=== PATIENT | male | born 1940 | race Caucasian/White ===

== ENCOUNTER 2017-07-07 14:23 | Inpatient (IN) | payer MEDICARE, OTHER, SELFPAY ==
[2017-07-07 14:37] VITALS: BP 108/63; PULSE 97; RESP 18; TEMP 36.4; O2SAT 96; BMI 36.3; BMI 36.4
--- NOTE | 2017-07-07 14:53 | HP.PCM.COS_ITS ---
Addendum entered and electronically signed by Demario Pretty MD 16:59: Code Visit I have personally examined the patient at bedside. Please see WELL LOGGING MUD ANALYSIS CAPTAIN Evelyn Cuenca's note as below for further complete details. I have discussed the management plan for the patient in detail with WELL LOGGING MUD ANALYSIS CAPTAIN Evelyn Cuenca and please see the plan as noted below, 77 CM with PMH HTN, HLD, DM, CAD admitted to [facility] with debility post laminectomy for > 3 hrs therapy daily with a goal of returning back to her home at or near his prior level of functional independence, surgery done on 07/05/[address] Liao at [facility], PT/OT, GI/DVT prophylaxis, fall precautions. Further medical management per hospitalist recommendations. Inpatient E&M: 26092 Init Hosp L3 Original Note: History of Present Illness Date of Admission: 07/07/17 Chief Complaint: Laminectomy The patient is a 77 year old right handed Male, who was admitted to the rehab unit for rehabilitation after undergoing a Laminectomy and revision of L3 -L4, microdiscectomy, and fusion on 07/05/17 at [facility] with Dr. Greg liao, with no complications during or following surgery. Currently he is WBAT with Walker, his incision site has 18 dillan is well approximated, with no drainage is noted, and minimal swelling to the area. He has a past medical history of Diabetes Type II, he is on an oral agents, HPL, HTN, CAD, GERD, Sleep Apnea, not on CPAP (patient refused), DVTs on anticoag therapy which was held prior to the surgery and may be restarted 5 days post surgery which will be on July 11. He lives with his in a one story home with one step to get into the house, and one step to go from the living room to the kitchen. 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 He was using a cane days before the surgery due to increase in pain and discomfort of standing and walking short distances. He is admitted to the rehab unit in order to restore her previous level of functional independence. Past Medical History Allergies No Known Allergies Allergy (Verified 07/29/15 13:42) Home Medications: Ambulatory Orders Medication Instructions Recorded Atorvastatin Calcium [Lipitor] 20 mg PO DAILY 07/29/15 Hydrochlorothiazide [Hctz] 12.5 mg PO DAILY 07/29/15 Lisinopril [Zestril] 20 mg PO DAILY 07/29/15 Acetaminophen [Tylenol Extra 500 mg PO Q4H PRN PRN 07/07/17 Strength] Metformin(XR) [Glucophage Xr] 500 mg PO DAILY 07/07/17 Oxycodone [Oxyir] 5 mg PO Q6H PRN PRN 07/07/17 Rivaroxaban [Xarelto] 20 mg PO DAILY 07/07/17 Surgical History: total hip arthroplasty - Left in 1994, Right x 2 in 1990, & 2000, - - Lumbar spine x 2 in 2005, & 2008 Psychiatric History: No pertinent psych hx Lives: Spouse/ Significant Other Smoking Status: Former smoker Tobacco Use: Pipe - for 20 years, quit 6 years ago Alcohol: None Drugs: None - *Family History Maternal History Items: Heart Disease - age 73 Sibling History Items: Heart Disease - age 53 Review of Systems Constitutional: Denies: Chills, Fever, Weight Change HEENT: Denies: Head Aches, Sinus Congestion, Sinus Drainage Cardiovascular: Denies: Chest Pain, Palpitations Respiratory: Denies: Cough, Shortness of breath at rest, Sputum production Gastrointestinal: Denies: Abdominal Pain, Nausea, Vomiting Genitourinary: Denies: Dysuria Musculoskeletal: Denies: Joint Pain, Joint Tenderness Skin: Denies: Rash, Wounds Neurological: Denies: Numbness, Tingling, Focal weakness Psychiatric: Denies: Anxiety, Depression, Homicidal Ideations, Suicidal Ideations Hematologic/ Lymphatic: Denies: Easy Bruising, Easy Bleeding VTE Information - Inpt Only VTE Present on Admission: No VTE Mechan Device Prophylaxis: SCD's, Knee High JED Hose VTE Pharm Prophylaxis ordered?: Yes - Physical Exam General: Alert, Oriented x3, Cooperative HEENT: Atraumatic, PERRLA, EOMI, Normocephalic Neck: Supple, No JVD, Negative Carotid Bruits Lungs: Clear to auscultation, Normal air movement Cardiovascular: Regular rate, No murmurs Abdomen: Bowel Sounds Present, Soft, Non Tender Extremities: No edema, Capillary Refill Less than 3 Seconds Skin: No rashes, No breakdown Musculoskeletal: No Tenderness to Palpation of Joints or Extremities Neurological: Cranial nerves II-XII grossly intact Psych/Mental Status: Normal Affect, Appropriate, Alert and oriented to time, place, person, mood and affect Vital Signs Temp Pulse Resp BP Pulse Ox 97.6 F L 97 18 108/63 96 07/07/17 14:37 07/07/17 14:37 07/07/17 14:37 07/07/17 14:37 07/07/17 14:37 Oxygen Delivery Method Room Air Weight: 111.8 kg Body Mass Index (BMI) 36.3 Active Medications Acetaminophen (Tylenol) 500 mg PO Q4H PRN PRN PRN Reason: PAIN Atorvastatin Calcium (Lipitor) 20 mg PO DAILY [facility] Bisacodyl (Dulcolax) 10 mg RECTAL .PRN X 1 PRN PRN Reason: Constipation Fentanyl (Duragesic Patch) 25 mcg TRANSDERM. Q3D [facility] Hydrochlorothiazide (Hydrochlorothiazide) 12.5 mg PO DAILY [facility] Insulin Aspart (Novolog Flexpen (Bkc)) 0 units SC ACHS [facility] PRN Reason: Protocol Lisinopril (Zestril) 20 mg PO DAILY [facility] Lorazepam (Ativan) 0.5 mg PO QHS PRN PRN PRN Reason: Insomnia Magnesium Hydroxide (Milk Of Magnesia) 30 ml PO .PRN X 1 PRN PRN Reason: Constipation Metformin HCl (Glucophage Xr) 500 mg PO DAILYCM [facility] Oxycodone HCl (Oxyir) 5 mg PO Q6H PRN PRN PRN Reason: PAIN Polyethylene Glycol (Miralax) 17 gm PO DAILY PRN PRN PRN Reason: Constipation Rivaroxaban (Xarelto) 20 mg PO DAILY [facility] Senna/Docusate Sodium (Senokot-S, Kavitha-Colace) 2 tablet PO BID [facility] Assessment/Plan Debility status post Laminectomy with revision of L 3- L4, Microdiscectomy, and fusion. Goal of rehab is mormon of prior level of functional independence. Plan: - Physical therapy for gait and balance - Occupational Therapy for ADLs - DVT prophylaxis -> SCDs, Jed sam, will restart his home dose of Eliquis on July 11, per surgeon's request. - Bowel protocol - As needed analgesics - Lumbar incision -> C/D/I with 18 dillan, no drainage noted, has ABD pad to site - Hx of DM II -> check A1c, check BS ACHS, continue home dose of Metformin, and start mild S/S scale - Hx of HTN => continue home medication - Hx HPL => continue home dose of Statin - Hx of Thrombo-embolism of lower extremity -> on Eliquis prior to surgery on hold now will restart on July 11 - Obesity -> BMI 36.3, recommend weight loss
--- NOTE | 2017-07-07 15:38 | REHABEVAL_ITS ---
Admission Information Status Changes from Prescreening?: No changes Identified Actual Problem List:: DVT, Mobility Impaired, Self Care Deficit, Diabetes, Hyperglycemia, BP, Hypertension Potential Problem List:: DVT, Bleeding, Infection, UTI, Aspiration, Falls, Skin Integrity, Depression Risk of Complications DVT: LMWH, JED Hose, Sequential Compression Device Bleeding: Monitor Lab Values, Nursing to Teach Precautions for anti-coagulation therapy., Wound, if applicable, to be assessed every shift., Stroke patients assessed for lethargy or change in status. Infection: Clinical Staff to Monitor for S/S of infection:, S/S of infection include fever, redness, warmth, etc. Urinary Tract Infection: Monitor for frequency, burning, discomfort, or incontinence., Nursing will obtain urine sample for urinalysis and C&S when ordered. Aspiration: Clinical staff will monitor for coughing, drooling, congestion., Speech will evaluate swallowing and dsyphasia., Nursing will monitor patient swallowing during meals. Falls: Patient will be evaluated for Fall Precautions, Patient will be placed on Fall Precautions as indicated per protocol. Skin Breakdown: Nursing will assess skin daily using assessment tool., Nursing will place on Skin Breakdown Precautions as indicated. Pain: Clinical staff will assess patient's pain level per protocol., Medications will be given, if needed, and the pain level reassessed., Other methods: Massage, distraction, decrease stimulus, etc. used PRN. Plan of Care Patient requires physician specializing in physical medicine and rehab oversight to provide close medical supervision of rehab issues including: Pain Management, Sleep Problems, Bowel and Bladder, Medical and co-morbidity Management, DVT prophylaxis, Rehabilitation Leadership, Coordination of treatment team Patient needs Physical Therapy: For a minimum of 1 hour, At least 5 out of 7 days Patient needs Physical Therapy to improve:: Mobility, Mobility, Mobility, Strengthening, Transfers, Stretching, ROM, Endurance, Stairs, Gait, Balance Patient needs Occupational Therapy: For a minimum of 1 hour, At least 5 out of 7 days Patient needs Occupational Therapy to improve ADL's incl.: Eating, Grooming, Bathing, Dressing, Toileting, Toilet transfers, Community Reintegration, Higher functioning activities, Household tasks, Adaptive Equipment, Splinting, Other activities as determined Patient requires 24/7 Rehabilitation Nursing for: Pain Issues, Identifying and preventing risk factors, Monitoring and reporting current medical conditions, Assisting with ambulation, transfer, and all ADL's, Teaching patients about disease process and medications, Family teaching, Providing safe environment, Bowel and Bladder Issues, Skin integrity, Medication Management Patient needs Children'S Choir Director/ Case Management for: Discharge Planning, Arranging Home Equipment or Services, Family Interventions Patient needs Dietary and Nutrition Services for: Adequate Nutrition, Nutritional Supplements, Nutritional Education Goals Patient will remain: free from falls, or injury at time of discharge. Patient will perform bed mobility at: MOD I level of assist. Patient will complete transfers from bed to chair at: MOD I level of assist. Patient will ambulate: 100 feet, with MOD I assist, with LRD Patient will complete upper body dressing at: MOD I level of assist. Patient will complete lower body dressing at: MOD I level of assist. Patient will complete toileting at: MOD I level of assist. Patient will perform bathing at: MOD I level of assist. Patient will complete grooming at: MOD I level of assist. Patient will complete home management skills at: MOD I level of assist. Patient will achieve: 12 stairs, at MOD I assist Patient will have pain level of: of 3 or less Patient's skin will: remain intact, free from infection. Patient will receive: adequate nutrition. Discharge Planning Pt Prognosis for Sig. Practical Improv. w/in Reasonable Time: Good Estimated Length of stay (days): 14 Anticipated D/C Destination: Home Was Preadmission Assessment Accurate?: Yes
--- NOTE | 2017-07-07 17:06 | PCM.PROGNOTE ---
Subjective: Patient seen and examined. Recently ambulated in hallway without difficulty. States pain is fairly controlled at this time. Denies GI/ complaints. Denies other current complaints. - Physical Exam General: Alert, Oriented x3, Cooperative HEENT: Atraumatic, PERRLA, EOMI, Normocephalic Neck: Supple, No JVD, Negative Carotid Bruits Lungs: Clear to auscultation, Normal air movement Cardiovascular: Regular rate, Regular Rhythm, Normal S1, Normal S2, No murmurs Abdomen: Bowel Sounds Present, Soft, Non Tender, Non-Distended, Obese Extremities: No clubbing, No cyanosis, No edema, Capillary Refill Less than 3 Seconds Skin: No rashes, No breakdown, - - Postop dressing dry and intact. Musculoskeletal: No Tenderness to Palpation of Joints or Extremities Neurological: Cranial nerves II-XII grossly intact, Neuro grossly intact Psych/Mental Status: Normal Affect, Appropriate Vital Signs Temp Pulse Resp BP Pulse Ox 97.6 F L 97 18 108/63 96 07/07/17 14:37 07/07/17 14:37 07/07/17 14:37 07/07/17 14:37 07/07/17 14:37 Oxygen Delivery Method Room Air Weight: 111.8 kg Body Mass Index (BMI) 36.3 Medical Necessity - Tobacco Use Smoking Status: Former smoker Tobacco Use: Pipe - for 20 years, quit 6 years ago Assessment/Plan Patient is a 77-year-old male admitted to rehab unit 07/07/2017 following recent laminectomy with revision of L3 through L4, microdiscectomy, and fusion on 07/05/2017 at [facility] with Dr. Wolfgang Liao. Patient has a past medical history of type 2 diabetes mellitus, CAD, GERD, history of DVT, obstructive sleep apnea with noncompliance with CPAP, hyperlipidemia, hypertension. 1. Physical debility status post recent laminectomy as noted above-PT/OT. Lumbar incision clean dry and intact. Continue as needed pain regimen and bowel protocol. 2. Type 2 diabetes mellitus-hemoglobin A1c pending. Continue home metformin regimen. Accu-Cheks before meals at bedtime with sliding scale insulin. If patient's hemoglobin A1c shows good control, may discontinue Accu-Cheks and sliding scale insulin. 3. CAD-continue statin. Resume Xarelto 07/11/17. 4. History of DVT-on chronic anticoagulation with Xarelto which will resume on July 11. 5. Obstructive sleep apnea-noncompliant with CPAP. 6. Hypertension-stable, continue home HCTZ, lisinopril. 7. Hyperlipidemia-continue statin. 8. GERD-not on home regimen. 9. Obesity-encouraged diet and lifestyle modifications. DVT prophylaxis-SCDs, resume Xarelto July 11. This patient was seen by SYLVIA Villanueva under the supervision of Dr. Lott.
[2017-07-07 18:20] LABS: Bedside Glucose 181 mg/dL (70-110)
[2017-07-07] MEDS: fentaNYL 25 MCG Patch TRANSDERM. (18:22)
[2017-07-07 19:30] VITALS: BP 113/59; PULSE 95; RESP 18; TEMP 36.8; O2SAT 95
[2017-07-07] MEDS: Senna/Docusate Sodium 1 Tablet 2 TABLET PO (20:00)
[2017-07-07] MEDS: oxyCODONE 5 MG Tablet PO (20:00)
[2017-07-07] MEDS: LORazepam 0.5 MG Tablet PO (22:29)
[2017-07-07 22:31] LABS: Bedside Glucose 151 mg/dL (70-110)
[2017-07-07] MEDS: Acetaminophen 500 MG Tablet PO (22:35)
[2017-07-08 05:39] LABS: Hematocrit 30.7 % (40-54); Hemoglobin 10.3 g/dl (13.0-16.5); Mean Corp Hgb Conc 33.6 g/gl (32-36); Mean Corpuscular Hgb 32.9 pg (27.0-32.0); Mean Corpuscular Volume 98.1 fL (80-94); Mean Platelet Vol. 9.2 fl (6.2-12.0); Platelet Count 148 K/mm3 (150-450); RBC Distribution Width CV 13.3 % (11.6-14.6); RBC Distribution Width SD 47.2 fl (35.1-43.9); Red Blood Count 3.13 M/mm3 (4.6-6.2); White Blood Count 6.2 K/mm3 (4.4-11.0)
[2017-07-08 05:46] LABS: Scan Indicated on CBC? Y/N NO
[2017-07-08 06:01] LABS: ALB/GLOB Ratio 0.8 RATIO (0.9-2.4); AST(SGOT) 30 U/L (15-37); Alanine Aminotransfer ALT/SGPT 25 U/L (16-61); Albumin, Serum 2.6 g/dL (3.2-5.0); Alkaline Phosphatase 64 U/L (45-117); Anion Gap 8 (5-15); BUN 21 mg/dL (7-18); BUN/Creat Ratio 17.6 RATIO (10-20); Calcium,Total 8.5 mg/dL (8.5-10.1); Chloride 103 mmol/L (98-107); Creatinine, Serum 1.19 mg/dL (0.70-1.30); EST Glomerular Filtration Rate 63 mL/min (>60); Est Glom Filt Rate - Afr Amer 77 mL/min (>60); Estimated Creatinine Clearance 53.64 ml/min; Globulin 3.2 g/dL (2.2-4.2); Glucose 138 mg/dL (74-106); Magnesium 1.7 mg/dL (1.6-2.6); Phosphorus 3.1 mg/dL (2.5-4.9); Protein, Total 5.8 g/dL (6.4-8.2); Sodium Level 138 mmol/L (136-145)
[2017-07-08 06:32] VITALS: O2SAT 96
[2017-07-08 07:06] LABS: Bedside Glucose 144 mg/dL (70-110)
[2017-07-08 07:19] LABS: Hemoglobin A1c 7.4 % (4.2-6.3)
[2017-07-08 09:02] VITALS: BP 103/62; PULSE 92; RESP 18; TEMP 36.6; O2SAT 92
[2017-07-08] MEDS: oxyCODONE 5 MG Tablet PO ×3 (09:08→23:57)
[2017-07-08] MEDS: Atorvastatin Calcium 20 MG Tablet PO (09:09)
[2017-07-08] MEDS: Senna/Docusate Sodium 1 Tablet 2 TABLET PO ×2 (09:09→22:00)
[2017-07-08] MEDS: Polyethylene Glycol 3350 17 GM PACKET PO (09:09)
[2017-07-08 10:39] VITALS: BP 123/64
[2017-07-08] MEDS: HYDROCHLOROTHIAZIDE 12.5 MG CAPSULE PO (11:27)
[2017-07-08] MEDS: Lisinopril 20 MG Tablet PO (11:27)
[2017-07-08 11:36] LABS: Bedside Glucose 194 mg/dL (70-110)
--- NOTE | 2017-07-08 17:13 | PCM.PROGNOTE ---
Subjective: Patient was seen and examined today in the rehab unit, he has some complaints of back pain but otherwise he states he is doing well. Patient's blood sugars have been under 200. - Physical Exam General: Alert, Oriented x3, Cooperative, No apparent distress HEENT: Atraumatic, PERRLA, EOMI, Normocephalic Oral: Moist Mucosa Neck: Supple, No JVD, No Nuchal Rigidity, Trachea Midline, Thyroid Normal Size and Texture Lungs: Clear to auscultation, Normal air movement, No rhonchi, No wheeze, No rales Cardiovascular: Regular rate, Regular Rhythm, Normal S1, Normal S2, No murmurs, No Ectopic Activity Abdomen: Bowel Sounds Present, Soft, Non Tender, Non-Distended, No hernias noted Extremities: No clubbing, No cyanosis, Capillary Refill Less than 3 Seconds Skin: No rashes, No breakdown Musculoskeletal: No Tenderness to Palpation of Joints or Extremities Neurological: Cranial nerves II-XII grossly intact, Neuro grossly intact, Sensory exam intact to light touch and pain, Coordination normal Psych/Mental Status: Normal Affect, Appropriate, Alert and oriented to time, place, person, mood and affect Vital Signs Temp Pulse Resp BP Pulse Ox 97.8 F 92 18 123/64 H 92 07/08/17 09:02 07/08/17 09:02 07/08/17 09:02 07/08/17 10:39 07/08/17 09:02 Oxygen Delivery Method Room Air Weight: 111.8 kg Body Mass Index (BMI) 36.3 Intake and Output for Last 24 Hours 07/06/17 07/07/17 07/08/17 23:59 23:59 23:59 Intake Total 240 / 240 480 / 480 Balance 240 / 240 480 / 480 Laboratory Tests Past 24 Hrs 07/08/17 07/08/17 07/08/17 05:18 05:18 05:18 WBC 6.2 RBC 3.13 L Hgb 10.3 L Hct 30.7 L MCV 98.1 H MCH 32.9 H MCHC 33.6 RDW 13.3 RDW Differential 47.2 H Plt Count 148 L MPV 9.2 Sodium 138 Potassium 4.0 Chloride 103 Carbon Dioxide 27.0 Anion Gap 8 BUN 21 H Creatinine 1.19 Estim Creat Clear Calc 53.64 Est GFR (MDRD) Af Amer 77 Est GFR (MDRD) Non-Af 63 BUN/Creatinine Ratio 17.6 Glucose 138 H Hemoglobin A1c 7.4 H Calcium 8.5 Phosphorus 3.1 Magnesium 1.7 Total Bilirubin 0.80 AST 30 ALT 25 Alkaline Phosphatase 64 Total Protein 5.8 L Albumin 2.6 L Globulin 3.2 Albumin/Globulin Ratio 0.8 L POC Glucose 07/08/17 07/08/17 07/07/17 11:28 07:01 22:25 POC Glucose 194 H 144 H 151 H 07/07/17 18:14 POC Glucose 181 H Medical Necessity - Tobacco Use Smoking Status: Former smoker Tobacco Use: Pipe Assessment/Plan #1 type 2 diabetes-patient will continue on his present medication #2 coronary artery disease-stable #3 history of DVT-patient is due to resume his Xarelto in a few days #4 hypertension #5 GERD #6 obstructive sleep apnea #7 status post laminectomy L3-L4 with fusion -continue PT OT Code Visit Inpatient E&M: 87007 Subs Hosp L2
[2017-07-08 17:15] LABS: Bedside Glucose 162 mg/dL (70-110)
[2017-07-08 19:14] VITALS: BP 98/57; PULSE 97; RESP 20; TEMP 36.8; O2SAT 97
[2017-07-08 21:46] LABS: Bedside Glucose 172 mg/dL (70-110)
[2017-07-08] MEDS: LORazepam 0.5 MG Tablet PO (23:17)
[2017-07-09 06:35] LABS: Bedside Glucose 131 mg/dL (70-110)
[2017-07-09] MEDS: Acetaminophen 500 MG Tablet PO (06:37)
[2017-07-09 07:38] VITALS: BP 129/70; PULSE 64; RESP 18; TEMP 36.3; O2SAT 96
[2017-07-09] MEDS: HYDROCHLOROTHIAZIDE 12.5 MG CAPSULE PO (08:55)
[2017-07-09] MEDS: Magnesium Hydroxide 30 ML UDC PO (08:55)
[2017-07-09] MEDS: Senna/Docusate Sodium 1 Tablet 2 TABLET PO ×2 (08:55→22:12)
[2017-07-09] MEDS: Lisinopril 20 MG Tablet PO (08:55)
[2017-07-09] MEDS: Atorvastatin Calcium 20 MG Tablet PO (08:57)
[2017-07-09 11:21] LABS: Bedside Glucose 182 mg/dL (70-110)
[2017-07-09 16:32] VITALS: O2SAT 95
[2017-07-09 17:41] LABS: Bedside Glucose 189 mg/dL (70-110)
[2017-07-09] MEDS: oxyCODONE 5 MG Tablet PO (21:02)
[2017-07-09 21:05] VITALS: BP 126/66; PULSE 84; RESP 18; TEMP 36.8; O2SAT 99
[2017-07-09 21:21] LABS: Bedside Glucose 221 mg/dL (70-110)
[2017-07-09] MEDS: LORazepam 0.5 MG Tablet PO (22:13)
[2017-07-09 22:26] LABS: Bedside Glucose 211 mg/dL (70-110)
[2017-07-10] MEDS: oxyCODONE 5 MG Tablet PO (06:29)
[2017-07-10 06:35] LABS: Bedside Glucose 144 mg/dL (70-110)
[2017-07-10 08:13] VITALS: BP 95/64; PULSE 88; RESP 18; TEMP 36.6; O2SAT 98
[2017-07-10] MEDS: Senna/Docusate Sodium 1 Tablet 2 TABLET PO ×2 (08:15→21:06)
[2017-07-10] MEDS: Atorvastatin Calcium 20 MG Tablet PO (08:15)
[2017-07-10] MEDS: Acetaminophen 500 MG Tablet PO (08:54)
[2017-07-10 10:03] VITALS: BP 113/78; PULSE 98
--- NOTE | 2017-07-10 10:08 | VDLE_ITS ---
Reason For Study: LEG PAIN RIGHT LEFT GSV is normal. GSV is normal. CFV is compressible, spontaneous, phasic, CFV is compressible, spontaneous, phasic, competent and demonstrates normal competent, and demonstrates normal augmentation. augmentation. FV, POP V, and T/P trunk are partially FV is compressible, spontaneous, phasic, compressible with bright intraluminal echoes competent and demonstrates normal consistant with chronic clot. augmentation. PTV is compressible. POP V and T/P trunk are dilated and non- RT PerV is compressible. compressible with mixed intraluminal echoes. Procedure Possible acute on chronic clot. Exam performed portable in patient room. PTV is compressible A preliminary report was called and/or faxed PER V is compressible to RU nurse. GSV is compressible in thigh GSV is dilated and non-compressible in calf. Interpretation Summary Deep venous thrombosis right femoral, popliteal, and tibioperoneal trunk with findings consistent with chronic thrombus. Dilated left popliteal and tibioperoneal trunk consistent with acute deep venous thrombosis, however, echoes are present suggesting a chronic component as well. Patent and compressible right great saphenous vein Superficial thrombophlebitis left calf great saphenous vein. Ordering Physician: Carl Celaya Referring Physician: Michelle Pretty Performed By: Margi Velasco RVT
[2017-07-10] MEDS: HYDROCHLOROTHIAZIDE 12.5 MG CAPSULE PO (10:20)
[2017-07-10] MEDS: Lisinopril 20 MG Tablet PO (10:20)
[2017-07-10 11:45] LABS: Bedside Glucose 158 mg/dL (70-110)
[2017-07-10] MEDS: Acetaminophen 500 MG Tablet 1000 MG PO ×2 (14:00→21:06)
--- NOTE | 2017-07-10 15:44 | CHAPLAIN ---
Type of Pastoral Visit _x__ Initial Visit ___ Follow-up Visit ___ On-call Visit ___ General Patient Visit ___ Spiritual Assessment ___ Family Conference ___ Bereavement ___ Rapid Response ___ Code Blue ___ Other (describe below) Pastoral Care Referral From _x__ Patient ___ Family ___ Nurse ___ Physician ___ [place] Floor ___ Mixer And Blender ___ Other (describe below) Sacrament/Intervention _x__ Active listening ___ Anointing ___ Yarsani ___ Bereavement ___ Communion ___ Judi exploration ___ ___ Life review _x__ Prayer ___ Reconciliation ___ Sacrament of Sick _x__ Supportive presence ___ Wedding ___ Other (describe below) Pastoral Comments
[2017-07-10 16:05] LABS: Bedside Glucose 145 mg/dL (70-110)
[2017-07-10] MEDS: fentaNYL 25 MCG Patch TRANSDERM. (16:27)
--- NOTE | 2017-07-10 16:33 | NURSING ---
when removing duragesic patch and replacing with new one per order, pt states he threw it in the trash and did not realize he needed to keep it on, verified with Tiera Fermin RN and pt. Education provided with pt that patch is only to be removed by nurse when it has to be replaced, voiced understanding.
--- NOTE | 2017-07-10 16:45 | NURSING ---
deep PIPE THREADING MACHINE OPERATOR aware of duplex results, new order to start his previous dose of xeralto 20 mg at hs ok per surgeon to start 5 days post op.
--- NOTE | 2017-07-10 17:06 | PN.NEURO_ITS ---
Subjective: Patient seen and examined. No new complaints.Tolerating therapy. Will re- start his Xarelto, this evening, was held x 5 days post laminectomy per the Neurosurgeon. Has a history of Left DVT. Denies any shortness of breath or chest pain. No issues with GI/. - Physical Exam General: Alert, Oriented x3, Cooperative HEENT: Atraumatic, PERRLA, EOMI, Normocephalic Neck: Supple, No JVD, Negative Carotid Bruits Lungs: Clear to auscultation, Normal air movement Cardiovascular: Regular rate, No murmurs Abdomen: Bowel Sounds Present, Soft, Non Tender Extremities: No edema, Capillary Refill Less than 3 Seconds Skin: No rashes, No breakdown Musculoskeletal: No Tenderness to Palpation of Joints or Extremities Neurological: Cranial nerves II-XII grossly intact Psych/Mental Status: Normal Affect, Appropriate, Alert and oriented to time, place, person, mood and affect Vital Signs Temp Pulse Resp BP Pulse Ox 97.8 F 98 18 113/78 98 07/10/17 08:13 07/10/17 10:03 07/10/17 08:13 07/10/17 10:03 07/10/17 08:13 Oxygen Delivery Method Room Air Weight: 111.8 kg Body Mass Index (BMI) 36.3 Intake and Output for Last 24 Hours 07/08/17 07/09/17 07/10/17 23:59 23:59 23:59 Intake Total 480 / 480 640 / 640 240 / 240 Output Total 525 / 525 300 / 300 Balance 480 / 480 115 / 115 -60 / -60 POC Glucose 07/10/17 07/10/17 07/10/17 16:02 11:40 06:32 POC Glucose 145 H 158 H 144 H 07/09/17 07/09/17 07/09/17 22:11 21:17 16:28 POC Glucose 211 H 221 H 189 H Active Medications Acetaminophen (Tylenol) 1,000 mg PO TID [facility] Last Admin: 07/10/17 14:00 Dose: 1,000 mg Atorvastatin Calcium (Lipitor) 20 mg PO DAILY [facility] Last Admin: 07/10/17 08:15 Dose: 20 mg Bisacodyl (Dulcolax) 10 mg RECTAL .PRN X 1 PRN PRN Reason: Constipation Fentanyl (Duragesic Patch) 25 mcg TRANSDERM. Q3D [facility] Last Admin: 07/10/17 16:27 Dose: 25 mcg Hydrochlorothiazide (Hydrochlorothiazide) 12.5 mg PO DAILY [facility] Last Admin: 07/10/17 10:20 Dose: 12.5 mg Insulin Aspart (Novolog Flexpen (Bkc)) 0 units SC ACHS [facility] PRN Reason: Protocol Last Admin: 07/10/17 16:05 Dose: Not Given Lisinopril (Zestril) 20 mg PO DAILY [facility] Last Admin: 07/10/17 10:20 Dose: 20 mg Lorazepam (Ativan) 0.5 mg PO QHS PRN PRN PRN Reason: Insomnia Last Admin: 07/09/17 22:13 Dose: 0.5 mg Magnesium Hydroxide (Milk Of Magnesia) 30 ml PO .PRN X 1 PRN PRN Reason: Constipation Last Admin: 07/09/17 08:55 Dose: 30 ml [facility] ([facility]) [facility] Last Admin: 07/10/17 08:15 Dose: 500 mg Oxycodone HCl (Oxyir) 5 mg PO Q6H PRN PRN PRN Reason: PAIN Last Admin: 07/10/17 06:29 Dose: 5 mg Polyethylene Glycol (Miralax) 17 gm PO DAILY PRN PRN PRN Reason: Constipation Last Admin: 07/08/17 09:09 Dose: 17 gm Rivaroxaban (Xarelto) 20 mg PO DAILY@2200 [facility] Senna/Docusate Sodium (Senokot-S, Kavitha-Colace) 2 tablet PO BID [facility] Last Admin: 07/10/17 08:15 Dose: 2 tablet Medical Necessity - Tobacco Use Smoking Status: Former smoker Tobacco Use: Pipe Assessment/Plan Debility status post Laminectomy with revision of L 3- L4, Microdiscectomy, and fusion. Goal of rehab is hoahaoism of prior level of functional independence. Plan: - Physical therapy for gait and balance - Occupational Therapy for ADLs - DVT prophylaxis -> SCDs, Miguel Ángel sam, will restart his home dose of Eliquis on July 11, per surgeon's request. - Bowel protocol - As needed analgesics - Lumbar incision -> C/D/I with 18 dillan, no drainage noted, has ABD pad to site - Hx of DM II -> check A1c, check BS ACHS, continue home dose of Metformin, and start mild S/S scale - Hx of HTN => continue home medication - Hx HPL => continue home dose of Statin - Hx of Thrombo-embolism of lower extremity -> on Xarelto prior to surgery on hold now will restart on 07/10 at [facility] - Obesity -> BMI 36.3, recommend weight loss - B/L lower extremity Doppler, shows chronic left DVT, was on Xarelto prior to Laminectomy will restart tonight 07/10.
--- NOTE | 2017-07-10 17:12 | PN_ITS ---
Subjective: some back pain, but tolerable. some itching at the surgical site. Vitals/I&O's: Vital Signs Temp Pulse Resp BP Pulse Ox 36.6 C 98 18 113/78 98 07/10/17 08:13 07/10/17 10:03 07/10/17 08:13 07/10/17 10:03 07/10/17 08:13 Oxygen Delivery Method Room Air Weight: 111.8 kg Body Mass Index (BMI) 36.3 Intake and Output for Last 24 Hours 07/08/17 07/09/17 07/10/17 23:59 23:59 23:59 Intake Total 480 / 480 640 / 640 240 / 240 Output Total 525 / 525 300 / 300 Balance 480 / 480 115 / 115 -60 / -60 General: Alert, No apparent distress HEENT: Atraumatic, Normocephalic Laboratory Results 07/09/17 16:28: POC Glucose 189 H 07/09/17 21:17: POC Glucose 221 H 07/09/17 22:11: POC Glucose 211 H 07/10/17 06:32: POC Glucose 144 H 07/10/17 11:40: POC Glucose 158 H 07/10/17 16:02: POC Glucose 145 H Current Medications Acetaminophen (Tylenol) 1,000 mg PO TID [facility] Last Admin: 07/10/17 14:00 Dose: 1,000 mg Atorvastatin Calcium (Lipitor) 20 mg PO DAILY [facility] Last Admin: 07/10/17 08:15 Dose: 20 mg Bisacodyl (Dulcolax) 10 mg RECTAL .PRN X 1 PRN PRN Reason: Constipation Fentanyl (Duragesic Patch) 25 mcg TRANSDERM. Q3D [facility] Last Admin: 07/10/17 16:27 Dose: 25 mcg Hydrochlorothiazide (Hydrochlorothiazide) 12.5 mg PO DAILY [facility] Last Admin: 07/10/17 10:20 Dose: 12.5 mg Insulin Aspart (Novolog Flexpen (Bkc)) 0 units SC ACHS [facility] PRN Reason: Protocol Last Admin: 07/10/17 16:05 Dose: Not Given Lisinopril (Zestril) 20 mg PO DAILY [facility] Last Admin: 07/10/17 10:20 Dose: 20 mg Lorazepam (Ativan) 0.5 mg PO QHS PRN PRN PRN Reason: Insomnia Last Admin: 07/09/17 22:13 Dose: 0.5 mg Magnesium Hydroxide (Milk Of Magnesia) 30 ml PO .PRN X 1 PRN PRN Reason: Constipation Last Admin: 07/09/17 08:55 Dose: 30 ml Metformin HCl (Glucophage Xr) 500 mg PO DAILYCM [facility] Last Admin: 07/10/17 08:15 Dose: 500 mg Oxycodone HCl (Oxyir) 5 mg PO Q6H PRN PRN PRN Reason: PAIN Last Admin: 07/10/17 06:29 Dose: 5 mg Polyethylene Glycol (Miralax) 17 gm PO DAILY PRN PRN PRN Reason: Constipation Last Admin: 07/08/17 09:09 Dose: 17 gm Rivaroxaban (Xarelto) 20 mg PO DAILY@2200 [facility] Senna/Docusate Sodium (Senokot-S, Kavitha-Colace) 2 tablet PO BID [facility] Last Admin: 07/10/17 08:15 Dose: 2 tablet Medical Necessity - Tobacco Use Smoking Status: Former smoker Tobacco Use: Pipe Assessment/Plan 1. Post-op laminectomy * rehab * f/u with Dr. Liao as outpt 2. VTE: * resume OAC on 07/11 Code Visit Inpatient E&M: 20253 Subs Hosp L1
[2017-07-10 19:54] VITALS: BP 110/66; PULSE 83; RESP 17; TEMP 36.3; O2SAT 95
[2017-07-10] MEDS: Rivaroxaban 20 MG Tablet PO (21:07)
[2017-07-10] MEDS: LORazepam 0.5 MG Tablet PO (21:12)
[2017-07-10 21:15] LABS: Bedside Glucose 145 mg/dL (70-110)
[2017-07-11] MEDS: Acetaminophen 500 MG Tablet 1000 MG PO ×3 (06:03→21:22)
[2017-07-11 07:32] VITALS: O2SAT 93
[2017-07-11 07:41] LABS: Bedside Glucose 163 mg/dL (70-110)
[2017-07-11 07:54] VITALS: BP 114/85; PULSE 100; RESP 16; TEMP 36.6; O2SAT 96
--- NOTE | 2017-07-11 08:15 | NURSING ---
duragesic patch intact to left arm.
[2017-07-11] MEDS: HYDROCHLOROTHIAZIDE 12.5 MG CAPSULE PO (08:16)
[2017-07-11] MEDS: Lisinopril 20 MG Tablet PO (08:16)
[2017-07-11] MEDS: Atorvastatin Calcium 20 MG Tablet PO (08:17)
[2017-07-11 11:25] LABS: Bedside Glucose 151 mg/dL (70-110)
[2017-07-11] MEDS: oxyCODONE 5 MG Tablet PO ×2 (15:12→21:32)
[2017-07-11 16:45] LABS: Bedside Glucose 138 mg/dL (70-110)
[2017-07-11 19:25] VITALS: BP 106/65; PULSE 84; RESP 16; TEMP 36.6; O2SAT 100
[2017-07-11] MEDS: Rivaroxaban 20 MG Tablet PO (21:22)
[2017-07-11] MEDS: Senna/Docusate Sodium 1 Tablet 2 TABLET PO (21:23)
[2017-07-11 21:30] LABS: Bedside Glucose 229 mg/dL (70-110)
[2017-07-12] MEDS: Acetaminophen 500 MG Tablet 1000 MG PO ×3 (05:36→21:12)
[2017-07-12 06:35] LABS: Bedside Glucose 138 mg/dL (70-110)
[2017-07-12] MEDS: oxyCODONE 5 MG Tablet PO (06:36)
[2017-07-12 07:41] VITALS: BP 111/67; PULSE 76; RESP 17; TEMP 36.4; O2SAT 96
[2017-07-12] MEDS: Senna/Docusate Sodium 1 Tablet 2 TABLET PO (07:56)
[2017-07-12] MEDS: HYDROCHLOROTHIAZIDE 12.5 MG CAPSULE PO (07:56)
[2017-07-12] MEDS: Lisinopril 20 MG Tablet PO (07:56)
[2017-07-12] MEDS: Atorvastatin Calcium 20 MG Tablet PO (07:56)
--- NOTE | 2017-07-12 10:40 | PCM.PN.NEU ---
Subjective: Patient seen and examined. No new complaints. Tolerating therapy. Denies any shortness of breath, or chest pains. Incision site is C/D/I, no swelling or redness noted along incision line, incision is well approximated. He still has some itching around the area, site is healing nicely. - Physical Exam General: Alert, Oriented x3, Cooperative HEENT: Atraumatic, PERRLA, EOMI, Normocephalic Neck: Supple, No JVD, Negative Carotid Bruits Lungs: Clear to auscultation, Normal air movement Cardiovascular: Regular rate, No murmurs Abdomen: Bowel Sounds Present, Soft, Non Tender Extremities: No edema, Capillary Refill Less than 3 Seconds Skin: No rashes, No breakdown Musculoskeletal: No Tenderness to Palpation of Joints or Extremities Neurological: Cranial nerves II-XII grossly intact Psych/Mental Status: Normal Affect, Appropriate, Alert and oriented to time, place, person, mood and affect Vital Signs Temp Pulse Resp BP Pulse Ox 97.5 F L 76 17 111/67 96 07/12/17 07:41 07/12/17 07:41 07/12/17 07:41 07/12/17 07:41 07/12/17 07:41 Oxygen Delivery Method Room Air Weight: 111.4 kg Body Mass Index (BMI) 36.3 Intake and Output for Last 24 Hours 07/10/17 07/11/17 07/12/17 23:59 23:59 23:59 Intake Total 240 / 240 460 / 460 320 / 320 Output Total 300 / 300 Balance -60 / -60 460 / 460 320 / 320 POC Glucose 07/12/17 07/11/17 07/11/17 06:31 21:20 16:38 POC Glucose 138 H 229 H 138 H 07/11/17 11:20 POC Glucose 151 H Active Medications Acetaminophen (Tylenol) 1,000 mg PO TID [facility] Last Admin: 07/12/17 05:36 Dose: 1,000 mg Atorvastatin Calcium (Lipitor) 20 mg PO DAILY [facility] Last Admin: 07/12/17 07:56 Dose: 20 mg Bisacodyl (Dulcolax) 10 mg RECTAL .PRN X 1 PRN PRN Reason: Constipation Fentanyl (Duragesic Patch) 25 mcg TRANSDERM. Q3D [facility] Last Admin: 07/10/17 16:27 Dose: 25 mcg Hydrochlorothiazide (Hydrochlorothiazide) 12.5 mg PO DAILY [facility] Last Admin: 07/12/17 07:56 Dose: 12.5 mg Insulin Aspart (Novolog Flexpen (Bkc)) 0 units SC ACHS [facility] PRN Reason: Protocol Last Admin: 07/12/17 07:31 Dose: Not Given Lisinopril (Zestril) 20 mg PO DAILY [facility] Last Admin: 07/12/17 07:56 Dose: 20 mg Lorazepam (Ativan) 0.5 mg PO QHS PRN PRN PRN Reason: Insomnia Last Admin: 07/10/17 21:12 Dose: 0.5 mg Magnesium Hydroxide (Milk Of Magnesia) 30 ml PO .PRN X 1 PRN PRN Reason: Constipation Last Admin: 07/09/17 08:55 Dose: 30 ml [facility]) [facility] Last Admin: 07/12/17 07:56 Dose: 500 mg Oxycodone HCl (Oxyir) 5 mg PO Q6H PRN PRN PRN Reason: PAIN Last Admin: 07/12/17 06:36 Dose: 5 mg Polyethylene Glycol (Miralax) 17 gm PO DAILY PRN PRN PRN Reason: Constipation Last Admin: 07/08/17 09:09 Dose: 17 gm Rivaroxaban (Xarelto) 20 mg PO DAILY@2200 [facility] Last Admin: 07/11/17 21:22 Dose: 20 mg Senna/Docusate Sodium (Senokot-S, Kavitha-Colace) 2 tablet PO BID [facility] Last Admin: 07/12/17 07:56 Dose: 1 tablet Medical Necessity - Tobacco Use Smoking Status: Former smoker Tobacco Use: Pipe Assessment/Plan Debility status post Laminectomy with revision of L 3- L4, Microdiscectomy, and fusion. Goal of rehab is nondenominational of prior level of functional independence. Plan: - Physical therapy for gait and balance - Occupational Therapy for ADLs - DVT prophylaxis -> SCDs, Miguel Ángel sam, will restart his home dose of Eliquis on July 11, per surgeon's request. - Bowel protocol - As needed analgesics - Lumbar incision -> C/D/I with 18 dillan, no drainage noted, has ABD pad to site - Hx of DM II -> check A1c, check BS ACHS, continue home dose of Metformin, and start mild S/S scale - Hx of HTN => continue home medication - Hx HPL => continue home dose of Statin - Hx of Thrombo-embolism of lower extremity -> on Xarelto prior to surgery on hold now will restart on 07/10 at HS - Obesity -> BMI 36.3, recommend weight loss - B/L lower extremity Doppler, shows chronic left DVT, was on Xarelto prior to Laminectomy will restart tonight 07/10.
--- NOTE | 2017-07-12 10:46 | PN.NEURO_ITS ---
Subjective: Patient seen and examined. No new complaints. Tolerating therapy. Denies any shortness of breath, or chest pains. Incision site is C/D/I, no swelling or redness noted along incision line, incision is well approximated. He still has some itching around the area, site is healing nicely. - Physical Exam General: Alert, Oriented x3, Cooperative HEENT: Atraumatic, PERRLA, EOMI, Normocephalic Neck: Supple, No JVD, Negative Carotid Bruits Lungs: Clear to auscultation, Normal air movement Cardiovascular: Regular rate, No murmurs Abdomen: Bowel Sounds Present, Soft, Non Tender Extremities: No edema, Capillary Refill Less than 3 Seconds Skin: No rashes, No breakdown Musculoskeletal: No Tenderness to Palpation of Joints or Extremities Neurological: Cranial nerves II-XII grossly intact Psych/Mental Status: Normal Affect, Appropriate, Alert and oriented to time, place, person, mood and affect Vital Signs Temp Pulse Resp BP Pulse Ox 97.5 F L 76 17 111/67 96 07/12/17 07:41 07/12/17 07:41 07/12/17 07:41 07/12/17 07:41 07/12/17 07:41 Oxygen Delivery Method Room Air Weight: 111.4 kg Body Mass Index (BMI) 36.3 Intake and Output for Last 24 Hours 07/10/17 07/11/17 07/12/17 23:59 23:59 23:59 Intake Total 240 / 240 460 / 460 320 / 320 Output Total 300 / 300 Balance -60 / -60 460 / 460 320 / 320 POC Glucose 07/12/17 07/11/17 07/11/17 06:31 21:20 16:38 POC Glucose 138 H 229 H 138 H 07/11/17 11:20 POC Glucose 151 H Active Medications Acetaminophen (Tylenol) 1,000 mg PO TID [facility] Last Admin: 07/12/17 05:36 Dose: 1,000 mg Atorvastatin Calcium (Lipitor) 20 mg PO DAILY [facility] Last Admin: 07/12/17 07:56 Dose: 20 mg Bisacodyl (Dulcolax) 10 mg RECTAL .PRN X 1 PRN PRN Reason: Constipation Fentanyl (Duragesic Patch) 25 mcg TRANSDERM. Q3D [facility] Last Admin: 07/10/17 16:27 Dose: 25 mcg Hydrochlorothiazide (Hydrochlorothiazide) 12.5 mg PO DAILY [facility] Last Admin: 07/12/17 07:56 Dose: 12.5 mg Insulin Aspart (Novolog Flexpen (Bkc)) 0 units SC ACHS [facility] PRN Reason: Protocol Last Admin: 07/12/17 07:31 Dose: Not Given Lisinopril (Zestril) 20 mg PO DAILY [facility] Last Admin: 07/12/17 07:56 Dose: 20 mg Lorazepam (Ativan) 0.5 mg PO QHS PRN PRN PRN Reason: Insomnia Last Admin: 07/10/17 21:12 Dose: 0.5 mg Magnesium Hydroxide (Milk Of Magnesia) 30 ml PO .PRN X 1 PRN PRN Reason: Constipation Last Admin: 07/09/17 08:55 Dose: 30 ml Metformin [facility] ([facility]) [facility] Last Admin: 07/12/17 07:56 Dose: 500 mg Oxycodone HCl (Oxyir) 5 mg PO Q6H PRN PRN PRN Reason: PAIN Last Admin: 07/12/17 06:36 Dose: 5 mg Polyethylene Glycol (Miralax) 17 gm PO DAILY PRN PRN PRN Reason: Constipation Last Admin: 07/08/17 09:09 Dose: 17 gm Rivaroxaban (Xarelto) 20 mg PO DAILY@2200 [facility] Last Admin: 07/11/17 21:22 Dose: 20 mg Senna/Docusate Sodium (Senokot-S, Kavitha-Colace) 2 tablet PO BID [facility] Last Admin: 07/12/17 07:56 Dose: 1 tablet Medical Necessity - Tobacco Use Smoking Status: Former smoker Tobacco Use: Pipe Assessment/Plan Debility status post Laminectomy with revision of L 3- L4, Microdiscectomy, and fusion. Goal of rehab is christian of prior level of functional independence. Plan: - Physical therapy for gait and balance - Occupational Therapy for ADLs - DVT prophylaxis -> SCDs, Miguel Ángel sam, will restart his home dose of Eliquis on July 11, per surgeon's request. - Bowel protocol - As needed analgesics - Lumbar incision -> C/D/I with 18 dillan, no drainage noted, has ABD pad to site - Hx of DM II -> check A1c, check BS ACHS, continue home dose of Metformin, and start mild S/S scale - Hx of HTN => continue home medication - Hx HPL => continue home dose of Statin - Hx of Thrombo-embolism of lower extremity -> on Xarelto prior to surgery on hold now will restart on 07/10 at HS - Obesity -> BMI 36.3, recommend weight loss - B/L lower extremity Doppler, shows chronic left DVT, was on Xarelto prior to Laminectomy will restart tonight 07/10.
[2017-07-12 11:51] LABS: Bedside Glucose 146 mg/dL (70-110)
[2017-07-12 16:55] LABS: Bedside Glucose 184 mg/dL (70-110)
[2017-07-12 19:09] VITALS: BP 101/70; PULSE 90; RESP 16; TEMP 36.6; O2SAT 97
[2017-07-12] MEDS: Rivaroxaban 20 MG Tablet PO (21:12)
[2017-07-12 21:20] LABS: Bedside Glucose 141 mg/dL (70-110)
[2017-07-13] MEDS: Acetaminophen 500 MG Tablet 1000 MG PO ×3 (06:11→21:49)
[2017-07-13 06:25] LABS: Bedside Glucose 134 mg/dL (70-110)
[2017-07-13 07:59] VITALS: BP 109/64; PULSE 93; RESP 16; TEMP 36.7; O2SAT 96
[2017-07-13] MEDS: Lisinopril 20 MG Tablet PO (08:01)
[2017-07-13] MEDS: HYDROCHLOROTHIAZIDE 12.5 MG CAPSULE PO (08:01)
[2017-07-13] MEDS: Atorvastatin Calcium 20 MG Tablet PO (08:01)
[2017-07-13] MEDS: Senna/Docusate Sodium 1 Tablet 2 TABLET PO (08:02)
--- NOTE | 2017-07-13 10:13 | PCM.PN.NEU ---
Subjective: Staffed in team meeting. Family was not at bedside. Questions answered. With Physical therapy, he is able to get out of bed on his own, but requires minimal assist to get his legs into the bed. He is able to walk community distances of greater than 350 feet, with a walker at stand by assist. He is able to go up a flight of stairs using both hand rails, at stand by assist. With Occupational therapy, he is stand by assist for bathing and getting dressed. He requires minimal assist to wash his feet and put on his socks and shoes. They will re-enforce use of the inspector packer and sock aide. With toileting he requires stand by to moderate assist at times with getting off the toilet, he is able to do his own toileting hygiene. With Nursing, his dillan are still in place he has a follow up appointment with his surgeon Dr. Liao on July 20 at which time they will most likely remove his dillan. His incision is well approximated, C/D/I. His pain is well controlled on his current medications. The plan is for discharge on Sunday 07/16 to home with his surgeon dictating when he may start outpatient physical therapy. - Physical Exam General: Alert, Oriented x3, Cooperative HEENT: Atraumatic, PERRLA, EOMI, Normocephalic Neck: Supple, No JVD, Negative Carotid Bruits Lungs: Clear to auscultation, Normal air movement Cardiovascular: Regular rate, No murmurs Abdomen: Bowel Sounds Present, Soft, Non Tender Extremities: No edema, Capillary Refill Less than 3 Seconds Skin: No rashes, No breakdown Musculoskeletal: No Tenderness to Palpation of Joints or Extremities Neurological: Cranial nerves II-XII grossly intact Psych/Mental Status: Normal Affect, Appropriate, Alert and oriented to time, place, person, mood and affect Vital Signs Temp Pulse Resp BP Pulse Ox 98.0 F 93 16 109/64 96 07/13/17 07:59 07/13/17 07:59 07/13/17 07:59 07/13/17 07:59 07/13/17 07:59 Oxygen Delivery Method Room Air Weight: 111.4 kg Body Mass Index (BMI) 36.3 Intake and Output for Last 24 Hours 07/11/17 07/12/17 07/13/17 23:59 23:59 23:59 Intake Total 460 / 460 1060 / 1060 Balance 460 / 460 1060 / 1060 POC Glucose 07/13/17 07/12/17 07/12/17 06:20 21:10 16:53 POC Glucose 134 H 141 H 184 H 07/12/17 11:48 POC Glucose 146 H Active Medications Acetaminophen (Tylenol) 1,000 mg PO TID [facility] Last Admin: 07/13/17 06:11 Dose: 1,000 mg Atorvastatin Calcium (Lipitor) 20 mg PO DAILY [facility] Last Admin: 07/13/17 08:01 Dose: 20 mg Bisacodyl (Dulcolax) 10 mg RECTAL .PRN X 1 PRN PRN Reason: Constipation Fentanyl (Duragesic Patch) 25 mcg TRANSDERM. Q3D [facility] Last Admin: 07/10/17 16:27 Dose: 25 mcg Hydrochlorothiazide (Hydrochlorothiazide) 12.5 mg PO DAILY [facility] Last Admin: 07/13/17 08:01 Dose: 12.5 mg Insulin Aspart (Novolog Flexpen (Bkc)) 0 units SC ACHS [facility] PRN Reason: Protocol Last Admin: 07/13/17 06:21 Dose: Not Given Lisinopril (Zestril) 20 mg PO DAILY [facility] Last Admin: 07/13/17 08:01 Dose: 20 mg Lorazepam (Ativan) 0.5 mg PO QHS PRN PRN PRN Reason: Insomnia Last Admin: 07/10/17 21:12 Dose: 0.5 mg Magnesium Hydroxide (Milk Of Magnesia) 30 ml PO .PRN X 1 PRN PRN Reason: Constipation Last Admin: 07/09/17 08:55 Dose: 30 ml Metformin [facility] ([facility]) [facility] Last Admin: 07/13/17 08:01 Dose: 500 mg Oxycodone HCl (Oxyir) 5 mg PO Q6H PRN PRN PRN Reason: PAIN Last Admin: 07/12/17 06:36 Dose: 5 mg Polyethylene Glycol (Miralax) 17 gm PO DAILY PRN PRN PRN Reason: Constipation Last Admin: 07/08/17 09:09 Dose: 17 gm Rivaroxaban (Xarelto) 20 mg PO DAILY@2200 [facility] Last Admin: 07/12/17 21:12 Dose: 20 mg Senna/Docusate Sodium (Senokot-S, Kavitha-Colace) 2 tablet PO BID [facility] Last Admin: 07/13/17 08:02 Dose: 1 tablet Medical Necessity - Tobacco Use Smoking Status: Former smoker Tobacco Use: Pipe Assessment/Plan Debility status post Laminectomy with revision of L 3- L4, Microdiscectomy, and fusion. Goal of rehab is lutheran of prior level of functional independence. Plan: - Physical therapy for gait and balance - Occupational Therapy for ADLs - DVT prophylaxis -> SCDs, Miguel Ángel sam, will restart his home dose of Eliquis on July 11, per surgeon's request. - Bowel protocol - As needed analgesics - Lumbar incision -> C/D/I with 18 dillan, no drainage noted, has ABD pad to site - Hx of DM II -> check A1c, check BS ACHS, continue home dose of Metformin, and start mild S/S scale - Hx of HTN => continue home medication - Hx HPL => continue home dose of Statin - Hx of Thrombo-embolism of lower extremity -> on Xarelto prior to surgery on hold now will restart on 07/10 at - Obesity -> BMI 36.3, recommend weight loss - B/L lower extremity Doppler, shows chronic left DVT, was on Xarelto prior to Laminectomy will restart tonight 07/10. - Plan is discharge home on Sunday 07/16, with follow up with surgeon on 07/20
--- NOTE | 2017-07-13 11:07 | CASEMGMT ---
Team meeting held. Patient present, no support person present. Patient declining for this director social welfare to contact patient support person about team meeting. Patient plans to discharge home with spouse at time of discharge. Patient requesting for discharge date to be set for 07/16/17. Team is agreeable to discharge date. Physical therapy recommending for patient to have outpatient physical therapy at time of discharge. Patient is agreeable to physical therapy recommendation and requesting for outpatient physical therapy to be set up through [facility]. Patient aware that order will be faxed to [facility] and then [facility] will contact patient to set up appointment. Patient family to provide transportation home for patient. Patient reporting to need a front wheeled walker as well. Patient does not have a preference of [employer] equipment [employer], [employer] to be utilized. Support given. Order for outpatient physical therapy faxed to [facility]. Order for walker to be faxed to [employer] when obtained. Proposed discharge date: 07/16/17 PLAN: Discharge home with spouse and outpatient physical therapy. Mary TAYLOR, BOARDING HOUSE COOK
[2017-07-13 11:55] LABS: Bedside Glucose 163 mg/dL (70-110)
--- NOTE | 2017-07-13 14:27 | CASEMGMT ---
Social Work Order for front wheeled walker faxed to [facility] to deliver walker to patient room prior to discharge. Proposed discharge date: 07/16/17 PLAN: Discharge home with spouse and outpatient physical therapy. Mary TAYLOR, ENTERTAINMENT CENTRE MANAGER
[2017-07-13] MEDS: fentaNYL 25 MCG Patch TRANSDERM. (16:18)
[2017-07-13 16:26] LABS: Bedside Glucose 150 mg/dL (70-110)
[2017-07-13 20:18] VITALS: BP 102/71; PULSE 86; RESP 18; TEMP 36.6
[2017-07-13] MEDS: Rivaroxaban 20 MG Tablet PO (21:51)
[2017-07-13] MEDS: LORazepam 0.5 MG Tablet PO (21:58)
[2017-07-13 22:10] LABS: Bedside Glucose 173 mg/dL (70-110)
[2017-07-14 06:36] LABS: Bedside Glucose 138 mg/dL (70-110)
[2017-07-14] MEDS: Acetaminophen 500 MG Tablet 1000 MG PO ×3 (06:38→21:45)
[2017-07-14] MEDS: HYDROCHLOROTHIAZIDE 12.5 MG CAPSULE PO (07:49)
[2017-07-14] MEDS: Lisinopril 20 MG Tablet PO (07:49)
[2017-07-14] MEDS: Atorvastatin Calcium 20 MG Tablet PO (07:49)
[2017-07-14 08:30] VITALS: BP 111/61; PULSE 80; RESP 16; TEMP 36.9; O2SAT 97
[2017-07-14 11:50] LABS: Bedside Glucose 142 mg/dL (70-110)
--- NOTE | 2017-07-14 13:25 | DCINST_ITS ---
- Discharge Diagnoses Reason(s) for Visit for Discharge Instructions: Laminectomy You will use the following diet at home:: Calorie/Carbohydrate Controlled ( specify 1200, 1400, etc) Your food should be the consistency of: Regular Your liquids should be the consistency of: Regular/Thin Discharge Activity: May Not Drive - until cleared by Back surgeon, May not drive while taking narcotic pain medications., May Shower, Use Walker, - - Do not soak in a tub bath untill clear by surgeon Weight Bearing Status: Weight bearing as tolerated Call your doctor if your incision/area has: Increased Pain/ Swelling, Increased Redness, Foul Smelling Discharge, Swelling at the incision site Call your doctor if you observe: Fever of 101 or Higher, Coldness, Increased Pain, Numbness or Tingling, Change in Color, Inability to urinate, Inability to have a bowel movement, Using more than one pad per hour, Shortness of breath, Dizziness, Fainting spells, Swelling in the ankles, Chest pain, Prolonged hiccoughing, Increased palpitations (irregular heartbeat), Calf discomfort, Uncontrolled pain Allergies/Adverse Reactions: Allergies No Known Allergies Allergy (Verified 07/29/15 13:42) Medications to take at Discharge Atorvastatin Calcium [Lipitor] 20 mg PO DAILY 07/29/15 Hydrochlorothiazide [Hctz] 12.5 mg PO DAILY 07/29/15 Lisinopril [Zestril] 20 mg PO DAILY 07/29/15 Acetaminophen [Tylenol Extra Strength] 500 mg PO Q4H PRN PRN 07/07/17 Metformin(XR) [Glucophage Xr] 500 mg PO DAILY 07/07/17 Rivaroxaban [Xarelto] 20 mg PO DAILY 07/07/17 Acetaminophen [Tylenol] 1,000 mg PO TID tablet 07/14/17 Oxycodone [Oxyir] 5 mg PO Q6H PRN PRN #42 tab 07/14/17 The following prescriptions were given: Oxycodone [Oxyir] 5 mg PO Q6H PRN PRN #42 tab PRN Reason: Pain Please Follow Up With: Jose Miguel Rojas (PCP) Please Follow Up With: Elza Nair for Greg Liao Proposed Discharge Date: 07/16/17
--- NOTE | 2017-07-14 13:25 | PCM.RU.DC ---
Rehab Discharge Summary DATE OF ADMISSION: 07/07/17 DATE OF DISCHARGE: 07/16/17 - Rehab Diagnosis Laminectomy Discharge Diet: 2200 Calorie Control Diet Discharge Activity: May Not Drive, May not drive while taking narcotic pain medications., May Shower, Use Walker, - - not soak in tub bath until cleared by surgeon Weight Bearing Status: Weight bearing as tolerated Call your doctor if your incision/area has: Increased Pain/ Swelling, Increased Redness, Foul Smelling Discharge, Swelling at the incision site Call your doctor if you observe: Fever of 101 or Higher, Coldness, Increased Pain, Numbness or Tingling, Change in Color, Inability to urinate, Inability to have a bowel movement, Using more than one pad per hour, Shortness of breath, Dizziness, Fainting spells, Swelling in the ankles, Chest pain, Prolonged hiccoughing, Increased palpitations (irregular heartbeat), Calf discomfort, Uncontrolled pain Home Medications: Medications to take at Discharge Atorvastatin Calcium [Lipitor] 20 mg PO DAILY 07/29/15 Hydrochlorothiazide [Hctz] 12.5 mg PO DAILY 07/29/15 Lisinopril [Zestril] 20 mg PO DAILY 07/29/15 Acetaminophen [Tylenol Extra Strength] 500 mg PO Q4H PRN PRN 07/07/17 Metformin(XR) [Glucophage Xr] 500 mg PO DAILY 07/07/17 Rivaroxaban [Xarelto] 20 mg PO DAILY 07/07/17 Acetaminophen [Tylenol] 1,000 mg PO TID tablet 07/14/17 Oxycodone [Oxyir] 5 mg PO Q6H PRN PRN #42 tab 07/14/17 Following Prescrptions Were Given to Patient: Oxycodone [Oxyir] 5 mg PO Q6H PRN PRN #42 tab PRN Reason: Pain Please Follow Up With: Jose Miguel Rojas (PCP) Please Follow Up With: Elza Nair for Greg Liao Disposition: Home Minutes spent on discharge:: 40 Patient Condition:: Good Rehab Course The patient is a 77 year old right handed Male, who was admitted to the rehab unit for rehabilitation after undergoing a Laminectomy and revision of L3 -L4, microdiscectomy, and fusion on 07/05/[address] [facility] with Dr. Greg liao, with no complications during or following surgery. Currently he is WBAT with Walker, his incision site has 18 dillan is well approximated, with no drainage is noted, and minimal swelling to the area. He has a past medical history of Diabetes Type II, he is on an oral agents, HPL, HTN, CAD, GERD, Sleep Apnea, not on CPAP (patient refused), DVTs on anticoagulation therapy which was held prior to the surgery and may be restarted 5 days post surgery which will be on July 11. He lives with his in a one story home with one step to get into the house, and one step to go from the living room to the kitchen. 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 He was using a cane days before the surgery due to increase in pain and discomfort of standing and walking short distances. He is admitted to the rehab unit in order to restore her previous level of functional independence. With Physical therapy, he is able to get out of bed on his own, but requires minimal assist to get his legs into the bed. He is able to walk community distances of greater than 350 feet, with a walker at stand by assist. He is able to go up a flight of stairs using both hand rails, at stand by assist. With Occupational therapy, he is stand by assist for bathing and getting dressed. He requires minimal assist to wash his feet and put on his socks and shoes. They will re-enforce use of the gravity flow irrigator and sock aide. With toileting he requires stand by to moderate assist at times with getting off the toilet, he is able to do his own toileting hygiene. With Nursing, his dillan are still in place he has a follow up appointment with his surgeon Dr. Liao on July 20 at which time they will most likely remove his dillan. His incision is well approximated, C/D/I. His pain is well controlled on his current medications. The plan is for discharge on Sunday 07/16 to home with his surgeon dictating when he may start outpatient physical therapy. Meaningful Use Info Meaningful Use Diagnoses (Choose all that apply): None applicable
[2017-07-14 16:10] LABS: Bedside Glucose 177 mg/dL (70-110)
[2017-07-14 20:36] VITALS: BP 97/68; PULSE 82; RESP 18; TEMP 37
[2017-07-14] MEDS: Senna/Docusate Sodium 1 Tablet 2 TABLET PO (21:45)
[2017-07-14] MEDS: Rivaroxaban 20 MG Tablet PO (21:45)
[2017-07-14] MEDS: LORazepam 0.5 MG Tablet PO (21:46)
[2017-07-14 21:56] LABS: Bedside Glucose 156 mg/dL (70-110)
--- NOTE | 2017-07-15 06:14 | NURSING ---
Reviewed and agree with LPNs fims and handoff
[2017-07-15] MEDS: Acetaminophen 500 MG Tablet 1000 MG PO ×3 (06:24→20:02)
[2017-07-15 06:46] LABS: Bedside Glucose 125 mg/dL (70-110)
[2017-07-15 10:00] VITALS: BP 135/91; PULSE 84; RESP 18; TEMP 36.4; O2SAT 97
[2017-07-15] MEDS: HYDROCHLOROTHIAZIDE 12.5 MG CAPSULE PO (10:24)
[2017-07-15] MEDS: Atorvastatin Calcium 20 MG Tablet PO (10:24)
[2017-07-15] MEDS: Lisinopril 20 MG Tablet PO (11:10)
[2017-07-15 12:06] LABS: Bedside Glucose 134 mg/dL (70-110)
[2017-07-15 16:21] LABS: Bedside Glucose 159 mg/dL (70-110)
[2017-07-15 18:00] VITALS: BP 107/58; PULSE 78; RESP 18; TEMP 36.9; O2SAT 96
[2017-07-15] MEDS: Rivaroxaban 20 MG Tablet PO (20:02)
[2017-07-15 20:25] LABS: Bedside Glucose 233 mg/dL (70-110)
[2017-07-16] MEDS: LORazepam 0.5 MG Tablet PO (00:07)
[2017-07-16] MEDS: Acetaminophen 500 MG Tablet 1000 MG PO (06:57)
[2017-07-16 07:15] LABS: Bedside Glucose 122 mg/dL (70-110)
[2017-07-16] MEDS: HYDROCHLOROTHIAZIDE 12.5 MG CAPSULE PO (08:41)
[2017-07-16] MEDS: Atorvastatin Calcium 20 MG Tablet PO (08:41)
[2017-07-16] MEDS: Lisinopril 20 MG Tablet PO (08:41)
[2017-07-16 08:48] VITALS: BP 107/64; PULSE 77; RESP 17; TEMP 36.6; O2SAT 97
--- NOTE | 2017-07-16 10:41 | NURSING ---
Daughter and patient aware of discharge instructions and verbalized understanding.
== END 2017-07-16 10:45 | disposition home or self-care (01) | DRG 561 ==
PROVIDERS: Nurse Practitioner Acute Care; Admitting Provider Psychiatry & Neurology Neurology
DX: Z47.89 Encounter for other orthopedic aftercare (principal); Z98.1 Arthrodesis status; K21.9 Gastro-esophageal reflux disease without esophagitis; I25.10 Atherosclerotic heart disease of native coronary artery without angina pectoris; I10 Essential (primary) hypertension; G47.33 Obstructive sleep apnea (adult) (pediatric); E78.5 Hyperlipidemia, unspecified; E11.9 Type 2 diabetes mellitus without complications; E66.9 Obesity, unspecified; Z68.36 Body mass index [BMI] 36.0-36.9, adult; Z71.3 Dietary counseling and surveillance; Z91.19 Patient's noncompliance with other medical treatment and regimen; Z86.718 Personal history of other venous thrombosis and embolism; Z87.891 Personal history of nicotine dependence; Z79.01 Long term (current) use of anticoagulants; Z79.84 Long term (current) use of oral hypoglycemic drugs; Z79.899 Other long term (current) drug therapy
CPT/HCPCS: 36415; 80053; 82962; 83036; 83735; 84100; 85027; 93970; 97110; 97116; 97162; 97166; 97530; 97535; 97802; 99406

== ENCOUNTER 2017-08-07 18:11 | Emergency (ER) | payer MEDICARE, OTHER, SELFPAY ==
[2017-08-07 18:12] VITALS: BP 155/103; PULSE 89; RESP 15; TEMP 37.1; O2SAT 98; BMI 34.7
[2017-08-07 18:26] LABS: Bedside Glucose 227 mg/dL (70-110)
[2017-08-07 18:30] VITALS: BP 148/91; BP 151/86; BP 154/79; PULSE 91; PULSE 96; PULSE 99
--- NOTE | 2017-08-07 18:37 | ED.VISSUMM ---
- ER Visit Summary Date of Service: 08/07/17 Chief Complaint: Vertigo History of Present Illness: The patient is a 77 M who states he was sitting his chair when he turned his head and leaning forward and experienced dizziness. Patient definition of dizziness as a spinning sensation. This was associated with nausea and no other symptoms. He denied double vision blurred vision loss of vision. No trouble with speech or swallowing. He denied paresthesia, anesthesia motor is upper lower extremity. He denied difficulty with his balance. He denied chest pain, shortness of breath, dyspnea on exertion, orthopnea or PND. He does have chronic swelling of his lower extremities. Stated symptoms improved with closing of his eyes. Physical Examination: Orthostatic vital signs negative. Blood pressure is elevated 154/79. Head is atraumatic normocephalic. Pupils are equal round reactive. Extraocular muscles are intact. TMs are pearly white with landmarks noted. Nares patent with no drainage. Posterior pharynx without erythema or exudate. Uvula is midline. There is no dysphonia or dysphasia. Trachea is midline. There is no stridor with auscultation of the neck. Heart is regular without murmur, gallop or rub. S1 and S2 are normal. Lungs are clear to auscultation with good movement of air bilaterally. Abdomen soft nontender. Lower extremities remarkable for edema with varicosities. Patient is alert and oriented ?3. Motor is 5 over 5. Sensory is intact. DTRs are symmetric with no clonus or Babinski sign. Cranial 2 through 12 are intact. Cerebellar testing is normal. Ashleigh-Hallpike maneuver was positive with nystagmus left greater than right. Eye askew test was negative. Hint test was negative. Test Results: Her physical exam no imaging or laboratory work is indicated Emergency Department Course and Treatment: The patient had a positive [place]-Hallpike maneuver. Clay maneuver was performed. Patient's symptoms resolved. Treatment Plan: Appropriate home-going instructions Disposition: Discharge to home Impression: Paroxysmal benign positional vertigo This note was generated with [employer] dictation software. It may contain incorrect words, spelling, and punctuation that were not noted in review of the chart prior to signing ED Disposition - Plan for ED Patient: Disposition: Home or Assisted Living Chief Complaint: Dizziness Instructions: ED BPV Vertigo Referrals: Claudette eMraz MD [Primary Care Provider] - As Needed
--- NOTE | 2017-08-07 18:41 | ED.DCSUM_ITS ---
- ER Visit Summary Date of Service: 08/07/17 Chief Complaint: Vertigo History of Present Illness: The patient is a 77 M who states he was sitting his chair when he turned his head and leaning forward and experienced dizziness. Patient definition of dizziness as a spinning sensation. This was associated with nausea and no other symptoms. He denied double vision blurred vision loss of vision. No trouble with speech or swallowing. He denied paresthesia, anesthesia motor is upper lower extremity. He denied difficulty with his balance. He denied chest pain, shortness of breath, dyspnea on exertion, orthopnea or PND. He does have chronic swelling of his lower extremities. Stated symptoms improved with closing of his eyes. Physical Examination: Orthostatic vital signs negative. Blood pressure is elevated 154/79. Head is atraumatic normocephalic. Pupils are equal round reactive. Extraocular muscles are intact. TMs are pearly white with landmarks noted. Nares patent with no drainage. Posterior pharynx without erythema or exudate. Uvula is midline. There is no dysphonia or dysphasia. Trachea is midline. There is no stridor with auscultation of the neck. Heart is regular without murmur, gallop or rub. S1 and S2 are normal. Lungs are clear to auscultation with good movement of air bilaterally. Abdomen soft nontender. Lower extremities remarkable for edema with varicosities. Patient is alert and oriented ?3. Motor is 5 over 5. Sensory is intact. DTRs are symmetric with no clonus or Babinski sign. Cranial 2 through 12 are intact. Cerebellar testing is normal. Ashleigh-Hallpike maneuver was positive with nystagmus left greater than right. Eye askew test was negative. Hint test was negative. Test Results: Her physical exam no imaging or laboratory work is indicated Emergency Department Course and Treatment: The patient had a positive [place]- Hallpike maneuver. Clay maneuver was performed. Patient's symptoms resolved. Treatment Plan: Appropriate home-going instructions Disposition: Discharge to home Impression: Paroxysmal benign positional vertigo This note was generated with Linio dictation software. It may contain incorrect words, spelling, and punctuation that were not noted in review of the chart prior to signing ED Disposition - Plan for ED Patient: Disposition: Home or Assisted Living Chief Complaint: Dizziness Instructions: ED BPV Vertigo Referrals: Claudette Meraz MD [Primary Care Provider] - As Needed
[2017-08-07 18:53] VITALS: PULSE 97; RESP 14; O2SAT 97
== END 2017-08-07 18:54 | disposition home or self-care (01) ==
LOC: ED 18:46
PROVIDERS: Emergency Provider Emergency Medicine; Family Provider Internal Medicine; PCP Internal Medicine
DX: H81.10 Benign paroxysmal vertigo, unspecified ear (principal); R60.0 Localized edema; R11.0 Nausea; E11.9 Type 2 diabetes mellitus without complications; I10 Essential (primary) hypertension
CPT/HCPCS: 82962; 99283

== ENCOUNTER 2017-09-18 11:00 | Outpatient (RCR) | payer MEDICARE, OTHER, SELFPAY ==
--- NOTE | 2017-07-26 12:23 | HP.PTEVAL_ITS ---
Patient's Visit Information CHRISTIAN MATA is a 77 year old M referred to Physical Therapy by SYLVIA Weiner with a diagnosis of S/P LAMINECTOMY. Date of Evaluation: 07/21/17 Physical Therapist: Deya Pablo Visit Plan Frequency: 2-3x /Week Duration: 4-6 Weeks Plan: DLS IN NUETRAL SPINE, POSTURAL AWARENESS AND STRENGTH, LE STRENGTH, GAIT ENDURANCE. - Subjective Subjective: Diagnosis: LAMINECTOMY 07/05/17. STILL HAS STABLES IN. FOLLOW UP APPOINTMENT CHANGED FROM 07/20/17 TO 07/25/17. Work/Leisure: RETIRED. Disability: NO. Present symptoms: LOW BACK PAIN AND LEGS FEEL HEAVY AND GIVE WAY SOMETIMES (R). Present since: CHRONIC. Pain Scale: WORSE 3/10, LEAST 1/ 10. Currently: 04/22. Commenced as a result of: ARTHRITIS. Symptoms at onset : BACK. Worse: STANDING, PROLONGED WALKING. Better: SITTING. Disturbed sleep: NO. Previous history/Previous treatment: PT, MEDICINES, INJECTIONS. 2 PRIOR MINOR BACK SURGERIES. Coughing/sneezing/straining: NEGATIVE. Gait: CANE OR WALKER NEEDED. Difficulty initiating urinatin: NO. Accidents: NO. Unexplained weight loss: YES BUT EATING BETTER AGAIN NOW. DR'S ARE AWARE. Imaging: NONE SINCE SURGERY. PMH: HTN, NIDDM. NO CANCER. NO STROKE. SO HIP REPLACEMENTS WITH REVISION OF RIGHT. - Objective Sitting/Standing Posture: POOR. Lordosis: REDUCED. Lateral shift: NO. Relevant shift: N/A. Active Correction of posture: WORSE. Other Observations: INDEP GAIT AND TRANSFERS. NO AD. NO UE ASSIST SIT TO STAND BUT DIFFICULT. Motor deficit: SO LE'S GROSSLY 5/5 WITH MMT'ING EXCEPT HIPS 4-/5 AND RIGHT QUAD/HS'S 4/5. Sensory deficit: SO LE LIGHT TOUCH SENSATION INTACT AND SYMMETRICAL. ROM deficit: TIGHT SO HIP FLEXORS, HS'S AND GASTROC-SOLEUS COMPLEX'S. Dural Signs: POSITIVE SO LE'S DURAL SIGNS RIGHT > LEFT. Lumbar mvmt loss: flex - MOD. ext - KEL. R SG - KEL. L SG - KEL. Core strength: POOR. Palpation: INCISION LOOKS GOOD WITHOUT ANY SIGNS OF INFECTIONS. LISSETTE STILL IN. OTHER: THIS PT PHONED SURGEONS OFFICE JUST TO LET THEM KNOW LISSETTE ARE STILL IN. THEY WILL CALL HIM IF CURRENT APPOINTMENT NEEDS TO BE CHANGED. - Goals Goal 1:: DECREASE C/O BACK AND LE SX'S Goal Time Frame: 4-6 Weeks Goal 2:: IMPROVE LIFTING, WALKING, STANDING, SOCIAL LIFE, TRAVEL AND HOMEMAKING/ WORK FUNCTION. Goal Time Frame: 4-6 Weeks Goal 3:: INSTRUCT IN PROPHYLAXIS Goal Time Frame: 4-6 Weeks - Rehabilitation Potential Rehabilitation Potential: Fair - Anticipated Interventions Patient/Client Instruction: Educate patient on: Condition, Plan of Care, Risk Factors, Benefits of Fitness Program For the Purpose of:: To improve self management Therapeutic Exercise to Include: Strength training, Balance training, Body mechanics, Postural training, Flexibilty training, Active ROM, Dynamic Lumbar Stabilization For the Purpose of:: To improve ability of physical actions for home/community/ work/leisure Cryotherapy (ice pack, ice massage): Yes For the Purpose of:: To decrease pain, To decrease swelling/inflammation Thank you for the opportunity to evaluate your patient. For Medicare and Medicare HMO plans, please review the plan of care and approve it. It will need to be FAXED BACK to us at [phone] for Medicare purposes. Please let me know if there are questions or concerns regarding this plan of care. Physician Signature: Date:
--- NOTE | 2017-08-16 08:30 | DT_ITS ---
This patient was seen during an EMR downtime August 14, 2017 - August 21, 2017. This patient may have a combination of paper and electronic documentation or all paper documentation. All documentation is viewable within the e-chart portion of [facility] for each patient visit.
--- NOTE | 2017-08-30 13:58 | HP.PTREVAL ---
Evelyn Cuenca, [employer], It has been my pleasure to treat CHRISTIAN MATA over the last 10 visits for S/P LAMINECTOMY. Please see the progress note below for an update on the physical therapy plan of care! Subjective: PATIENT REPORTS HE IS A LOT BETTER - I DON'T HAVE NO PAIN AND I HAD THAT SUCKER FOR YEARS. A LITTLE STIFF IN THE MORNING - SHOWER AND GETTING MOVING LIMBERS HIM UP. PATIENT DENIES HAVING PAIN FOR A WHILE NOW. OCT 16 2017 FOLLOW UP PENDING WITH DR. FINCH. PATIENTS BIGGEST CONCERN AT THIS POINT IS FALLING. STATES THE NURSE TOLD HIM TO KEEP WEARING HIS BRACE AVOID HEAVY LIFTING, NO BENDING AND THAT HE CAN MOW AT THE END OF AUGUST. Objective/Function: GOOD PROGRESS TOWARD ALL PT GOALS WITH POTENTIAL FOR FURTHER IMPROVEMENT. UPON EXAM, PATIENT IS UNABLE TO TRANSFER FROM SIT TO STAND WITHOUT UE ASSIST. LUMBAR MVMT LOSS: FLEX - MOD, EXT - KEL, SO SG - KEL. PATIENT DENIES PAIN WITH LUMBAR ROM TESTING. OBSERVATION: PATIENT STANDS IWTH SO KNEE FLEX AND INCREASED WEIGHT BEARING ON THE FRON OF HIS FEET. HIS INCISION LOOKS WELL HEALED. SO LE STRENGTH IS 5/5 WITH MMT EXEPT HIPS GRADED 4/5 AND RIGHT ANKLE DORSIFLEX 3+/5. INDEP TRANSFERS SIT TO SUPINE AND REVERSE. KNEE ROM IN SUPINE WITH A HEEL SLIDE: RIGHT -20 DEG EXT TO 110 DEG FLEX, LEFT -20 DEG TO 110 DEG FLEX. INDEP GAIT INTO PT WITHOUT AD WITH INCREASED TRUNK AND KNEE FLEX. UNABEL TO SLS EITHER LEG WITHOUT UE ASSIST.SHORT SO STRIDE LENGTH WITH GAIT. PATIENT IS A FALL RISK AND THIS PT RECOMMENDED CANE FOR SAFETY. BACK OSWESTRY HAS IMPROVED FROM 19 TO 6. Due to electronic downtime procedure, the information from August 14 2017 through August 20 2017 was electronically scanned into the medical record Plan Plan: CONT PT 1X/WEEK X 4 WEEKS FOR CORE STABILITY AND LE STRETCHING AND STRENGTHEING PROGRESSION TOLERATED. SEE EXERCISE LOG IN PAPER CHART FILED. PROGRESS LUMBAR ROM SLOWLY TOLERATED. INCROPORATE BALANCE ACTIVITIES. Goals Goal 1:: DECREASE C/O BACK AND LE SX'S Goal Time Frame: 4-6 Weeks Goal Progress: Progressing Goal 2:: IMPROVE LIFTING, WALKING, STANDING, SOCIAL LIFE, TRAVEL AND HOMEMAKING/WORK FUNCTION. Goal Time Frame: 4-6 Weeks Goal Progress: Progressing Goal 3:: INSTRUCT IN PROPHYLAXIS Goal Time Frame: 4-6 Weeks Goal Progress: Progressing Anticipated Interventions Patient/Client Instruction: Educate patient on: Condition, Plan of Care, Risk Factors, Benefits of Fitness Program For the Purpose of:: To improve self management Therapeutic Exercise to Include: Strength training, Balance training, Body mechanics, Postural training, Flexibilty training, Active ROM, Dynamic Lumbar Stabilization For the Purpose of:: To improve ability of physical actions for home/community/work/leisure Cryotherapy (ice pack, ice massage): Yes For the Purpose of:: To decrease pain, To decrease swelling/inflammation Please do not hesitate to contact me at [phone] by phone or if you have questions or concerns regarding this new plan of care! Sincerely, Deya Tejeda
--- NOTE | 2017-12-28 12:54 | HP.PT.NRP ---
HP - Discharge Summary (1) - Patient Information CHRISTIAN MATA was seen in my office for initial evaluation on 07/21/17. The following Plan of Care was established for this patient: Initial Frequency: 2-3x /Week Initial Duration: 4-6 Weeks - Anticipated Interventions Patient/Client Instruction: Educate patient on: Condition, Plan of Care, Risk Factors, Benefits of Fitness Program For the Purpose of:: To improve self management Therapeutic Exercise to Include: Strength training, Balance training, Body mechanics, Postural training, Flexibilty training, Active ROM, Dynamic Lumbar Stabilization For the Purpose of:: To improve ability of physical actions for home/community/work/leisure Cryotherapy (ice pack, ice massage): Yes For the Purpose of:: To decrease pain, To decrease swelling/inflammation This patient was last seen in our office . Pertinent comments regarding their Physical therapy will appear below: This patient has not returned to Physical Therapy and is appropriate to return to MD for further follow-up as needed. At this point I will be discontinuing this patient from physical therapy. I would be happy to see this patient again in the future if found appropriate by the physician. Thank you! Deya Tejeda
== END 2017-09-18 19:00 | disposition home or self-care (01) ==
LOC: PT 11:00
PROVIDERS: Family Provider Internal Medicine; PCP Internal Medicine; Visit Provider Nurse Practitioner Acute Care
DX: Z98.890 Other specified postprocedural states (principal); Z98.1 Arthrodesis status
CPT/HCPCS: 97110; 97162; 97164; 97530; G8978; G8979

== ENCOUNTER → 2017-10-18 19:59 | Outpatient (CLI) | payer MEDICARE, OTHER, SELFPAY | PROVIDERS: Family Provider Internal Medicine; PCP Internal Medicine; Visit Provider Internal Medicine | DX: G47.33 Obstructive sleep apnea (adult) (pediatric) (principal) | CPT/HCPCS: 95810 ==

== ENCOUNTER 2018-07-16 17:29 | Emergency (ER) | payer MEDICARE, OTHER, SELFPAY ==
[2018-07-16 17:31] VITALS: BP 135/83; PULSE 94; RESP 16; TEMP 37; O2SAT 98; BMI 34.7
--- NOTE | 2018-07-16 18:55 | CT_ITS ---
STUDY: CT BRAIN WITHOUT CONTRAST REASON FOR EXAM: Male, 78 years old. Dizziness RADIATION DOSAGE (If Supplied By Facility): DLP = ( 796.11 ) mGycm TECHNIQUE: Transaxial CT imaging of the brain was performed without administration of intravenous contrast material. Individualized dose optimization techniques were used for this CT. COMPARISON: None. FINDINGS: There is no acute bleed or infarct. There are normal white matter tracts. The ventricles are normal in configuration. There is no hydrocephalus. Left ethmoid and maxillary sinus disease is present.. The mastoid air cells are well aerated. There is no skull fracture. CT/Brain/Head without Contrast IMPRESSION: No acute intracranial abnormality. Left ethmoid and maxillary sinus disease. Electronically Signed: Florentino Carlos, at 19:53 EDT Tel , Service support ,
[2018-07-16] MEDS: Meclizine HCl 25 MG Tablet PO (18:59)
--- NOTE | 2018-07-16 18:59 | ED.DCSUM_ITS ---
History of Present Illness Chief Complaint: Dizziness Informant: Patient, Family Onset: Days - 4-5 Context: Gradual Onset Timing: Intermittent Quality: spinning Location: head Current Severity: Mild Maximum Severity: Moderate Worsened by: walking Relieved by: remaining still / rest Associated Symptoms: ears popping, worse on right. congestion & postnasal drip sx. Narrative: Patient states he has been having congestion and postnasal drip for several months and his doctor is treating him with a steroid nasal spray. His ears been popping lately, and with that his vertigo improves transiently. He has not fallen but does use a cane to keep himself from doing that, he feels like yesterday and today the vertigo was worse and he feels like he might fall. Prior similar symptoms: Yes - vertigo Recent Illness/Hospitalization: No - Past Medical History (1) Type 2 diabetes mellitus Status: Chronic (2) PVD (peripheral vascular disease) Status: Chronic Past Medical History - Allergies and Home Meds Allergies/Adverse Reactions: Allergies No Known Allergies Allergy (Verified 07/16/18 17:32) Primary Care Physician: Claudette Meraz MD [Primary Care Provider] - 3-5 Days if not improving Surgical History: total hip arthroplasty - Left in 1994, Right x 2 in 1990, & 2000, - - Lumbar spine x 2 in 2005, & 2008 Smoking Status: Former smoker Alcohol: None - Family History Maternal Family History: Reports: Heart Disease - age 73 Sibling Family History: Reports: Heart Disease - age 53 Review of Systems General: Denies: Chills, Fever, Sweats Eyes: Denies: Visual changes - bilaterally, Diplopia ENT: Reports: - - bilat ear popping. Denies: Bilateral ear pain, Rhinorrhea, Sore throat Cardiovascular: Denies: Chest pain, Palpitations Respiratory: Denies: Dyspnea, Cough, Dyspnea on exertion Gastrointestinal: Denies: Abdominal pain, Nausea, Vomiting, Diarrhea, Melena, Hematochezia Genitourinary: Denies: Dysuria, Hematuria, Frequency Musculoskeletal: Reports: Back pain - chronic, unchanged, Swelling - BLE ch ronic, unchanged. Denies: Extremity Pain Skin: Denies: Rash, Wounds Neurological: Reports: - - vertigo. Denies: Headache, Weakness, Numbness Physical Exam Vital Signs/Narrative: Vital Signs Temp Pulse Resp BP Pulse Ox 07/16/18 17:31 98.6 F 94 16 135/83 H 98 Inital Vital Signs reviewed: Yes General: Well nourished, Well developed, No Acute Distress Head: Normocephalic, Atraumatic Eyes: Perrl, EOMI - Horizontal nystagmus bilaterally. No rotatory or vertical nystagmus. ENT: Moist mucous membranes, No rhinorrhea, TM's clear. Negative for: Sinus tenderness Neck: Supple, Nontender, No lymphadenopathy, - - no carotid bruits Cardiovascular: Regular rate, Regular rhythm, No murmurs, Normal S1, Normal S2. Negative for: Tachycardia Respiratory: No distress, CTA bilaterally, Chest nontender Abdomen: Soft, Nontender, Nondistended, Normal bowel sounds Back: Nontender, Normal Inspection Extremities: Nontender, Edema - 1+ BLE w/ chronic stasis changes. Negative for: Calf Tenderness Skin: Normal color, No rash, No Trauma Neurological: Alert, Oriented x3, Cranial nerves II-XII grossly intact, Normal Strength, Normal Sensation, - - Normal [id number] bilaterally. Heel to shins difficult for patient to perform due to chronic issues in his hips. Psychological: Normal affect, Normal Mood Diagnostic/Tx/Re-eval Impressions Brain CT 07/16/18 18:55 IMPRESSION: No acute intracranial abnormality. Left ethmoid and maxillary sinus disease. Electronically Signed: Florentino Carlos, at 19:53 EDT Tel , Service support , 07/16/18 18:55 Brain/Head without Contrast [CT] Stat Laboratory Results 07/16/18 07/16/18 19:03 19:03 WBC 7.4 RBC 3.97 L Hgb 12.8 L Hct 38.1 L MCV 96.0 H MCH 32.2 H MCHC 33.6 RDW 13.5 RDW Differential 47.0 H Plt Count 226 MPV 9.1 Immature Gran % (Auto) 0.100 Neut % (Auto) 56.0 Lymph % (Auto) 28.7 [place] % (Auto) 9.0 Eos % (Auto) 5.5 H Baso % (Auto) 0.7 Absolute Neuts (auto) 4.2 Absolute Lymphs (auto) 2.13 Total Counted Not Reportable Sodium 139 Potassium 4.5 Chloride 108 H Carbon Dioxide 26.0 Anion Gap 5 BUN 32 H Creatinine 1.33 H Estim Creat Clear Calc 48.79 Est GFR (MDRD) Af Amer 67 Est GFR (MDRD) Non-Af 56 L BUN/Creatinine Ratio 24.1 H Glucose 94 Calcium 8.8 - Medical Decision Making CT head shows no signs of stroke or other acute abnormality. Blood work is unremarkable. He does have renal insufficiency that is chronic. After an oral meclizine he is feeling better. Given his symptoms not getting worse with head movements, and his age, I thought it was prudent to obtain a CT. However, with it being negative after 5 days of symptoms and the fact that his ears are popping and that improves the symptoms, this is more likely to be peripheral. We will give him a prescription for meclizine, he states he has an appointment with ENT in 3 weeks or so, he has a cane to help prevent falls and he was encouraged to continue using it, and to return to ER for worsening or new symptoms. They are comfortable w/ this plan. ED Disposition - Plan for ED Patient: Disposition: Home or Assisted Living Diagnosis: Peripheral vertigo, unspecified Instructions: ED Vertigo Unspecified Prescriptions: Meclizine HCl 25 mg PO Q8H PRN #16 tab PRN Reason: Vertigo Referrals: Claudette Meraz MD [Primary Care Provider] - 3-5 Days if not improving
[2018-07-16 19:23] LABS: Anion Gap 5 (5-15); BUN 32 mg/dL (7-18); BUN/Creat Ratio 24.1 RATIO (10-20); Calcium,Total 8.8 mg/dL (8.5-10.1); Chloride 108 mmol/L (98-107); Creatinine, Serum 1.33 mg/dL (0.70-1.30); EST Glomerular Filtration Rate 56 mL/min (>60); Est Glom Filt Rate - Afr Amer 67 mL/min (>60); Estimated Creatinine Clearance 48.79 ml/min; Glucose 94 mg/dL (74-106); Potassium 4.5 mmol/L (3.5-5.1); Sodium Level 139 mmol/L (136-145)
[2018-07-16 19:35] VITALS: BP 129/77; PULSE 79; RESP 19; O2SAT 98
[2018-07-16 19:36] LABS: Absolute Lymphocyte Count 2.13 X10^3/ul (0.83-4.51); Absolute Neutrophil Count 4.2 X10^3/uL (2.0-7.7); Basophil# 0.05 X10^3/uL; Basophil% 0.7 % (0-1); Eosinophil# 0.41 X10^3/uL; Eosinophils% 5.5 % (0-5); Hematocrit 38.1 % (40-54); Hemoglobin 12.8 g/dl (13.0-16.5); Lymphocyte # 2.13 X10^3/ul (4.0); Lymphocyte % 28.7 % (19-41); Mean Corp Hgb Conc 33.6 g/gl (32-36); Mean Corpuscular Hgb 32.2 pg (27.0-32.0); Mean Platelet Vol. 9.1 fl (6.2-12.0); Monocyte# 0.67 X10^3/uL; Neutrophil # 4.16 X10^3/uL (2.7-7.7); Platelet Count 226 K/mm3 (150-450); RBC Distribution Width CV 13.5 % (11.6-14.6); Red Blood Count 3.97 M/mm3 (4.6-6.2); White Blood Count 7.4 K/mm3 (4.4-11.0)
[2018-07-16 19:38] LABS: POSITIVE COUNT NO; POSITIVE DIFFERENTIAL NO; POSITIVE MORPHOLOGY NO
[2018-07-16 20:48] VITALS: BP 137/74; PULSE 78; RESP 18; O2SAT 97
== END 2018-07-16 20:49 | disposition home or self-care (01) ==
PROVIDERS: Emergency Provider Emergency Medicine; Family Provider Internal Medicine; PCP Internal Medicine
DX: H81.399 Other peripheral vertigo, unspecified ear (principal); J32.2 Chronic ethmoidal sinusitis; J32.0 Chronic maxillary sinusitis; E11.22 Type 2 diabetes mellitus with diabetic chronic kidney disease; N18.9 Chronic kidney disease, unspecified; I73.9 Peripheral vascular disease, unspecified; M54.9 Dorsalgia, unspecified; G89.29 Other chronic pain; R60.0 Localized edema; Z96.643 Presence of artificial hip joint, bilateral; Z79.01 Long term (current) use of anticoagulants; Z79.84 Long term (current) use of oral hypoglycemic drugs; Z79.899 Other long term (current) drug therapy; Z87.891 Personal history of nicotine dependence
CPT/HCPCS: 70450; 80048; 85025; 99283; A4216

== ENCOUNTER → 2019-05-16 | Outpatient (CLI) | payer MEDICARE, OTHER, SELFPAY | END | disposition home or self-care (01) | LOC: LABSPEC 15:46 | PROVIDERS: PCP Internal Medicine; Referring Provider Otolaryngology; Visit Provider Otolaryngology | DX: J32.9 Chronic sinusitis, unspecified (principal) | CPT/HCPCS: 87070; 87077; 87186; 87205 ==

== ENCOUNTER 2019-06-27 11:00 | Outpatient (RCR) | payer MEDICARE, OTHER, SELFPAY ==
--- NOTE | 2019-04-18 10:42 | HP.PTEVAL ---
Patient's Visit Information CHRISTIAN MATA is a 78 year old M referred to Physical Therapy by Lorelei Fallon with a diagnosis of Unstable gait. Date of Evaluation: 04/18/19 Physical Therapist: Rubio Sanches, DPT, OCS, CSCS - Visit Plan Frequency: 2x /Week Duration: 4-6 Weeks Plan: 2x/week x 4-6 for : 1. Balance with weight shifts FW and vest challenges, VOR. 2. please teach gym LE strength to progress to his silver sneakers routine. 3. LB AROM on table and progress to HEP. Pt is to use cane at all times outside of therapy and contact family doctor about his SOB with exertion - Subjective Findings: Balance is poor. Veers and stumbles at times. Not sure why. Walking sucks. No falls. Has cane but does not use. Feels dizzy described as unsteadyness, not spinning unless blow nose real hard. No obvious neuroapthy but feet swell and had blood clots years ago, is on warfarin. Feet feel stiff. Has DM and Dr. Fallon cuts nails. Sleeping is not great. Not sure why. Has CPAP. Not employed. Spends day mowing yard and gneerally around house .. Can only be active short times and then needs rest as back hurts. Had back surgery last June has rods placed and it helped. Tarun hurts wehn on feet alot,winded and slight pain with 200 foot walk to [facility] room and surgeon told him he would have that. Steps to basement and needs rail. Basics at home are getting done but needs to rest. Can dress adn bathe and use bathroom on own. IS silver sneakers member and does nustep 20 minutes and does pull down and kristen and abs. Feels looser after. No ex at home except has chair cycle - Pain lBP Pain Intensity (Out of 10): 0 Pain Intensity Range: 0, 9 Comment: with walking. - Objective SOB walking 200 feet back to therapy. I gait but avoids push off and poor weight shift. Trasnfers are I with UE. Steps reciprocal with one rail but very tired adn SOB and needs to rest after. Recommended he contact his doctor about his SOB whcih is unknown to doctor but swelling in legs is common for him. They are mildly swollena nd edematous today. LB AROM max limitations all directions and hesitant to move, not painful except centrally with 200+ feet walking today. UE AROM WFL. LE AROM limited to 0 DF with tight gastroc and soleus. HS tight at -40 90/90 test. - slump and SLR. R DF weak at 3 vs 4- on L. other ankle motions 3+ B. Unable to heel raise even with support B. Knee strength is 4-/5 but cramps in B quads quickly. Hip strength 4- B. Sensation LE is diminished in feet B but R>L up to myles. reflexes 1/3 B patella and achilles. Coordination to reciprocal toe tap and heel tap is poor. Heel to myles limited B. VOR walking is slow but able I. - Balance Scores Functional Gait Assessment Score: 17 % Disability: 43.3400 CATSIB Score (Max score 120 seconds): 97 - Goals Goal 1:: Pt I in appropriate LE strength, LB ROM and balance ex to minimize future problems, he is willign to do this in gym as he is [employer] member. Goal Time Frame: 4-6 Weeks Goal 2:: FGA to diminish fall risk Goal Time Frame: 4-6 Weeks Goal 3:: Walks 300 feet adn climb steps without SOB or back pain. Goal Time Frame: 4-6 Weeks Goal 4:: Pt feel 75% improvement in overall condition, pain, balance, mobility. Goal Time Frame: 4-6 Weeks - Rehabilitation Potential Physical Therapy Diagnosis: Unstable gait. Rehabilitation Potential: Fair - Anticipated Interventions Patient/Client Instruction: Educate patient on: Condition, Plan of Care For the Purpose of:: To improve muscle performance and motor function, To improve ability of physical actions for home/community/work/leisure, To improve balance, To improve safety with gait Therapeutic Exercise to Include: Strength training, Balance training, Coordination, Flexibilty training, Gait and locomotor training, Neuromotor development, Passive ROM, Active ROM, Dynamic Lumbar Stabilization For the Purpose of:: To decrease pain, To increase ROM, To improve muscle performance and motor function, To improve ability to perform ADL's, To improve ability of physical actions for home/community/work/leisure, To improve gait and locomotor functions, To improve balance, To improve safety with gait Thank you for the opportunity to evaluate your patient. For Medicare and Medicare HMO plans, please review the plan of care and approve it. It will need to be FAXED BACK to us at [phone] for Medicare purposes. For Medicare only, by signing this I certify the plan of care. Please let me know if there are questions or concerns regarding this plan of care. Physician Signature: Date:
--- NOTE | 2019-05-16 10:24 | HP.PTREVAL_ITS ---
Lorelei Fallon, It has been my pleasure to treat CHRISTIAN MATA over the last 8 visits for Unstable gait. Please see the progress note below for an update on the physical therapy plan of care! Subjective: Feeling better, stronger. No LOB or falls. Uses cane out and about for longer distances. Doing exercises at home for LE strength squats and val dges and heel raises. Pain in knee adn back are gone after ex today. Has exercises in the gym himself but not sure what he is doing. Pt feels he still needs therapy for machines Objective/Function: FGA is +[address]. Pt still mild SOB after steps but walker 300 feet without any issues. Improving subjectively and objectively. Not yet i iwth gym machines and wishes to be, appropriate to continue to work toward I with gym ex and then to continue on his own. Plan Plan: 2x/week for 3 weeks...Please do gym machines and teach for I, also steps each visit and walking challenges. Goals appropriate for new POC timeframe with fair prognosis Goals Goal 1:: Pt I in appropriate LE strength, LB ROM and balance ex to minimize future problems, he is willign to do this in gym as he is silver [email or web address] member. Goal Time Frame: 4-6 Weeks Goal Progress: home, not gym yet. Goal 2:: FGA to diminish fall risk Goal Time Frame: 3 more weeks Goal Progress: Progressing Goal 3:: Walks 300 feet adn climb steps without SOB or back pain. Goal Time Frame: 4-6 Weeks Goal Progress: sill SOB after steps Goal 4:: Pt feel 75% improvement in overall condition, pain, balance, mobility. Goal Time Frame: 4-6 Weeks Goal Progress: Goal Met Anticipated Interventions Patient/Client Instruction: Educate patient on: Condition, Plan of Care For the Purpose of:: To improve muscle performance and motor function, To improve ability of physical actions for home/community/work/leisure, To improve balance, To improve safety with gait Therapeutic Exercise to Include: Strength training, Balance training, Coordination, Flexibilty training, Gait and locomotor training, Neuromotor development, Passive ROM, Active ROM, Dynamic Lumbar Stabilization For the Purpose of:: To decrease pain, To increase ROM, To improve muscle performance and motor function, To improve ability to perform ADL's, To improve ability of physical actions for home/community/work/leisure, To improve gait and locomotor functions, To improve balance, To improve safety with gait Please do not hesitate to contact me at [phone] by phone or if you have questions or concerns regarding this new plan of care! Sincerely, Rubio Sanches, DPT, OCS, CSCS
--- NOTE | 2019-06-06 12:16 | HP.PTREVAL ---
Lorelei Fallon, It has been my pleasure to treat CHRISTIAN MATA over the last 14 visits for Unstable gait. Please see the progress note below for an update on the physical therapy plan of care! Subjective: Doing better on steps adn on machines. Going the right way. Activities at home are going the right way. was outside yesterday a little bit adn ran vaccuum a little bit , still limited but improving. steps improving but still very tired. Does not feel like he could continue in gym himself quite yet. Needs 3 more weeks and all gyms closed due to virus. Doing HEP of pedalling at home. Also doing bridges. Not doing squats or heel raises Objective/Function: FGA is staying the same, emphasized need to use cane as he fell one time 2 weeks ago and still scores below saftey level on FGA. Strength adn function are improving. He is noncompliant with HEP and dows not yet feel he could be I in the gym(nevermind the gyms being closed tdue to brady19). Plan Plan: 2x/week for 3 weeks to please emphasize confidence with I with gym ex, HEP (squats, heel raises, hip abd, bridging, band pulls, ) as back up plan and spend more time on balance ex for narrow NILAM and turning, bending challenges. COntinue toward unmet goals and new goal with fair prognosis Goals Goal 1:: Pt I in appropriate LE strength, LB ROM and balance ex to minimize future problems, he is willign to do this in gym as he is silver [employer] member. Goal Time Frame: 4-6 Weeks Goal Progress: Progressing, approp Goal 2:: FGA to diminish fall risk Goal Time Frame: 3 more weeks Goal Progress: Not Progressing, approp. Goal 3:: Walks 300 feet adn climb steps without SOB or back pain. Goal Time Frame: 4-6 Weeks Goal Progress: sill SOB after steps Goal 4:: Pt feel 75% improvement in overall condition, pain, balance, mobility. Goal Time Frame: 4-6 Weeks Goal Progress: Goal Met Goal 5:: Pt have compliance with HEP and feel ready with gym ex to be on his own. Goal Time Frame: 2-4 Weeks Goal Progress: NEW GOAL Goal 6:: 50+ score on LEFS Goal Time Frame: 2-4 Weeks Goal Progress: NEW GOAL Anticipated Interventions Patient/Client Instruction: Educate patient on: Condition, Plan of Care For the Purpose of:: To improve muscle performance and motor function, To improve ability of physical actions for home/community/work/leisure, To improve balance, To improve safety with gait Therapeutic Exercise to Include: Strength training, Balance training, Coordination, Flexibilty training, Gait and locomotor training, Neuromotor development, Passive ROM, Active ROM, Dynamic Lumbar Stabilization For the Purpose of:: To decrease pain, To increase ROM, To improve muscle performance and motor function, To improve ability to perform ADL's, To improve ability of physical actions for home/community/work/leisure, To improve gait and locomotor functions, To improve balance, To improve safety with gait Please do not hesitate to contact me at [phone] by phone or if you have questions or concerns regarding this new plan of care! Sincerely, Rubio Sanches, DPT, OCS, CSCS
--- NOTE | 2019-06-27 11:45 | HP.PTDCSUM ---
It has been my pleasure to treat CHRISTIAN MATA referred by Lorelei Fallon, with the diagnosis of Unstable gait for a total of 20 visit(s). Discharge Date: 06/27/19 Please see the following information for a summary of their discharge status. Subjective: A little improvement. My balance still sucks. I am about where i am gonna be. Ready to be done with PT. Will see doctor for regular f/u as needed. lBP Pain Intensity (Out of 10): 0 R hip Pain Intensity (Out of 10): 0 % Improvement: 75 Objective/Function: FGA is +2 and improved. Out of chair easily. steps without SOB today with railing. Slowly improving and ready to be on his own. Goal 1:: Pt I in appropriate LE strength, LB ROM and balance ex to minimize future problems, he is willign to do this in gym as he is silver [email or web address] member. Goal Progress: Goal Met Goal 2:: FGA to diminish fall risk Goal Progress: Goal Met Goal 3:: Walks 300 feet adn climb steps without SOB or back pain. Goal Progress: sill SOB after steps Goal 4:: Pt feel 75% improvement in overall condition, pain, balance, mobility. Goal Progress: Goal Met Goal 5:: Pt have compliance with HEP and feel ready with gym ex to be on his own. Goal Progress: Goal Met Goal 6:: 50+ score on LEFS Goal Progress: Progressing Plan: d/c Discharge Comments: Will do HEP until gym opens up then back to gym ex. If there are questions or concerns regarding this patient's physical therapy, please feel free to call me at [phone]. Thank you for the referral of this patient. Sincerely, Rubio Sanches, DPT, OCS, CSCS
== END 2019-06-27 19:00 | disposition home or self-care (01) ==
LOC: PT 11:00
PROVIDERS: PCP Internal Medicine; Referring Provider Podiatrist; Visit Provider Podiatrist
DX: R26.81 Unsteadiness on feet (principal)
CPT/HCPCS: 97110; 97162; 97164; 97530

== ENCOUNTER 2019-12-25 12:08 | Emergency (ER) | payer MEDICARE, OTHER, SELFPAY ==
[2019-12-25 12:08] VITALS: BP 176/104; PULSE 98; RESP 18; TEMP 36.8; O2SAT 99; BMI 35.2
[2019-12-25 12:11] VITALS: BP 176/104; PULSE 98; RESP 18; TEMP 36.8; O2SAT 99
--- NOTE | 2019-12-25 12:20 | EKG12_ITS ---
Test Reason : CP Blood Pressure : / mmHG Vent. Rate : 093 BPM Atrial Rate : 093 BPM P-R Int : 166 ms QRS Dur : 086 ms QT Int : 358 ms P-R-T Axes : 013 003 026 degrees QTc Int : 445 ms Sinus rhythm with occasional Premature ventricular complexes Otherwise normal ECG Confirmed by HALLE TRIMBLE, LISA ([id number]), editorial clerk ROMINA CONTEH ([id number]) on 12/30/2019 8:23:40 A M Referred By: STEPHANIE Confirmed By:ENEDELIA NERI MD
--- NOTE | 2019-12-25 12:22 | ED.DCSUM_ITS ---
History of Present Illness Chief Complaint: Chest Pain Informant: Patient Onset: Yesterday Current Severity: Moderate Maximum Severity: Moderate Narrative: Patient presents with chest tightness along with cough and shortness of breath. Symptoms started last evening. He states he had some shaking chills last night and came in due to concern for coronavirus. He denies known history of cardiac disease but states it has been several years since he had a stress test. He does have multiple risk factors including diabetes, hypertension, and high cholesterol. - Past Medical History (1) Hypertension Status: Chronic (2) High cholesterol Status: Chronic (3) DVT (deep venous thrombosis) Status: Chronic (4) PVD (peripheral vascular disease) Status: Chronic (5) Type 2 diabetes mellitus Status: Chronic Past Medical History - Allergies and Home Meds Allergies/Adverse Reactions: Allergies No Known Allergies Allergy (Verified 12/25/19 12:12) Primary Care Physician: Claudette Meraz MD [Primary Care Provider] - Prior records reviewed: Yes Surgical History: total hip arthroplasty - Left in 1994, Right x 2 in 1990, & 2000, - - Lumbar spine x 2 in 2005, & 2008 Smoking Status: Former smoker - Family History Maternal Family History: Reports: Heart Disease - age 73 Sibling Family History: Reports: Heart Disease - age 53 Review of Systems General: Reports: Chills Eyes: Denies: Visual changes - bilaterally ENT: Denies: Bilateral ear pain Cardiovascular: Reports: Chest pain Respiratory: Reports: Dyspnea, Cough, Sputum - White to yellow-colored sputum Gastrointestinal: Denies: Abdominal pain, Nausea, Vomiting, Diarrhea Genitourinary: Denies: Dysuria Musculoskeletal: Reports: Swelling - Chronic bilateral lower extremity edema at baseline per patient. Denies: Extremity Pain Neurological: Denies: Headache Hematologic: Denies: Easy bruising, Easy bleeding Allergy: Denies: Uticaria Physical Exam Vital Signs/Narrative: Vital Signs Temp Pulse Resp BP Pulse Ox 12/25/19 12:11 98.2 F 98 18 176/104 H 99 12/25/19 12:08 98.2 F 98 18 176/104 H 99 Inital Vital Signs reviewed: Yes General: Well nourished, Well developed Head: Normocephalic ENT: Moist mucous membranes Neck: Supple Cardiovascular: Regular rate, Regular rhythm Respiratory: No distress, CTA bilaterally Abdomen: Soft, Nontender, Normal bowel sounds Extremities: Nontender, Edema - 1+ bilateral lower extremity edema. Skin: Normal color, No rash Neurological: Alert, Oriented x3, Normal Strength, Normal Sensation Psychological: Normal affect Diagnostic/Tx/Re-eval Impressions Chest X-Ray 12/25/19 12:36 IMPRESSION: Limited inspiratory effort. Impaired aeration at the lung bases. Electronically Signed: Vinicio Dawson, at 13:07 EDT , Service support , 12/25/19 12:36 Chest 1 View (Portable) [RAD] Stat Laboratory Results 12/25/19 12/25/19 12/25/19 12:15 12:15 12:15 WBC 6.4 RBC 4.48 L Hgb 14.2 Hct 44.2 MCV 98.7 H MCH 31.7 MCHC 32.1 RDW Std Deviation 47.8 H RDW Coeff of Cortney 13.2 Plt Count 190 MPV 9.4 Immature Gran % (Auto) 0.300 Neut % (Auto) 67.0 Lymph % (Auto) 19.2 [place] % (Auto) 11.5 H Eos % (Auto) 1.4 Baso % (Auto) 0.6 Absolute Neuts (auto) 4.3 Absolute Lymphs (auto) 1.23 Nucleated RBC % 0 PT 22.7 H INR 2.1 Sodium 138 Potassium 4.2 Chloride 104 Carbon Dioxide 26.0 Anion Gap 8 BUN 27 H Creatinine 1.54 H Estim Creat Clear Calc 41.48 Est GFR (MDRD) Af Amer 57 L Est GFR (MDRD) Non-Af 47 L BUN/Creatinine Ratio 17.5 Glucose 168 H Calcium 9.3 Troponin I < 0.015 COVID-19 (MARIO) 12/25/19 12:30 WBC RBC Hgb Hct MCV MCH MCHC RDW Std Deviation RDW Coeff of Cortney Plt Count MPV Immature Gran % (Auto) Neut % (Auto) Lymph % (Auto) [place] % (Auto) Eos % (Auto) Baso % (Auto) Absolute Neuts (auto) Absolute Lymphs (auto) Nucleated RBC % PT INR Sodium Potassium Chloride Carbon Dioxide Anion Gap BUN Creatinine Estim Creat Clear Calc Est GFR (MDRD) Af Amer Est GFR (MDRD) Non-Af BUN/Creatinine Ratio Glucose Calcium Troponin I COVID-19 (MARIO) Detected - EKG Initial EKG Interpretation: Sinus Rhythm - Sinus at 93 with single PVC. No acute ischemia. - Medical Decision Making Patient was observed on monitor worker throughout his ED stay. No arrhythmias noted. Vital signs have been stable and his O2 sat is currently 97% on room air. Patient's coronavirus test did return positive. Had this been negative my plan was to admit him for cardiac rule out, however I do believe this explains the patient's present symptoms. He is stable to monitor his symptoms at home at this time. I did discuss with patient and son at bedside obtaining a pulse ox meter if able to monitor his oxygen levels at home. Instructions for quarantine and monitoring are given to the patient. ED Disposition - Plan for ED Patient: Disposition: Home or Assisted Living Diagnosis: Coronavirus infection Instructions: ED Viral Syndrome Referrals: Claudette Meraz MD [Primary Care Provider] - As Needed
[2019-12-25 12:27] LABS: Absolute Lymphocyte Count 1.23 X10^3/uL (0.83-4.51); Absolute Neutrophil Count 4.3 X10^3/uL (2.0-7.7); Basophil# 0.04 X10^3/uL; Basophil% 0.6 % (0-1); Eosinophil# 0.09 X10^3/uL; Eosinophils% 1.4 % (0-5); Hematocrit 44.2 % (40-54); Hemoglobin 14.2 g/dL (13.0-16.5); Lymphocyte # 1.23 X10^3/ul (4.0); Lymphocyte % 19.2 % (19-41); Mean Corp Hgb Conc 32.1 g/dL (32-36); Mean Corpuscular Hgb 31.7 pg (27.0-32.0); Mean Corpuscular Volume 98.7 fL (80-94); Mean Platelet Vol. 9.4 fl (6.2-12.0); Monocyte# 0.74 X10^3/uL; Monocyte% 11.5 % (0-10); NRBC Flagged by Analyzer 0 % (0-5); Platelet Count 190 K/mm3 (150-450); RBC Distribution Width CV 13.2 % (11.6-14.6); RBC Distribution Width SD 47.8 fl (35.1-43.9); Red Blood Count 4.48 M/mm3 (4.6-6.2); White Blood Count 6.4 K/mm3 (4.4-11.0)
[2019-12-25] MEDS: Aspirin 81 MG TAB.CHEW 324 MG PO (12:29)
[2019-12-25 12:36] LABS: International Normalized Ratio 2.1; Prothrombin Time (Protime)PT. 22.7 SECONDS (11.7-14.9)
--- NOTE | 2019-12-25 12:36 | RAD_ITS ---
STUDY: X-RAY CHEST REASON FOR EXAM: Male, 79 years old. CHEST PAINS TECHNIQUE: Single AP portable view of the chest. COMPARISON: None. FINDINGS: EKG electrodes are seen. Limited inspiratory effort. Mild increased markings at the lung bases suggestive of either linear scarring and/or atelectasis. There is no demonstrated pleural abnormality. There is borderline cardiomegaly. Normal mediastinum and mikala. Normal visualized pulmonary arteries. There is atherosclerotic calcification of the aortic arch with tortuosity. There are diffuse degenerative changes of the visualized thoracic spine. Normal visualized ribs, clavicles, and shoulders. There is no demonstrated abnormality of the visualized soft tissue structures of the upper abdomen. RAD/Chest 1 View (Portable) IMPRESSION: Limited inspiratory effort. Impaired aeration at the lung bases. Electronically Signed: Vinicio Dawson, at 13:07 EDT , Service support ,
[2019-12-25 12:43] LABS: Anion Gap 8 (5-15); BUN 27 mg/dL (7-18); BUN/Creat Ratio 17.5 RATIO (10-20); Calcium,Total 9.3 mg/dL (8.5-10.1); Chloride 104 mmol/L (98-107); Creatinine, Serum 1.54 mg/dL (0.70-1.30); EST Glomerular Filtration Rate 47 mL/min (>60); Est Glom Filt Rate - Afr Amer 57 mL/min (>60); Estimated Creatinine Clearance 41.48 ml/min; Glucose 168 mg/dL (74-106); Potassium 4.2 mmol/L (3.5-5.1); Sodium Level 138 mmol/L (136-145)
[2019-12-25 13:11] VITALS: BP 124/73; PULSE 81; RESP 20; TEMP 36.8; O2SAT 96
[2019-12-25 14:01] VITALS: BP 123/73; PULSE 84; RESP 23; O2SAT 98
[2019-12-25 15:21] VITALS: BP 144/74; PULSE 82; RESP 24; O2SAT 97
[2019-12-25 15:29] VITALS: BP 144/74; PULSE 82; RESP 24; O2SAT 97
== END 2019-12-25 15:30 | disposition home or self-care (01) ==
LOC: ED 13:11
PROVIDERS: Emergency Provider Emergency Medicine; PCP Internal Medicine
DX: B34.2 Coronavirus infection, unspecified (principal); I49.3 Ventricular premature depolarization; I10 Essential (primary) hypertension; E78.00 Pure hypercholesterolemia, unspecified; E11.51 Type 2 diabetes mellitus with diabetic peripheral angiopathy without gangrene; Z86.718 Personal history of other venous thrombosis and embolism; Z79.01 Long term (current) use of anticoagulants; Z79.84 Long term (current) use of oral hypoglycemic drugs; Z79.899 Other long term (current) drug therapy; Z87.891 Personal history of nicotine dependence
CPT/HCPCS: 71045; 80048; 84484; 85025; 85610; 87635; 93005; 94760; 99281; 99285; A4216; U0003

== ENCOUNTER 2019-12-30 10:14 | Inpatient (IN) | payer MEDICARE, OTHER, SELFPAY ==
[2019-12-30] VITALS (8 sets, daily range): BP systolic 124–133; BP diastolic 64–87; PULSE 79–104; RESP 18–40; TEMP 36.3–37; O2SAT 88–98; BMI 34.4; BMI 34.3
--- NOTE | 2019-12-30 10:55 | RAD_ITS ---
STUDY: X-RAY CHEST REASON FOR EXAM: Male, 79 years old. COUGH, SOB X 1 MONTH, POSITIVE COVID TECHNIQUE: Single AP portable view of the chest. COMPARISON: Comparison is made with prior study dated 12/25/2019. FINDINGS: EKG electrodes are seen. There now is evidence of patchy bilateral infiltrates worse at the lung bases. There is no demonstrated pleural abnormality. Normal size heart. Normal mediastinum and mikala. Normal visualized pulmonary arteries. There is atherosclerotic calcification of the aortic arch with tortuosity. There are diffuse degenerative changes of the visualized thoracic spine. Normal visualized ribs, clavicles, and shoulders. There is no demonstrated abnormality of the visualized soft tissue structures of the upper abdomen. RAD/Chest 1 View (Portable) IMPRESSION: Patchy bibasilar infiltrates worse at the lung bases. Electronically Signed: Vinicio Dawson, at 11:19 EDT , Service support ,
[2019-12-30 11:11] LABS: Absolute Lymphocyte Count 1.63 X10^3/uL (0.83-4.51); Absolute Neutrophil Count 3.1 X10^3/uL (2.0-7.7); Basophil# 0.02 X10^3/uL; Basophil% 0.4 % (0-1); Eosinophil# 0.03 X10^3/uL; Eosinophils% 0.5 % (0-5); Hematocrit 45.6 % (40-54); Hemoglobin 14.8 g/dL (13.0-16.5); Lymphocyte # 1.63 X10^3/ul (4.0); Lymphocyte % 29.7 % (19-41); Mean Corp Hgb Conc 32.5 g/dL (32-36); Mean Corpuscular Hgb 31.5 pg (27.0-32.0); Mean Platelet Vol. 10.1 fl (6.2-12.0); Monocyte# 0.65 X10^3/uL; Monocyte% 11.8 % (0-10); NRBC Flagged by Analyzer 0 % (0-5); Neutrophil # 3.14 X10^3/uL (2.7-7.7); Neutrophil % 57.2 % (47-70); Platelet Count 184 K/mm3 (150-450); RBC Distribution Width CV 13.1 % (11.6-14.6); RBC Distribution Width SD 47.7 fl (35.1-43.9); White Blood Count 5.5 K/mm3 (4.4-11.0)
[2019-12-30] MEDS: dexAMETHasone 10 MG/ML Vial IV (11:19)
[2019-12-30 11:22] LABS: Fibrinogen 760 mg/dl (203-444)
[2019-12-30 11:27] LABS: ALB/GLOB Ratio 0.6 RATIO (0.9-2.4); AST(SGOT) 83 U/L (15-37); Alanine Aminotransfer ALT/SGPT 52 U/L (16-61); Albumin, Serum 3.2 g/dL (3.2-5.0); Alkaline Phosphatase 87 U/L (45-117); Anion Gap 12 (5-15); BUN 31 mg/dL (7-18); CPK Total, Creatine Kinase 356 U/L (39-308); Calcium,Total 8.6 mg/dL (8.5-10.1); Chloride 103 mmol/L (98-107); Creatinine, Serum 2.06 mg/dL (0.70-1.30); EST Glomerular Filtration Rate 33 mL/min (>60); Est Glom Filt Rate - Afr Amer 40 mL/min (>60); Estimated Creatinine Clearance 31.01 ml/min; Globulin 5.1 g/dL (2.2-4.2); Glucose 216 mg/dL (74-106); LDH 415 U/L (87-241); Potassium 4.3 mmol/L (3.5-5.1); Protein, Total 8.3 g/dL (6.4-8.2); Sodium Level 137 mmol/L (136-145)
[2019-12-30 11:30] LABS: D-Dimer Quantitative (DVT/PE) 0.96 FEU/ug/m (0.27-0.49)
[2019-12-30 11:34] LABS: Procalcitonin 0.23 ng/mL (0.00-0.09)
[2019-12-30 11:47] LABS: Lactic Acid 4.5 mmol/L (0.4-1.9)
--- NOTE | 2019-12-30 11:48 | ED.DCSUM_ITS ---
History of Present Illness Chief Complaint: Shortness of Breath Informant: Patient, EMS Narrative: Patient presenting for evaluation due to complications from coronavirus. Patient states that he has been ill for around 7 days or so with generalized infectious symptoms. He endorses that he has a cough. Patient has had increasing shortness of breath recently. He initially started with diarrhea, that has since resolved. He denies any chest pain. He does have body aches and generalized fatigue. Patient does not have an underlying history of lung disease or an oxygen requirement but was noted to be hypoxic on room air requiring supplemental oxygen. He was brought to the emergency department for further evaluation. Past Medical History - Allergies and Home Meds Allergies/Adverse Reactions: Allergies No Known Allergies Allergy (Verified 12/30/19 10:32) Prior records reviewed: Yes Past Medical History: - - Hypertension, hyperlipidemia, peripheral vascular disease, diabetes Surgical History: total hip arthroplasty - Left in 1994, Right x 2 in 1990, & 2000, - - Lumbar spine x 2 in 2005, & 2008 Smoking Status: Former smoker Alcohol: None Drugs: None - Family History Maternal Family History: Reports: Heart Disease - age 73 Sibling Family History: Reports: Heart Disease - age 53 Review of Systems All systems negative except as indicated General: Reports: Fever, Malaise Eyes: Denies: Visual changes - bilaterally, Diplopia ENT: Denies: Rhinorrhea, Sore throat Cardiovascular: Denies: Chest pain, Palpitations Respiratory: Reports: Dyspnea, Cough Gastrointestinal: Reports: Diarrhea Genitourinary: Denies: Dysuria, Hematuria, Frequency Musculoskeletal: Denies: Back pain, Extremity Pain Skin: Denies: Rash, Wounds Neurological: Denies: Headache, Weakness, Numbness Physical Exam Vital Signs/Narrative: Vital Signs Temp Pulse Resp BP Pulse Ox 12/30/19 11:44 98.1 F 97 40 H 133/75 H 97 12/30/19 11:19 98.1 F 97 40 H 133/75 H 97 12/30/19 10:42 96 12/30/19 10:32 97 12/30/19 10:15 98.4 F 104 H 31 H 130/87 H 88 Inital Vital Signs reviewed: Yes General: Well nourished, Well developed, Obese, No Acute Distress Head: Normocephalic, Atraumatic Eyes: Perrl, EOMI ENT: Moist mucous membranes, No rhinorrhea Neck: Supple Cardiovascular: Regular rhythm, Tachycardia Respiratory: - - Patient is tachypneic but not in respiratory distress Abdomen: Soft, Nontender, Nondistended, Normal bowel sounds Back: Nontender, Normal Inspection Extremities: Nontender Skin: Normal color, No rash Neurological: Alert, Oriented x3, Cranial nerves II-XII grossly intact, Normal Strength, Normal Sensation Psychological: Normal affect, Normal Mood Diagnostic/Tx/Re-eval Clinical Impression(s) from Imaging Studies Chest X-Ray 12/30/19 10:55 IMPRESSION: Patchy bibasilar infiltrates worse at the lung bases. Electronically Signed: Vinicio Dawson, at 11:19 EDT , Service support , Laboratory Data 12/30/19 12/30/19 12/30/19 10:05 10:05 10:05 WBC 5.5 RBC 4.70 Hgb 14.8 Hct 45.6 MCV 97.0 H MCH 31.5 MCHC 32.5 RDW Std Deviation 47.7 H RDW Coeff of Cortney 13.1 Plt Count 184 MPV 10.1 Immature Gran % (Auto) 0.400 Neut % (Auto) 57.2 Lymph % (Auto) 29.7 [place] % (Auto) 11.8 H Eos % (Auto) 0.5 Baso % (Auto) 0.4 Absolute Neuts (auto) 3.1 Absolute Lymphs (auto) 1.63 Nucleated RBC % 0 Fibrinogen 760 H D-Dimer Quant (PE/DVT) 0.96 H* Sodium 137 Potassium 4.3 Chloride 103 Carbon Dioxide 22.0 Anion Gap 12 BUN 31 H Creatinine 2.06 H Estim Creat Clear Calc 31.01 Est GFR (MDRD) Af Amer 40 L Est GFR (MDRD) Non-Af 33 L BUN/Creatinine Ratio 15.0 Glucose 216 H Lactic Acid Calcium 8.6 Total Bilirubin 0.70 AST 83 H ALT 52 Alkaline Phosphatase 87 Lactate Dehydrogenase 415 H Total Creatine Kinase 356 H Total Protein 8.3 H Albumin 3.2 Globulin 5.1 H Albumin/Globulin Ratio 0.6 L Procalcitonin 12/30/19 12/30/19 10:05 10:05 WBC RBC Hgb Hct MCV MCH MCHC RDW Std Deviation RDW Coeff of [place]ney Plt Count MPV Immature Gran % (Auto) Neut % (Auto) Lymph % (Auto) [place] % (Auto) Eos % (Auto) Baso % (Auto) Absolute Neuts (auto) Absolute Lymphs (auto) Nucleated RBC % Fibrinogen D-Dimer Quant (PE/DVT) Sodium Potassium Chloride Carbon Dioxide Anion Gap BUN Creatinine Estim Creat Clear Calc Est GFR (MDRD) Af Amer Est GFR (MDRD) Non-Af BUN/Creatinine Ratio Glucose Lactic Acid 4.5 H* Calcium Total Bilirubin AST ALT Alkaline Phosphatase Lactate Dehydrogenase Total Creatine Kinase Total Protein Albumin Globulin Albumin/Globulin Ratio Procalcitonin 0.23 H - Medical Decision Making Patient presented with complications of coronavirus. Chest x-ray was obtained and shows bilateral infiltrates consistent with the patient's diagnosis. CBC unremarkable, chemistry does demonstrate some SANDRA. There is elevation of the patient's D-dimer likely due to his infection. He also has elevation of his CK, LDH, lactic acid. Patient was given a dose of Decadron in the emergency depart ment. He was stable on supplemental oxygen at this time, I do not feel he requires an ablation and does not seem to require critical care management at this time. Patient will be admitted under the hospitalist. ED Disposition - Plan for ED Patient: Disposition: Acute Care Hospital [facility] Diagnosis: COVID-19 virus infection, Acute kidney injury
--- NOTE | 2019-12-30 12:17 | HP.PCM_ITS ---
Problem List (1) Acute kidney injury Status: Acute (2) COVID-19 virus infection Status: Acute (3) DVT (deep venous thrombosis) Status: Chronic (4) High cholesterol Status: Chronic (5) Hypertension Status: Chronic (6) PVD (peripheral vascular disease) Status: Chronic (7) Type 2 diabetes mellitus Status: Chronic History of Present Illness Date of Admission: 12/30/19 Chief Complaint: Shortness of breath The patient is a 79 year old M with past medical history single for diabetes mellitus type 2, hypertension previous history of DVT who presented with increasing shortness of breath. Patient had apparently been diagnosed with Covid on 12/25/2019. He was self isolating at home however his symptoms got progressively worse. He did complain of subjective fever and chills as well as sore throat. Presented to the emergency department as a result imaging studies obtained in the ED demonstrated Patchy bibasilar infiltrates worse at the lung bases. An assessment of acute COVID-19 pneumonia with severe sepsis was made admitted for subsequent inpatient management. Past Medical History Past Medical History (Chronic Problems): Chronic Problems Type 2 diabetes mellitus (Chronic) PVD (peripheral vascular disease) (Chronic) Hypertension (Chronic) High cholesterol (Chronic) DVT (deep venous thrombosis) (Chronic) Allergies No Known Allergies Allergy (Verified 12/30/19 10:32) Home Medications: Ambulatory Orders Medication Instructions Recorded Atorvastatin Calcium [Lipitor] 20 mg PO DAILY 07/29/15 Hydrochlorothiazide [Hctz] 12.5 mg PO DAILY 07/29/15 Lisinopril [Zestril] 10 mg PO BID 07/29/15 metFORMIN (XR) [Glucophage Xr] 1,000 mg PO DAILY 07/07/17 Glipizide [Glipizide ER] 5 mg PO DAILY 12/25/19 Ibuprofen [Advil] 200 mg PO BID 12/25/19 Pantoprazole Sodium [Protonix] 20 mg PO DAILY 12/25/19 Warfarin Sodium 4 mg PO DAILY 12/25/19 Surgical History: total hip arthroplasty - Left in 1994, Right x 2 in 1990, & 2000, - - Lumbar spine x 2 in 2005, & 2008 Psychiatric History: No pertinent psych hx Smoking Status: Former smoker - *Family History Maternal History Items: Heart Disease - age 73 Sibling History Items: Heart Disease - age 53 Review of Systems Constitutional: Reports: Chills, Fever, Weakness HEENT: Reports: Sore Throat Cardiovascular: Denies: Chest Pain, Orthopnea, Palpitations, Paroxysmal Noc. Dyspnea Respiratory: Reports: Shortness of Breath Gastrointestinal: Denies: Abdominal Pain, Hematemesis, Hematochezia, Nausea, Melena, Vomiting Genitourinary: Denies: Dysuria, Frequency, Hematuria, Urgency Musculoskeletal: Denies: Joint Pain, Joint Tenderness Skin: Denies: Rash Neurological: Denies: Focal weakness, Numbness, Tingling Psychiatric: Denies: Homicidal Ideations, Suicidal Ideations Hematologic/ Lymphatic: Denies: Easy Bruising, Easy Bleeding VTE Information - Inpt Only VTE Present on Admission: No VTE Pharm Prophylaxis ordered?: No Patient Problems: Active and Suspected Problems COVID-19 virus infection (Acute) Acute kidney injury (Acute) Objective: GENERAL: cooperative HEENT: Atraumatic; EYES; Anicteric, Normal Conjunctiva NECK; supple, normal thyroid, RESPIRATORY: Diminished to auscultation CARDIOVASCULAR: Regular S1 S2, GI: soft, normoactive bowel sounds, : No Renal angle tenderness; EXTREMITIES: No edema, no clubbing, MUSCULOSKELETAL: no muscle waisting NEURO: Awake; no lateralizing signs. SKIN: No Rash PSYCH; Flat affect - Physical Exam Vitals/I&O's: Vital Signs Temp Pulse Resp BP Pulse Ox 98.1 F 91 28 H 125/64 H 98 12/30/19 11:56 12/30/19 11:56 12/30/19 11:56 12/30/19 11:56 12/30/19 11:56 Oxygen Flow Rate (L/min) 4 Oxygen Delivery Method Nasal Cannula Weight: 108.8 kg Body Mass Index (BMI) 34.4 Finger Stick Blood Glucose 227 Laboratory Results 12/30/19 10:05: WBC 5.5, RBC 4.70, Hgb 14.8, Hct 45.6, MCV 97.0 H, MCH 31.5, MCHC 32.5, RDW Std Deviation 47.7 H, RDW Coeff of Cortney 13.1, Plt Count 184, MPV 10.1, Immature Gran % (Auto) 0.400, Neut % (Auto) 57.2, Lymph % (Auto) 29.7, [place] % (Auto) 11.8 H, Eos % (Auto) 0.5, Baso % (Auto) 0.4, Absolute Neuts (auto) 3.1, Absolute Lymphs (auto) 1.63, Nucleated RBC % 0 12/30/19 10:05: Fibrinogen 760 H, D-Dimer Quant (PE/DVT) 0.96 H* 12/30/19 10:05: Sodium 137, Potassium 4.3, Chloride 103, Carbon Dioxide 22.0, Anion Gap 12, BUN 31 H, Creatinine 2.06 H, Estim Creat Clear Calc 31.01, Est GFR (MDRD) Af Amer 40 L, Est GFR (MDRD) Non-Af 33 L, BUN/Creatinine Ratio 15.0, Glucose 216 H, Calcium 8.6, Total Bilirubin 0.70, AST 83 H, ALT 52, Alkaline Phosphatase 87, Lactate Dehydrogenase 415 H, Total Creatine Kinase 356 H, Total Protein 8.3 H, Albumin 3.2, Globulin 5.1 H, Albumin/Globulin Ratio 0.6 L 12/30/19 10:05: Lactic Acid 4.5 H* 12/30/19 10:05: Procalcitonin 0.23 H Assessment/Plan All Active Problems COVID-19 virus infection (Acute) Acute kidney injury (Acute) Patient is a 79-year-old gentleman with multiple comorbidities with recent diagnosis of COVID-19 infection presenting with worsening symptoms 1. Acute respiratory insufficiency secondary to acute COVID-19 pneumonia ?Admitted to the COVID-19 cohort unit. Please on supplemental oxygen, Decadron, antibiotics with Rocephin and Zithromax with consultation placed to pulmonary and infectious disease 2. Septic shock (by definition with lactic acid being greater than 4) ?Patient however remains hemodynamically stable. Patient was resuscitated with IV fluid cautiously. Did not follow the 30 mL/kg recommendations since patient who received excessive IV fluid with COVID-19 infection have worse outcomes. Patient was however managed with antibiotics per protocol after cultures have been obtained 3. Acute kidney injury ?Due to combination of patient underlying infection as well as patient being on potential nephrotoxic medications. Patient is on HCTZ, EVERETT inhibitors, as well as nonsteroidal anti-inflammatory medications. Suspected offending medications held resuscitated with IV fluid with subsequent monitoring of electrolytes. Ordered kidney ultrasound to rule out obstructive uropathy 4. Hypertension ?Patient is on HCTZ and lisinopril held in view of worsening kidney function. Please on hydralazine as needed 5. Dyslipidemia -Patient is on statin therapy, continued at home dose 6. GERD ?Patient on PPI 7. Previous history of lower extremity DVT ?Patient is on systemic anticoagulation with warfarin ordered INR for subsequent dose adjustment if needed 8. Diabetes mellitus type II -With complications including diabetic nephropathy. Patient's oral hypoglycemics held. Placed on long acting insulin, Accu-Cheks a.c. and at bedtime and covered with sliding scale insulin 9. DVT prophylaxis ?Patient on warfarin Advance planning; did discuss with the patient regarding advanced directives as well as CODE STATUS. Did explain the various scenarios involved ( FULL CODE, DNR CCA, DNR CCA with no intubation, and DNR CC and what each meant) patient elected to remain full code with CPR and intubation if needed. Order was placed. Time spent on discussion 18 minutes. Inpatient E&M: 02978 Init Hosp L3 Procedures: 34056 Advncd Care Plan 30 Min
[2019-12-30 13:39] LABS: International Normalized Ratio 1.9
[2019-12-30] MEDS: 0.9% Normal Saline 1,000 ML 150 ML IV ×2 (14:40→22:39)
[2019-12-30 15:03] LABS: Reflex Lactate? Y
--- NOTE | 2019-12-30 15:46 | CON.PCM_ITS ---
Problem List (1) COVID-19 virus infection Status: Acute Reason for Consult: covid Consulted by: Dr. Sandoval History of Present Illness: The patient is a 79 year old M presented with progressive cough, dyspnea, sore throat, headache, fever, diarrhea, aches. has been feeling fine at home. Dx with covid. Admitted on 4L O2 and dex. Feeling ok today. Full ROS performed and neg except as noted above. - Medical History Past Medical History (Chronic Problems): Chronic Problems Type 2 diabetes mellitus (Chronic) PVD (peripheral vascular disease) (Chronic) Hypertension (Chronic) High cholesterol (Chronic) DVT (deep venous thrombosis) (Chronic) Allergies/Adverse Reactions: Allergies No Known Allergies Allergy (Verified 12/30/19 10:32) Home Medications: Ambulatory Orders Medication Instructions Recorded Atorvastatin Calcium [Lipitor] 20 mg PO DAILY 07/29/15 Hydrochlorothiazide [Hctz] 12.5 mg PO DAILY 07/29/15 Lisinopril [Zestril] 10 mg PO BID 07/29/15 metFORMIN (XR) [Glucophage Xr] 1,000 mg PO DAILY 07/07/17 Glipizide [Glipizide ER] 5 mg PO DAILY 12/25/19 Ibuprofen [Advil] 200 mg PO BID 12/25/19 Pantoprazole Sodium [Protonix] 20 mg PO DAILY 12/25/19 Warfarin Sodium 4 mg PO DAILY 12/25/19 - Social History SMOKING STATUS:: Former smoker Vital Signs Temp Pulse Resp BP Pulse Ox 98.6 F 88 22 H 124/71 H 94 12/30/19 13:24 12/30/19 13:24 12/30/19 13:24 12/30/19 13:24 12/30/19 13:24 Oxygen Flow Rate (L/min) 4 Oxygen Delivery Method Nasal Cannula Weight: 108.6 kg Body Mass Index (BMI) 34.3 Finger Stick Blood Glucose 227 Laboratory Tests Past 24 Hrs 12/30/19 12/30/19 12/30/19 10:05 10:05 10:05 WBC 5.5 RBC 4.70 Hgb 14.8 Hct 45.6 MCV 97.0 H MCH 31.5 MCHC 32.5 RDW Std Deviation 47.7 H RDW Coeff of Cortney 13.1 Plt Count 184 MPV 10.1 Immature Gran % (Auto) 0.400 Neut % (Auto) 57.2 Lymph % (Auto) 29.7 [place] % (Auto) 11.8 H Eos % (Auto) 0.5 Baso % (Auto) 0.4 Absolute Neuts (auto) 3.1 Absolute Lymphs (auto) 1.63 Nucleated RBC % 0 PT INR Fibrinogen 760 H D-Dimer Quant (PE/DVT) 0.96 H* Sodium 137 Potassium 4.3 Chloride 103 Carbon Dioxide 22.0 Anion Gap 12 BUN 31 H Creatinine 2.06 H Estim Creat Clear Calc 31.01 Est GFR (MDRD) Af Amer 40 L Est GFR (MDRD) Non-Af 33 L BUN/Creatinine Ratio 15.0 Glucose 216 H Lactic Acid Calcium 8.6 Total Bilirubin 0.70 AST 83 H ALT 52 Alkaline Phosphatase 87 Lactate Dehydrogenase 415 H Total Creatine Kinase 356 H Total Protein 8.3 H Albumin 3.2 Globulin 5.1 H Albumin/Globulin Ratio 0.6 L Procalcitonin 12/30/19 12/30/19 12/30/19 10:05 10:05 10:05 WBC RBC Hgb Hct MCV MCH MCHC RDW Std Deviation RDW Coeff of Cortney Plt Count MPV Immature Gran % (Auto) Neut % (Auto) Lymph % (Auto) [place] % (Auto) Eos % (Auto) Baso % (Auto) Absolute Neuts (auto) Absolute Lymphs (auto) Nucleated RBC % PT 21.0 H INR 1.9 Fibrinogen D-Dimer Quant (PE/DVT) Sodium Potassium Chloride Carbon Dioxide Anion Gap BUN Creatinine Estim Creat Clear Calc Est GFR (MDRD) Af Amer Est GFR (MDRD) Non-Af BUN/Creatinine Ratio Glucose Lactic Acid 4.5 H* Calcium Total Bilirubin AST ALT Alkaline Phosphatase Lactate Dehydrogenase Total Creatine Kinase Total Protein Albumin Globulin Albumin/Globulin Ratio Procalcitonin 0.23 H - Other Studies Radiology: [] reviewed Other Studies: [] Route of nutrition/ use of supplements: [] Nutritional Intake: [] IV Site: [] Blair Catheter: [] - Physical Exam General: Alert, Oriented x3, Cooperative, No apparent distress HEENT: Atraumatic, PERRLA, EOMI Neck: Supple, No Nodes Lungs: Diminished Cardiovascular: Regular rate, Regular Rhythm Abdomen: Soft, Non Tender, Non-Distended Extremities: No edema Skin: No rashes IV Site: Peripheral, without redness Musculoskeletal: No Tenderness to Palpation of Joints or Extremities Neurological: Cranial nerves II-XII grossly intact - Assessment/Plan Antibiotics: [] Assessment/Plan: [] Active and Suspected Problems COVID-19 virus infection (Acute) Acute kidney injury (Acute) covid with acute hypoxic resp failure and SANDRA - on dex, feeling ok. Recommend get tested and quarantine for 14 days. Will stop azithro/ceftriaxone. Elevated lactate. Low suspicion for bacterial infection. Sx started evening 12/23. Will follow, thank you
[2019-12-30] MEDS: Insulin Lispro 100 UNIT/ML INSULN.PEN SC ×2 (16:51→22:41)
[2019-12-30 16:56] LABS: Bedside Glucose 400 mg/dL (70-110)
[2019-12-30 17:22] LABS: Lactic Acid 3.1 mmol/L (0.4-1.9)
[2019-12-30] MEDS: Atorvastatin Calcium 20 MG Tablet PO (22:41)
[2019-12-30] MEDS: guaiFENesin 10 ML UDC (200MG/10ML) 20 ML PO (22:49)
[2019-12-30 23:21] LABS: Bedside Glucose 343 mg/dL (70-110)
[2019-12-31] VITALS (12 sets, daily range): BP systolic 133–185; BP diastolic 76–103; PULSE 71–92; RESP 18–24; TEMP 36–36.8; O2SAT 86–94
[2019-12-31] MEDS: 0.9% Normal Saline 1,000 ML 150 ML IV ×2 (05:32→15:34)
--- NOTE | 2019-12-31 06:21 | CON.PCM_ITS ---
Reason for Consult Date of Consultation: 12/31/19 Reason for Consultation: Acute hypoxemic respiratory insufficiency History of Present Illness: The patient is a 79-year-old male, with a history as outlined below, who presented to the emergency department on December 29 with complaints of shortness of breath, cough and hypoxemia. The patient has apparently been symptomatic now for approximately 1 week. He denies any recent known Covid exposures. The patient does have a known history of severe obstructive sleep apnea as well, based upon polysomnogram from 2018. Coronavirus PCR was noted to be positive on December 24. On presentation to the emergency department, the patient was noted to be afebrile and hemodynamically stable. He was, nevertheless tachypneic and tachycardic. Laboratory evaluation revealed a normal white blood cell count. Coagulation profile revealed a D-dimer level of 0.96. Chemistry profile was notable for a creatinine of 2.06 and elevated lactate of 4.5. AST was increased to 83 with an elevated LDH of 415. Procalcitonin was noted to be 0.23. Chest x-ray revealed patchy lower lobe predominant airspace disease. The patient was initially placed on antimicrobials and Decadron. He was subsequently admitted to the Covid cohort unit for further management. Past Medical History Past Medical History (Chronic Problems): Chronic Problems Type 2 diabetes mellitus (Chronic) PVD (peripheral vascular disease) (Chronic) Hypertension (Chronic) High cholesterol (Chronic) DVT (deep venous thrombosis) (Chronic) Allergies No Known Allergies Allergy (Verified 12/30/19 10:32) Home Medications: Ambulatory Orders Medication Instructions Recorded Atorvastatin Calcium [Lipitor] 20 mg PO DAILY 07/29/15 Hydrochlorothiazide [Hctz] 12.5 mg PO DAILY 07/29/15 Lisinopril [Zestril] 10 mg PO BID 07/29/15 metFORMIN (XR) [Glucophage Xr] 1,000 mg PO DAILY 07/07/17 Glipizide [Glipizide ER] 5 mg PO DAILY 12/25/19 Ibuprofen [Advil] 200 mg PO BID 12/25/19 Pantoprazole Sodium [Protonix] 20 mg PO DAILY 12/25/19 Warfarin Sodium 4 mg PO DAILY 12/25/19 Surgical History: total hip arthroplasty - Left in 1994, Right x 2 in 1990, & 2000, - - Lumbar spine x 2 in 2005, & 2008 Psychiatric History: No pertinent psych hx Smoking Status: Former smoker Tobacco Use: Pipe Alcohol: None Drugs: None - *Family History Maternal History Items: Heart Disease - age 73 Sibling History Items: Heart Disease - age 53 Review of Systems Constitutional: Reports: Malaise, Fatigue Eyes: Denies: Blurred vision, Double vision HEENT: Reports: Head Aches, Sore Throat Cardiovascular: Denies: Chest Pain Respiratory: Reports: Cough, Shortness of Breath Gastrointestinal: Denies: Abdominal Pain, Nausea, Vomiting Genitourinary: Denies: Dysuria Musculoskeletal: Reports: Muscle pain Skin: Denies: Rash, Wounds Neurological: Denies: Numbness, Tingling, Focal weakness Psychiatric: Denies: Anxiety, Depression, Homicidal Ideations, Suicidal Ideations Hematologic/ Lymphatic: Denies: Easy Bruising, Easy Bleeding Patient Problems: Active and Suspected Problems COVID-19 virus infection (Acute) Acute kidney injury (Acute) Objective: The patient's most recent lab work, culture data and imaging studies have all been personally reviewed. Coronavirus PCR was positive on December 24. Strep and urine Legionella antigens were negative. Blood and urine cultures are pending. - Physical Exam Vitals/I&O's: Vital Signs Temp Pulse Resp BP Pulse Ox 97.4 F L 71 18 133/79 H 93 12/31/19 02:32 12/31/19 02:32 12/31/19 02:32 12/31/19 02:32 12/31/19 02:32 Oxygen Flow Rate (L/min) 4 Oxygen Delivery Method Nasal Cannula Weight: 239 lb 6.752 oz Body Mass Index (BMI) 34.3 Finger Stick Blood Glucose 227 Intake and Output for Last 24 Hours 12/29/19 12/30/19 12/31/19 23:59 23:59 23:59 Intake Total 1522.5 / 1522.5 1092.5 / 1092.5 Output Total 120 / 120 250 / 250 Balance 1402.5 / 1402.5 842.5 / 842.5 General: Alert, Cooperative, - - Sitting in bedside recliner. HEENT: Atraumatic, Normocephalic Oral: No Gingival or Mucosal Lesions/ Ulcerations Neck: Supple, No Nodes, Trachea Midline Lungs: Diminished, - - Vocal hoarseness and frequent coughing noted. Cardiovascular: Regular rate, Regular Rhythm Abdomen: Bowel Sounds Present, Soft, Non Tender Extremities: No clubbing, No cyanosis, No edema Skin: No breakdown Musculoskeletal: No Muscle Wasting Neurological: Cranial nerves II-XII grossly intact, Neuro grossly intact Psych/Mental Status: Normal Affect, Appropriate Labs (Last 48 Hours) 12/30/19 12/30/19 12/30/19 10:05 10:05 10:05 WBC 5.5 RBC 4.70 Hgb 14.8 Hct 45.6 MCV 97.0 H MCH 31.5 MCHC 32.5 RDW Std Deviation 47.7 H RDW Coeff of Cortney 13.1 Plt Count 184 MPV 10.1 Immature Gran % (Auto) 0.400 Neut % (Auto) 57.2 Lymph % (Auto) 29.7 [place]abella % (Auto) 11.8 H Eos % (Auto) 0.5 Baso % (Auto) 0.4 Absolute Neuts (auto) 3.1 Absolute Lymphs (auto) 1.63 Nucleated RBC % 0 PT INR Fibrinogen 760 H D-Dimer Quant (PE/DVT) 0.96 H* Sodium 137 Potassium 4.3 Chloride 103 Carbon Dioxide 22.0 Anion Gap 12 BUN 31 H Creatinine 2.06 H Estim Creat Clear Calc 31.01 Est GFR (MDRD) Af Amer 40 L Est GFR (MDRD) Non-Af 33 L BUN/Creatinine Ratio 15.0 Glucose 216 H Lactic Acid Calcium 8.6 Total Bilirubin 0.70 AST 83 H ALT 52 Alkaline Phosphatase 87 Lactate Dehydrogenase 415 H Total Creatine Kinase 356 H Total Protein 8.3 H Albumin 3.2 Globulin 5.1 H Albumin/Globulin Ratio 0.6 L Procalcitonin POC Glucose 12/30/19 12/30/19 12/30/19 10:05 10:05 10:05 WBC RBC Hgb Hct MCV MCH MCHC RDW Std Deviation RDW Coeff of Cortney Plt Count MPV Immature Gran % (Auto) Neut % (Auto) Lymph % (Auto) [place]abella % (Auto) Eos % (Auto) Baso % (Auto) Absolute Neuts (auto) Absolute Lymphs (auto) Nucleated RBC % PT 21.0 H INR 1.9 Fibrinogen D-Dimer Quant (PE/DVT) Sodium Potassium Chloride Carbon Dioxide Anion Gap BUN Creatinine Estim Creat Clear Calc Est GFR (MDRD) Af Amer Est GFR (MDRD) Non-Af BUN/Creatinine Ratio Glucose Lactic Acid 4.5 H* Calcium Total Bilirubin AST ALT Alkaline Phosphatase Lactate Dehydrogenase Total Creatine Kinase Total Protein Albumin Globulin Albumin/Globulin Ratio Procalcitonin 0.23 H POC Glucose 12/30/19 12/30/19 12/30/19 15:37 16:36 22:38 WBC RBC Hgb Hct MCV MCH MCHC RDW Std Deviation RDW Coeff of Cortney Plt Count MPV Immature Gran % (Auto) Neut % (Auto) Lymph % (Auto) [place] % (Auto) Eos % (Auto) Baso % (Auto) Absolute Neuts (auto) Absolute Lymphs (auto) Nucleated RBC % PT INR Fibrinogen D-Dimer Quant (PE/DVT) Sodium Potassium Chloride Carbon Dioxide Anion Gap BUN Creatinine Estim Creat Clear Calc Est GFR (MDRD) Af Amer Est GFR (MDRD) Non-Af BUN/Creatinine Ratio Glucose Lactic Acid 3.1 H* Calcium Total Bilirubin AST ALT Alkaline Phosphatase Lactate Dehydrogenase Total Creatine Kinase Total Protein Albumin Globulin Albumin/Globulin Ratio Procalcitonin POC Glucose 400 H 343 H Microbiology 12/30/19 22:55 Urine, Clean Catch Legionella Antigen - Final 12/30/19 22:55 Urine, Clean Catch Streptococcus pneumoniae Antigen (M - Final Clinical Impression(s) from Imaging Studies Chest X-Ray 12/30/19 10:55 IMPRESSION: Patchy bibasilar infiltrates worse at the lung bases. Electronically Signed: Vinicio Dawson, at 11:19 EDT , Service support , Current Medications Acetaminophen (Acetaminophen 325 Mg Tablet) 650 mg PO Q6H PRN PRN PRN Reason: Pain Score 1-10/Temp > 100.7 F Albuterol Sulfate (Albuterol 2.5 Mg/3 Ml Vial.Neb.) 2.5 mg INHALATION Q2H PRN PRN PRN Reason: Shortness of Breath/Wheezing Atorvastatin Calcium (Atorvastatin Calcium 20 Mg Tablet) 20 mg PO QHS HUSSAIN Last Admin: 12/30/19 22:41 Dose: 20 mg Documented by: Dexamethasone Sodium Phosphate (Dexamethasone 10 Mg/Ml Vial) 6 mg IV DAILY HUSSAIN Dextrose (Dextrose 50%-Water 25 Gm/50 Ml Disp.Syrin) 0 gm IV X1 PRN; Protocol PRN Reason: Hypoglycemia Glucagon (Glucagon 1 Mg/Ml Syringe) 1 mg IM .X1 PRN PRN Reason: Hypoglycemia Guaifenesin (Guaifenesin 10 Ml Udc (200mg/10ml)) 20 ml PO Q4H PRN PRN PRN Reason: COUGH Last Admin: 12/30/19 22:49 Dose: 20 ml Documented by: Sodium Chloride () 1,000 mls @ 150 mls/hr IV .Q6H40M [facility] Stop: 12/31/19 15:59 Last Admin: 12/31/19 05:32 Dose: 150 mls/hr Documented by: Influenza Virus Vaccine Quadrival (Influenza Vaccine (6mos+)/Pf 0.5 Ml Syringe) 0.5 ml IM .ONCE ONE Stop: 12/31/19 10:01 Insulin Glargine (Insulin Glargine 100 Units/Ml Pen) 10 units SC QHS [facility] Last Admin: 12/30/19 22:41 Dose: 10 units Documented by: Insulin Human Lispro (Insulin Lispro 100 Unit/Ml Insuln.Pen) 0 unit SC [facility]; Protocol Last Admin: 12/30/19 22:41 Dose: 8 u Documented by: Melatonin (Melatonin 3 Mg Tablet) 3 mg PO QHS PRN PRN PRN Reason: INSOMNIA Nutritional Formula (Lactose Free) (Glucerna Shake 120 Ml Liquid) 120 ml PO TIDCM [facility] Ondansetron HCl (Ondansetron 4 Mg/2 Ml Vial) 4 mg IV Q8H PRN PRN PRN Reason: NAUSEA/VOMITING Oxycodone HCl (Oxycodone 5 Mg Tablet) 5 mg PO Q4H PRN PRN PRN Reason: Pain Score 4-5 Oxycodone HCl (Oxycodone 5 Mg Tablet) 10 mg PO Q4H PRN PRN PRN Reason: Pain Score 6-10 Pantoprazole Sodium (Pantoprazole Sodium 20 Mg Tablet) 20 mg PO DAILY [facility] Senna/Docusate Sodium (Senna/Docusate Sodium 1 Tablet) 2 tablet PO BID PRN PRN PRN Reason: Constipation Sodium Chloride (0.9% Saline Lock 10 Ml Syringe) 10 - 40 ml IV UD PRN PRN Reason: SALINE FLUSH Warfarin Sodium (Warfarin 4 Mg Tablet) 4 mg PO DAILY@1700 [facility] Last Admin: 12/30/19 16:51 Dose: 4 mg Documented by: Assessment/Plan All Active Problems COVID-19 virus infection (Acute) Acute kidney injury (Acute) RECOMMENDATIONS: 1. Wean supplemental oxygen to maintain saturations at or above 90%. 2. Continue Decadron 6 mg daily x10 days. 3. Continue systemic anticoagulation with Coumadin. 4. Encourage incentive spirometer use and mobilize patient as tolerated. 5. Continue gentle IV fluid hydration. 6. Antimicrobials per ID recommendations. IMPRESSIONS: 1. Acute hypoxemic respiratory insufficiency secondary to Covid pneumonia Plan to continue current supportive measures including supplemental oxygen to maintain saturations at or above 90%. The patient is already systemically anticoagulated due to a history of lower extremity venous thrombosis. Plan to continue Coumadin and maintain INR in therapeutic range. The patient will be continued on Decadron 6 mg daily. Given that his symptoms initially began approximately 1 week ago, there are no current plans to start the patient on convalescent plasma or remdesivir. 2. Acute kidney injury Likely prerenal in etiology and related to a component of hypoxemia as well. Plan to continue current supportive measures. The patient did receive supplemental IV fluid hydration. Creatinine is improving with time. Continue to monitor urine output. No indication for renal replacement therapy. 3. Hypertension/hyperlipidemia/GERD/history of DVT/diabetes mellitus Complicates care, management, recovery and prognosis. Continue systemic anticoagulation with Coumadin per outpatient regimen. This note was generated with [employer] dictation software. It may contain incorrect words, spelling, and punctuation that were not noted in checking the note before signing. Inpatient E&M: 74072 Init Hosp L3
[2019-12-31] MEDS: Insulin Lispro 100 UNIT/ML INSULN.PEN SC ×4 (06:35→22:25)
[2019-12-31 07:16] LABS: Bedside Glucose 253 mg/dL (70-110)
[2019-12-31 07:26] LABS: Absolute Lymphocyte Count 0.63 X10^3/uL (0.83-4.51); Absolute Neutrophil Count 3.4 X10^3/uL (2.0-7.7); Hematocrit 38.4 % (40-54); Hemoglobin 12.6 g/dL (13.0-16.5); Lymphocyte # 0.63 X10^3/ul (4.0); Lymphocyte % 13.5 % (19-41); Mean Corp Hgb Conc 32.8 g/dL (32-36); Mean Corpuscular Hgb 31.9 pg (27.0-32.0); Mean Corpuscular Volume 97.2 fL (80-94); Mean Platelet Vol. 9.6 fl (6.2-12.0); Monocyte% 12.9 % (0-10); NRBC Flagged by Analyzer 0 % (0-5); Neutrophil % 73.2 % (47-70); POSITIVE MORPHOLOGY YES; Platelet Count 183 K/mm3 (150-450); RBC Distribution Width CV 12.9 % (11.6-14.6); RBC Distribution Width SD 46.3 fl (35.1-43.9); Red Blood Count 3.95 M/mm3 (4.6-6.2); White Blood Count 4.7 K/mm3 (4.4-11.0)
[2019-12-31 07:30] LABS: Differential Indicated SCAN CRITERIA MET
[2019-12-31 07:50] LABS: Anion Gap 9 (5-15); BUN 33 mg/dL (7-18); BUN/Creat Ratio 23.1 RATIO (10-20); Calcium,Total 7.9 mg/dL (8.5-10.1); Chloride 107 mmol/L (98-107); Creatinine, Serum 1.43 mg/dL (0.70-1.30); EST Glomerular Filtration Rate 51 mL/min (>60); Est Glom Filt Rate - Afr Amer 62 mL/min (>60); Estimated Creatinine Clearance 44.67 ml/min; Glucose 261 mg/dL (74-106); Magnesium 1.8 mg/dL (1.6-2.6); Potassium 4.3 mmol/L (3.5-5.1); Sodium Level 136 mmol/L (136-145)
[2019-12-31 07:54] LABS: Lactic Acid 1.6 mmol/L (0.4-1.9)
[2019-12-31 08:21] LABS: International Normalized Ratio 2.3; Prothrombin Time (Protime)PT. 24.5 SECONDS (11.7-14.9)
--- NOTE | 2019-12-31 10:50 | PN_ITS ---
Patient Problems: Active and Suspected Problems COVID-19 virus infection (Acute) Acute kidney injury (Acute) Reason for Visit: Acute COVID-19 infection Subjective: Patient is a 79-year-old gentleman with multiple comorbidities with recent diagnosis of COVID-19 infection presenting with worsening symptoms Objective: GENERAL: cooperative HEENT: Atraumatic; EYES; Anicteric, Normal Conjunctiva NECK; supple, normal thyroid, RESPIRATORY: Diminished to auscultation CARDIOVASCULAR: Regular S1 S2, GI: soft, normoactive bowel sounds, : No Renal angle tenderness; EXTREMITIES: No edema, no clubbing, MUSCULOSKELETAL: no muscle waisting NEURO: Awake; no lateralizing signs. SKIN: No Rash PSYCH; Flat affect Vitals/I&O's: Vital Signs Temp Pulse Resp BP Pulse Ox 97.4 F L 71 18 133/79 H 93 12/31/19 02:32 12/31/19 02:32 12/31/19 02:32 12/31/19 02:32 12/31/19 02:32 Oxygen Flow Rate (L/min) 4 Oxygen Delivery Method Nasal Cannula Weight: 108.6 kg Body Mass Index (BMI) 34.3 Finger Stick Blood Glucose 227 Intake and Output for Last 24 Hours 12/29/19 12/30/19 12/31/19 23:59 23:59 23:59 Intake Total 1522.5 / 1522.5 1092.5 / 1092.5 Output Total 120 / 120 475 / 475 Balance 1402.5 / 1402.5 617.5 / 617.5 Microbiology Past 72 Hours 12/30/19 22:55 Urine, Clean Catch Legionella Antigen - Final 12/30/19 22:55 Urine, Clean Catch Streptococcus pneumoniae Antigen (M - Final Laboratory Results 12/30/19 10:05: WBC 5.5, RBC 4.70, Hgb 14.8, Hct 45.6, MCV 97.0 H, MCH 31.5, MCHC 32.5, RDW Std Deviation 47.7 H, RDW Coeff of Cortney 13.1, Plt Count 184, MPV 10.1, Immature Gran % (Auto) 0.400, Neut % (Auto) 57.2, Lymph % (Auto) 29.7, [place] % (Auto) 11.8 H, Eos % (Auto) 0.5, Baso % (Auto) 0.4, Absolute Neuts (auto) 3.1, Absolute Lymphs (auto) 1.63, Nucleated RBC % 0 12/30/19 10:05: Fibrinogen 760 H, D-Dimer Quant (PE/DVT) 0.96 H* 12/30/19 10:05: Sodium 137, Potassium 4.3, Chloride 103, Carbon Dioxide 22.0, Anion Gap 12, BUN 31 H, Creatinine 2.06 H, Estim Creat Clear Calc 31.01, Est GFR (MDRD) Af Amer 40 L, Est GFR (MDRD) Non-Af 33 L, BUN/Creatinine Ratio 15.0, Glucose 216 H, Calcium 8.6, Total Bilirubin 0.70, AST 83 H, ALT 52, Alkaline Phosphatase 87, Lactate Dehydrogenase 415 H, Total Creatine Kinase 356 H, Total Protein 8.3 H, Albumin 3.2, Globulin 5.1 H, Albumin/Globulin Ratio 0.6 L 12/30/19 10:05: Lactic Acid 4.5 H* 12/30/19 10:05: Procalcitonin 0.23 H 12/30/19 10:05: PT 21.0 H, INR 1.9 12/30/19 15:37: Lactic Acid 3.1 H* 12/30/19 16:36: POC Glucose 400 H 12/30/19 22:38: POC Glucose 343 H 12/31/19 06:34: POC Glucose 253 H 12/31/19 07:10: WBC 4.7, RBC 3.95 L, Hgb 12.6 L, Hct 38.4 L, MCV 97.2 H, MCH 31.9, MCHC 32.8, RDW Std Deviation 46.3 H, RDW Coeff of Cortney 12.9, Plt Count 183, MPV 9.6, Immature Gran % (Auto) 0.400, Neut % (Auto) 73.2 H, Lymph % (Auto) 13.5 L, [place] % (Auto) 12.9 H, Eos % (Auto) 0.0, Baso % (Auto) 0.0, Absolute Neuts (auto) 3.4, Absolute Lymphs (auto) 0.63 L, Nucleated RBC % 0 12/31/19 07:10: Sodium 136, Potassium 4.3, Chloride 107, Carbon Dioxide 20.0 L, Anion Gap 9, BUN 33 H, Creatinine 1.43 H, Estim Creat Clear Calc 44.67, Est GFR (MDRD) Af Amer 62, Est GFR (MDRD) Non-Af 51 L, BUN/Creatinine Ratio 23.1 H, Glucose 261 H, Calcium 7.9 L, Magnesium 1.8 12/31/19 07:10: PT 24.5 H, INR 2.3 12/31/19 07:10: Blood Type A NEGATIVE 12/31/19 07:10: Lactic Acid 1.6 Current Medications Acetaminophen (Acetaminophen 325 Mg Tablet) 650 mg PO Q6H PRN PRN PRN Reason: Pain Score 1-10/Temp > 100.7 F Albuterol Sulfate (Albuterol 2.5 Mg/3 Ml Vial.Neb.) 2.5 mg INHALATION Q2H PRN PRN PRN Reason: Shortness of Breath/Wheezing Atorvastatin Calcium (Atorvastatin Calcium 20 Mg Tablet) 20 mg PO QHS [facility] Last Admin: 12/30/19 22:41 Dose: 20 mg Documented by: Dexamethasone Sodium Phosphate (Dexamethasone 10 Mg/Ml Vial) 6 mg IV DAILY [facility] Dextrose (Dextrose 50%-Water 25 Gm/50 Ml Disp.Syrin) 0 gm IV X1 PRN; Protocol PRN Reason: Hypoglycemia Glucagon (Glucagon 1 Mg/Ml Syringe) 1 mg IM .X1 PRN PRN Reason: Hypoglycemia Guaifenesin (Guaifenesin 10 Ml Udc (200mg/10ml)) 20 ml PO Q4H PRN PRN PRN Reason: COUGH Last Admin: 12/30/19 22:49 Dose: 20 ml Documented by: Sodium Chloride () 1,000 mls @ 150 mls/hr IV .Q6H40M [facility] Stop: 12/31/19 15:59 Last Admin: 12/31/19 05:32 Dose: 150 mls/hr Documented by: Insulin Glargine (Insulin Glargine 100 Units/Ml Pen) 15 units SC BID [facility] Insulin Human Lispro (Insulin Lispro 100 Unit/Ml Insuln.Pen) 0 unit SC ACHS [facility]; Protocol Last Admin: 12/31/19 06:35 Dose: 4 u Documented by: Melatonin (Melatonin 3 Mg Tablet) 3 mg PO QHS PRN PRN PRN Reason: INSOMNIA Nutritional Formula (Lactose Free) (Glucerna Shake 120 Ml Liquid) 120 ml PO TIDCM [facility] Ondansetron HCl (Ondansetron 4 Mg/2 Ml Vial) 4 mg IV Q8H PRN PRN PRN Reason: NAUSEA/VOMITING Oxycodone HCl (Oxycodone 5 Mg Tablet) 5 mg PO Q4H PRN PRN PRN Reason: Pain Score 4-5 Oxycodone HCl (Oxycodone 5 Mg Tablet) 10 mg PO Q4H PRN PRN PRN Reason: Pain Score 6-10 Pantoprazole Sodium (Pantoprazole Sodium 20 Mg Tablet) 20 mg PO DAILY [facility] Senna/Docusate Sodium (Senna/Docusate Sodium 1 Tablet) 2 tablet PO BID PRN PRN PRN Reason: Constipation Sodium Chloride (0.9% Saline Lock 10 Ml Syringe) 10 - 40 ml IV UD PRN PRN Reason: SALINE FLUSH Warfarin Sodium (Warfarin 4 Mg Tablet) 4 mg PO DAILY@1700 [facility] Last Admin: 12/30/19 16:51 Dose: 4 mg Documented by: Medical Necessity - Tobacco Use Smoking Status: Former smoker Tobacco Use: Pipe Assessment/Plan All Active Problems COVID-19 virus infection (Acute) Acute kidney injury (Acute) Patient is a 79-year-old gentleman with multiple comorbidities with recent diagnosis of COVID-19 infection presenting with worsening symptoms 1. Acute respiratory insufficiency secondary to acute COVID-19 pneumonia ?Admitted to the COVID-19 cohort unit. Please on supplemental oxygen, Decadron, antibiotics with Rocephin and Zithromax with consultation placed to pulmonary and infectious disease -12/21/2019: Patient was seen in in consultation by Dr. Padilla with infectious disease recommended discontinuation of azithromycin and ceftriaxone. Patient remains on Decadron 2. Septic shock (by definition with lactic acid being greater than 4) ?Patient however remains hemodynamically stable. Patient was resuscitated with IV fluid cautiously. Did not follow the 30 mL/kg recommendations since patient who received excessive IV fluid with COVID-19 infection have worse outcomes. Patient was however managed with antibiotics per protocol after cultures have been obtained -1020; antibiotics discontinued as stated above 3. Acute kidney injury ?Due to combination of patient underlying infection as well as patient being on potential nephrotoxic medications. Patient is on HCTZ, EVERETT inhibitors, as well as nonsteroidal anti-inflammatory medications. Suspected offending medications held resuscitated with IV fluid with subsequent monitoring of electrolytes. Ordered kidney ultrasound to rule out obstructive uropathy -1020; kidney function did improve with rehydration 4. Hypertension ?Patient is on HCTZ and lisinopril held in view of worsening kidney function. Please on hydralazine as needed 5. Dyslipidemia -Patient is on statin therapy, continued at home dose 6. GERD ?Patient on PPI 7. Previous history of lower extremity DVT ?Patient is on systemic anticoagulation with warfarin ordered INR for subsequent dose adjustment if needed -1020; INR is therapeutic 8. Diabetes mellitus type II -With complications including diabetic nephropathy. Patient's oral hypoglycemics held. Placed on long acting insulin, Accu-Cheks a.c. and at bedtime and covered with sliding scale insulin -12/21/2019; patient blood glucose not well controlled in view of concomitant use of steroids adjusted patient long-acting insulin regimen. 9. DVT prophylaxis ?Patient on warfarin Inpatient E&M: [id number] Subs Hosp L2
--- NOTE | 2019-12-31 11:20 | CASEMGMT ---
RN CM Assessment Note Attempted call to patient who did not answer phone, and - message left requesting call back. Chart reviewed. Presentation: shortness of breath, 7 day history of illness. Patient is currently on 4L NC, does not wear @ home. Per nursing, the patient is ambulatory with cane and SBA of 1 in room. Diagnosis: Positive SARS-COVID 19 PCP: Dr. Meraz Insurance: [facility] Preferred Pharmacy: [facility] Prescription Benefit: yes LNOK: , Parris Pickett Patient DC Goals: Home DC Plan: anticipate home. Will need to assess for any DME/oxygen needs on discharge. Awaiting call back from . CM available for discharge planning coordination. Contact CM for any concerns/needs that may arise. Loreto LYNCH RN ACM
[2019-12-31] MEDS: Glucerna Shake 120 ML LIQUID PO ×3 (11:27→17:10)
[2019-12-31] MEDS: Pantoprazole Sodium 20 MG Tablet PO (11:28)
[2019-12-31] MEDS: 0.9% Saline Lock 10 ML Syringe IV ×2 (11:47→22:35)
[2019-12-31] MEDS: dexAMETHasone 10 MG/ML Vial 6 MG IV (11:48)
--- NOTE | 2019-12-31 11:55 | CASEMGMT ---
ARABELLA BARRIENTOS Assessment Note Intro role of CM to . Patient not available to answer phone. states patient is generally independent, uses cane occasionally. Has Cpap, but doesn't wear. is concerned re: patient coming home as she has cancer. ARABELLA BARRIENTOS discussed if she had another place to go during her quarantine, but she does not. She wants the patient to stay @ hospital until he is negative. RN CM let her know he will need to dc when medically ready and quarantine @ home. did say she would not be able to care for him as she uses a walker. Daughter is also positive for COVID but does not live with them. Son lives in area and can assist with bringing supplies to home. Discussed with patient's that she should arrange to have masks, gloves and cleaning wipes for when patient returns home. -RN spoke with son Shaun Pickett as he was at home with his mother. He will assist with laundry, groceries, etc. on dc. -offered to have meals on wheels delivery for patient on dc, but declined -son will transport patient home -patient has own bedroom, bathroom for quarantine. - and son are aware needs needs to quarantine and to arrange for masks, gloves, wipes to be available on dc. Presentation: shortness of breath, Diagnosis: Acute kidney injury, COVID 19 PMH: DM 2, HTN PCP: Dr. Meraz Insurance: [facility] Preferred Pharmacy: [facility] Prescription Benefit: yes LNOK: , Parris Pickett Living Arrangements: Lives in one story home. Has separate bedroom bathroom for qu Tranportation: son DME: cane Cpap HHC: no SNF: no Patient DC Goals: Home DC Plan: anticipate home on dc. May need oxygen on dc- no preference on supplier. CM available for discharge planning coordination. Contact CM for any concerns/needs that may arise. Loreto LYNCH RN ACM
[2019-12-31 12:50] LABS: Bedside Glucose 260 mg/dL (70-110)
--- NOTE | 2019-12-31 14:49 | CASEMGMT ---
ARABELLA CM Assessment Note Intro role of CM to . Patient not available to answer phone. states patient is generally independent, uses cane occasionally. Has Cpap, but doesn't wear. is concerned re: patient coming home as she has cancer. ARABELLA BARRIENTOS discussed if she had another place to go during her quarantine, but she does not. She wants the patient to stay @ hospital until he is negative. RN CM let her know he will need to dc when medically ready and quarantine @ home. did say she would not be able to care for him as she uses a walker. Daughter is also positive for COVID but does not live with them. Son lives in area and can assist with bringing supplies to home. Discussed with patient's that she should arrange to have masks, gloves and cleaning wipes for when patient returns home. -RN spoke with son Shaun Pickett as he was at home with his mother. He will assist with laundry, groceries, etc. on dc. -offered to have meals on wheels delivery for patient on dc, but declined -son will transport patient home -patient has own bedroom, bathroom for quarantine. - and son are aware needs needs to quarantine and to arrange for masks, gloves, wipes to be available on dc. Presentation: shortness of breath, Diagnosis: Acute kidney injury, COVID 19 PMH: DM 2, HTN PCP: Dr. Meraz Insurance: [facility] Preferred Pharmacy: [facility] Prescription Benefit: yes LNOK: , Parris Pickett Living Arrangements: Lives in one story home. Has separate bedroom/ bathroom for isolation on dc. Tranportation: son DME: cane Cpap HHC: no SNF: no Patient DC Goals: Home DC Plan: anticipate home on dc. May need oxygen on dc- no preference on supplier. CM available for discharge planning coordination. Contact CM for any concerns/needs that may arise. Loreto LYNCH RN ACM
--- NOTE | 2019-12-31 15:36 | PN.ID_ITS ---
Patient Problems: Active and Suspected Problems COVID-19 virus infection (Acute) Acute kidney injury (Acute) Subjective: Feeling a little better today, no fever, no n/v/d. Still cough. - Physical Exam Vitals/I&O's: Vital Signs Temp Pulse Resp BP Pulse Ox 97.8 F 77 18 135/76 H 93 12/31/19 10:00 12/31/19 10:00 12/31/19 10:00 12/31/19 10:00 12/31/19 10:00 Oxygen Flow Rate (L/min) 5 Oxygen Delivery Method Nasal Cannula Weight: 108.6 kg Body Mass Index (BMI) 34.3 Finger Stick Blood Glucose 227 Intake and Output for Last 24 Hours 12/29/19 12/30/19 12/31/19 23:59 23:59 23:59 Intake Total 1522.5 / 1522.5 1612.5 / 1612.5 Output Total 120 / 120 475 / 475 Balance 1402.5 / 1402.5 1137.5 / 1137.5 General: Alert, Cooperative, No apparent distress Lungs: Diminished Cardiovascular: Regular rate, Regular Rhythm Abdomen: Soft, Non Tender, Non-Distended Skin: No rashes Microbiology Past 72 Hours 12/30/19 22:55 Urine, Clean Catch Legionella Antigen - Final 12/30/19 22:55 Urine, Clean Catch Streptococcus pneumoniae Antigen (M - Final Laboratory Results 12/30/19 15:37: Lactic Acid 3.1 H* 12/30/19 16:36: POC Glucose 400 H 12/30/19 22:38: POC Glucose 343 H 12/31/19 06:34: POC Glucose 253 H 12/31/19 07:10: WBC 4.7, RBC 3.95 L, Hgb 12.6 L, Hct 38.4 L, MCV 97.2 H, MCH 31.9, MCHC 32.8, RDW Std Deviation 46.3 H, RDW Coeff of Cortney 12.9, Plt Count 183, MPV 9.6, Immature Gran % (Auto) 0.400, Neut % (Auto) 73.2 H, Lymph % (Auto) 13.5 L, [place] % (Auto) 12.9 H, Eos % (Auto) 0.0, Baso % (Auto) 0.0, Absolute Neuts (auto) 3.4, Absolute Lymphs (auto) 0.63 L, Nucleated RBC % 0 12/31/19 07:10: Sodium 136, Potassium 4.3, Chloride 107, Carbon Dioxide 20.0 L, Anion Gap 9, BUN 33 H, Creatinine 1.43 H, Estim Creat Clear Calc 44.67, Est GFR (MDRD) Af Amer 62, Est GFR (MDRD) Non-Af 51 L, BUN/Creatinine Ratio 23.1 H, Glucose 261 H, Calcium 7.9 L, Magnesium 1.8 12/31/19 07:10: PT 24.5 H, INR 2.3 12/31/19 07:10: Blood Type A NEGATIVE 12/31/19 07:10: Lactic Acid 1.6 12/31/19 11:46: POC Glucose 260 H Current Medications Acetaminophen (Acetaminophen 325 Mg Tablet) 650 mg PO Q6H PRN PRN PRN Reason: Pain Score 1-10/Temp > 100.7 F Albuterol Sulfate (Albuterol 2.5 Mg/3 Ml Vial.Neb.) 2.5 mg INHALATION Q2H PRN PRN PRN Reason: Shortness of Breath/Wheezing Atorvastatin Calcium (Atorvastatin Calcium 20 Mg Tablet) 20 mg PO QHS [facility] Last Admin: 12/30/19 22:41 Dose: 20 mg Documented by: Dexamethasone Sodium Phosphate (Dexamethasone 10 Mg/Ml Vial) 6 mg IV DAILY [facility] Last Admin: 12/31/19 11:48 Dose: 6 mg Documented by: Dextrose (Dextrose 50%-Water 25 Gm/50 Ml Disp.Syrin) 0 gm IV X1 PRN; Protocol PRN Reason: Hypoglycemia Glucagon (Glucagon 1 Mg/Ml Syringe) 1 mg IM .X1 PRN PRN Reason: Hypoglycemia Guaifenesin (Guaifenesin 10 Ml Udc (200mg/10ml)) 20 ml PO Q4H PRN PRN PRN Reason: COUGH Last Admin: 12/30/19 22:49 Dose: 20 ml Documented by: Sodium Chloride () 1,000 mls @ 150 mls/hr IV .Q6H40M [facility] Stop: 12/31/19 19:39 Last Infusion: 12/31/19 12:00 Dose: 150 mls/hr Documented by: Insulin Glargine (Insulin Glargine 100 Units/Ml Pen) 15 units SC 1100,2200 [facility] Last Admin: 12/31/19 11:49 Dose: 15 u Documented by: Insulin Human Lispro (Insulin Lispro 100 Unit/Ml Insuln.Pen) 0 unit SC [facility]; Protocol Last Admin: 12/31/19 11:49 Dose: 6 u Documented by: Melatonin (Melatonin 3 Mg Tablet) 3 mg PO QHS PRN PRN PRN Reason: INSOMNIA Nutritional Formula (Lactose Free) (Glucerna Shake 120 Ml Liquid) 120 ml PO TIDCM [facility] Last Admin: 12/31/19 11:27 Dose: 120 ml Documented by: Ondansetron HCl (Ondansetron 4 Mg/2 Ml Vial) 4 mg IV Q8H PRN PRN PRN Reason: NAUSEA/VOMITING Oxycodone HCl (Oxycodone 5 Mg Tablet) 5 mg PO Q4H PRN PRN PRN Reason: Pain Score 4-5 Oxycodone HCl (Oxycodone 5 Mg Tablet) 10 mg PO Q4H PRN PRN PRN Reason: Pain Score 6-10 Pantoprazole Sodium (Pantoprazole Sodium 20 Mg Tablet) 20 mg PO DAILY [facility] Last Admin: 12/31/19 11:28 Dose: 20 mg Documented by: Senna/Docusate Sodium (Senna/Docusate Sodium 1 Tablet) 2 tablet PO BID PRN PRN PRN Reason: Constipation Sodium Chloride (0.9% Saline Lock 10 Ml Syringe) 10 - 40 ml IV UD PRN PRN Reason: SALINE FLUSH Last Admin: 12/31/19 11:47 Dose: 10 ml Documented by: Warfarin Sodium (Warfarin 4 Mg Tablet) 4 mg PO DAILY@1700 [facility] Last Admin: 12/30/19 16:51 Dose: 4 mg Documented by: Medical Necessity - Tobacco Use Smoking Status: Former smoker Tobacco Use: Pipe Route of nutrition/ use of supplements: [] Nutritional Intake: [] IV Site: [] Blair Catheter: [] - Assessment/Plan Antibiotics: [] Assessment/Plan: [] Active and Suspected Problems COVID-19 virus infection (Acute) Acute kidney injury (Acute) covid with acute hypoxic resp failure and SANDRA - on dex, feeling ok. Recommend get tested and quarantine for 14 days. Sx started evening 12/23. Will follow
[2019-12-31 17:21] LABS: Bedside Glucose 313 mg/dL (70-110)
--- NOTE | 2019-12-31 22:20 | NURSING ---
This RN in room for assessment and vital signs. Pt c/o of feeling SOB and unable to breathe. Initial pulse ox reading on 5L via nasal cannula 72%. Oxygen increased; 15L pt began satting at 88-89%. Deep breaths encouraged. Call made out to nurse's station regarding pt's condition. Hospitalist notified; ABGs and IV Lasix ordered.
[2019-12-31] MEDS: Atorvastatin Calcium 20 MG Tablet PO (22:26)
[2019-12-31] MEDS: guaiFENesin 10 ML UDC (200MG/10ML) 20 ML PO (22:29)
[2019-12-31] MEDS: Furosemide 40 MG/4 ML Vial IV (22:35)
--- NOTE | 2019-12-31 22:35 | NURSING ---
Lasix given at this time per order. Respiratory therapy in room at this time obtaining ABGs. Pt states he feels steady and not as SOB as before. Pulse ox reading 90% on 15L via nasal cannula.
[2019-12-31 23:01] LABS: Base Excess -9 mmol/L (-2 to +2); Bicarbonate 16.1 mmol/L (22-26); Blood Gas Specimen Type ART; FI02 100; PO2 53 mmHG (75-100); SO2 87 % (95-99); Total Carbon Dioxide 17 mmol/L; pCO2 27.2 mmHg (35-45); pH 7.38 (7.35-7.45)
[2019-12-31 23:15] LABS: Bedside Glucose 360 mg/dL (70-110)
--- NOTE | 2019-12-31 23:45 | NURSING ---
Respiratory therapy in room placing pt on Airvo.
[2020-01-01] VITALS (21 sets, daily range): BP systolic 134–168; BP diastolic 80–95; PULSE 79–94; RESP 12–47; TEMP 36.1–36.7; O2SAT 90–97
--- NOTE | 2020-01-01 00:30 | CPS ---
rt called to 212 due to sob, desaturation. Patient was on 15 lpm nc at time of visit, with a spo2 of 86%. Dr. trejo gave order for abg times 1 now. results of test given to dr. trejo. Dr. trejo gave order to start patient on high flow nc. Patient placed on aervo 40 lpm 70%.
[2020-01-01] MEDS: Albuterol 2.5 MG/3 ML VIAL.NEB. INHALATION (01:14)
[2020-01-01] MEDS: Insulin Lispro 100 UNIT/ML INSULN.PEN SC ×4 (06:37→21:59)
[2020-01-01 06:45] LABS: Absolute Lymphocyte Count 0.73 X10^3/uL (0.83-4.51); Absolute Neutrophil Count 8.5 X10^3/uL (2.0-7.7); Hemoglobin 13.4 g/dL (13.0-16.5); Lymphocyte # 0.73 X10^3/ul (4.0); Lymphocyte % 7.1 % (19-41); Mean Corp Hgb Conc 33.5 g/dL (32-36); Mean Corpuscular Hgb 31.7 pg (27.0-32.0); Mean Corpuscular Volume 94.6 fL (80-94); Mean Platelet Vol. 9.6 fl (6.2-12.0); Monocyte# 0.94 X10^3/uL; Monocyte% 9.2 % (0-10); NRBC Flagged by Analyzer 0 % (0-5); Neutrophil # 8.51 X10^3/uL (2.7-7.7); Neutrophil % 83.1 % (47-70); Platelet Count 229 K/mm3 (150-450); RBC Distribution Width CV 13.1 % (11.6-14.6); RBC Distribution Width SD 45.7 fl (35.1-43.9); Red Blood Count 4.23 M/mm3 (4.6-6.2); White Blood Count 10.2 K/mm3 (4.4-11.0)
[2020-01-01 07:04] LABS: International Normalized Ratio 2.7; Prothrombin Time (Protime)PT. 28.1 SECONDS (11.7-14.9)
[2020-01-01 07:06] LABS: Anion Gap 7 (5-15); BUN 31 mg/dL (7-18); BUN/Creat Ratio 21.4 RATIO (10-20); Calcium,Total 8.4 mg/dL (8.5-10.1); Chloride 110 mmol/L (98-107); Creatinine, Serum 1.45 mg/dL (0.70-1.30); EST Glomerular Filtration Rate 50 mL/min (>60); Est Glom Filt Rate - Afr Amer 61 mL/min (>60); Estimated Creatinine Clearance 44.05 ml/min; Glucose 294 mg/dL (74-106); Potassium 4.3 mmol/L (3.5-5.1); Sodium Level 138 mmol/L (136-145)
--- NOTE | 2020-01-01 07:14 | RAD_ITS ---
STUDY: X-RAY CHEST REASON FOR EXAM: Male, 79 years old. reps failure -- states general illness for awhile, tested positive for COVID TECHNIQUE: Single AP portable view of the chest. COMPARISON: Comparison is made with prior examination dated 12/30/2019. FINDINGS: Since prior study, there has been progressive infiltrates in both lower lobes as compared to prior study. There is no demonstrated pleural abnormality. Normal size heart. Normal mediastinum and mikala. Normal visualized pulmonary arteries. There is atherosclerotic calcification of the aortic arch with tortuosity. There are diffuse degenerative changes of the visualized thoracic spine. Normal visualized ribs, clavicles, and shoulders. There is no demonstrated abnormality of the visualized soft tissue structures of the upper abdomen. RAD/Chest 1 View (Portable) IMPRESSION: Since prior study, there has been a progression of the bibasilar infiltrates. Electronically Signed: Vinicio Dawson, at 11:57 EDT , Service support ,
[2020-01-01 07:35] LABS: Bedside Glucose 286 mg/dL (70-110)
[2020-01-01 07:57] LABS: BNP,B-Type NATRIURETIC PEPTIDE 172.3 pg/mL (0-100)
[2020-01-01] MEDS: dexAMETHasone 10 MG/ML Vial 6 MG IV (08:14)
[2020-01-01] MEDS: Glucerna Shake 120 ML LIQUID PO ×3 (08:14→16:28)
[2020-01-01] MEDS: Pantoprazole Sodium 20 MG Tablet PO (08:16)
[2020-01-01] MEDS: 0.9% Saline Lock 10 ML Syringe IV (08:16)
--- NOTE | 2020-01-01 11:04 | PN_ITS ---
Patient Problems: Active and Suspected Problems COVID-19 virus infection (Acute) Acute kidney injury (Acute) Reason for Visit: COVID-19 infection Subjective: Patient oxygen saturation deteriorated resulting in patient being placed on noninvasive ventilation with AirVo Objective: GENERAL: cooperative HEENT: Atraumatic; EYES; Anicteric, Normal Conjunctiva NECK; supple, normal thyroid, RESPIRATORY: Diminished to auscultation CARDIOVASCULAR: Regular S1 S2, GI: soft, normoactive bowel sounds, : No Renal angle tenderness; EXTREMITIES: No edema, no clubbing, MUSCULOSKELETAL: no muscle waisting NEURO: Awake; no lateralizing signs. SKIN: No Rash PSYCH; Flat affect Vitals/I&O's: Vital Signs Temp Pulse Resp BP Pulse Ox 97.5 F L 83 20 H 134/81 H 92 01/01/20 08:00 01/01/20 08:00 01/01/20 08:00 01/01/20 08:00 01/01/20 08:00 Oxygen Flow Rate (L/min) 55 Oxygen Delivery Method Airvo Weight: 108.6 kg Body Mass Index (BMI) 34.3 Finger Stick Blood Glucose 227 Intake and Output for Last 24 Hours 12/30/19 12/31/19 01/01/20 23:59 23:59 23:59 Intake Total 1522.5 / 1522.5 3092.5 / 3092.5 Output Total 120 / 120 1375 / 1375 225 / 225 Balance 1402.5 / 1402.5 1717.5 / 1717.5 -225 / -225 Microbiology Past 72 Hours 12/30/19 22:55 Urine, Clean Catch Legionella Antigen - Final 12/30/19 22:55 Urine, Clean Catch Streptococcus pneumoniae Antigen (M - Final Laboratory Results 12/31/19 11:46: POC Glucose 260 H 12/31/19 17:06: POC Glucose 313 H 12/31/19 22:13: POC Glucose 360 H 12/31/19 22:56: Specimen Type ART, pH 7.38, Bicarbonate Actual 16.1 L, Total CO2 17, Base Excess -9 L, O2 Saturation 87 L, O2 % 100, ABG pCO2 27.2 L, ABG pO2 53 L 01/01/20 06:20: WBC 10.2, RBC 4.23 L, Hgb 13.4, Hct 40.0, MCV 94.6 H, MCH 31.7, MCHC 33.5, RDW Std Deviation 45.7 H, RDW Coeff of Cortney 13.1, Plt Count 229, MPV 9.6, Immature Gran % (Auto) 0.600, Neut % (Auto) 83.1 H, Lymph % (Auto) 7.1 L, [place] % (Auto) 9.2, Eos % (Auto) 0.0, Baso % (Auto) 0.0, Absolute Neuts (auto) 8.5 H, Absolute Lymphs (auto) 0.73 L, Nucleated RBC % 0 01/01/20 06:20: Sodium 138, Potassium 4.3, Chloride 110 H, Carbon Dioxide 21.0, Anion Gap 7, BUN 31 H, Creatinine 1.45 H, Estim Creat Clear Calc 44.05, Est GFR (MDRD) Af Amer 61, Est GFR (MDRD) Non-Af 50 L, BUN/Creatinine Ratio 21.4 H, Glucose 294 H, Calcium 8.4 L 01/01/20 06:20: PT 28.1 H, INR 2.7 01/01/20 06:20: B-Natriuretic Peptide 172.3 H 01/01/20 06:36: POC Glucose 286 H Current Medications Acetaminophen (Acetaminophen 325 Mg Tablet) 650 mg PO Q6H PRN PRN PRN Reason: Pain Score 1-10/Temp > 100.7 F Albuterol Sulfate (Albuterol 2.5 Mg/3 Ml Vial.Neb.) 2.5 mg INHALATION Q2H PRN PRN PRN Reason: Shortness of Breath/Wheezing Last Admin: 01/01/20 01:14 Dose: 2.5 mg Documented by: Atorvastatin Calcium (Atorvastatin Calcium 20 Mg Tablet) 20 mg PO QHS [facility] Last Admin: 12/31/19 22:26 Dose: 20 mg Documented by: Dexamethasone Sodium Phosphate (Dexamethasone 10 Mg/Ml Vial) 6 mg IV DAILY [facility] Last Admin: 01/01/20 08:14 Dose: 6 mg Documented by: Dextrose (Dextrose 50%-Water 25 Gm/50 Ml Disp.Syrin) 0 gm IV X1 PRN; Protocol PRN Reason: Hypoglycemia Glucagon (Glucagon 1 Mg/Ml Syringe) 1 mg IM .X1 PRN PRN Reason: Hypoglycemia Guaifenesin (Guaifenesin 10 Ml Udc (200mg/10ml)) 20 ml PO Q4H PRN PRN PRN Reason: COUGH Last Admin: 12/31/19 22:29 Dose: 20 ml Documented by: Insulin Glargine (Insulin Glargine 100 Units/Ml Pen) 15 units SC 1100,2200 [facility] Last Admin: 12/31/19 22:25 Dose: 15 u Documented by: Insulin Human Lispro (Insulin Lispro 100 Unit/Ml Insuln.Pen) 0 unit SC ACHS [facility]; Protocol Last Admin: 01/01/20 06:37 Dose: 6 u Documented by: Melatonin (Melatonin 3 Mg Tablet) 3 mg PO QHS PRN PRN PRN Reason: INSOMNIA Nutritional Formula (Lactose Free) (Glucerna Shake 120 Ml Liquid) 120 ml PO TIDCM [facility] Last Admin: 01/01/20 08:14 Dose: 120 ml Documented by: Ondansetron HCl (Ondansetron 4 Mg/2 Ml Vial) 4 mg IV Q8H PRN PRN PRN Reason: NAUSEA/VOMITING Oxycodone HCl (Oxycodone 5 Mg Tablet) 5 mg PO Q4H PRN PRN PRN Reason: Pain Score 4-5 Oxycodone HCl (Oxycodone 5 Mg Tablet) 10 mg PO Q4H PRN PRN PRN Reason: Pain Score 6-10 Pantoprazole Sodium (Pantoprazole Sodium 20 Mg Tablet) 20 mg PO DAILY [facility] Last Admin: 01/01/20 08:16 Dose: 20 mg Documented by: Senna/Docusate Sodium (Senna/Docusate Sodium 1 Tablet) 2 tablet PO BID PRN PRN PRN Reason: Constipation Sodium Chloride (0.9% Saline Lock 10 Ml Syringe) 10 - 40 ml IV UD PRN PRN Reason: SALINE FLUSH Last Admin: 01/01/20 08:16 Dose: 10 ml Documented by: Warfarin Sodium (Warfarin 4 Mg Tablet) 4 mg PO DAILY@1700 [facility] Last Admin: 12/31/19 17:09 Dose: 4 mg Documented by: STROKE Vital Signs/Narrative: Vital Signs Temp Pulse Resp BP Pulse Ox 01/01/20 08:00 97.5 F L 83 20 H 134/81 H 92 Medical Necessity - Tobacco Use Smoking Status: Former smoker Tobacco Use: Pipe Assessment/Plan All Active Problems COVID-19 virus infection (Acute) Acute kidney injury (Acute) Patient is a 79-year-old gentleman with multiple comorbidities with recent diagnosis of COVID-19 infection presenting with worsening symptoms 1. Acute respiratory insufficiency secondary to acute COVID-19 pneumonia ?Admitted to the COVID-19 cohort unit. Please on supplemental oxygen, Decadron, antibiotics with Rocephin and Zithromax with consultation placed to pulmonary and infectious disease -12/31/2019: Patient was seen in in consultation by Dr. Padilla with infectious disease recommended discontinuation of azithromycin and ceftriaxone. Patient remains on Decadron -01/01/2020; patient was seen in consultation by Dr. Padilla the day prior his notes and recommendations reviewed. 2. Septic shock (by definition with lactic acid being greater than 4) ?Patient however remains hemodynamically stable. Patient was resuscitated with IV fluid cautiously. Did not follow the 30 mL/kg recommendations since patient who received excessive IV fluid with COVID-19 infection have worse outcomes. Patient was however managed with antibiotics per protocol after cultures have been obtained -1020; antibiotics discontinued as stated above 3. Acute kidney injury ?Due to combination of patient underlying infection as well as patient being on potential nephrotoxic medications. Patient is on HCTZ, EVERETT inhibitors, as well as nonsteroidal anti-inflammatory medications. Suspected offending medications held resuscitated with IV fluid with subsequent monitoring of electrolytes. Ordered kidney ultrasound to rule out obstructive uropathy -12/31/2019; kidney function did improve with rehydration 4. Hypertension ?Patient is on HCTZ and lisinopril held in view of worsening kidney function. Placed on hydralazine as needed 5. Dyslipidemia -Patient is on statin therapy, continued at home dose 6. GERD ?Patient on PPI 7. Previous history of lower extremity DVT ?Patient is on systemic anticoagulation with warfarin ordered INR for subsequent dose adjustment if needed -1020; INR is therapeutic 8. Diabetes mellitus type II -With complications including diabetic nephropathy. Patient's oral hypoglycemics held. Placed on long acting insulin, Accu-Cheks a.c. and at bedtime and covered with sliding scale insulin -12/21/2019; patient blood glucose not well controlled in view of concomitant use of steroids adjusted patient long-acting insulin regimen. 12/02/2019; blood glucose control still not optimal 9. DVT prophylaxis ?Patient on warfarin Inpatient E&M: 00214 [facility] L2
[2020-01-01 11:43] LABS: Glucose 398 mg/dL (74-106)
[2020-01-01 11:56] LABS: Bedside Glucose > 500 mg/dL (70-110)
[2020-01-01] MEDS: Insulin Lispro 100 UNIT/ML INSULN.PEN 10 UNIT SC ×2 (12:42→16:26)
--- NOTE | 2020-01-01 13:07 | PCM.PN.PUL ---
Patient Problems: Active and Suspected Problems COVID-19 virus infection (Acute) Acute kidney injury (Acute) Subjective: The patient was seen and examined at the bedside this morning. Events from the last 24 hours have been reviewed. The patient is currently afebrile, hemodynamically stable and maintaining appropriate oxygen saturations on Airvo heated high flow oxygen with an FiO2 requirement of 90%. Repeat chest x-ray from this morning does appear to show worsening bibasilar infiltrates. The patient remains on Decadron and is systemically anticoagulated on Coumadin. Objective: The patient's most recent lab work, culture data and imaging studies have all been personally reviewed. Strep and urine Legionella antigens were negative. Blood and urine cultures are pending. - Physical Exam Vitals/I&O's: Vital Signs Temp Pulse Resp BP Pulse Ox 97.5 F L 93 20 H 134/81 H 92 01/01/20 08:00 01/01/20 11:54 01/01/20 08:00 01/01/20 08:00 01/01/20 08:00 Oxygen Flow Rate (L/min) 55 Oxygen Delivery Method Airvo Weight: 239 lb 6.752 oz Body Mass Index (BMI) 34.3 Finger Stick Blood Glucose 227 Intake and Output for Last 24 Hours 12/30/19 12/31/19 01/01/20 23:59 23:59 23:59 Intake Total 1522.5 / 1522.5 3092.5 / 3092.5 480 / 480 Output Total 120 / 120 1375 / 1375 225 / 225 Balance 1402.5 / 1402.5 1717.5 / 1717.5 255 / 255 General: Alert, Cooperative HEENT: Atraumatic, Normocephalic Oral: No Gingival or Mucosal Lesions/ Ulcerations Neck: Supple, No Nodes, Trachea Midline Lungs: Diminished Cardiovascular: Regular rate, Regular Rhythm Abdomen: Bowel Sounds Present, Soft, Non Tender Extremities: No clubbing, No cyanosis, No edema Skin: No breakdown Musculoskeletal: No Tenderness to Palpation of Joints or Extremities Lymphatic: No Cervical, Supraclavicular, or Inguinal Adenopathy Neurological: Cranial nerves II-XII grossly intact, Neuro grossly intact Psych/Mental Status: Normal Affect, Appropriate Labs (Last 48 Hours) 12/30/19 12/30/19 12/30/19 10:05 15:37 16:36 WBC RBC Hgb Hct MCV MCH MCHC RDW Std Deviation RDW Coeff of Cortney Plt Count MPV Immature Gran % (Auto) Neut % (Auto) Lymph % (Auto) [place] % (Auto) Eos % (Auto) Baso % (Auto) Absolute Neuts (auto) Absolute Lymphs (auto) Nucleated RBC % PT 21.0 H INR 1.9 Specimen Type pH Bicarbonate Actual Total CO2 Base Excess O2 Saturation O2 % ABG pCO2 ABG pO2 Sodium Potassium Chloride Carbon Dioxide Anion Gap BUN Creatinine Estim Creat Clear Calc Est GFR (MDRD) Af Amer Est GFR (MDRD) Non-Af BUN/Creatinine Ratio Glucose Lactic Acid 3.1 H* Calcium Magnesium B-Natriuretic Peptide POC Glucose 400 H Blood Type 12/30/19 12/31/19 12/31/19 22:38 06:34 07:10 WBC 4.7 RBC 3.95 L Hgb 12.6 L Hct 38.4 L MCV 97.2 H MCH 31.9 MCHC 32.8 RDW Std Deviation 46.3 H RDW Coeff of Cortney 12.9 Plt Count 183 MPV 9.6 Immature Gran % (Auto) 0.400 Neut % (Auto) 73.2 H Lymph % (Auto) 13.5 L [place] % (Auto) 12.9 H Eos % (Auto) 0.0 Baso % (Auto) 0.0 Absolute Neuts (auto) 3.4 Absolute Lymphs (auto) 0.63 L Nucleated RBC % 0 PT INR Specimen Type pH Bicarbonate Actual Total CO2 Base Excess O2 Saturation O2 % ABG pCO2 ABG pO2 Sodium Potassium Chloride Carbon Dioxide Anion Gap BUN Creatinine Estim Creat Clear Calc Est GFR (MDRD) Af Amer Est GFR (MDRD) Non-Af BUN/Creatinine Ratio Glucose Lactic Acid Calcium Magnesium B-Natriuretic Peptide POC Glucose 343 H 253 H Blood Type 12/31/19 12/31/19 12/31/19 07:10 07:10 07:10 WBC RBC Hgb Hct MCV MCH MCHC RDW Std Deviation RDW Coeff of Cortney Plt Count MPV Immature Gran % (Auto) Neut % (Auto) Lymph % (Auto) [place] % (Auto) Eos % (Auto) Baso % (Auto) Absolute Neuts (auto) Absolute Lymphs (auto) Nucleated RBC % PT 24.5 H INR 2.3 Specimen Type pH Bicarbonate Actual Total CO2 Base Excess O2 Saturation O2 % ABG pCO2 ABG pO2 Sodium 136 Potassium 4.3 Chloride 107 Carbon Dioxide 20.0 L Anion Gap 9 BUN 33 H Creatinine 1.43 H Estim Creat Clear Calc 44.67 Est GFR (MDRD) Af Amer 62 Est GFR (MDRD) Non-Af 51 L BUN/Creatinine Ratio 23.1 H Glucose 261 H Lactic Acid Calcium 7.9 L Magnesium 1.8 B-Natriuretic Peptide POC Glucose Blood Type A NEGATIVE 12/31/19 12/31/19 12/31/19 07:10 11:46 17:06 WBC RBC Hgb Hct MCV MCH MCHC RDW Std Deviation RDW Coeff of Cortney Plt Count MPV Immature Gran % (Auto) Neut % (Auto) Lymph % (Auto) [place] % (Auto) Eos % (Auto) Baso % (Auto) Absolute Neuts (auto) Absolute Lymphs (auto) Nucleated RBC % PT INR Specimen Type pH Bicarbonate Actual Total CO2 Base Excess O2 Saturation O2 % ABG pCO2 ABG pO2 Sodium Potassium Chloride Carbon Dioxide Anion Gap BUN Creatinine Estim Creat Clear Calc Est GFR (MDRD) Af Amer Est GFR (MDRD) Non-Af BUN/Creatinine Ratio Glucose Lactic Acid 1.6 Calcium Magnesium B-Natriuretic Peptide POC Glucose 260 H 313 H Blood Type 12/31/19 12/31/19 01/01/20 22:13 22:56 06:20 WBC 10.2 RBC 4.23 L Hgb 13.4 Hct 40.0 MCV 94.6 H MCH 31.7 MCHC 33.5 RDW Std Deviation 45.7 H RDW Coeff of Cortney 13.1 Plt Count 229 MPV 9.6 Immature Gran % (Auto) 0.600 Neut % (Auto) 83.1 H Lymph % (Auto) 7.1 L [place] % (Auto) 9.2 Eos % (Auto) 0.0 Baso % (Auto) 0.0 Absolute Neuts (auto) 8.5 H Absolute Lymphs (auto) 0.73 L Nucleated RBC % 0 PT INR Specimen Type ART pH 7.38 Bicarbonate Actual 16.1 L Total CO2 17 Base Excess -9 L O2 Saturation 87 L O2 % 100 ABG pCO2 27.2 L ABG pO2 53 L Sodium Potassium Chloride Carbon Dioxide Anion Gap BUN Creatinine Estim Creat Clear Calc Est GFR (MDRD) Af Amer Est GFR (MDRD) Non-Af BUN/Creatinine Ratio Glucose Lactic Acid Calcium Magnesium B-Natriuretic Peptide POC Glucose 360 H Blood Type 01/01/20 01/01/20 01/01/20 06:20 06:20 06:20 WBC RBC Hgb Hct MCV MCH MCHC RDW Std Deviation RDW Coeff of Cortney Plt Count MPV Immature Gran % (Auto) Neut % (Auto) Lymph % (Auto) [place] % (Auto) Eos % (Auto) Baso % (Auto) Absolute Neuts (auto) Absolute Lymphs (auto) Nucleated RBC % PT 28.1 H INR 2.7 Specimen Type pH Bicarbonate Actual Total CO2 Base Excess O2 Saturation O2 % ABG pCO2 ABG pO2 Sodium 138 Potassium 4.3 Chloride 110 H Carbon Dioxide 21.0 Anion Gap 7 BUN 31 H Creatinine 1.45 H Estim Creat Clear Calc 44.05 Est GFR (MDRD) Af Amer 61 Est GFR (MDRD) Non-Af 50 L BUN/Creatinine Ratio 21.4 H Glucose 294 H Lactic Acid Calcium 8.4 L Magnesium B-Natriuretic Peptide 172.3 H POC Glucose Blood Type 01/01/20 01/01/20 01/01/20 06:36 11:10 11:24 WBC RBC Hgb Hct MCV MCH MCHC RDW Std Deviation RDW Coeff of Cortney Plt Count MPV Immature Gran % (Auto) Neut % (Auto) Lymph % (Auto) [place] % (Auto) Eos % (Auto) Baso % (Auto) Absolute Neuts (auto) Absolute Lymphs (auto) Nucleated RBC % PT INR Specimen Type pH Bicarbonate Actual Total CO2 Base Excess O2 Saturation O2 % ABG pCO2 ABG pO2 Sodium Potassium Chloride Carbon Dioxide Anion Gap BUN Creatinine Estim Creat Clear Calc Est GFR (MDRD) Af Amer Est GFR (MDRD) Non-Af BUN/Creatinine Ratio Glucose 398 H Lactic Acid Calcium Magnesium B-Natriuretic Peptide POC Glucose 286 H > 500 H* Blood Type Microbiology 12/30/19 22:55 Urine, Clean Catch Legionella Antigen - Final 12/30/19 22:55 Urine, Clean Catch Streptococcus pneumoniae Antigen (M - Final Clinical Impression(s) from Imaging Studies Chest X-Ray 12/30/19 10:55 IMPRESSION: Patchy bibasilar infiltrates worse at the lung bases. Electronically Signed: Vinicio Dawson, at 11:19 EDT , Service support , Chest X-Ray 01/01/20 07:14 IMPRESSION: Since prior study, there has been a progression of the bibasilar infiltrates. Electronically Signed: Vinicio Dawson, at 11:57 EDT , Service support , Current Medications Acetaminophen (Acetaminophen 325 Mg Tablet) 650 mg PO Q6H PRN PRN PRN Reason: Pain Score 1-10/Temp > 100.7 F Albuterol Sulfate (Albuterol 2.5 Mg/3 Ml Vial.Neb.) 2.5 mg INHALATION Q2H PRN PRN PRN Reason: Shortness of Breath/Wheezing Last Admin: 01/01/20 01:14 Dose: 2.5 mg Documented by: Atorvastatin Calcium (Atorvastatin Calcium 20 Mg Tablet) 20 mg PO QHS [facility] Last Admin: 12/31/19 22:26 Dose: 20 mg Documented by: Dexamethasone Sodium Phosphate (Dexamethasone 10 Mg/Ml Vial) 6 mg IV DAILY [facility] Last Admin: 01/01/20 08:14 Dose: 6 mg Documented by: Dextrose (Dextrose 50%-Water 25 Gm/50 Ml Disp.Syrin) 0 gm IV X1 PRN; Protocol PRN Reason: Hypoglycemia Glucagon (Glucagon 1 Mg/Ml Syringe) 1 mg IM .X1 PRN PRN Reason: Hypoglycemia Guaifenesin (Guaifenesin 10 Ml Udc (200mg/10ml)) 20 ml PO Q4H PRN PRN PRN Reason: COUGH Last Admin: 12/31/19 22:29 Dose: 20 ml Documented by: Insulin Glargine (Insulin Glargine 100 Units/Ml Pen) 15 units SC 1100,2200 [facility] Last Admin: 01/01/20 11:15 Dose: 15 u Documented by: Insulin Human Lispro (Insulin Lispro 100 Unit/Ml Insuln.Pen) 0 unit SC ACHS [facility]; Protocol Last Admin: 01/01/20 12:41 Dose: 11 u Documented by: Insulin Human Lispro (Insulin Lispro 100 Unit/Ml Insuln.Pen) 10 unit SC TIDAC [facility] Last Admin: 01/01/20 12:42 Dose: 10 units Documented by: Melatonin (Melatonin 3 Mg Tablet) 3 mg PO QHS PRN PRN PRN Reason: INSOMNIA Nutritional Formula (Lactose Free) (Glucerna Shake 120 Ml Liquid) 120 ml PO TIDCM [facility] Last Admin: 01/01/20 11:15 Dose: 120 ml Documented by: Ondansetron HCl (Ondansetron 4 Mg/2 Ml Vial) 4 mg IV Q8H PRN PRN PRN Reason: NAUSEA/VOMITING Oxycodone HCl (Oxycodone 5 Mg Tablet) 5 mg PO Q4H PRN PRN PRN Reason: Pain Score 4-5 Oxycodone HCl (Oxycodone 5 Mg Tablet) 10 mg PO Q4H PRN PRN PRN Reason: Pain Score 6-10 Pantoprazole Sodium (Pantoprazole Sodium 20 Mg Tablet) 20 mg PO DAILY [facility] Last Admin: 01/01/20 08:16 Dose: 20 mg Documented by: Senna/Docusate Sodium (Senna/Docusate Sodium 1 Tablet) 2 tablet PO BID PRN PRN PRN Reason: Constipation Sodium Chloride (0.9% Saline Lock 10 Ml Syringe) 10 - 40 ml IV UD PRN PRN Reason: SALINE FLUSH Last Admin: 01/01/20 08:16 Dose: 10 ml Documented by: Warfarin Sodium (Warfarin 4 Mg Tablet) 4 mg PO DAILY@1700 [facility] Last Admin: 12/31/19 17:09 Dose: 4 mg Documented by: Medical Necessity - Tobacco Use Smoking Status: Former smoker Tobacco Use: Pipe Assessment/Plan All Active Problems COVID-19 virus infection (Acute) Acute kidney injury (Acute) RECOMMENDATIONS: 1. Continue patient on Airvo heated high flow and wean FiO2 to maintain oxygen saturations at or above 90%. 2. Continue Decadron 6 mg daily x10 days. 3. Continue systemic anticoagulation with Coumadin. 4. Encourage incentive spirometer use and mobilize patient as tolerated. 5. Consider gentle diuresis as tolerated by hemodynamics and renal function. IMPRESSIONS: 1. Acute hypoxemic respiratory insufficiency secondary to Covid pneumonia Plan to continue current supportive measures including supplemental oxygen to maintain saturations at or above 90%. The patient is already systemically anticoagulated due to a history of lower extremity venous thrombosis. Plan to continue Coumadin and maintain INR in therapeutic range. The patient will be continued on Decadron 6 mg daily. Given that his symptoms initially began approximately 1 week ago, there are no current plans to start the patient on convalescent plasma or remdesivir. Consider gentle diuresis as tolerated by hemodynamics and renal function. 2. Acute kidney injury Improving. Likely prerenal in etiology and related to a component of hypoxemia as well. Plan to continue current supportive measures. Continue to monitor urine output. No indication for renal replacement therapy. 3. Hypertension/hyperlipidemia/GERD/history of DVT/diabetes mellitus Complicates care, management, recovery and prognosis. Continue systemic anticoagulation with Coumadin per outpatient regimen. UPDATE: The patient was reevaluated in the afternoon and found to have an increasing oxygen requirement. He was notably tachypneic and was therefore placed on BiPAP therapy. I did instruct respiratory therapy and the nursing filling and packing supervisor that if the patient does not respond to the aforementioned interventions, he should be transitioned to the medical intensive care unit. This note was generated with [employer] dictation software. It may contain incorrect words, spelling, and punctuation that were not noted in checking the note before signing. Inpatient E&M: [id number] [facility] L3
[2020-01-01 15:01] LABS: Bedside Glucose 286 mg/dL (70-110)
[2020-01-01 16:40] LABS: Bedside Glucose 236 mg/dL (70-110)
--- NOTE | 2020-01-01 17:11 | PCM.PN.ID ---
Patient Problems: Active and Suspected Problems COVID-19 virus infection (Acute) Acute kidney injury (Acute) Subjective: Worsened hypoxia and dyspnea overnight, no fever - Physical Exam Vitals/I&O's: Vital Signs Temp Pulse Resp BP Pulse Ox 97.4 F L 87 40 H 145/80 H 91 01/01/20 16:17 01/01/20 16:17 01/01/20 16:17 01/01/20 16:17 01/01/20 16:17 Oxygen Flow Rate (L/min) 55 Oxygen Delivery Method Airvo Weight: 108.6 kg Body Mass Index (BMI) 34.3 Finger Stick Blood Glucose 227 Intake and Output for Last 24 Hours 12/30/19 12/31/19 01/01/20 23:59 23:59 23:59 Intake Total 1522.5 / 1522.5 3092.5 / 3092.5 720 / 720 Output Total 120 / 120 1375 / 1375 775 / 775 Balance 1402.5 / 1402.5 1717.5 / 1717.5 -55 / -55 General: Alert, Cooperative, No apparent distress Lungs: Diminished Cardiovascular: Regular rate, Regular Rhythm Abdomen: Soft, Non Tender, Non-Distended Skin: No rashes Microbiology Past 72 Hours 12/30/19 22:55 Urine, Clean Catch Legionella Antigen - Final 12/30/19 22:55 Urine, Clean Catch Streptococcus pneumoniae Antigen (M - Final Laboratory Results 12/31/19 17:06: POC Glucose 313 H 12/31/19 22:13: POC Glucose 360 H 12/31/19 22:56: Specimen Type ART, pH 7.38, Bicarbonate Actual 16.1 L, Total CO2 17, Base Excess -9 L, O2 Saturation 87 L, O2 % 100, ABG pCO2 27.2 L, ABG pO2 53 L 01/01/20 06:20: WBC 10.2, RBC 4.23 L, Hgb 13.4, Hct 40.0, MCV 94.6 H, MCH 31.7, MCHC 33.5, RDW Std Deviation 45.7 H, RDW Coeff of Cortney 13.1, Plt Count 229, MPV 9.6, Immature Gran % (Auto) 0.600, Neut % (Auto) 83.1 H, Lymph % (Auto) 7.1 L, Baker % (Auto) 9.2, Eos % (Auto) 0.0, Baso % (Auto) 0.0, Absolute Neuts (auto) 8.5 H, Absolute Lymphs (auto) 0.73 L, Nucleated RBC % 0 01/01/20 06:20: Sodium 138, Potassium 4.3, Chloride 110 H, Carbon Dioxide 21.0, Anion Gap 7, BUN 31 H, Creatinine 1.45 H, Estim Creat Clear Calc 44.05, Est GFR (MDRD) Af Amer 61, Est GFR (MDRD) Non-Af 50 L, BUN/Creatinine Ratio 21.4 H, Glucose 294 H, Calcium 8.4 L 01/01/20 06:20: PT 28.1 H, INR 2.7 01/01/20 06:20: B-Natriuretic Peptide 172.3 H 01/01/20 06:36: POC Glucose 286 H 01/01/20 11:10: POC Glucose > 500 H* 01/01/20 11:24: Glucose 398 H 01/01/20 14:30: POC Glucose 286 H 01/01/20 16:16: POC Glucose 236 H Current Medications Acetaminophen (Acetaminophen 325 Mg Tablet) 650 mg PO Q6H PRN PRN PRN Reason: Pain Score 1-10/Temp > 100.7 F Albuterol Sulfate (Albuterol 2.5 Mg/3 Ml Vial.Neb.) 2.5 mg INHALATION Q2H PRN PRN PRN Reason: Shortness of Breath/Wheezing Last Admin: 01/01/20 01:14 Dose: 2.5 mg Documented by: Atorvastatin Calcium (Atorvastatin Calcium 20 Mg Tablet) 20 mg PO QHS [facility] Last Admin: 12/31/19 22:26 Dose: 20 mg Documented by: Dexamethasone Sodium Phosphate (Dexamethasone 10 Mg/Ml Vial) 6 mg IV DAILY [facility] Last Admin: 01/01/20 08:14 Dose: 6 mg Documented by: Dextrose (Dextrose 50%-Water 25 Gm/50 Ml Disp.Syrin) 0 gm IV X1 PRN; Protocol PRN Reason: Hypoglycemia Glucagon (Glucagon 1 Mg/Ml Syringe) 1 mg IM .X1 PRN PRN Reason: Hypoglycemia Guaifenesin (Guaifenesin 10 Ml Udc (200mg/10ml)) 20 ml PO Q4H PRN PRN PRN Reason: COUGH Last Admin: 12/31/19 22:29 Dose: 20 ml Documented by: Insulin Glargine (Insulin Glargine 100 Units/Ml Pen) 15 units SC 1100,2200 [facility] Last Admin: 01/01/20 11:15 Dose: 15 u Documented by: Insulin Human Lispro (Insulin Lispro 100 Unit/Ml Insuln.Pen) 0 unit SC ACHS [facility]; Protocol Last Admin: 01/01/20 16:25 Dose: 4 u Documented by: Insulin Human Lispro (Insulin Lispro 100 Unit/Ml Insuln.Pen) 10 unit SC TIDAC [facility] Last Admin: 01/01/20 16:26 Dose: 10 units Documented by: Melatonin (Melatonin 3 Mg Tablet) 3 mg PO QHS PRN PRN PRN Reason: INSOMNIA Nutritional Formula (Lactose Free) (Glucerna Shake 120 Ml Liquid) 120 ml PO TIDCM [facility] Last Admin: 01/01/20 16:28 Dose: 120 ml Documented by: Ondansetron HCl (Ondansetron 4 Mg/2 Ml Vial) 4 mg IV Q8H PRN PRN PRN Reason: NAUSEA/VOMITING Oxycodone HCl (Oxycodone 5 Mg Tablet) 5 mg PO Q4H PRN PRN PRN Reason: Pain Score 4-5 Oxycodone HCl (Oxycodone 5 Mg Tablet) 10 mg PO Q4H PRN PRN PRN Reason: Pain Score 6-10 Pantoprazole Sodium (Pantoprazole Sodium 20 Mg Tablet) 20 mg PO DAILY [facility] Last Admin: 01/01/20 08:16 Dose: 20 mg Documented by: Senna/Docusate Sodium (Senna/Docusate Sodium 1 Tablet) 2 tablet PO BID PRN PRN PRN Reason: Constipation Sodium Chloride (0.9% Saline Lock 10 Ml Syringe) 10 - 40 ml IV UD PRN PRN Reason: SALINE FLUSH Last Admin: 01/01/20 08:16 Dose: 10 ml Documented by: Warfarin Sodium (Warfarin 4 Mg Tablet) 4 mg PO DAILY@1700 [facility] Last Admin: 01/01/20 16:29 Dose: 4 mg Documented by: Medical Necessity - Tobacco Use Smoking Status: Former smoker Tobacco Use: Pipe Route of nutrition/ use of supplements: [] Nutritional Intake: [] IV Site: [] Blair Catheter: [] - Assessment/Plan Antibiotics: [] Assessment/Plan: [] Active and Suspected Problems COVID-19 virus infection (Acute) Acute kidney injury (Acute) covid with acute hypoxic resp failure and SANDRA - on dex, now with worsened hypoxia overnight. Sx started evening 12/23. Reviewed EUA and risks/benefits of remdesivir and convalescent plasma. He consents to treatment, will start. The following information was communicated to the patient or caregiver: Remdesivir is not an FDA approved drug. The FDA has authorized the emergency use of Remdesivir. The patient had the option to refuse or accept treatment with Remdesivir. The patient was informed that the number of people treated with Remdesivir is small at this time. The potential benefits and potential risks of Remdesivir are not fully known. Potential benefits of Remdesivir include a shorter time to recovery of COVID-19 infection. Potential risks or side effects of Remdesivir include sweating, shivering, nausea and vomiting or low blood pressure related to a reaction to the medication infusion and increases in liver enzymes. No drugs are approved by the FDA to treat COVID-19 at this time. The patient (or appointed patient access representative) stated understanding of information communicated and wished to proceed with Remdesivir treatment. Will follow
[2020-01-01] MEDS: MELATONIN 3 MG TABLET PO (21:54)
[2020-01-01] MEDS: Atorvastatin Calcium 20 MG Tablet PO (21:54)
[2020-01-01 22:31] LABS: Bedside Glucose 200 mg/dL (70-110)
[2020-01-02] VITALS (37 sets, daily range): BP systolic 138–183; BP diastolic 61–98; PULSE 54–92; RESP 12–51; TEMP 36.2–36.8; O2SAT 90–100
[2020-01-02 04:45] LABS: Absolute Lymphocyte Count 1.37 X10^3/uL (0.83-4.51); Absolute Neutrophil Count 10.8 X10^3/uL (2.0-7.7); Basophil# 0.03 X10^3/uL; Basophil% 0.2 % (0-1); Hemoglobin 14.2 g/dL (13.0-16.5); Lymphocyte # 1.37 X10^3/ul (4.0); Mean Corpuscular Hgb 31.7 pg (27.0-32.0); Mean Platelet Vol. 9.6 fl (6.2-12.0); Monocyte# 1.31 X10^3/uL; Monocyte% 9.6 % (0-10); NRBC Flagged by Analyzer 0 % (0-5); Neutrophil # 10.79 X10^3/uL (2.7-7.7); Neutrophil % 79.2 % (47-70); Platelet Count 267 K/mm3 (150-450); RBC Distribution Width CV 13.2 % (11.6-14.6); RBC Distribution Width SD 46.9 fl (35.1-43.9); Red Blood Count 4.48 M/mm3 (4.6-6.2); White Blood Count 13.6 K/mm3 (4.4-11.0)
[2020-01-02 04:55] LABS: International Normalized Ratio 2.9; Prothrombin Time (Protime)PT. 29.9 SECONDS (11.7-14.9)
[2020-01-02 05:01] LABS: ALB/GLOB Ratio 0.6 RATIO (0.9-2.4); AST(SGOT) 80 U/L (15-37); Alanine Aminotransfer ALT/SGPT 56 U/L (16-61); Albumin, Serum 2.8 g/dL (3.2-5.0); Alkaline Phosphatase 83 U/L (45-117); Anion Gap 11 (5-15); BUN 28 mg/dL (7-18); BUN/Creat Ratio 21.2 RATIO (10-20); Calcium,Total 8.3 mg/dL (8.5-10.1); Chloride 109 mmol/L (98-107); Creatinine, Serum 1.32 mg/dL (0.70-1.30); EST Glomerular Filtration Rate 56 mL/min (>60); Est Glom Filt Rate - Afr Amer 68 mL/min (>60); Estimated Creatinine Clearance 48.39 ml/min; Globulin 4.7 g/dL (2.2-4.2); Glucose 210 mg/dL (74-106); Potassium 4.1 mmol/L (3.5-5.1); Protein, Total 7.5 g/dL (6.4-8.2); Sodium Level 139 mmol/L (136-145)
--- NOTE | 2020-01-02 06:03 | PCM.PN.INT ---
Subjective: The patient was seen and examined at the bedside this morning. Events from the last 24 hours have been reviewed. The patient is currently afebrile, hemodynamically stable and maintaining appropriate oxygen saturations on BiPAP with an FiO2 requirement of 70%. The patient was transitioned from the medical surgical cohort unit yesterday after he developed worsening respiratory status, despite the use of heated high flow and required rescue BiPAP therapy. Due to patient decompensation, the patient was started on remdesivir and received convalescent plasma. He remains on Decadron and is systemically anticoagulated on Coumadin with a therapeutic INR. The patient is currently documented to be overall net +3.3 L for the hospital admission. Objective: The patient's most recent lab work, culture data and imaging studies have all been personally reviewed. Coronavirus PCR was positive on December 24. Strep and urine Legionella antigens were negative. Blood and urine cultures are pending. General: Alert, Cooperative, - - Appears to be tolerating BiPAP at the current time. HEENT: Atraumatic, Normocephalic Oral: Dry Mucosa Neck: Supple, No Nodes, Trachea Midline Lungs: Diminished, Short of Breath, Tachypneic Cardiovascular: Regular rate, Regular Rhythm Abdomen: Bowel Sounds Present, Soft, Non Tender Extremities: No clubbing, No cyanosis, No edema Skin: No breakdown Musculoskeletal: No Tenderness to Palpation of Joints or Extremities Lymphatic: No Cervical, Supraclavicular, or Inguinal Adenopathy Neurological: Cranial nerves II-XII grossly intact, Neuro grossly intact Psych/Mental Status: Normal Affect, Appropriate Vital Signs Temp Pulse Resp BP Pulse Ox 98.0 F 83 34 H 163/87 H 94 01/02/20 05:00 01/02/20 05:00 01/02/20 05:00 01/02/20 05:00 01/02/20 05:00 Oxygen Flow Rate (L/min) 60 Oxygen Delivery Method Bi-pap Weight: 241 lb 6.499 oz Body Mass Index (BMI) 34.3 Finger Stick Blood Glucose 227 Intake and Output for Last 24 Hours 12/31/19 01/01/20 01/02/20 23:59 23:59 23:59 Intake Total 3092.5 / 3092.5 1210 / 1400 577.4 / 577.4 Output Total 1375 / 1375 875 / 1275 400 / 400 Balance 1717.5 / 1717.5 335 / 125 177.4 / 177.4 Labs (Last 48 Hours) 12/31/19 12/31/19 12/31/19 06:34 07:10 07:10 WBC 4.7 RBC 3.95 L Hgb 12.6 L Hct 38.4 L MCV 97.2 H MCH 31.9 MCHC 32.8 RDW Std Deviation 46.3 H RDW Coeff of Cortney 12.9 Plt Count 183 MPV 9.6 Immature Gran % (Auto) 0.400 Neut % (Auto) 73.2 H Lymph % (Auto) 13.5 L [place] % (Auto) 12.9 H Eos % (Auto) 0.0 Baso % (Auto) 0.0 Absolute Neuts (auto) 3.4 Absolute Lymphs (auto) 0.63 L Nucleated RBC % 0 PT INR Specimen Type pH Bicarbonate Actual Total CO2 Base Excess O2 Saturation O2 % ABG pCO2 ABG pO2 Sodium 136 Potassium 4.3 Chloride 107 Carbon Dioxide 20.0 L Anion Gap 9 BUN 33 H Creatinine 1.43 H Estim Creat Clear Calc 44.67 Est GFR (MDRD) Af Amer 62 Est GFR (MDRD) Non-Af 51 L BUN/Creatinine Ratio 23.1 H Glucose 261 H Lactic Acid Calcium 7.9 L Magnesium 1.8 Total Bilirubin AST ALT Alkaline Phosphatase B-Natriuretic Peptide Total Protein Albumin Globulin Albumin/Globulin Ratio POC Glucose 253 H Blood Type 12/31/19 12/31/19 12/31/19 07:10 07:10 07:10 WBC RBC Hgb Hct MCV MCH MCHC RDW Std Deviation RDW Coeff of Cortney Plt Count MPV Immature Gran % (Auto) Neut % (Auto) Lymph % (Auto) [place] % (Auto) Eos % (Auto) Baso % (Auto) Absolute Neuts (auto) Absolute Lymphs (auto) Nucleated RBC % PT 24.5 H INR 2.3 Specimen Type pH Bicarbonate Actual Total CO2 Base Excess O2 Saturation O2 % ABG pCO2 ABG pO2 Sodium Potassium Chloride Carbon Dioxide Anion Gap BUN Creatinine Estim Creat Clear Calc Est GFR (MDRD) Af Amer Est GFR (MDRD) Non-Af BUN/Creatinine Ratio Glucose Lactic Acid 1.6 Calcium Magnesium Total Bilirubin AST ALT Alkaline Phosphatase B-Natriuretic Peptide Total Protein Albumin Globulin Albumin/Globulin Ratio POC Glucose Blood Type A NEGATIVE 12/31/19 12/31/19 12/31/19 11:46 17:06 22:13 WBC RBC Hgb Hct MCV MCH MCHC RDW Std Deviation RDW Coeff of Cortney Plt Count MPV Immature Gran % (Auto) Neut % (Auto) Lymph % (Auto) [place] % (Auto) Eos % (Auto) Baso % (Auto) Absolute Neuts (auto) Absolute Lymphs (auto) Nucleated RBC % PT INR Specimen Type pH Bicarbonate Actual Total CO2 Base Excess O2 Saturation O2 % ABG pCO2 ABG pO2 Sodium Potassium Chloride Carbon Dioxide Anion Gap BUN Creatinine Estim Creat Clear Calc Est GFR (MDRD) Af Amer Est GFR (MDRD) Non-Af BUN/Creatinine Ratio Glucose Lactic Acid Calcium Magnesium Total Bilirubin AST ALT Alkaline Phosphatase B-Natriuretic Peptide Total Protein Albumin Globulin Albumin/Globulin Ratio POC Glucose 260 H 313 H 360 H Blood Type 12/31/19 01/01/20 01/01/20 22:56 06:20 06:20 WBC 10.2 RBC 4.23 L Hgb 13.4 Hct 40.0 MCV 94.6 H MCH 31.7 MCHC 33.5 RDW Std Deviation 45.7 H RDW Coeff of Cortney 13.1 Plt Count 229 MPV 9.6 Immature Gran % (Auto) 0.600 Neut % (Auto) 83.1 H Lymph % (Auto) 7.1 L [place] % (Auto) 9.2 Eos % (Auto) 0.0 Baso % (Auto) 0.0 Absolute Neuts (auto) 8.5 H Absolute Lymphs (auto) 0.73 L Nucleated RBC % 0 PT INR Specimen Type ART pH 7.38 Bicarbonate Actual 16.1 L Total CO2 17 Base Excess -9 L O2 Saturation 87 L O2 % 100 ABG pCO2 27.2 L ABG pO2 53 L Sodium 138 Potassium 4.3 Chloride 110 H Carbon Dioxide 21.0 Anion Gap 7 BUN 31 H Creatinine 1.45 H Estim Creat Clear Calc 44.05 Est GFR (MDRD) Af Amer 61 Est GFR (MDRD) Non-Af 50 L BUN/Creatinine Ratio 21.4 H Glucose 294 H Lactic Acid Calcium 8.4 L Magnesium Total Bilirubin AST ALT Alkaline Phosphatase B-Natriuretic Peptide Total Protein Albumin Globulin Albumin/Globulin Ratio POC Glucose Blood Type 01/01/20 01/01/20 01/01/20 06:20 06:20 06:36 WBC RBC Hgb Hct MCV MCH MCHC RDW Std Deviation RDW Coeff of Cortney Plt Count MPV Immature Gran % (Auto) Neut % (Auto) Lymph % (Auto) [place] % (Auto) Eos % (Auto) Baso % (Auto) Absolute Neuts (auto) Absolute Lymphs (auto) Nucleated RBC % PT 28.1 H INR 2.7 Specimen Type pH Bicarbonate Actual Total CO2 Base Excess O2 Saturation O2 % ABG pCO2 ABG pO2 Sodium Potassium Chloride Carbon Dioxide Anion Gap BUN Creatinine Estim Creat Clear Calc Est GFR (MDRD) Af Amer Est GFR (MDRD) Non-Af BUN/Creatinine Ratio Glucose Lactic Acid Calcium Magnesium Total Bilirubin AST ALT Alkaline Phosphatase B-Natriuretic Peptide 172.3 H Total Protein Albumin Globulin Albumin/Globulin Ratio POC Glucose 286 H Blood Type 01/01/20 01/01/20 01/01/20 11:10 11:24 14:30 WBC RBC Hgb Hct MCV MCH MCHC RDW Std Deviation RDW Coeff of Cortney Plt Count MPV Immature Gran % (Auto) Neut % (Auto) Lymph % (Auto) [place] % (Auto) Eos % (Auto) Baso % (Auto) Absolute Neuts (auto) Absolute Lymphs (auto) Nucleated RBC % PT INR Specimen Type pH Bicarbonate Actual Total CO2 Base Excess O2 Saturation O2 % ABG pCO2 ABG pO2 Sodium Potassium Chloride Carbon Dioxide Anion Gap BUN Creatinine Estim Creat Clear Calc Est GFR (MDRD) Af Amer Est GFR (MDRD) Non-Af BUN/Creatinine Ratio Glucose 398 H Lactic Acid Calcium Magnesium Total Bilirubin AST ALT Alkaline Phosphatase B-Natriuretic Peptide Total Protein Albumin Globulin Albumin/Globulin Ratio POC Glucose > 500 H* 286 H Blood Type 01/01/20 01/01/20 01/02/20 16:16 21:44 04:30 WBC 13.6 H RBC 4.48 L Hgb 14.2 Hct 43.0 MCV 96.0 H MCH 31.7 MCHC 33.0 RDW Std Deviation 46.9 H RDW Coeff of Cortney 13.2 Plt Count 267 MPV 9.6 Immature Gran % (Auto) 1.000 H Neut % (Auto) 79.2 H Lymph % (Auto) 10.0 L [place] % (Auto) 9.6 Eos % (Auto) 0.0 Baso % (Auto) 0.2 Absolute Neuts (auto) 10.8 H Absolute Lymphs (auto) 1.37 Nucleated RBC % 0 PT INR Specimen Type pH Bicarbonate Actual Total CO2 Base Excess O2 Saturation O2 % ABG pCO2 ABG pO2 Sodium Potassium Chloride Carbon Dioxide Anion Gap BUN Creatinine Estim Creat Clear Calc Est GFR (MDRD) Af Amer Est GFR (MDRD) Non-Af BUN/Creatinine Ratio Glucose Lactic Acid Calcium Magnesium Total Bilirubin AST ALT Alkaline Phosphatase B-Natriuretic Peptide Total Protein Albumin Globulin Albumin/Globulin Ratio POC Glucose 236 H 200 H Blood Type 01/02/20 01/02/20 04:30 04:30 WBC RBC Hgb Hct MCV MCH MCHC RDW Std Deviation RDW Coeff of Cortney Plt Count MPV Immature Gran % (Auto) Neut % (Auto) Lymph % (Auto) [place] % (Auto) Eos % (Auto) Baso % (Auto) Absolute Neuts (auto) Absolute Lymphs (auto) Nucleated RBC % PT 29.9 H INR 2.9 Specimen Type pH Bicarbonate Actual Total CO2 Base Excess O2 Saturation O2 % ABG pCO2 ABG pO2 Sodium 139 Potassium 4.1 Chloride 109 H Carbon Dioxide 19.0 L Anion Gap 11 BUN 28 H Creatinine 1.32 H Estim Creat Clear Calc 48.39 Est GFR (MDRD) Af Amer 68 Est GFR (MDRD) Non-Af 56 L BUN/Creatinine Ratio 21.2 H Glucose 210 H Lactic Acid Calcium 8.3 L Magnesium Total Bilirubin 0.60 AST 80 H ALT 56 Alkaline Phosphatase 83 B-Natriuretic Peptide Total Protein 7.5 Albumin 2.8 L Globulin 4.7 H Albumin/Globulin Ratio 0.6 L POC Glucose Blood Type Clinical Impression(s) from Imaging Studies Chest X-Ray 12/30/19 10:55 IMPRESSION: Patchy bibasilar infiltrates worse at the lung bases. Electronically Signed: Vinicio Dawson, at 11:19 EDT , Service support , Chest X-Ray 01/01/20 07:14 IMPRESSION: Since prior study, there has been a progression of the bibasilar infiltrates. Electronically Signed: Vinicio Dawson, at 11:57 EDT , Service support , Medical Necessity - Tobacco Use Smoking Status: Former smoker Tobacco Use: Pipe Assessment/Plan All Active Problems COVID-19 virus infection (Acute) Acute kidney injury (Acute) RECOMMENDATIONS: 1. Continue BiPAP therapy and wean FiO2 to maintain oxygen saturations at or above 90%. 2. Attempt to transition patient to heated high flow oxygen today for breaks from noninvasive positive pressure ventilatory support. 3. Continue Decadron 6 mg daily x10 days. 4. Continue systemic anticoagulation with Coumadin. Goal to maintain therapeutic INR. 5. Continue remdesivir as ordered. 6. Patient to remain n.p.o. for now, pending improvement in respiratory status. IMPRESSIONS: 1. Acute hypoxemic respiratory failure secondary to Covid pneumonia Although the patient was initially stable from a respiratory perspective at presentation, he has decompensated over the last 24 hours and is now requiring noninvasive positive pressure ventilatory support. Underlying Covid pneumonia appears to be the inciting etiology. Infectious diseases is currently following. The patient has already received convalescent plasma and remains on scheduled Decadron and remdesivir. He is already systemically anticoagulated on Coumadin with a therapeutic INR. Plan to continue BiPAP with intermittent breaks on heated high flow oxygen as tolerated. 2. Acute kidney injury Improving. Likely prerenal in etiology and related to a component of hypoxemia as well. Plan to continue current supportive measures. Continue to monitor urine output. No indication for renal replacement therapy. 3. Hypertension/hyperlipidemia/GERD/history of DVT/diabetes mellitus Complicates care, management, recovery and prognosis. Continue systemic anticoagulation with Coumadin per outpatient regimen. Continue Lantus and sliding scale insulin coverage. TIME: 35 minutes of critical care time was spent addressing the patient's acute hypoxemic respiratory failure secondary to Covid pneumonia, acute kidney injury, review of all data and collaboration with the care team. [id number]) [id number] Critical care first hour
--- NOTE | 2020-01-02 07:19 | PCM.PN.HOSP ---
Patient Problems: Active and Suspected Problems COVID-19 virus infection (Acute) Acute kidney injury (Acute) Reason for Visit: Covid 19 pneumonia Acute hypoxic respiratory failure Subjective: Patient was transferred to the intensive care unit following deterioration in his respiratory status resulting in patient being placed on BiPAP. Patient was started on remdesivir and received convalescent plasma Objective: GENERAL: On BiPAP HEENT: Atraumatic; EYES; Anicteric, Normal Conjunctiva NECK; supple, normal thyroid, RESPIRATORY: Diminished to auscultation CARDIOVASCULAR: Regular S1 S2, GI: soft, normoactive bowel sounds, : No Renal angle tenderness; EXTREMITIES: No edema, no clubbing, MUSCULOSKELETAL: no muscle waisting NEURO: Awake; no lateralizing signs. SKIN: No Rash PSYCH; Flat affect Vitals/I&O's: Vital Signs Temp Pulse Resp BP Pulse Ox 98.0 F 77 36 H 169/81 H 93 01/02/20 05:00 01/02/20 07:00 01/02/20 07:00 01/02/20 07:00 01/02/20 07:00 Oxygen Flow Rate (L/min) 60 Oxygen Delivery Method Bi-pap Weight: 109.5 kg Body Mass Index (BMI) 34.3 Finger Stick Blood Glucose 227 Intake and Output for Last 24 Hours 12/31/19 01/01/20 01/02/20 23:59 23:59 23:59 Intake Total 3092.5 / 3092.5 1210 / 1400 577.4 / 577.4 Output Total 1375 / 1375 875 / 1275 700 / 700 Balance 1717.5 / 1717.5 335 / 125 -122.6 / -122.6 Microbiology Past 72 Hours 12/30/19 22:55 Urine, Clean Catch Legionella Antigen - Final 12/30/19 22:55 Urine, Clean Catch Streptococcus pneumoniae Antigen (M - Final Laboratory Results 01/01/20 06:20: B-Natriuretic Peptide 172.3 H 01/01/20 06:36: POC Glucose 286 H 01/01/20 11:10: POC Glucose > 500 H* 01/01/20 11:24: Glucose 398 H 01/01/20 14:30: POC Glucose 286 H 01/01/20 16:16: POC Glucose 236 H 01/01/20 21:44: POC Glucose 200 H 01/02/20 04:30: WBC 13.6 H, RBC 4.48 L, Hgb 14.2, Hct 43.0, MCV 96.0 H, MCH 31.7, MCHC 33.0, RDW Std Deviation 46.9 H, RDW Coeff of Cortney 13.2, Plt Count 267, MPV 9.6, Immature Gran % (Auto) 1.000 H, Neut % (Auto) 79.2 H, Lymph % (Auto) 10.0 L, [place] % (Auto) 9.6, Eos % (Auto) 0.0, Baso % (Auto) 0.2, Absolute Neuts (auto) 10.8 H, Absolute Lymphs (auto) 1.37, Nucleated RBC % 0 01/02/20 04:30: Sodium 139, Potassium 4.1, Chloride 109 H, Carbon Dioxide 19.0 L, Anion Gap 11, BUN 28 H, Creatinine 1.32 H, Estim Creat Clear Calc 48.39, Est GFR (MDRD) Af Amer 68, Est GFR (MDRD) Non-Af 56 L, BUN/Creatinine Ratio 21.2 H, Glucose 210 H, Calcium 8.3 L, Total Bilirubin 0.60, AST 80 H, ALT 56, Alkaline Phosphatase 83, Total Protein 7.5, Albumin 2.8 L, Globulin 4.7 H, Albumin/Globulin Ratio 0.6 L 01/02/20 04:30: PT 29.9 H, INR 2.9 Current Medications Acetaminophen (Acetaminophen 325 Mg Tablet) 650 mg PO Q6H PRN PRN PRN Reason: Pain Score 1-10/Temp > 100.7 F Albuterol Sulfate (Albuterol 2.5 Mg/3 Ml Vial.Neb.) 2.5 mg INHALATION Q2H PRN PRN PRN Reason: Shortness of Breath/Wheezing Last Admin: 01/01/20 01:14 Dose: 2.5 mg Documented by: Atorvastatin Calcium (Atorvastatin Calcium 20 Mg Tablet) 20 mg PO QHS [facility] Last Admin: 01/01/20 21:54 Dose: 20 mg Documented by: Dexamethasone Sodium Phosphate (Dexamethasone 10 Mg/Ml Vial) 6 mg IV DAILY [facility] Last Admin: 01/01/20 08:14 Dose: 6 mg Documented by: Dextrose (Dextrose 50%-Water 25 Gm/50 Ml Disp.Syrin) 0 gm IV X1 PRN; Protocol PRN Reason: Hypoglycemia Glucagon (Glucagon 1 Mg/Ml Syringe) 1 mg IM .X1 PRN PRN Reason: Hypoglycemia Guaifenesin (Guaifenesin 10 Ml Udc (200mg/10ml)) 20 ml PO Q4H PRN PRN PRN Reason: COUGH Last Admin: 12/31/19 22:29 Dose: 20 ml Documented by: Remdesivir (Investigational) (100 mg/ Sodium Chloride) 250 mls @ 125 mls/hr IV DAILY [facility]; Protocol Stop: 01/05/20 11:59 Sodium Chloride () 500 mls @ 15 mls/hr IV PRN PRN PRN Reason: Blood Transfusion Last Infusion: 01/02/20 00:50 Dose: Infused Documented by: Sodium Chloride () 250 mls @ 15 mls/hr IV .[id number] PRN PRN Reason: Saline Flush Sodium Chloride () 250 mls @ 15 mls/hr IV .[id number] PRN PRN Reason: Additional IVPB Infusion Insulin Glargine (Insulin Glargine 100 Units/Ml Pen) 15 units SC 1100,2200 [facility] Last Admin: 01/01/20 21:59 Dose: 15 u Documented by: Insulin Human Lispro (Insulin Lispro 100 Unit/Ml Insuln.Pen) 0 unit SC ACHS [facility]; Protocol Last Admin: 01/01/20 21:59 Dose: 4 u Documented by: Insulin Human Lispro (Insulin Lispro 100 Unit/Ml Insuln.Pen) 10 unit SC TIDAC [facility] Last Admin: 01/01/20 16:26 Dose: 10 units Documented by: Melatonin (Melatonin 3 Mg Tablet) 3 mg PO QHS PRN PRN PRN Reason: INSOMNIA Last Admin: 01/01/20 21:54 Dose: 3 mg Documented by: Nutritional Formula (Lactose Free) (Glucerna Shake 120 Ml Liquid) 120 ml PO TIDCM [facility] Last Admin: 01/01/20 16:28 Dose: 120 ml Documented by: Ondansetron HCl (Ondansetron 4 Mg/2 Ml Vial) 4 mg IV Q8H PRN PRN PRN Reason: NAUSEA/VOMITING Oxycodone HCl (Oxycodone 5 Mg Tablet) 5 mg PO Q4H PRN PRN PRN Reason: Pain Score 4-5 Oxycodone HCl (Oxycodone 5 Mg Tablet) 10 mg PO Q4H PRN PRN PRN Reason: Pain Score 6-10 Pantoprazole Sodium (Pantoprazole Sodium 20 Mg Tablet) 20 mg PO DAILY [facility] Last Admin: 01/01/20 08:16 Dose: 20 mg Documented by: Senna/Docusate Sodium (Senna/Docusate Sodium 1 Tablet) 2 tablet PO BID PRN PRN PRN Reason: Constipation Sodium Chloride (0.9% Saline Lock 10 Ml Syringe) 10 - 40 ml IV UD PRN PRN Reason: SALINE FLUSH Last Admin: 01/01/20 08:16 Dose: 10 ml Documented by: Warfarin Sodium (Warfarin 4 Mg Tablet) 4 mg PO DAILY@1700 [facility] Last Admin: 01/01/20 16:29 Dose: 4 mg Documented by: STROKE Vital Signs/Narrative: Vital Signs Temp Pulse Resp BP Pulse Ox 01/02/20 07:00 77 36 H 169/81 H 93 01/02/20 06:00 74 36 H 150/84 H 94 01/02/20 05:00 98.0 F 83 34 H 163/87 H 94 01/02/20 04:40 88 42 H 95 01/02/20 04:00 78 34 H 138/61 H 94 Medical Necessity - Tobacco Use Smoking Status: Former smoker Tobacco Use: Pipe Assessment/Plan All Active Problems COVID-19 virus infection (Acute) Acute kidney injury (Acute) Patient is a 79-year-old gentleman with multiple comorbidities with recent diagnosis of COVID-19 infection presenting with worsening symptoms 1. Acute hypoxic respiratory failure secondary to acute COVID-19 pneumonia ?Admitted to the COVID-19 cohort unit. Please on supplemental oxygen, Decadron, antibiotics with Rocephin and Zithromax with consultation placed to pulmonary and infectious disease -12/31/2019: Patient was seen in in consultation by Dr. Padilla with infectious disease recommended discontinuation of azithromycin and ceftriaxone. Patient remains on Decadron -01/01/2020; patient was seen in consultation by Dr. Padilla the day prior his notes and recommendations reviewed. -01/02/2020: Patient was transferred to the intensive care unit following deterioration in his respiratory status resulting in patient being placed on BiPAP. Patient was started on remdesivir and received convalescent plasma 2. Septic shock (by definition with lactic acid being greater than 4) ?Patient however remains hemodynamically stable. Patient was resuscitated with IV fluid cautiously. Did not follow the 30 mL/kg recommendations since patient who received excessive IV fluid with COVID-19 infection have worse outcomes. Patient was however managed with antibiotics per protocol after cultures have been obtained -1020; antibiotics discontinued as stated above 3. Acute kidney injury ?Due to combination of patient underlying infection as well as patient being on potential nephrotoxic medications. Patient is on HCTZ, EVERETT inhibitors, as well as nonsteroidal anti-inflammatory medications. Suspected offending medications held resuscitated with IV fluid with subsequent monitoring of electrolytes. Ordered kidney ultrasound to rule out obstructive uropathy -12/31/2019; kidney function did improve with rehydration 4. Hypertension ?Patient is on HCTZ and lisinopril held in view of worsening kidney function. Placed on hydralazine as needed 5. Dyslipidemia -Patient is on statin therapy, continued at home dose 6. GERD ?Patient on PPI 7. Previous history of lower extremity DVT ?Patient is on systemic anticoagulation with warfarin ordered INR for subsequent dose adjustment if needed -1020; INR is therapeutic 8. Diabetes mellitus type II -With complications including diabetic nephropathy. Patient's oral hypoglycemics held. Placed on long acting insulin, Accu-Cheks a.c. and at bedtime and covered with sliding scale insulin -12/21/2019; patient blood glucose not well controlled in view of concomitant use of steroids adjusted patient long-acting insulin regimen. 12/02/2019; blood glucose control still not optimal 9. DVT prophylaxis ?Patient on warfarin Inpatient E&M: [id number] [place] [id number]
[2020-01-02 08:02] LABS: BNP,B-Type NATRIURETIC PEPTIDE 327.4 pg/mL (0-100)
[2020-01-02] MEDS: dexAMETHasone 10 MG/ML Vial 6 MG IV (09:10)
[2020-01-02] MEDS: Pantoprazole Sodium 20 MG Tablet PO (09:10)
[2020-01-02 09:31] LABS: Bedside Glucose 194 mg/dL (70-110)
[2020-01-02] MEDS: Insulin Lispro 100 UNIT/ML INSULN.PEN SC ×4 (10:15→23:01)
[2020-01-02 13:40] LABS: Bedside Glucose 226 mg/dL (70-110)
--- NOTE | 2020-01-02 13:42 | PN.ID_ITS ---
Patient Problems: Active and Suspected Problems COVID-19 virus infection (Acute) Acute kidney injury (Acute) Subjective: Not feeling well, moved to icu. No fever, some nausea. - Physical Exam Vitals/I&O's: Vital Signs Temp Pulse Resp BP Pulse Ox 98.3 F 86 33 H 164/98 H 96 01/02/20 09:00 01/02/20 13:19 01/02/20 13:19 01/02/20 11:00 01/02/20 13:19 Oxygen Flow Rate (L/min) 60 Oxygen Delivery Method Bi-pap Weight: 109.5 kg Body Mass Index (BMI) 34.3 Finger Stick Blood Glucose 227 Intake and Output for Last 24 Hours 12/31/19 01/01/20 01/02/20 23:59 23:59 23:59 Intake Total 3092.5 / 3092.5 1210 / 1400 577.4 / 577.4 Output Total 1375 / 1375 875 / 1275 700 / 700 Balance 1717.5 / 1717.5 335 / 125 -122.6 / -122.6 General: Cooperative, No apparent distress Lungs: Diminished Cardiovascular: Regular rate, Regular Rhythm Abdomen: Soft, Non Tender, Non-Distended Skin: No rashes Microbiology Past 72 Hours 12/30/19 22:55 Urine, Clean Catch Urine Culture - Final Culture exhibits no growth. 12/30/19 22:55 Urine, Clean Catch Legionella Antigen - Final 12/30/19 22:55 Urine, Clean Catch Streptococcus pneumoniae Antigen (M - Final Laboratory Results 01/01/20 14:30: POC Glucose 286 H 01/01/20 16:16: POC Glucose 236 H 01/01/20 21:44: POC Glucose 200 H 01/02/20 04:30: WBC 13.6 H, RBC 4.48 L, Hgb 14.2, Hct 43.0, MCV 96.0 H, MCH 31. 7, MCHC 33.0, RDW Std Deviation 46.9 H, RDW Coeff of Cortney 13.2, Plt Count 267, MPV 9.6, Immature Gran % (Auto) 1.000 H, Neut % (Auto) 79.2 H, Lymph % (Auto) 10.0 L, [place] % (Auto) 9.6, Eos % (Auto) 0.0, Baso % (Auto) 0.2, Absolute Neuts (auto) 10.8 H, Absolute Lymphs (auto) 1.37, Nucleated RBC % 0 01/02/20 04:30: Sodium 139, Potassium 4.1, Chloride 109 H, Carbon Dioxide 19.0 L , Anion Gap 11, BUN 28 H, Creatinine 1.32 H, Estim Creat Clear Calc 48.39, Est GFR (MDRD) Af Amer 68, Est GFR (MDRD) Non-Af 56 L, BUN/Creatinine Ratio 21.2 H, Glucose 210 H, Calcium 8.3 L, Total Bilirubin 0.60, AST 80 H, ALT 56, Alkaline Phosphatase 83, Total Protein 7.5, Albumin 2.8 L, Globulin 4.7 H, Albumin/Globulin Ratio 0.6 L 01/02/20 04:30: PT 29.9 H, INR 2.9 01/02/20 04:30: B-Natriuretic Peptide 327.4 H 01/02/20 09:06: POC Glucose 194 H 01/02/20 13:22: POC Glucose 226 H Current Medications Acetaminophen (Acetaminophen 325 Mg Tablet) 650 mg PO Q6H PRN PRN PRN Reason: Pain Score 1-10/Temp > 100.7 F Albuterol Sulfate (Albuterol 2.5 Mg/3 Ml Vial.Neb.) 2.5 mg INHALATION Q2H PRN PRN PRN Reason: Shortness of Breath/Wheezing Last Admin: 01/01/20 01:14 Dose: 2.5 mg Documented by: Atorvastatin Calcium (Atorvastatin Calcium 20 Mg Tablet) 20 mg PO QHS [facility] Last Admin: 01/01/20 21:54 Dose: 20 mg Documented by: Dexamethasone Sodium Phosphate (Dexamethasone 10 Mg/Ml Vial) 6 mg IV DAILY [facility] Last Admin: 01/02/20 09:10 Dose: 6 mg Documented by: Dextrose (Dextrose 50%-Water 25 Gm/50 Ml Disp.Syrin) 0 gm IV X1 PRN; Protocol PRN Reason: Hypoglycemia Glucagon (Glucagon 1 Mg/Ml Syringe) 1 mg IM .X1 PRN PRN Reason: Hypoglycemia Guaifenesin (Guaifenesin 10 Ml Udc (200mg/10ml)) 20 ml PO Q4H PRN PRN PRN Reason: COUGH Last Admin: 12/31/19 22:29 Dose: 20 ml Documented by: Remdesivir (Investigational) (100 mg/ Sodium Chloride) 250 mls @ 125 mls/hr IV DAILY [facility]; Protocol Stop: 01/05/20 11:59 Sodium Chloride () 500 mls @ 15 mls/hr IV PRN PRN PRN Reason: Blood Transfusion Last Infusion: 01/02/20 00:50 Dose: Infused Documented by: Sodium Chloride () 250 mls @ 15 mls/hr IV .[id number] PRN PRN Reason: Saline Flush Sodium Chloride () 250 mls @ 15 mls/hr IV .[id number] PRN PRN Reason: Additional IVPB Infusion Insulin Human Lispro (Insulin Lispro 100 Unit/Ml Insuln.Pen) 0 unit SC Q6 [facility]; Protocol Last Admin: 01/02/20 13:23 Dose: 6 u Documented by: Melatonin (Melatonin 3 Mg Tablet) 3 mg PO QHS PRN PRN PRN Reason: INSOMNIA Last Admin: 01/01/20 21:54 Dose: 3 mg Documented by: Ondansetron HCl (Ondansetron 4 Mg/2 Ml Vial) 4 mg IV Q8H PRN PRN PRN Reason: NAUSEA/VOMITING Oxycodone HCl (Oxycodone 5 Mg Tablet) 5 mg PO Q4H PRN PRN PRN Reason: Pain Score 4-5 Oxycodone HCl (Oxycodone 5 Mg Tablet) 10 mg PO Q4H PRN PRN PRN Reason: Pain Score 6-10 Pantoprazole Sodium (Pantoprazole Sodium 20 Mg Tablet) 20 mg PO DAILY [facility] Last Admin: 01/02/20 09:10 Dose: 20 mg Documented by: Senna/Docusate Sodium (Senna/Docusate Sodium 1 Tablet) 2 tablet PO BID PRN PRN PRN Reason: Constipation Sodium Chloride (0.9% Saline Lock 10 Ml Syringe) 10 - 40 ml IV UD PRN PRN Reason: SALINE FLUSH Last Admin: 01/01/20 08:16 Dose: 10 ml Documented by: Warfarin Sodium (Warfarin 4 Mg Tablet) 4 mg PO DAILY@1700 [facility] Last Admin: 01/01/20 16:29 Dose: 4 mg Documented by: Medical Necessity - Tobacco Use Smoking Status: Former smoker Tobacco Use: Pipe Route of nutrition/ use of supplements: [] Nutritional Intake: [] IV Site: [] Blair Catheter: [] - Assessment/Plan Antibiotics: [] Assessment/Plan: [] Active and Suspected Problems COVID-19 virus infection (Acute) Acute kidney injury (Acute) covid with acute hypoxic resp failure and SANDRA - on dex, now with worsened hypoxia. Sx started evening 12/23. Reviewed EUA and risks/benefits of remdesivir and convalescent plasma. He consents to treatment, started 12/31. Will follow
[2020-01-02] MEDS: Furosemide 40 MG/4 ML Vial IV (20:26)
[2020-01-02] MEDS: Atorvastatin Calcium 20 MG Tablet PO (20:27)
[2020-01-02] MEDS: MELATONIN 3 MG TABLET PO (20:27)
[2020-01-02 22:50] LABS: Bedside Glucose 259 mg/dL (70-110)
[2020-01-02 23:10] LABS: Bedside Glucose 232 mg/dL (70-110)
[2020-01-03] VITALS (33 sets, daily range): BP systolic 124–190; BP diastolic 43–106; PULSE 77–106; RESP 12–43; TEMP 36.3–36.6; O2SAT 88–95
--- NOTE | 2020-01-03 01:29 | NURSING ---
pt pulled his bipap off dropping to the 70's resp in and replaced his face mask w a larger one. 92% after a long recovery time
[2020-01-03 03:03] LABS: Hematocrit 43.8 % (40-54); Hemoglobin 14.6 g/dL (13.0-16.5); Mean Corp Hgb Conc 33.3 g/dL (32-36); Mean Corpuscular Hgb 31.6 pg (27.0-32.0); Mean Corpuscular Volume 94.8 fL (80-94); Mean Platelet Vol. 9.4 fl (6.2-12.0); POSITIVE MORPHOLOGY YES; Platelet Count 221 K/mm3 (150-450); RBC Distribution Width CV 13.2 % (11.6-14.6); RBC Distribution Width SD 46.8 fl (35.1-43.9); Red Blood Count 4.62 M/mm3 (4.6-6.2); White Blood Count 15.1 K/mm3 (4.4-11.0)
[2020-01-03 03:06] LABS: Scan Indicated on CBC? Y/N NO
[2020-01-03] MEDS: oxyCODONE 5 MG Tablet PO (03:20)
[2020-01-03 03:58] LABS: ALB/GLOB Ratio 0.6 RATIO (0.9-2.4); AST(SGOT) 70 U/L (15-37); Alanine Aminotransfer ALT/SGPT 55 U/L (16-61); Albumin, Serum 2.8 g/dL (3.2-5.0); Alkaline Phosphatase 91 U/L (45-117); Anion Gap 6 (5-15); BUN 32 mg/dL (7-18); BUN/Creat Ratio 23.5 RATIO (10-20); Calcium,Total 8.6 mg/dL (8.5-10.1); Chloride 108 mmol/L (98-107); Creatinine, Serum 1.36 mg/dL (0.70-1.30); EST Glomerular Filtration Rate 54 mL/min (>60); Est Glom Filt Rate - Afr Amer 65 mL/min (>60); Estimated Creatinine Clearance 46.97 ml/min; Globulin 4.8 g/dL (2.2-4.2); Glucose 196 mg/dL (74-106); Potassium 4.2 mmol/L (3.5-5.1); Protein, Total 7.6 g/dL (6.4-8.2); Sodium Level 140 mmol/L (136-145)
--- NOTE | 2020-01-03 05:45 | PCM.PN.INT ---
Subjective: The patient was seen and examined at the bedside this morning. Events from the last 24 hours have been reviewed. The patient is currently afebrile, hemodynamically stable and maintaining appropriate oxygen saturations on BiPAP with an FiO2 requirement of 65%. The patient has already received convalescent plasma. He remains on Decadron, remdesivir and systemic anticoagulation with Coumadin. The patient is currently documented to be overall net +2 L for the hospital admission. Objective: The patient's most recent lab work, culture data and imaging studies have all been personally reviewed. Coronavirus PCR was positive on December 24. Strep and urine Legionella antigens were negative. Blood and urine cultures have shown no growth to date. General: Alert, Cooperative HEENT: Atraumatic, Normocephalic Oral: No Gingival or Mucosal Lesions/ Ulcerations Neck: Supple, No Nodes, Trachea Midline Lungs: Diminished Cardiovascular: Regular rate, Regular Rhythm Abdomen: Bowel Sounds Present, Soft, Non Tender Extremities: No clubbing, No cyanosis, No edema Skin: No breakdown Musculoskeletal: No Tenderness to Palpation of Joints or Extremities Neurological: Cranial nerves II-XII grossly intact, Neuro grossly intact Psych/Mental Status: Normal Affect, Appropriate Vital Signs Temp Pulse Resp BP Pulse Ox 97.4 F L 87 32 H 140/73 H 90 01/03/20 04:00 01/03/20 05:00 01/03/20 05:00 01/03/20 05:00 01/03/20 05:00 Oxygen Flow Rate (L/min) 60 Oxygen Delivery Method Bi-pap Weight: 241 lb 6.499 oz Body Mass Index (BMI) 34.3 Finger Stick Blood Glucose 227 Intake and Output for Last 24 Hours 01/01/20 01/02/20 01/03/20 23:59 23:59 23:59 Intake Total 1210 / 1400 827.4 / 827.4 Output Total 875 / 1275 1925 / 1925 300 / 300 Balance 335 / 125 -1097.6 / -1097.6 -300 / -300 Labs (Last 48 Hours) 01/01/20 01/01/20 01/01/20 06:20 06:20 06:20 WBC 10.2 RBC 4.23 L Hgb 13.4 Hct 40.0 MCV 94.6 H MCH 31.7 MCHC 33.5 RDW Std Deviation 45.7 H RDW Coeff of Cortney 13.1 Plt Count 229 MPV 9.6 Immature Gran % (Auto) 0.600 Neut % (Auto) 83.1 H Lymph % (Auto) 7.1 L [place] % (Auto) 9.2 Eos % (Auto) 0.0 Baso % (Auto) 0.0 Absolute Neuts (auto) 8.5 H Absolute Lymphs (auto) 0.73 L Nucleated RBC % 0 PT 28.1 H INR 2.7 Sodium 138 Potassium 4.3 Chloride 110 H Carbon Dioxide 21.0 Anion Gap 7 BUN 31 H Creatinine 1.45 H Estim Creat Clear Calc 44.05 Est GFR (MDRD) Af Amer 61 Est GFR (MDRD) Non-Af 50 L BUN/Creatinine Ratio 21.4 H Glucose 294 H Calcium 8.4 L Total Bilirubin AST ALT Alkaline Phosphatase B-Natriuretic Peptide Total Protein Albumin Globulin Albumin/Globulin Ratio POC Glucose 01/01/20 01/01/20 01/01/20 06:20 06:36 11:10 WBC RBC Hgb Hct MCV MCH MCHC RDW Std Deviation RDW Coeff of Cortney Plt Count MPV Immature Gran % (Auto) Neut % (Auto) Lymph % (Auto) [place] % (Auto) Eos % (Auto) Baso % (Auto) Absolute Neuts (auto) Absolute Lymphs (auto) Nucleated RBC % PT INR Sodium Potassium Chloride Carbon Dioxide Anion Gap BUN Creatinine Estim Creat Clear Calc Est GFR (MDRD) Af Amer Est GFR (MDRD) Non-Af BUN/Creatinine Ratio Glucose Calcium Total Bilirubin AST ALT Alkaline Phosphatase B-Natriuretic Peptide 172.3 H Total Protein Albumin Globulin Albumin/Globulin Ratio POC Glucose 286 H > 500 H* 01/01/20 01/01/20 01/01/20 11:24 14:30 16:16 WBC RBC Hgb Hct MCV MCH MCHC RDW Std Deviation RDW Coeff of Cortney Plt Count MPV Immature Gran % (Auto) Neut % (Auto) Lymph % (Auto) [place] % (Auto) Eos % (Auto) Baso % (Auto) Absolute Neuts (auto) Absolute Lymphs (auto) Nucleated RBC % PT INR Sodium Potassium Chloride Carbon Dioxide Anion Gap BUN Creatinine Estim Creat Clear Calc Est GFR (MDRD) Af Amer Est GFR (MDRD) Non-Af BUN/Creatinine Ratio Glucose 398 H Calcium Total Bilirubin AST ALT Alkaline Phosphatase B-Natriuretic Peptide Total Protein Albumin Globulin Albumin/Globulin Ratio POC Glucose 286 H 236 H 01/01/20 01/02/20 01/02/20 21:44 04:30 04:30 WBC 13.6 H RBC 4.48 L Hgb 14.2 Hct 43.0 MCV 96.0 H MCH 31.7 MCHC 33.0 RDW Std Deviation 46.9 H RDW Coeff of Cortney 13.2 Plt Count 267 MPV 9.6 Immature Gran % (Auto) 1.000 H Neut % (Auto) 79.2 H Lymph % (Auto) 10.0 L [place] % (Auto) 9.6 Eos % (Auto) 0.0 Baso % (Auto) 0.2 Absolute Neuts (auto) 10.8 H Absolute Lymphs (auto) 1.37 Nucleated RBC % 0 PT INR Sodium 139 Potassium 4.1 Chloride 109 H Carbon Dioxide 19.0 L Anion Gap 11 BUN 28 H Creatinine 1.32 H Estim Creat Clear Calc 48.39 Est GFR (MDRD) Af Amer 68 Est GFR (MDRD) Non-Af 56 L BUN/Creatinine Ratio 21.2 H Glucose 210 H Calcium 8.3 L Total Bilirubin 0.60 AST 80 H ALT 56 Alkaline Phosphatase 83 B-Natriuretic Peptide Total Protein 7.5 Albumin 2.8 L Globulin 4.7 H Albumin/Globulin Ratio 0.6 L POC Glucose 200 H 01/02/20 01/02/20 01/02/20 04:30 04:30 09:06 WBC RBC Hgb Hct MCV MCH MCHC RDW Std Deviation RDW Coeff of Cortney Plt Count MPV Immature Gran % (Auto) Neut % (Auto) Lymph % (Auto) [place] % (Auto) Eos % (Auto) Baso % (Auto) Absolute Neuts (auto) Absolute Lymphs (auto) Nucleated RBC % PT 29.9 H INR 2.9 Sodium Potassium Chloride Carbon Dioxide Anion Gap BUN Creatinine Estim Creat Clear Calc Est GFR (MDRD) Af Amer Est GFR (MDRD) Non-Af BUN/Creatinine Ratio Glucose Calcium Total Bilirubin AST ALT Alkaline Phosphatase B-Natriuretic Peptide 327.4 H Total Protein Albumin Globulin Albumin/Globulin Ratio POC Glucose 194 H 01/02/20 01/02/20 01/02/20 13:22 18:10 22:51 WBC RBC Hgb Hct MCV MCH MCHC RDW Std Deviation RDW Coeff of Cortney Plt Count MPV Immature Gran % (Auto) Neut % (Auto) Lymph % (Auto) [place] % (Auto) Eos % (Auto) Baso % (Auto) Absolute Neuts (auto) Absolute Lymphs (auto) Nucleated RBC % PT INR Sodium Potassium Chloride Carbon Dioxide Anion Gap BUN Creatinine Estim Creat Clear Calc Est GFR (MDRD) Af Amer Est GFR (MDRD) Non-Af BUN/Creatinine Ratio Glucose Calcium Total Bilirubin AST ALT Alkaline Phosphatase B-Natriuretic Peptide Total Protein Albumin Globulin Albumin/Globulin Ratio POC Glucose 226 H 259 H 232 H 01/03/20 01/03/20 02:50 02:50 WBC 15.1 H RBC 4.62 Hgb 14.6 Hct 43.8 MCV 94.8 H MCH 31.6 MCHC 33.3 RDW Std Deviation 46.8 H RDW Coeff of Cortney 13.2 Plt Count 221 MPV 9.4 Immature Gran % (Auto) Neut % (Auto) Lymph % (Auto) [place] % (Auto) Eos % (Auto) Baso % (Auto) Absolute Neuts (auto) Absolute Lymphs (auto) Nucleated RBC % PT INR Sodium 140 Potassium 4.2 Chloride 108 H Carbon Dioxide 26.0 Anion Gap 6 BUN 32 H Creatinine 1.36 H Estim Creat Clear Calc 46.97 Est GFR (MDRD) Af Amer 65 Est GFR (MDRD) Non-Af 54 L BUN/Creatinine Ratio 23.5 H Glucose 196 H Calcium 8.6 Total Bilirubin 0.70 AST 70 H ALT 55 Alkaline Phosphatase 91 B-Natriuretic Peptide Total Protein 7.6 Albumin 2.8 L Globulin 4.8 H Albumin/Globulin Ratio 0.6 L POC Glucose Microbiology 12/30/19 22:55 Urine, Clean Catch Urine Culture - Final Culture exhibits no growth. Clinical Impression(s) from Imaging Studies Chest X-Ray 12/30/19 10:55 IMPRESSION: Patchy bibasilar infiltrates worse at the lung bases. Electronically Signed: Vinicio Dawson, at 11:19 EDT , Service support , Chest X-Ray 01/01/20 07:14 IMPRESSION: Since prior study, there has been a progression of the bibasilar infiltrates. Electronically Signed: Vinicio Dawson, at 11:57 EDT , Service support , Medical Necessity - Tobacco Use Smoking Status: Former smoker Tobacco Use: Pipe Assessment/Plan All Active Problems COVID-19 virus infection (Acute) Acute kidney injury (Acute) RECOMMENDATIONS: 1. Continue BiPAP therapy and wean FiO2 to maintain oxygen saturations at or above 90%. 2. Attempt to transition patient to heated high flow oxygen today for breaks from noninvasive positive pressure ventilatory support. 3. Continue Decadron 6 mg daily x10 days. 4. Continue systemic anticoagulation with Coumadin. Goal to maintain therapeutic INR. 5. Continue remdesivir as ordered. 6. IV Lasix x1 today. IMPRESSIONS: 1. Acute hypoxemic respiratory failure secondary to Covid pneumonia Although the patient was initially stable from a respiratory perspective at presentation, he decompensated and is now requiring noninvasive positive pressure ventilatory support. Underlying Covid pneumonia appears to be the inciting etiology. Infectious diseases is currently following. The patient has already received convalescent plasma and remains on scheduled Decadron and remdesivir. He is already systemically anticoagulated on Coumadin with a therapeutic INR. Plan to continue BiPAP with intermittent breaks on heated high flow oxygen as tolerated. Gentle diuresis will be entertained today as well. 2. Acute kidney injury Improving. Likely prerenal in etiology and related to a component of hypoxemia as well. Plan to continue current supportive measures. Continue to monitor urine output. No indication for renal replacement therapy. 3. Hypertension/hyperlipidemia/GERD/history of DVT/diabetes mellitus Complicates care, management, recovery and prognosis. Continue systemic anticoagulation with Coumadin per outpatient regimen. Continue Lantus and sliding scale insulin coverage. TIME: 33 minutes of critical care time was spent addressing the patient's acute hypoxemic respiratory failure secondary to Covid pneumonia, acute kidney injury, review of all data and collaboration with the care team. [id number] [id number] Critical care first hour
[2020-01-03] MEDS: Insulin Lispro 100 UNIT/ML INSULN.PEN SC ×4 (06:24→23:19)
[2020-01-03 06:55] LABS: Bedside Glucose 198 mg/dL (70-110)
--- NOTE | 2020-01-03 07:12 | PN_ITS ---
Patient Problems: Active and Suspected Problems COVID-19 virus infection (Acute) Acute kidney injury (Acute) Reason for Visit: COVID-19 pneumonia Subjective: Patient is a 79-year-old gentleman with multiple comorbidities with recent diagnosis of COVID-19 infection as outpatient presenting with worsening symptoms patient was transferred from the [place] to Covid cohort unit to ICU following deterioration of his oxygen saturation. Patient has since been managed on noninvasive ventilation with BiPAP Seen this a.m. still remains on BiPAP. Patient feels his condition is improving. Objective: GENERAL: On BiPAP HEENT: Atraumatic; EYES; Anicteric, Normal Conjunctiva NECK; supple, normal thyroid, RESPIRATORY: Diminished to auscultation CARDIOVASCULAR: Regular S1 S2, GI: soft, normoactive bowel sounds, : No Renal angle tenderness; EXTREMITIES: No edema, no clubbing, MUSCULOSKELETAL: no muscle waisting NEURO: Awake; no lateralizing signs. SKIN: No Rash PSYCH; Flat affect Vitals/I&O's: Vital Signs Temp Pulse Resp BP Pulse Ox 97.4 F L 90 31 H 161/84 H 91 01/03/20 06:34 01/03/20 06:34 01/03/20 06:34 01/03/20 06:34 01/03/20 06:34 Oxygen Flow Rate (L/min) 60 Oxygen Delivery Method Bi-pap Weight: 106.8 kg Body Mass Index (BMI) 34.3 Finger Stick Blood Glucose 227 Intake and Output for Last 24 Hours 01/01/20 01/02/20 01/03/20 23:59 23:59 23:59 Intake Total 1210 / 1400 827.4 / 827.4 0 / 0 Output Total 875 / 1275 1925 / 1925 400 / 400 Balance 335 / 125 -1097.6 / -1097.6 -400 / -400 Microbiology Past 72 Hours 12/30/19 22:55 Urine, Clean Catch Urine Culture - Final Culture exhibits no growth. Laboratory Results 01/02/20 04:30: B-Natriuretic Peptide 327.4 H 01/02/20 09:06: POC Glucose 194 H 01/02/20 13:22: POC Glucose 226 H 01/02/20 18:10: POC Glucose 259 H 01/02/20 22:51: POC Glucose 232 H 01/03/20 02:50: WBC 15.1 H, RBC 4.62, Hgb 14.6, Hct 43.8, MCV 94.8 H, MCH 31.6, MCHC 33.3, RDW Std Deviation 46.8 H, RDW Coeff of Cortney 13.2, Plt Count 221, MPV 9.4 01/03/20 02:50: Sodium 140, Potassium 4.2, Chloride 108 H, Carbon Dioxide 26.0, Anion Gap 6, BUN 32 H, Creatinine 1.36 H, Estim Creat Clear Calc 46.97, Est GFR (MDRD) Af Amer 65, Est GFR (MDRD) Non-Af 54 L, BUN/Creatinine Ratio 23.5 H, Glucose 196 H, Calcium 8.6, Total Bilirubin 0.70, AST 70 H, ALT 55, Alkaline Phosphatase 91, Total Protein 7.6, Albumin 2.8 L, Globulin 4.8 H, Albumin /Globulin Ratio 0.6 L 01/03/20 06:21: POC Glucose 198 H Current Medications Acetaminophen (Acetaminophen 325 Mg Tablet) 650 mg PO Q6H PRN PRN PRN Reason: Pain Score 1-10/Temp > 100.7 F Albuterol Sulfate (Albuterol 2.5 Mg/3 Ml Vial.Neb.) 2.5 mg INHALATION Q2H PRN PRN PRN Reason: Shortness of Breath/Wheezing Last Admin: 01/01/20 01:14 Dose: 2.5 mg Documented by: Atorvastatin Calcium (Atorvastatin Calcium 20 Mg Tablet) 20 mg PO QHS [facility] Last Admin: 01/02/20 20:27 Dose: 20 mg Documented by: Dexamethasone Sodium Phosphate (Dexamethasone 10 Mg/Ml Vial) 6 mg IV DAILY [facility] Last Admin: 01/02/20 09:10 Dose: 6 mg Documented by: Dextrose (Dextrose 50%-Water 25 Gm/50 Ml Disp.Syrin) 0 gm IV X1 PRN; Protocol PRN Reason: Hypoglycemia Glucagon (Glucagon 1 Mg/Ml Syringe) 1 mg IM .X1 PRN PRN Reason: Hypoglycemia Guaifenesin (Guaifenesin 10 Ml Udc (200mg/10ml)) 20 ml PO Q4H PRN PRN PRN Reason: COUGH Last Admin: 12/31/19 22:29 Dose: 20 ml Documented by: Remdesivir (Investigational) (100 mg/ Sodium Chloride) 250 mls @ 125 mls/hr IV DAILY [facility]; Protocol Stop: 01/05/20 11:59 Last Infusion: 01/02/20 23:02 Dose: Infused Documented by: Sodium Chloride () 500 mls @ 15 mls/hr IV PRN PRN PRN Reason: Blood Transfusion Last Infusion: 01/02/20 00:50 Dose: Infused Documented by: Sodium Chloride () 250 mls @ 15 mls/hr IV .[id number] PRN PRN Reason: Saline Flush Sodium Chloride () 250 mls @ 15 mls/hr IV .[id number] PRN PRN Reason: Additional IVPB Infusion Insulin Human Lispro (Insulin Lispro 100 Unit/Ml Insuln.Pen) 0 unit SC Q6 [facility]; Protocol Last Admin: 01/03/20 06:24 Dose: 3 u Documented by: Melatonin (Melatonin 3 Mg Tablet) 3 mg PO QHS PRN PRN PRN Reason: INSOMNIA Last Admin: 01/02/20 20:27 Dose: 3 mg Documented by: Ondansetron HCl (Ondansetron 4 Mg/2 Ml Vial) 4 mg IV Q8H PRN PRN PRN Reason: NAUSEA/VOMITING Oxycodone HCl (Oxycodone 5 Mg Tablet) 5 mg PO Q4H PRN PRN PRN Reason: Pain Score 4-5 Last Admin: 01/03/20 03:20 Dose: 5 mg Documented by: Oxycodone HCl (Oxycodone 5 Mg Tablet) 10 mg PO Q4H PRN PRN PRN Reason: Pain Score 6-10 Pantoprazole Sodium (Pantoprazole Sodium 20 Mg Tablet) 20 mg PO DAILY [facility] Last Admin: 01/02/20 09:10 Dose: 20 mg Documented by: Senna/Docusate Sodium (Senna/Docusate Sodium 1 Tablet) 2 tablet PO BID PRN PRN PRN Reason: Constipation Sodium Chloride (0.9% Saline Lock 10 Ml Syringe) 10 - 40 ml IV UD PRN PRN Reason: SALINE FLUSH Last Admin: 01/01/20 08:16 Dose: 10 ml Documented by: Warfarin Sodium (Warfarin 4 Mg Tablet) 4 mg PO DAILY@1700 [facility] Last Admin: 01/02/20 18:14 Dose: 4 mg Documented by: STROKE Vital Signs/Narrative: Vital Signs Temp Pulse Resp BP Pulse Ox 01/03/20 06:34 97.4 F L 90 31 H 161/84 H 91 01/03/20 06:00 82 38 H 161/84 H 93 01/03/20 05:00 87 32 H 140/73 H 90 01/03/20 04:30 84 35 H 90 01/03/20 04:00 97.4 F L 86 37 H 162/87 H 92 01/03/20 03:26 89 36 H 93 Medical Necessity - Tobacco Use Smoking Status: Former smoker Tobacco Use: Pipe Assessment/Plan All Active Problems COVID-19 virus infection (Acute) Acute kidney injury (Acute) Patient is a 79-year-old gentleman with multiple comorbidities with recent diagnosis of COVID-19 infection presenting with worsening symptoms 1. Acute hypoxic respiratory failure secondary to acute COVID-19 pneumonia ?Admitted to the COVID-19 cohort unit. Please on supplemental oxygen, Decadron, antibiotics with Rocephin and Zithromax with consultation placed to pulmonary and infectious disease -12/31/2019: Patient was seen in in consultation by Dr. Padilla with infectious disease recommended discontinuation of azithromycin and ceftriaxone. Patient remains on Decadron -01/01/2020; patient was seen in consultation by Dr. Padilla the day prior his notes and recommendations reviewed. -01/02/2020: Patient was transferred to the intensive care unit following deterioration in his respiratory status resulting in patient being placed on BiPAP. Patient was started on remdesivir and received convalescent plasma ?01/03/2020; no significant change in patient's condition still remains on BiPAP 2. Septic shock (by definition with lactic acid being greater than 4) ?Patient however remains hemodynamically stable. Patient was resuscitated with IV fluid cautiously. Did not follow the 30 mL/kg recommendations since patient who received excessive IV fluid with COVID-19 infection have worse outcomes. Patient was however managed with antibiotics per protocol after cultures have been obtained -1020; antibiotics discontinued as stated above 3. Acute kidney injury ?Due to combination of patient underlying infection as well as patient being on potential nephrotoxic medications. Patient is on HCTZ, EVERETT inhibitors, as well as nonsteroidal anti-inflammatory medications. Suspected offending medications held resuscitated with IV fluid with subsequent monitoring of electrolytes. Ordered kidney ultrasound to rule out obstructive uropathy -12/31/2019; kidney function did improve with rehydration ?01/03/2020; patient kidney function continues to improve. 4. Hypertension ?Patient is on HCTZ and lisinopril held in view of worsening kidney function. Placed on hydralazine as needed 5. Dyslipidemia -Patient is on statin therapy, continued at home dose 6. GERD ?Patient on PPI 7. Previous history of lower extremity DVT ?Patient is on systemic anticoagulation with warfarin ordered INR for subsequent dose adjustment if needed -1020; INR is therapeutic 8. Diabetes mellitus type II -With complications including diabetic nephropathy. Patient's oral hypoglycemics held. Placed on long acting insulin, Accu-Cheks a.c. and at bedtime and covered with sliding scale insulin -12/21/2019; patient blood glucose not well controlled in view of concomitant use of steroids adjusted patient long-acting insulin regimen. 01/01/2020; blood glucose control still not optimal -01/03/2020; adjust the patient long-acting insulin regimen 9. DVT prophylaxis ?Patient on warfarin- Inpatient E&M: 23415 Subs Hosp L2
[2020-01-03] MEDS: dexAMETHasone 10 MG/ML Vial 6 MG IV (09:13)
[2020-01-03] MEDS: Pantoprazole Sodium 20 MG Tablet PO (09:13)
--- NOTE | 2020-01-03 10:59 | CASEMGMT ---
RN CM Continued stay note: participated in ICU interdisciplinary rounds. The patient remains on Airvo high flow oxygen and intermittent BIpap. Day #3 of Remdesivir. PT/OT on hold for today. DC PLAN: anticipate home with home oxygen through [facility]-new set up. Will evaluate for home health needs when PT/OT able to work with patient. Loreto ODONNELLN RN ACM
[2020-01-03] MEDS: Furosemide 40 MG/4 ML Vial IV (11:12)
[2020-01-03 11:21] LABS: Bedside Glucose 185 mg/dL (70-110)
[2020-01-03 11:33] LABS: Prothrombin Time (Protime)PT. 40.5 SECONDS (11.7-14.9)
[2020-01-03 11:35] LABS: International Normalized Ratio 4.2
--- NOTE | 2020-01-03 15:12 | PCM.PN.ID ---
Patient Problems: Active and Suspected Problems COVID-19 virus infection (Acute) Acute kidney injury (Acute) Subjective: Feeling about the same, no fever, some cough - Physical Exam Vitals/I&O's: Vital Signs Temp Pulse Resp BP Pulse Ox 97.6 F L 98 43 H 124/43 H 91 01/03/20 12:00 01/03/20 13:00 01/03/20 13:00 01/03/20 13:00 01/03/20 13:00 Oxygen Flow Rate (L/min) 60 Oxygen Delivery Method Airvo Weight: 106.8 kg Body Mass Index (BMI) 34.3 Finger Stick Blood Glucose 227 Intake and Output for Last 24 Hours 01/01/20 01/02/20 01/03/20 23:59 23:59 23:59 Intake Total 1210 / 1400 827.4 / 827.4 250 / 250 Output Total 875 / 1275 1925 / 1925 600 / 600 Balance 335 / 125 -1097.6 / -1097.6 -350 / -350 General: Alert, Cooperative, No apparent distress Lungs: Diminished Cardiovascular: Regular rate, Regular Rhythm Abdomen: Soft, Non Tender, Non-Distended Skin: No rashes Microbiology Past 72 Hours 12/30/19 22:55 Urine, Clean Catch Urine Culture - Final Culture exhibits no growth. Laboratory Results 01/02/20 18:10: POC Glucose 259 H 01/02/20 22:51: POC Glucose 232 H 01/03/20 02:50: WBC 15.1 H, RBC 4.62, Hgb 14.6, Hct 43.8, MCV 94.8 H, MCH 31.6, MCHC 33.3, RDW Std Deviation 46.8 H, RDW Coeff of Cortney 13.2, Plt Count 221, MPV 9.4 01/03/20 02:50: Sodium 140, Potassium 4.2, Chloride 108 H, Carbon Dioxide 26.0, Anion Gap 6, BUN 32 H, Creatinine 1.36 H, Estim Creat Clear Calc 46.97, Est GFR (MDRD) Af Amer 65, Est GFR (MDRD) Non-Af 54 L, BUN/Creatinine Ratio 23.5 H, Glucose 196 H, Calcium 8.6, Total Bilirubin 0.70, AST 70 H, ALT 55, Alkaline Phosphatase 91, Total Protein 7.6, Albumin 2.8 L, Globulin 4.8 H, Albumin/Globulin Ratio 0.6 L 01/03/20 06:21: POC Glucose 198 H 01/03/20 11:07: POC Glucose 185 H 01/03/20 11:10: PT 40.5 H, INR 4.2 H* Current Medications Acetaminophen (Acetaminophen 325 Mg Tablet) 650 mg PO Q6H PRN PRN PRN Reason: Pain Score 1-10/Temp > 100.7 F Albuterol Sulfate (Albuterol 2.5 Mg/3 Ml Vial.Neb.) 2.5 mg INHALATION Q2H PRN PRN PRN Reason: Shortness of Breath/Wheezing Last Admin: 01/01/20 01:14 Dose: 2.5 mg Documented by: Atorvastatin Calcium (Atorvastatin Calcium 20 Mg Tablet) 20 mg PO QHS [facility] Last Admin: 01/02/20 20:27 Dose: 20 mg Documented by: Dexamethasone Sodium Phosphate (Dexamethasone 10 Mg/Ml Vial) 6 mg IV DAILY [facility] Stop: 01/08/20 10:01 Last Admin: 01/03/20 09:13 Dose: 6 mg Documented by: Dextrose (Dextrose 50%-Water 25 Gm/50 Ml Disp.Syrin) 0 gm IV X1 PRN; Protocol PRN Reason: Hypoglycemia Glucagon (Glucagon 1 Mg/Ml Syringe) 1 mg IM .X1 PRN PRN Reason: Hypoglycemia Guaifenesin (Guaifenesin 10 Ml Udc (200mg/10ml)) 20 ml PO Q4H PRN PRN PRN Reason: COUGH Last Admin: 12/31/19 22:29 Dose: 20 ml Documented by: Remdesivir (Investigational) (100 mg/ Sodium Chloride) 250 mls @ 125 mls/hr IV DAILY [facility]; Protocol Stop: 01/05/20 11:59 Last Infusion: 01/03/20 13:03 Dose: Infused Documented by: Sodium Chloride () 500 mls @ 15 mls/hr IV PRN PRN PRN Reason: Blood Transfusion Last Infusion: 01/02/20 00:50 Dose: Infused Documented by: Sodium Chloride () 250 mls @ 15 mls/hr IV .[id number] PRN PRN Reason: Saline Flush Sodium Chloride () 250 mls @ 15 mls/hr IV .[id number] PRN PRN Reason: Additional IVPB Infusion Insulin Human Lispro (Insulin Lispro 100 Unit/Ml Insuln.Pen) 0 unit SC Q6 [facility]; Protocol Last Admin: 01/03/20 11:18 Dose: 3 u Documented by: Melatonin (Melatonin 3 Mg Tablet) 3 mg PO QHS PRN PRN PRN Reason: INSOMNIA Last Admin: 01/02/20 20:27 Dose: 3 mg Documented by: Ondansetron HCl (Ondansetron 4 Mg/2 Ml Vial) 4 mg IV Q8H PRN PRN PRN Reason: NAUSEA/VOMITING Oxycodone HCl (Oxycodone 5 Mg Tablet) 5 mg PO Q4H PRN PRN PRN Reason: Pain Score 4-5 Last Admin: 01/03/20 03:20 Dose: 5 mg Documented by: Oxycodone HCl (Oxycodone 5 Mg Tablet) 10 mg PO Q4H PRN PRN PRN Reason: Pain Score 6-10 Pantoprazole Sodium (Pantoprazole Sodium 20 Mg Tablet) 20 mg PO DAILY [facility] Last Admin: 01/03/20 09:13 Dose: 20 mg Documented by: Senna/Docusate Sodium (Senna/Docusate Sodium 1 Tablet) 2 tablet PO BID PRN PRN PRN Reason: Constipation Sodium Chloride (0.9% Saline Lock 10 Ml Syringe) 10 - 40 ml IV UD PRN PRN Reason: SALINE FLUSH Last Admin: 01/01/20 08:16 Dose: 10 ml Documented by: Warfarin Sodium (Warfarin 4 Mg Tablet) 4 mg PO DAILY@1700 [facility] Last Admin: 01/03/20 13:03 Dose: Not Given Documented by: Medical Necessity - Tobacco Use Smoking Status: Former smoker Tobacco Use: Pipe Route of nutrition/ use of supplements: [] Nutritional Intake: [] IV Site: [] Blair Catheter: [] - Assessment/Plan Antibiotics: [] Assessment/Plan: [] Active and Suspected Problems COVID-19 virus infection (Acute) Acute kidney injury (Acute) covid with acute hypoxic resp failure and SANDRA - on dex, developed worsened hypoxia. Sx started evening 12/23. Started remdesivir and plasma 12/31. O2 slowly improving. Will follow
[2020-01-03 17:41] LABS: Bedside Glucose 336 mg/dL (70-110)
[2020-01-03] MEDS: 0.9% Saline Lock 10 ML Syringe IV (20:48)
[2020-01-03] MEDS: Atorvastatin Calcium 20 MG Tablet PO (20:48)
[2020-01-03] MEDS: MELATONIN 3 MG TABLET PO (22:27)
[2020-01-03 23:31] LABS: Bedside Glucose 265 mg/dL (70-110)
[2020-01-04] VITALS (49 sets, daily range): BP systolic 66–177; BP diastolic 43–108; PULSE 64–107; RESP 12–40; TEMP 35.9–38.2; O2SAT 89–99; BMI 34.1
--- NOTE | 2020-01-04 01:44 | NURSING ---
Pt took bipap off, sats in the 40's by the time staff got in room after putting proper PPE on. Pt attempting to get out of bed. Staff assisted pt back to bed, reapplied bipap. Dr. Whitley made aware. Stat ABG ordered.
[2020-01-04 02:06] LABS: Allen Test Positive; Base Excess -3 mmol/L (-2 to +2); Bicarbonate 21.2 mmol/L (22-26); Blood Gas Specimen Type ART; FI02 100; O2 Delivery Device BiPAP; PO2 75 mmHG (75-100); PS 4; RR 12; SITE L Radial; SO2 96 % (95-99); Total Carbon Dioxide 22 mmol/L; pCO2 30.8 mmHg (35-45); pH 7.45 (7.35-7.45)
[2020-01-04 05:29] LABS: Hematocrit 42.3 % (40-54); Hemoglobin 14.1 g/dL (13.0-16.5); Mean Corp Hgb Conc 33.3 g/dL (32-36); Mean Corpuscular Hgb 31.6 pg (27.0-32.0); Mean Corpuscular Volume 94.8 fL (80-94); Platelet Count 144 K/mm3 (150-450); RBC Distribution Width CV 13.2 % (11.6-14.6); RBC Distribution Width SD 46.7 fl (35.1-43.9); Red Blood Count 4.46 M/mm3 (4.6-6.2); White Blood Count 13.7 K/mm3 (4.4-11.0)
[2020-01-04 05:36] LABS: Prothrombin Time (Protime)PT. 45.8 SECONDS (11.7-14.9)
[2020-01-04 05:43] LABS: International Normalized Ratio 4.9
[2020-01-04 05:46] LABS: ALB/GLOB Ratio 0.5 RATIO (0.9-2.4); AST(SGOT) 54 U/L (15-37); Alanine Aminotransfer ALT/SGPT 48 U/L (16-61); Albumin, Serum 2.6 g/dL (3.2-5.0); Alkaline Phosphatase 103 U/L (45-117); Anion Gap 7 (5-15); BUN 41 mg/dL (7-18); BUN/Creat Ratio 30.4 RATIO (10-20); Calcium,Total 8.4 mg/dL (8.5-10.1); Chloride 106 mmol/L (98-107); Creatinine, Serum 1.35 mg/dL (0.70-1.30); EST Glomerular Filtration Rate 54 mL/min (>60); Est Glom Filt Rate - Afr Amer 66 mL/min (>60); Estimated Creatinine Clearance 47.31 ml/min; Globulin 4.8 g/dL (2.2-4.2); Glucose 198 mg/dL (74-106); Protein, Total 7.4 g/dL (6.4-8.2); Sodium Level 140 mmol/L (136-145)
--- NOTE | 2020-01-04 05:51 | PCM.PN.INT ---
Subjective: The patient was seen and examined at the bedside this morning. Events from the last 24 hours have been reviewed. The patient is currently afebrile, hemodynamically stable and maintaining appropriate oxygen saturations on BiPAP with an FiO2 requirement of 100%. The patient's INR is supratherapeutic this morning at 4.9. White blood cell count remains elevated. Creatinine is stable. Per nursing report, the patient readily desaturates when he is taken off of BiPAP. The patient has already received convalescent plasma. He remains on Decadron, remdesivir and systemic anticoagulation with Coumadin. During my interaction with the patient, he was significantly short of breath, tachypneic with increased work of breathing. I spoke to the patient regarding my concerns that he would continue to decompensate from a respiratory perspective. Following my discussion with the patient, the decision was made to proceed with intubation. Intubation Indication: Impending respiratory failure Consent was obtained from: Patient The patient was placed in the appropriate sniffing position. Preoxygenated sedation via BiPAP was provided for a minimum of 3 minutes. The patient had continuous cardiac as well as pulse oximetry monitoring during the procedure. Procedure sedation was provided by the administration of 4 mg of Versed and 20 mg of etomidate. Video laryngoscopy was then performed using a number 4 MAC blade, which revealed a grade 1 view. A 8.0 mm endotracheal tube was visualized advancing between the cords to the level of 22 cm at the lip. The stylette was then removed and discarded. Tube placement was confirmed by fogging in the tube along with equal and bilateral breath sounds. Colorimetric change was visualized on the CO2 meter. The cuff was then inflated and the tube secured using a commercially available device. A good pulse oximetry waveform was seen on the monitor throughout the procedure. A portable chest x-ray has been ordered to confirm appropriate placement. The patient tolerated the procedure well. Objective: The patient's most recent lab work, culture data and imaging studies have all been personally reviewed. Coronavirus PCR was positive on December 24. Strep and urine Legionella antigens were negative. Blood and urine cultures have shown no growth to date. General: Alert, - - Quite ill and toxic in appearance. Having difficulty tolerating BiPAP. HEENT: Atraumatic, Normocephalic Oral: Dry Mucosa Neck: Supple, No Nodes, Trachea Midline Lungs: Diminished, Short of Breath, Tachypneic, Using Accessory Muscles Cardiovascular: Regular rate, Regular Rhythm Abdomen: Bowel Sounds Present, Soft, Non Tender Extremities: No clubbing, No cyanosis, No edema Skin: No breakdown Musculoskeletal: No Muscle Wasting Lymphatic: No Cervical, Supraclavicular, or Inguinal Adenopathy Neurological: Cranial nerves II-XII grossly intact, Neuro grossly intact Psych/Mental Status: Anxious, Restless Vital Signs Temp Pulse Resp BP Pulse Ox 97.4 F L 86 32 H 160/99 H 98 01/04/20 04:00 01/04/20 04:00 01/04/20 04:00 01/04/20 04:00 01/04/20 04:00 Oxygen Flow Rate (L/min) 60 Oxygen Delivery Method Bi-pap Weight: 238 lb 1.588 oz Body Mass Index (BMI) 34.3 Finger Stick Blood Glucose 227 Intake and Output for Last 24 Hours 01/02/20 01/03/20 01/04/20 23:59 23:59 23:59 Intake Total 827.4 / 827.4 250 / 250 Output Total 1925 / 1925 925 / 1225 300 / 300 Balance -1097.6 / -1097.6 -675 / -975 -300 / -300 Labs (Last 48 Hours) 01/02/20 01/02/20 01/02/20 04:30 09:06 13:22 WBC RBC Hgb Hct MCV MCH MCHC RDW Std Deviation RDW Coeff of Cortney Plt Count MPV PT INR Specimen Type Sample Site pH Bicarbonate Actual Total CO2 Base Excess O2 Saturation O2 % ABG pCO2 ABG pO2 Jermaine Test Respiration Rate O2 Delivery Device POC Pressure Suppt Sodium Potassium Chloride Carbon Dioxide Anion Gap BUN Creatinine Estim Creat Clear Calc Est GFR (MDRD) Af Amer Est GFR (MDRD) Non-Af BUN/Creatinine Ratio Glucose Calcium Total Bilirubin AST ALT Alkaline Phosphatase B-Natriuretic Peptide 327.4 H Total Protein Albumin Globulin Albumin/Globulin Ratio POC Glucose 194 H 226 H 01/02/20 01/02/20 01/03/20 18:10 22:51 02:50 WBC 15.1 H RBC 4.62 Hgb 14.6 Hct 43.8 MCV 94.8 H MCH 31.6 MCHC 33.3 RDW Std Deviation 46.8 H RDW Coeff of Cortney 13.2 Plt Count 221 MPV 9.4 PT INR Specimen Type Sample Site pH Bicarbonate Actual Total CO2 Base Excess O2 Saturation O2 % ABG pCO2 ABG pO2 Jermaine Test Respiration Rate O2 Delivery Device POC Pressure Suppt Sodium Potassium Chloride Carbon Dioxide Anion Gap BUN Creatinine Estim Creat Clear Calc Est GFR (MDRD) Af Amer Est GFR (MDRD) Non-Af BUN/Creatinine Ratio Glucose Calcium Total Bilirubin AST ALT Alkaline Phosphatase B-Natriuretic Peptide Total Protein Albumin Globulin Albumin/Globulin Ratio POC Glucose 259 H 232 H 01/03/20 01/03/20 01/03/20 02:50 06:21 11:07 WBC RBC Hgb Hct MCV MCH MCHC RDW Std Deviation RDW Coeff of Cortney Plt Count MPV PT INR Specimen Type Sample Site pH Bicarbonate Actual Total CO2 Base Excess O2 Saturation O2 % ABG pCO2 ABG pO2 Jermanie Test Respiration Rate O2 Delivery Device POC Pressure Suppt Sodium 140 Potassium 4.2 Chloride 108 H Carbon Dioxide 26.0 Anion Gap 6 BUN 32 H Creatinine 1.36 H Estim Creat Clear Calc 46.97 Est GFR (MDRD) Af Amer 65 Est GFR (MDRD) Non-Af 54 L BUN/Creatinine Ratio 23.5 H Glucose 196 H Calcium 8.6 Total Bilirubin 0.70 AST 70 H ALT 55 Alkaline Phosphatase 91 B-Natriuretic Peptide Total Protein 7.6 Albumin 2.8 L Globulin 4.8 H Albumin/Globulin Ratio 0.6 L POC Glucose 198 H 185 H 01/03/20 01/03/20 01/03/20 11:10 17:36 23:17 WBC RBC Hgb Hct MCV MCH MCHC RDW Std Deviation RDW Coeff of Cortney Plt Count MPV PT 40.5 H INR 4.2 H* Specimen Type Sample Site pH Bicarbonate Actual Total CO2 Base Excess O2 Saturation O2 % ABG pCO2 ABG pO2 Jermaine Test Respiration Rate O2 Delivery Device POC Pressure Suppt Sodium Potassium Chloride Carbon Dioxide Anion Gap BUN Creatinine Estim Creat Clear Calc Est GFR (MDRD) Af Amer Est GFR (MDRD) Non-Af BUN/Creatinine Ratio Glucose Calcium Total Bilirubin AST ALT Alkaline Phosphatase B-Natriuretic Peptide Total Protein Albumin Globulin Albumin/Globulin Ratio POC Glucose 336 H 265 H 01/04/20 01/04/20 01/04/20 01:56 05:15 05:15 WBC 13.7 H RBC 4.46 L Hgb 14.1 Hct 42.3 MCV 94.8 H MCH 31.6 MCHC 33.3 RDW Std Deviation 46.7 H RDW Coeff of Cortney 13.2 Plt Count 144 L MPV 10.0 PT INR Specimen Type ART Sample Site L Radial pH 7.45 Bicarbonate Actual 21.2 L Total CO2 22 Base Excess -3 L O2 Saturation 96 O2 % 100 ABG pCO2 30.8 L ABG pO2 75 Jermaine Test Positive Respiration Rate 12 O2 Delivery Device BiPAP POC Pressure Suppt 4 Sodium 140 Potassium 4.0 Chloride 106 Carbon Dioxide 27.0 Anion Gap 7 BUN 41 H Creatinine 1.35 H Estim Creat Clear Calc 47.31 Est GFR (MDRD) Af Amer 66 Est GFR (MDRD) Non-Af 54 L BUN/Creatinine Ratio 30.4 H Glucose 198 H Calcium 8.4 L Total Bilirubin 1.40 H AST 54 H ALT 48 Alkaline Phosphatase 103 B-Natriuretic Peptide Total Protein 7.4 Albumin 2.6 L Globulin 4.8 H Albumin/Globulin Ratio 0.5 L POC Glucose 01/04/20 05:15 WBC RBC Hgb Hct MCV MCH MCHC RDW Std Deviation RDW Coeff of Cortney Plt Count MPV PT 45.8 H INR 4.9 H* Specimen Type Sample Site pH Bicarbonate Actual Total CO2 Base Excess O2 Saturation O2 % ABG pCO2 ABG pO2 Jermaine Test Respiration Rate O2 Delivery Device POC Pressure Suppt Sodium Potassium Chloride Carbon Dioxide Anion Gap BUN Creatinine Estim Creat Clear Calc Est GFR (MDRD) Af Amer Est GFR (MDRD) Non-Af BUN/Creatinine Ratio Glucose Calcium Total Bilirubin AST ALT Alkaline Phosphatase B-Natriuretic Peptide Total Protein Albumin Globulin Albumin/Globulin Ratio POC Glucose Microbiology 12/30/19 22:55 Urine, Clean Catch Urine Culture - Final Culture exhibits no growth. Clinical Impression(s) from Imaging Studies Chest X-Ray 12/30/19 10:55 IMPRESSION: Patchy bibasilar infiltrates worse at the lung bases. Electronically Signed: Vinicio Dawson, at 11:19 EDT , Service support , Chest X-Ray 01/01/20 07:14 IMPRESSION: Since prior study, there has been a progression of the bibasilar infiltrates. Electronically Signed: Vinicio Dawson, at 11:57 EDT , Service support , Medical Necessity - Tobacco Use Smoking Status: Former smoker Tobacco Use: Pipe Assessment/Plan All Active Problems COVID-19 virus infection (Acute) Acute kidney injury (Acute) RECOMMENDATIONS: 1. Obtain arterial blood gas 1 hour post intubation. 2. Continue patient on assist control mode of mechanical ventilation. Wean FiO2 and PEEP to maintain oxygen saturations at or above 90%. 3. Obtain sputum and sent for culture. The patient will be placed empirically on antimicrobials as well. 4. Continue Decadron. Coumadin is currently on hold due to supratherapeutic INR. 5. Continue remdesivir. 6. Start propofol and fentanyl for sedation. Goal to maintain a RASS of -1 to 1. IMPRESSIONS: 1. Acute hypoxemic respiratory failure secondary to Covid pneumonia Although attempts were made to utilize noninvasive positive pressure ventilatory support, the patient continued to decompensate from a respiratory perspective and did require intubation on the morning of January 03. Plan to continue current supportive measures. Will obtain arterial blood gas in 1 hour along with a sputum culture. Empiric antimicrobials will be started. The patient will be continued on Covid treatment with Decadron and remdesivir. The patient has already received convalescent plasma. Although he remains systemically anticoagulated, his Coumadin is on hold due to supratherapeutic INR. 2. Acute kidney injury Improving. Likely prerenal in etiology and related to a component of hypoxemia as well. Plan to continue current supportive measures. Continue to monitor urine output. No indication for renal replacement therapy. 3. Hypertension/hyperlipidemia/GERD/history of DVT/diabetes mellitus Complicates care, management, recovery and prognosis. Continue to hold Coumadin given supratherapeutic INR. Continue Lantus and sliding scale insulin coverage. Obtain nutrition consultation for tube feed recommendations. TIME: 45 minutes of critical care time, inclusive of procedures, was spent addressing the patient's acute hypoxemic respiratory failure secondary to Covid pneumonia, acute kidney injury, review of all data and collaboration with the care team. [phone]) [phone] [id number] Critical care first hour
[2020-01-04] MEDS: Insulin Lispro 100 UNIT/ML INSULN.PEN SC ×2 (06:54→17:14)
[2020-01-04 07:00] LABS: Bedside Glucose 186 mg/dL (70-110)
[2020-01-04] MEDS: Midazolam 5 MG/ML Syringe 4 MG IV (08:40)
[2020-01-04] MEDS: Etomidate 20 MG/10 ML Vial IV (08:41)
[2020-01-04] MEDS: Propofol 10MG/Ml 1,000 MG/100 ML Bottle 6.5 MG CONT INF ×2 (08:45→16:12)
--- NOTE | 2020-01-04 09:15 | RAD_ITS ---
STUDY: X-RAY CHEST REASON FOR EXAM: Male, 79 years old. ETT AND OG TUBE PLACEMENT. TECHNIQUE: Single AP portable view of the chest. COMPARISON: 01/01/2020 FINDINGS: Interval placement of endotracheal tube with the tip approximate 5 cm above the marie. Interval placement of nasogastric tube with the tip below the diaphragm. Interval placement of left upper extremity PICC with tip of the catheter overlying the junction of right atrium and screw vena cava. Poor inspiration with some bibasilar atelectasis. There is no demonstrated pleural abnormality. Normal size heart. Normal mediastinum and mikala. Normal visualized pulmonary arteries. Normal visualized aortic arch and descending thoracic aorta. Normal visualized thoracic spine. Normal visualized ribs, clavicles, and shoulders. There is no demonstrated abnormality of the visualized soft tissue structures of the upper abdomen. RAD/Chest 1 View (Portable) IMPRESSION: 1. Interval placement of endotracheal tube with the tip approximately 5 cm above the marie. 2. Interval placement of nasogastric tube with the tip below the diaphragm. 3. Interval placement of left upper extremity PICC with tip the catheter overlying the junction of right atrium and superior vena cava. 4. Poor inspiration with some bibasilar atelectasis. Electronically Signed: Ziggy Neville MD at 9:30 EDT Tel , Service support ,
[2020-01-04] MEDS: 0.9% Saline Lock 10 ML Syringe IV ×2 (09:40→12:48)
--- NOTE | 2020-01-04 09:45 | NURSING ---
0844- Pt intubated by Dr Georgi Hernandez. #8 ETT, 22cm at the lip. (+) color change. B/L breath sounds.
--- NOTE | 2020-01-04 09:56 | NT.THERAPY_ITS ---
Nutrition Therapy Report - History Nutrition Services has been consulted to:: Manage enteral nutrition Current diet / nutrition support order:: NPO - Anthropometric Measurements Height:: 5 ft 10 in Weight:: 108 kg Body Mass Index (BMI):: 34.1 - Relevant Labs Relevant Labs:: WBC 13.7 K/mm3 (4.4-11.0) H 01/04/20 05:15 RBC 4.46 M/mm3 (4.6-6.2) L 01/04/20 05:15 Hgb 12.6 g/dL (13.0-16.5) L 12/31/19 07:10 Hct 38.4 % (40-54) L 12/31/19 07:10 MCV 94.8 fL (80-94) H 01/04/20 05:15 RDW Std Deviation 46.7 fl (35.1-43.9) H 01/04/20 05:15 Plt Count 144 K/mm3 (150-450) L 01/04/20 05:15 Immature Gran % (Auto) 1.000 % (0.0-0.9) H 01/02/20 04:30 Neut % (Auto) 79.2 % (47-70) H 01/02/20 04:30 Lymph % (Auto) 10.0 % (19-41) L 01/02/20 04:30 [place] % (Auto) 12.9 % (0-10) H 12/31/19 07:10 Absolute Neuts (auto) 10.8 X10^3/uL (2.0-7.7) H 01/02/20 04:30 Absolute Lymphs (auto) 0.73 X10^3/uL (0.83-4.51) L 01/01/20 06:20 PT 45.8 SECONDS (11.7-14.9) H 01/04/20 05:15 INR 4.9 H* 01/04/20 05:15 Fibrinogen 760 mg/dl (203-444) H 12/30/19 10:05 D-Dimer Quant (PE/DVT) 0.96 FEU/ug/m (0.27-0.49) H* 12/30/19 10:05 Chloride 108 mmol/L (98-107) H 01/03/20 02:50 Carbon Dioxide 19.0 mmol/L (21.0-32.0) L 01/02/20 04:30 BUN 41 mg/dL (7-18) H 01/04/20 05:15 Creatinine 1.35 mg/dL (0.70-1.30) H 01/04/20 05:15 Est GFR (MDRD) Af Amer 40 mL/min (>60) L 12/30/19 10:05 Est GFR (MDRD) Non-Af 54 mL/min (>60) L 01/04/20 05:15 BUN/Creatinine Ratio 30.4 RATIO (10-20) H 01/04/20 05:15 Glucose 198 mg/dL (74-106) H 01/04/20 05:15 Lactic Acid 3.1 mmol/L (0.4-1.9) H* 12/30/19 15:37 Calcium 8.4 mg/dL (8.5-10.1) L 01/04/20 05:15 Total Bilirubin 1.40 mg/dL (0.20-1.00) H 01/04/20 05:15 AST 54 U/L (15-37) H 01/04/20 05:15 Lactate Dehydrogenase 415 U/L (87-241) H 12/30/19 10:05 Total Creatine Kinase 356 U/L (39-308) H 12/30/19 10:05 B-Natriuretic Peptide 327.4 pg/mL (0-100) H 01/02/20 04:30 Total Protein 8.3 g/dL (6.4-8.2) H 12/30/19 10:05 Albumin 2.6 g/dL (3.2-5.0) L 01/04/20 05:15 Globulin 4.8 g/dL (2.2-4.2) H 01/04/20 05:15 Albumin/Globulin Ratio 0.5 RATIO (0.9-2.4) L 01/04/20 05:15 Procalcitonin 0.23 ng/mL (0.00-0.09) H 12/30/19 10:05 - Assessment Food / Nutrition-Related History:: Pt intubated- per Dr. Hernandez TF to start later this date. Wt increase 1.2 kg since previous review- pt w/ BLE non-pitting edema. Anticipate wt loss as fluid status improves. Reported UBW 250.4# and CBW 239.4#- 11#/4.3% wt loss, unknown timeframe. 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 No recent wt hx available in EMR. Suspect some degree of malnutrition r/t acute illness, reported wt loss but unable to confirm at this time. Last BM 01/01. - Nutrition Diagnosis Problem / Etiology / Signs & Symptoms (PES):: Inadequate oral intake r/t respiratory distress resulting in intubation aeb NPO status. Evidence of Malnutrition Exists:: No - Nutrition Intervention Nutrition Prescription:: [id number] calories, 80-90 grams protein. - Food / Nutrient Delivery Interventions Nutrition support ordered as / adjusted to:: If pt to remain intubated recommend enteral nutrition support- Vital AF 1.2 at 75 ml/hr w/ 185 ml H2O flush every 4 hours to provide 2160 calories, 135 grams protein, 2200 ml total fluid/day. Enteral nutrition support will be administered via gravity feed bag. Total formula to be administered in 24 hours:1800 mL. Recommend 120 mL for first 4 hours (approx. 10 drops/minute, 3 drops per 15 seconds); increase to 180 mL for next 4 hours (approx. 15 drops/minute, 4 drops per 15 seconds); increase to 240 mL for next 4 hours as tolerated (approx. 18 drops/minute, 5 drops per 15 seconds). Goal rate is 300 mL per 4 hours (approx. 25 drops/minute, 6 drops per 15 seconds). Nutrition education provided?: No - MNT Monitoring Further MNT monitoring and evaluation required?: Yes MNT Follow-up in:: 1-2 days
[2020-01-04 11:05] LABS: Base Excess -3 mmol/L (-2 to +2); Bicarbonate 22.7 mmol/L (22-26); Blood Gas Specimen Type ART; FI02 100; Mode AC; O2 Delivery Device Adult Vent; PEEP 14; PO2 65 mmHG (75-100); RR 14; SITE L Radial; SO2 92 % (95-99); Total Carbon Dioxide 24 mmol/L; Vt 450; pCO2 39.8 mmHg (35-45); pH 7.36 (7.35-7.45)
--- NOTE | 2020-01-04 11:23 | PCM.PN.HOSP ---
Patient Problems: Active and Suspected Problems COVID-19 virus infection (Acute) Acute kidney injury (Acute) Subjective: Intubated and sedated. He had been maintaining saturations on BiPAP with an FiO2 of 100 however he would desaturate very quickly being taken off the BiPAP therefore he was discussed with the family intervention specialist about intubating and he elected to proceed with intubation. Vitals/I&O's: Vital Signs Temp Pulse Resp BP Pulse Ox 97.4 F L 103 H 27 H 138/86 H 93 01/04/20 04:00 01/04/20 08:44 01/04/20 08:44 01/04/20 07:00 01/04/20 08:44 Oxygen Flow Rate (L/min) 60 Oxygen Delivery Method Bi-pap Weight: 238 lb 1.588 oz Body Mass Index (BMI) 34.1 Finger Stick Blood Glucose 227 Intake and Output for Last 24 Hours 01/02/20 01/03/20 01/04/20 23:59 23:59 23:59 Intake Total 827.4 / 827.4 250 / 250 300 / 300 Output Total 1925 / 1925 925 / 1225 550 / 550 Balance -1097.6 / -1097.6 -675 / -975 -250 / -250 General: - - Intubated and sedated HEENT: Atraumatic, PERRLA, Normocephalic Oral: Dry Mucosa Neck: Supple, No JVD Lungs: Normal air movement, No rhonchi, No wheeze, No rales, Diminished Cardiovascular: Regular rate, Regular Rhythm, Normal S1, Normal S2, No murmurs Abdomen: Soft, Non Tender, Non-Distended, No Hepato-splenomegaly Extremities: No edema, Capillary Refill Less than 3 Seconds Skin: No rashes, No breakdown Neurological: - - Intubated and sedated Psych/Mental Status: - - Intubated and sedated Microbiology Past 72 Hours 12/30/19 22:55 Urine, Clean Catch Urine Culture - Final Culture exhibits no growth. Laboratory Results 01/03/20 11:10: PT 40.5 H, INR 4.2 H* 01/03/20 17:36: POC Glucose 336 H 01/03/20 23:17: POC Glucose 265 H 01/04/20 01:56: Specimen Type ART, Sample Site L Radial, pH 7.45, Bicarbonate Actual 21.2 L, Total CO2 22, Base Excess -3 L, O2 Saturation 96, O2 % 100, ABG pCO2 30.8 L, ABG pO2 75, Jermaine Test Positive, Respiration Rate 12, O2 Delivery Device BiPAP, POC Pressure Suppt 4 01/04/20 05:15: WBC 13.7 H, RBC 4.46 L, Hgb 14.1, Hct 42.3, MCV 94.8 H, MCH 31.6, MCHC 33.3, RDW Std Deviation 46.7 H, RDW Coeff of Cortney 13.2, Plt Count 144 L, MPV 10.0 01/04/20 05:15: Sodium 140, Potassium 4.0, Chloride 106, Carbon Dioxide 27.0, Anion Gap 7, BUN 41 H, Creatinine 1.35 H, Estim Creat Clear Calc 47.31, Est GFR (MDRD) Af Amer 66, Est GFR (MDRD) Non-Af 54 L, BUN/Creatinine Ratio 30.4 H, Glucose 198 H, Calcium 8.4 L, Total Bilirubin 1.40 H, AST 54 H, ALT 48, Alkaline Phosphatase 103, Total Protein 7.4, Albumin 2.6 L, Globulin 4.8 H, Albumin/Globulin Ratio 0.5 L 01/04/20 05:15: PT 45.8 H, INR 4.9 H* 01/04/20 06:53: POC Glucose 186 H 01/04/20 10:59: Specimen Type ART, Sample Site L Radial, pH 7.36, Bicarbonate Actual 22.7, Total CO2 24, Base Excess -3 L, O2 Saturation 92 L, O2 % 100, ABG pCO2 39.8, ABG pO2 65 L, Respiration Rate 14, O2 Delivery Device Adult Vent, Vent Mode AC, Tidal Volume 450, POC PEEP 14 Current Medications Acetaminophen (Acetaminophen 325 Mg Tablet) 650 mg PO Q6H PRN PRN PRN Reason: Pain Score 1-10/Temp > 100.7 F Albuterol Sulfate (Albuterol 2.5 Mg/3 Ml Vial.Neb.) 2.5 mg INHALATION Q2H PRN PRN PRN Reason: Shortness of Breath/Wheezing Last Admin: 01/01/20 01:14 Dose: 2.5 mg Documented by: Atorvastatin Calcium (Atorvastatin Calcium 20 Mg Tablet) 20 mg PO QHS [facility] Last Admin: 01/03/20 20:48 Dose: 20 mg Documented by: Dexamethasone Sodium Phosphate (Dexamethasone 10 Mg/Ml Vial) 6 mg IV DAILY HUSSAIN Stop: 01/08/20 10:01 Last Admin: 01/03/20 09:13 Dose: 6 mg Documented by: Dextrose (Dextrose 50%-Water 25 Gm/50 Ml Disp.Syrin) 0 gm IV X1 PRN; Protocol PRN Reason: Hypoglycemia Glucagon (Glucagon 1 Mg/Ml Syringe) 1 mg IM .X1 PRN PRN Reason: Hypoglycemia Guaifenesin (Guaifenesin 10 Ml Udc (200mg/10ml)) 20 ml PO Q4H PRN PRN PRN Reason: COUGH Last Admin: 12/31/19 22:29 Dose: 20 ml Documented by: Remdesivir (Investigational) (100 mg/ Sodium Chloride) 250 mls @ 125 mls/hr IV DAILY HUSSAIN; Protocol Stop: 01/05/20 11:59 Last Infusion: 01/03/20 13:03 Dose: Infused Documented by: Sodium Chloride () 500 mls @ 15 mls/hr IV PRN PRN PRN Reason: Blood Transfusion Last Infusion: 01/02/20 00:50 Dose: Infused Documented by: Sodium Chloride () 250 mls @ 15 mls/hr IV .[id number] PRN PRN Reason: Saline Flush Sodium Chloride () 250 mls @ 15 mls/hr IV .[id number] PRN PRN Reason: Additional IVPB Infusion Propofol (Diprivan) 1,000 mg in 100 mls @ 6.48 mls/hr CONT INF .Q12H HUSSAIN; Protocol Last Admin: 01/04/20 08:45 Dose: 10 mcg/kg/min, 6.5 mls/hr Documented by: Fentanyl Citrate 1,000 mcg/ (Sodium Chloride) 100 mls @ 5 mls/hr CONT INF .Q20H HUSSAIN; Protocol Last Admin: 01/04/20 08:45 Dose: 50 mcg/hr, 5 mls/hr Documented by: Piperacillin Sod/Tazobactam (Sod 3.375 gm/ Sodium Chloride) 50 mls @ 12.5 mls/hr IV Q8 HUSSAIN Enteral Nutritional Formula (Vital Af 1.2 Jaden Liquid) 1,000 mls @ 75 mls/hr GT .[id number] [facility]USSAIN Norepinephrine Bitartrate 8 mg (/ Sodium Chloride) 250 mls @ 9.375 mls/hr CONT INF .[id number] [facility]; Protocol Insulin Human Lispro (Insulin Lispro 100 Unit/Ml Insuln.Pen) 0 unit SC Q6 [facility]; Protocol Last Admin: 01/04/20 06:54 Dose: 3 u Documented by: Melatonin (Melatonin 3 Mg Tablet) 3 mg PO QHS PRN PRN PRN Reason: INSOMNIA Last Admin: 01/03/20 22:27 Dose: 3 mg Documented by: Ondansetron HCl (Ondansetron 4 Mg/2 Ml Vial) 4 mg IV Q8H PRN PRN PRN Reason: NAUSEA/VOMITING Oxycodone HCl (Oxycodone 5 Mg Tablet) 5 mg PO Q4H PRN PRN PRN Reason: Pain Score 4-5 Last Admin: 01/03/20 03:20 Dose: 5 mg Documented by: Oxycodone HCl (Oxycodone 5 Mg Tablet) 10 mg PO Q4H PRN PRN PRN Reason: Pain Score 6-10 Pantoprazole Sodium (Pantoprazole Sodium 20 Mg Tablet) 20 mg PO DAILY [facility] Last Admin: 01/03/20 09:13 Dose: 20 mg Documented by: Senna/Docusate Sodium (Senna/Docusate Sodium 1 Tablet) 2 tablet PO BID PRN PRN PRN Reason: Constipation Sodium Chloride (0.9% Saline Lock 10 Ml Syringe) 10 - 40 ml IV UD PRN PRN Reason: SALINE FLUSH Last Admin: 01/04/20 09:40 Dose: 40 ml Documented by: Warfarin Sodium (Warfarin 4 Mg Tablet) 4 mg PO DAILY@1700 [facility] Last Admin: 01/03/20 13:03 Dose: Not Given Documented by: STROKE Vital Signs/Narrative: Vital Signs Pulse Resp Pulse Ox 01/04/20 08:44 103 H 27 H 93 Medical Necessity - Tobacco Use Smoking Status: Former smoker Tobacco Use: Pipe Assessment/Plan All Active Problems COVID-19 virus infection (Acute) Acute kidney injury (Acute) 1. Acute hypoxic respiratory failure secondary to Covid pneumonia with septic shock/SANDRA/history of DVT -Sepsis has resolved, however initially lactic acid was greater than 4 -Appreciate infectious disease assistance, initially azithromycin and Rocephin were discontinued however secondary to his continued difficulty with breathing and the need for intubation, he will be started on Zosyn empirically -Completed convalescent plasma, and is currently on remdesivir and Decadron -He was intubated this morning by the family intervention specialist secondary to continued respiratory failure -Baseline creatinine is around 1.5, on presentation he was 2.06. This improved with IV fluids to 1.35 -Renal ultrasound was unremarkable -INR is supratherapeutic therefore his Coumadin will be held 2. HTN/HLD -We will continue to hold his hydrochlorothiazide and Lopressor lisinopril secondary to his initial SANDRA -Continue with Lipitor via G-tube -IV hydralazine as necessary for blood pressure control 3. GERD -Stable -Continue with PPI 4. DM 2 with diabetic nephropathy -We will hold his oral hypoglycemics, continue with his sliding scale insulin every 6 -Accu-Cheks AC at bedtime DVT: Coumadin Inpatient E&M: [id number] Subs Hosp L2
[2020-01-04] MEDS: Furosemide 40 MG/4 ML Vial IV (12:48)
[2020-01-04] MEDS: dexAMETHasone 10 MG/ML Vial 6 MG IV (12:48)
[2020-01-04 13:35] LABS: Bedside Glucose 168 mg/dL (70-110)
[2020-01-04 15:47] LABS: CPK Total, Creatine Kinase 376 U/L (39-308); Triglycerides 135 mg/dL
[2020-01-04] MEDS: Acetaminophen 650 MG/20 ML UDC GT (17:25)
[2020-01-04 20:26] LABS: Bedside Glucose 252 mg/dL (70-110)
--- NOTE | 2020-01-04 20:29 | NURSING ---
Medication titration on EMAR incorrect, Fentanyl bag was hung at 1130 as well as 1630. Both bags were verified w/Lacey.ARABELLA Lopez.
[2020-01-04] MEDS: Vital AF 1.2 Cal Liquid 1,000 ML 75 ML GT (20:47)
[2020-01-04] MEDS: Chlorhexidine 15 ML PO (20:47)
[2020-01-04] MEDS: Atorvastatin Calcium 20 MG Tablet GT (20:47)
[2020-01-04] MEDS: Propofol 10MG/Ml 1,000 MG/100 ML Bottle 13 MG CONT INF (22:05)
[2020-01-05] VITALS (66 sets, daily range): BP systolic 78–190; BP diastolic 46–81; PULSE 61–123; RESP 11–28; TEMP 36.3–37; O2SAT 84–99
[2020-01-05] MEDS: Vital AF 1.2 Cal Liquid 1,000 ML 75 ML GT ×4 (00:47→20:30)
[2020-01-05] MEDS: Insulin Lispro 100 UNIT/ML INSULN.PEN SC ×5 (00:48→23:55)
[2020-01-05 01:16] LABS: Bedside Glucose 361 mg/dL (70-110)
[2020-01-05] MEDS: TITRATION PARAMETER CHANGE 1 EACH IV ×3 (01:40→14:48)
--- NOTE | 2020-01-05 04:05 | CPS ---
Pt.'s PEEP decreased to 12
[2020-01-05] MEDS: Propofol 10MG/Ml 1,000 MG/100 ML Bottle 13 MG CONT INF (04:27)
[2020-01-05] MEDS: 0.9% Saline Lock 10 ML Syringe IV ×3 (04:44→07:16)
--- NOTE | 2020-01-05 05:15 | PCM.PN.INT ---
Subjective: The patient was seen and examined at the bedside this morning. Events from the last 24 hours have been reviewed. The patient is currently afebrile, hemodynamically stable and maintaining appropriate oxygen saturations on assist control mode of mechanical ventilation with an FiO2 requirement of 70% and PEEP of 12. The patient is currently documented to be overall net +3 L for the hospital admission. The patient did have to be started on Levophed after sedation was initiated due to hemodynamic instability. The patient did experience an episode this morning of hypoxemia after he became significantly dyssynchronous with the ventilator. With adjustment of his sedation, this issue has resolved. The patient's INR remains supratherapeutic at 7.8. However, there are no overt signs of any blood loss. Creatinine has increased this morning to 2.26. Objective: The patient's most recent lab work, culture data and imaging studies have all been personally reviewed. Coronavirus PCR was positive on December 24. Strep and urine Legionella antigens were negative. Blood and urine cultures have shown no growth to date. Sputum culture is currently pending. General: - - Intubated, sedated and mechanically ventilated. No ventilator dyssynchrony at the current time. HEENT: Atraumatic, Normocephalic Oral: No Gingival or Mucosal Lesions/ Ulcerations, - - Endotracheal and OG tubes in place Neck: Supple, No Nodes, Trachea Midline Lungs: No rhonchi, No wheeze, No rales, Diminished Cardiovascular: Regular rate, Regular Rhythm, Normal S1, Normal S2, No murmurs, No Ectopic Activity Abdomen: Bowel Sounds Present, Soft, Non Tender Extremities: No clubbing, No cyanosis, No edema Skin: - - No significant change from previous Musculoskeletal: No Muscle Wasting Lymphatic: No Cervical, Supraclavicular, or Inguinal Adenopathy Neurological: - - No focal neurological deficits. Currently sedated with a RASS of -2. Vital Signs Temp Pulse Resp BP Pulse Ox 97.3 F L 61 13 150/59 H 98 01/05/20 04:00 01/05/20 04:00 01/05/20 04:00 01/05/20 04:00 01/05/20 04:00 Oxygen Flow Rate (L/min) 60 Oxygen Delivery Method Mechanical Ventilator Weight: 236 lb 8.896 oz Body Mass Index (BMI) 34.1 Finger Stick Blood Glucose 227 Intake and Output for Last 24 Hours 01/03/20 01/04/20 01/05/20 23:59 23:59 23:59 Intake Total 250 / 250 1430.75 / 1771.10 1372.36 / 1372.36 Output Total 925 / 1225 810 / 1010 700 / 700 Balance -675 / -975 620.75 / 761.10 672.36 / 672.36 Labs (Last 48 Hours) 01/03/20 01/03/20 01/03/20 06:21 11:07 11:10 WBC RBC Hgb Hct MCV MCH MCHC RDW Std Deviation RDW Coeff of Cortney Plt Count MPV PT 40.5 H INR 4.2 H* Specimen Type Sample Site pH Bicarbonate Actual Total CO2 Base Excess O2 Saturation O2 % ABG pCO2 ABG pO2 Jermaine Test Respiration Rate O2 Delivery Device Vent Mode Tidal Volume POC PEEP POC Pressure Suppt Sodium Potassium Chloride Carbon Dioxide Anion Gap BUN Creatinine Estim Creat Clear Calc Est GFR (MDRD) Af Amer Est GFR (MDRD) Non-Af BUN/Creatinine Ratio Glucose Calcium Total Bilirubin AST ALT Alkaline Phosphatase Total Creatine Kinase Total Protein Albumin Globulin Albumin/Globulin Ratio Triglycerides POC Glucose 198 H 185 H 01/03/20 01/03/20 01/04/20 17:36 23:17 01:56 WBC RBC Hgb Hct MCV MCH MCHC RDW Std Deviation RDW Coeff of Cortney Plt Count MPV PT INR Specimen Type ART Sample Site L Radial pH 7.45 Bicarbonate Actual 21.2 L Total CO2 22 Base Excess -3 L O2 Saturation 96 O2 % 100 ABG pCO2 30.8 L ABG pO2 75 Jermaine Test Positive Respiration Rate 12 O2 Delivery Device BiPAP Vent Mode Tidal Volume POC PEEP POC Pressure Suppt 4 Sodium Potassium Chloride Carbon Dioxide Anion Gap BUN Creatinine Estim Creat Clear Calc Est GFR (MDRD) Af Amer Est GFR (MDRD) Non-Af BUN/Creatinine Ratio Glucose Calcium Total Bilirubin AST ALT Alkaline Phosphatase Total Creatine Kinase Total Protein Albumin Globulin Albumin/Globulin Ratio Triglycerides POC Glucose 336 H 265 H 01/04/20 01/04/20 01/04/20 05:15 05:15 05:15 WBC 13.7 H RBC 4.46 L Hgb 14.1 Hct 42.3 MCV 94.8 H MCH 31.6 MCHC 33.3 RDW Std Deviation 46.7 H RDW Coeff of Cortney 13.2 Plt Count 144 L MPV 10.0 PT 45.8 H INR 4.9 H* Specimen Type Sample Site pH Bicarbonate Actual Total CO2 Base Excess O2 Saturation O2 % ABG pCO2 ABG pO2 Jermaine Test Respiration Rate O2 Delivery Device Vent Mode Tidal Volume POC PEEP POC Pressure Suppt Sodium 140 Potassium 4.0 Chloride 106 Carbon Dioxide 27.0 Anion Gap 7 BUN 41 H Creatinine 1.35 H Estim Creat Clear Calc 47.31 Est GFR (MDRD) Af Amer 66 Est GFR (MDRD) Non-Af 54 L BUN/Creatinine Ratio 30.4 H Glucose 198 H Calcium 8.4 L Total Bilirubin 1.40 H AST 54 H ALT 48 Alkaline Phosphatase 103 Total Creatine Kinase Total Protein 7.4 Albumin 2.6 L Globulin 4.8 H Albumin/Globulin Ratio 0.5 L Triglycerides POC Glucose 01/04/20 01/04/20 01/04/20 05:15 06:53 10:59 WBC RBC Hgb Hct MCV MCH MCHC RDW Std Deviation RDW Coeff of Cortney Plt Count MPV PT INR Specimen Type ART Sample Site L Radial pH 7.36 Bicarbonate Actual 22.7 Total CO2 24 Base Excess -3 L O2 Saturation 92 L O2 % 100 ABG pCO2 39.8 ABG pO2 65 L Jermaine Test Respiration Rate 14 O2 Delivery Device Adult Vent Vent Mode AC Tidal Volume 450 POC PEEP 14 POC Pressure Suppt Sodium Potassium Chloride Carbon Dioxide Anion Gap BUN Creatinine Estim Creat Clear Calc Est GFR (MDRD) Af Amer Est GFR (MDRD) Non-Af BUN/Creatinine Ratio Glucose Calcium Total Bilirubin AST ALT Alkaline Phosphatase Total Creatine Kinase 376 H Total Protein Albumin Globulin Albumin/Globulin Ratio Triglycerides 135 POC Glucose 186 H 01/04/20 01/04/20 01/05/20 13:28 17:11 00:43 WBC RBC Hgb Hct MCV MCH MCHC RDW Std Deviation RDW Coeff of Cortney Plt Count MPV PT INR Specimen Type Sample Site pH Bicarbonate Actual Total CO2 Base Excess O2 Saturation O2 % ABG pCO2 ABG pO2 Jermaine Test Respiration Rate O2 Delivery Device Vent Mode Tidal Volume POC PEEP POC Pressure Suppt Sodium Potassium Chloride Carbon Dioxide Anion Gap BUN Creatinine Estim Creat Clear Calc Est GFR (MDRD) Af Amer Est GFR (MDRD) Non-Af BUN/Creatinine Ratio Glucose Calcium Total Bilirubin AST ALT Alkaline Phosphatase Total Creatine Kinase Total Protein Albumin Globulin Albumin/Globulin Ratio Triglycerides POC Glucose 168 H 252 H 361 H Microbiology 10/19/20 10:45 Blood Culture (Wb) - Right Hand Blood Culture - Final No growth in 5 days. 12/30/19 10:40 Blood Culture (Wb) - Anticubital Left Blood Culture - Final No growth in 5 days. Clinical Impression(s) from Imaging Studies Chest X-Ray 12/30/19 10:55 IMPRESSION: Patchy bibasilar infiltrates worse at the lung bases. Electronically Signed: Vinicio Samir, at 11:19 EDT , Service support , Chest X-Ray 01/01/20 07:14 IMPRESSION: Since prior study, there has been a progression of the bibasilar infiltrates. Electronically Signed: Vinicio Dawson, at 11:57 EDT , Service support , Chest X-Ray 01/04/20 09:15 IMPRESSION: 1. Interval placement of endotracheal tube with the tip approximately 5 cm above the marie. 2. Interval placement of nasogastric tube with the tip below the diaphragm. 3. Interval placement of left upper extremity PICC with tip the catheter overlying the junction of right atrium and superior vena cava. 4. Poor inspiration with some bibasilar atelectasis. Electronically Signed: Ziggy Neville MD at 9:30 EDT Tel , Service support , Medical Necessity - Tobacco Use Smoking Status: Former smoker Tobacco Use: Pipe Assessment/Plan All Active Problems COVID-19 virus infection (Acute) Acute kidney injury (Acute) RECOMMENDATIONS: 1. Continue patient on assist control mode of mechanical ventilation. Wean FiO2 and PEEP to maintain oxygen saturations at or above 90%. 2. Continue empiric antimicrobials. 3. Continue Levophed to maintain a mean arterial pressure at or above 65 mmHg. 4. Continue current sedation regimen. 5. Continue tube feeds. 6. Continue Decadron. 7. Continue remdesivir. 8. Coumadin to remain on hold. No indication for reversal at the current time. IMPRESSIONS: 1. Acute hypoxemic respiratory failure secondary to Covid pneumonia Although attempts were made to utilize noninvasive positive pressure ventilatory support, the patient continued to decompensate from a respiratory perspective and did require intubation on the morning of January 03. Plan to continue current supportive measures. Will obtain arterial blood gas in 1 hour along with a sputum culture. Empiric antimicrobials will be started. The patient will be continued on Covid treatment with Decadron and remdesivir. The patient has already received convalescent plasma. Although he remains systemically anticoagulated, his Coumadin is on hold due to supratherapeutic INR. 2. Distributive shock The patient became hemodynamically unstable after sedation was initiated in the setting of invasive mechanical ventilatory support. Levophed will be continued to maintain a mean arterial pressure at or above 65 mmHg. 3. Acute kidney injury Suspect prerenal in etiology with possible ischemic ATN in the setting of hemodynamic instability. Continue vasopressor support as ordered. Anticipate improvement with stabilization of hemodynamics. Continue to monitor urine output. No current indication for renal replacement therapy. 4. Coagulopathy The patient presented to the hospital systemically anticoagulated on Coumadin. He has subsequently developed a coagulopathy with a supratherapeutic INR, likely secondary to his acute illness and medication interactions. His Coumadin has been discontinued. No indication for reversal at the present time. Recommend that the patient be started on a continuous heparin infusion once his INR falls into a subtherapeutic range. 5. Hypertension/hyperlipidemia/GERD/history of DVT/diabetes mellitus Complicates care, management, recovery and prognosis. Continue to hold Coumadin given supratherapeutic INR. Continue Lantus and sliding scale insulin coverage. TIME: 35 minutes of critical care time, inclusive of procedures, was spent addressing the patient's acute hypoxemic respiratory failure secondary to Covid pneumonia, acute kidney injury, distributive shock, coagulopathy, review of all data and collaboration with the care team. ([id number]) [phone] [id number] Critical care first hour
[2020-01-05 05:32] LABS: Absolute Lymphocyte Count 0.82 X10^3/uL (0.83-4.51); Absolute Neutrophil Count 10.1 X10^3/uL (2.0-7.7); Basophil# 0.02 X10^3/uL; Basophil% 0.2 % (0-1); Hematocrit 37.8 % (40-54); Hemoglobin 12.5 g/dL (13.0-16.5); Lymphocyte # 0.82 X10^3/ul (4.0); Lymphocyte % 7.2 % (19-41); Mean Corp Hgb Conc 33.1 g/dL (32-36); Mean Corpuscular Hgb 32.6 pg (27.0-32.0); Mean Corpuscular Volume 98.4 fL (80-94); Mean Platelet Vol. 11.2 fl (6.2-12.0); Monocyte# 0.33 X10^3/uL; Monocyte% 2.9 % (0-10); NRBC Flagged by Analyzer 0 % (0-5); Neutrophil # 10.08 X10^3/uL (2.7-7.7); Neutrophil % 88.8 % (47-70); POSITIVE MORPHOLOGY YES; Platelet Count 170 K/mm3 (150-450); RBC Distribution Width CV 13.6 % (11.6-14.6); RBC Distribution Width SD 49.2 fl (35.1-43.9); Red Blood Count 3.84 M/mm3 (4.6-6.2); White Blood Count 11.4 K/mm3 (4.4-11.0)
[2020-01-05 05:41] LABS: Differential Indicated SCAN CRITERIA MET
[2020-01-05 05:43] LABS: Prothrombin Time (Protime)PT. 66.2 SECONDS (11.7-14.9)
[2020-01-05 06:00] LABS: Bedside Glucose 391 mg/dL (70-110)
[2020-01-05 06:03] LABS: International Normalized Ratio 7.8
--- NOTE | 2020-01-05 06:34 | CPS ---
Pt.'s Peak Flow decreased to 40. Pt. wasn't synchronize with the vent., and needed more time for the inspiratory phase. After lowering Peak Flow to 40, pt. is more synchronize with vent., and he's not stacking breaths as much as he was prior.
[2020-01-05 06:43] LABS: ALB/GLOB Ratio 0.4 RATIO (0.9-2.4); AST(SGOT) 58 U/L (15-37); Alanine Aminotransfer ALT/SGPT 36 U/L (16-61); Albumin, Serum 1.8 g/dL (3.2-5.0); Alkaline Phosphatase 81 U/L (45-117); Anion Gap 11 (5-15); BUN 57 mg/dL (7-18); BUN/Creat Ratio 25.2 RATIO (10-20); Calcium,Total 6.9 mg/dL (8.5-10.1); Chloride 104 mmol/L (98-107); Creatinine, Serum 2.26 mg/dL (0.70-1.30); EST Glomerular Filtration Rate 30 mL/min (>60); Est Glom Filt Rate - Afr Amer 36 mL/min (>60); Estimated Creatinine Clearance 28.26 ml/min; Globulin 4.1 g/dL (2.2-4.2); Glucose 388 mg/dL (74-106); Phosphorus 4.1 mg/dL (2.5-4.9); Potassium 4.9 mmol/L (3.5-5.1); Protein, Total 5.9 g/dL (6.4-8.2); Sodium Level 136 mmol/L (136-145)
[2020-01-05] MEDS: LORazepam 2 MG/ML Syringe IV (07:08)
[2020-01-05] MEDS: Succinylcholine Chloride 200 MG/10 ML Vial 100 MG IV (07:30)
[2020-01-05 08:11] LABS: Differential Comment SCANNED
[2020-01-05 08:12] LABS: Other WBC Type 1 %
[2020-01-05] MEDS: Chlorhexidine 15 ML PO ×2 (10:00→20:30)
[2020-01-05] MEDS: Propofol 10MG/Ml 1,000 MG/100 ML Bottle 19.3 MG CONT INF ×4 (10:15→23:11)
--- NOTE | 2020-01-05 11:06 | PCM.PN.HOSP ---
Patient Problems: Active and Suspected Problems COVID-19 virus infection (Acute) Acute kidney injury (Acute) Subjective: Intubated and sedated. He did have an episode of hypoxia this morning which resolved with an increase in his sedation. He also had to have Levophed started secondary to hypotension after his sedation for his intubation yesterday. Vitals/I&O's: Vital Signs Temp Pulse Resp BP Pulse Ox 97.6 F L 72 17 141/63 H 98 01/05/20 06:00 01/05/20 10:36 01/05/20 10:36 01/05/20 06:00 01/05/20 10:36 Oxygen Flow Rate (L/min) 60 Oxygen Delivery Method Mechanical Ventilator Weight: 236 lb 8.896 oz Body Mass Index (BMI) 34.1 Finger Stick Blood Glucose 227 Intake and Output for Last 24 Hours 01/03/20 01/04/20 01/05/20 23:59 23:59 23:59 Intake Total 250 / 250 1430.75 / 1771.10 1538.80 / 1538.80 Output Total 925 / 1225 810 / 1010 800 / 800 Balance -675 / -975 620.75 / 761.10 738.80 / 738.80 General: - - Intubated and sedated HEENT: Atraumatic, PERRLA, Normocephalic Oral: Dry Mucosa Neck: Supple, No JVD Lungs: Normal air movement, No rhonchi, No wheeze, No rales, Diminished Cardiovascular: Regular rate, Regular Rhythm, Normal S1, Normal S2, No murmurs Abdomen: Soft, Non Tender, Non-Distended, No Hepato-splenomegaly Extremities: No edema, Capillary Refill Less than 3 Seconds Skin: No rashes, No breakdown Neurological: - - Intubated and sedated Psych/Mental Status: - - Intubated and sedated Microbiology Past 72 Hours 12/30/19 10:45 Blood Culture (Wb) - Right Hand Blood Culture - Final No growth in 5 days. 12/30/19 10:40 Blood Culture (Wb) - Anticubital Left Blood Culture - Final No growth in 5 days. 12/30/19 22:55 Urine, Clean Catch Urine Culture - Final Culture exhibits no growth. Laboratory Results 01/04/20 05:15: Total Creatine Kinase 376 H, Triglycerides 135 01/04/20 13:28: POC Glucose 168 H 01/04/20 17:11: POC Glucose 252 H 01/05/20 00:43: POC Glucose 361 H 01/05/20 04:38: POC Glucose 391 H 01/05/20 04:50: WBC Cancelled, Corrected WBC Cancelled, RBC Cancelled, Hgb Cancelled, Hct Cancelled, MCV Cancelled, MCH Cancelled, MCHC Cancelled, RDW Std Deviation Cancelled, RDW Coeff of Cortney Cancelled, Plt Count Cancelled, MPV Cancelled, Diff Path Review Cancelled 01/05/20 04:50: Sodium 136, Potassium 4.9, Chloride 104, Carbon Dioxide 21.0, Anion Gap 11, BUN 57 H, Creatinine 2.26 H, Estim Creat Clear Calc 28.26, Est GFR (MDRD) Af Amer 36 L, Est GFR (MDRD) Non-Af 30 L, BUN/Creatinine Ratio 25.2 H, Glucose 388 H, Calcium 6.9 L, Phosphorus 4.1, Magnesium 2.0, Total Bilirubin 2.10 H, AST 58 H, ALT 36, Alkaline Phosphatase 81, Total Protein 5.9 L, Albumin 1.8 L, Globulin 4.1, Albumin/Globulin Ratio 0.4 L 01/05/20 04:50: PT 66.2 H, INR 7.8 H* 01/05/20 04:50: WBC 11.4 H, RBC 3.84 L, Hgb 12.5 L, Hct 37.8 L, MCV 98.4 H, MCH 32.6 H, MCHC 33.1, RDW Std Deviation 49.2 H, RDW Coeff of Cortney 13.6, Plt Count 170, MPV 11.2, Immature Gran % (Auto) 0.900, Neut % (Auto) 88.8 H, Lymph % (Auto) 7.2 L, [place] % (Auto) 2.9, Eos % (Auto) 0.0, Baso % (Auto) 0.2, Absolute Neuts (auto) 10.1 H, Absolute Lymphs (auto) 0.82 L, Other Cells % 1, Nucleated RBC % 0, Differential Comment SCANNED Current Medications Acetaminophen (Acetaminophen 650 Mg/20 Ml Udc) 650 mg GT Q6H PRN PRN PRN Reason: Pain Score 1-10/Temp > 100.7 F Last Admin: 01/04/20 17:25 Dose: 650 mg Documented by: Albuterol Sulfate (Albuterol 2.5 Mg/3 Ml Vial.Neb.) 2.5 mg INHALATION Q2H PRN PRN PRN Reason: Shortness of Breath/Wheezing Last Admin: 01/01/20 01:14 Dose: 2.5 mg Documented by: Atorvastatin Calcium (Atorvastatin Calcium 20 Mg Tablet) 20 mg GT QHS HUSSAIN Last Admin: 01/04/20 20:47 Dose: 20 mg Documented by: Chlorhexidine Gluconate (Chlorhexidine 15 Ml) 15 ml PO BID HUSSAIN Last Admin: 01/04/20 20:47 Dose: 15 ml Documented by: Dexamethasone Sodium Phosphate (Dexamethasone 10 Mg/Ml Vial) 6 mg IV DAILY [facility] Stop: 01/08/20 10:01 Last Admin: 01/04/20 12:48 Dose: 6 mg Documented by: Dextrose (Dextrose 50%-Water 25 Gm/50 Ml Disp.Syrin) 0 gm IV X1 PRN; Protocol PRN Reason: Hypoglycemia Glucagon (Glucagon 1 Mg/Ml Syringe) 1 mg IM .X1 PRN PRN Reason: Hypoglycemia Guaifenesin (Guaifenesin 10 Ml Udc (200mg/10ml)) 20 ml GT Q4H PRN PRN PRN Reason: COUGH Remdesivir (Investigational) (100 mg/ Sodium Chloride) 250 mls @ 125 mls/hr IV DAILY HUSSAIN; Protocol Stop: 01/05/20 11:59 Last Infusion: 01/04/20 21:54 Dose: Infused Documented by: Sodium Chloride () 500 mls @ 15 mls/hr IV PRN PRN PRN Reason: Blood Transfusion Last Infusion: 01/02/20 00:50 Dose: Infused Documented by: Sodium Chloride () 250 mls @ 15 mls/hr IV .[id number] PRN PRN Reason: Saline Flush Sodium Chloride () 250 mls @ 15 mls/hr IV .[id number] PRN PRN Reason: Additional IVPB Infusion Propofol (Diprivan) 1,000 mg in 100 mls @ 6.438 mls/hr CONT INF .Q12H HUSSAIN; Protocol Last Admin: 01/05/20 10:15 Dose: 30 mcg/kg/min, 19.3 mls/hr Documented by: Fentanyl Citrate 1,000 mcg/ (Sodium Chloride) 100 mls @ 5 mls/hr CONT INF .Q20H HUSSAIN; Protocol Last Titration: 01/05/20 06:00 Dose: 200 mcg/hr, 20 mls/hr Documented by: Piperacillin Sod/Tazobactam (Sod 3.375 gm/ Sodium Chloride) 50 mls @ 12.5 mls/hr IV Q8 HUSSAIN Last Admin: 01/05/20 05:24 Dose: 12.5 mls/hr Documented by: Enteral Nutritional Formula (Vital Af 1.2 Jaden Liquid) 1,000 mls @ 75 mls/hr GT .[id number] HUSSAIN Last Admin: 01/05/20 04:55 Dose: 75 mls/hr Documented by: Norepinephrine Bitartrate 8 mg (/ Sodium Chloride) 250 mls @ 9.375 mls/hr CONT INF .[id number] HUSSAIN; Protocol Last Titration: 01/05/20 06:00 Dose: 8 mcg/min, 15 mls/hr Documented by: Pantoprazole Sodium 40 mg/ (Sodium Chloride) 110 mls @ 330 mls/hr IV Q24 [facility] Last Infusion: 01/04/20 19:03 Dose: Infused Documented by: Insulin Human Lispro (Insulin Lispro 100 Unit/Ml Insuln.Pen) 0 unit SC Q6 HUSSAIN; Protocol Last Admin: 01/05/20 04:42 Dose: 14 u Documented by: Melatonin (Melatonin 3 Mg Tablet) 3 mg GT QHS PRN PRN PRN Reason: INSOMNIA Ondansetron HCl (Ondansetron 4 Mg/2 Ml Vial) 4 mg IV Q8H PRN PRN PRN Reason: NAUSEA/VOMITING Oxycodone HCl (Oxycodone 5 Mg Tablet) 5 mg GT Q4H PRN PRN PRN Reason: Pain Score 4-5 Oxycodone HCl (Oxycodone 5 Mg Tablet) 10 mg GT Q4H PRN PRN PRN Reason: Pain Score 6-10 Senna/Docusate Sodium (Senna/Docusate Sodium 1 Tablet) 2 tablet GT BID PRN PRN PRN Reason: Constipation Sodium Chloride (0.9% Saline Lock 10 Ml Syringe) 10 - 40 ml IV UD PRN PRN Reason: SALINE FLUSH Last Admin: 10/25/20 07:16 Dose: 20 ml Documented by: STROKE Vital Signs/Narrative: Vital Signs Pulse Resp Pulse Ox 01/05/20 10:36 72 17 98 01/05/20 08:36 79 19 H 98 Medical Necessity - Tobacco Use Smoking Status: Former smoker Tobacco Use: Pipe Assessment/Plan All Active Problems COVID-19 virus infection (Acute) Acute kidney injury (Acute) 1. Acute hypoxic respiratory failure secondary to Covid pneumonia with septic shock/SANDRA/history of DVT -Sepsis has resolved, however initially lactic acid was greater than 4 -Appreciate infectious disease assistance, initially azithromycin and Rocephin were discontinued however secondary to his continued difficulty with breathing and the need for intubation, he will be started on Zosyn empirically -Completed convalescent plasma, and is currently on remdesivir and Decadron -He was intubated 01/04/2020 by the air hoist operator secondary to continued respiratory failure -Baseline creatinine is around 1.5, on presentation he was 2.06. This improved with IV fluids to 1.35 however his creatinine is now back up to 2.26. He is 3 L positive -Renal ultrasound was unremarkable -INR is supratherapeutic therefore his Coumadin will be held 2. HTN/HLD -We will continue to hold his hydrochlorothiazide and Lopressor lisinopril secondary to his initial SANDRA -Continue with Lipitor via G-tube -IV hydralazine as necessary for blood pressure control 3. GERD -Stable -Continue with PPI 4. DM 2 with diabetic nephropathy -We will hold his oral hypoglycemics, continue with his sliding scale insulin every 6 -Accu-Cheks AC at bedtime DVT: Supratherapeutic INR Inpatient E&M: [id number] Subs Hosp L2
[2020-01-05 14:31] LABS: Bedside Glucose 379 mg/dL (70-110)
[2020-01-05] MEDS: dexAMETHasone 10 MG/ML Vial 6 MG IV (14:46)
--- NOTE | 2020-01-05 18:36 | NURSING ---
education re chronic illness deferred till acute illness resolving
--- NOTE | 2020-01-05 20:20 | CPS ---
Pt.'s PEEP decreased to 12
[2020-01-05] MEDS: Atorvastatin Calcium 20 MG Tablet GT (20:30)
[2020-01-05 21:10] LABS: Bedside Glucose 364 mg/dL (70-110)
[2020-01-06] VITALS (43 sets, daily range): BP systolic 104–150; BP diastolic 45–77; PULSE 58–93; RESP 12–23; TEMP 35.3–36.9; O2SAT 85–100
[2020-01-06] MEDS: Vital AF 1.2 Cal Liquid 1,000 ML 75 ML GT ×3 (00:01→08:00)
[2020-01-06 00:21] LABS: Bedside Glucose 379 mg/dL (70-110)
[2020-01-06] MEDS: Propofol 10MG/Ml 1,000 MG/100 ML Bottle 19.3 MG CONT INF ×2 (04:00→10:45)
[2020-01-06] MEDS: 0.9% Saline Lock 10 ML Syringe IV ×2 (04:55→15:47)
[2020-01-06] MEDS: Insulin Lispro 100 UNIT/ML INSULN.PEN SC ×4 (05:06→23:25)
[2020-01-06 05:22] LABS: Hematocrit 37.1 % (40-54); Hemoglobin 11.9 g/dL (13.0-16.5); Mean Corp Hgb Conc 32.1 g/dL (32-36); Mean Corpuscular Volume 99.7 fL (80-94); Mean Platelet Vol. 10.7 fl (6.2-12.0); Platelet Count 189 K/mm3 (150-450); RBC Distribution Width CV 13.5 % (11.6-14.6); RBC Distribution Width SD 49.9 fl (35.1-43.9); Red Blood Count 3.72 M/mm3 (4.6-6.2); White Blood Count 10.3 K/mm3 (4.4-11.0)
[2020-01-06 05:29] LABS: Prothrombin Time (Protime)PT. 81.4 SECONDS (11.7-14.9)
[2020-01-06 05:36] LABS: Bedside Glucose 431 mg/dL (70-110)
[2020-01-06 05:44] LABS: ALB/GLOB Ratio 0.4 RATIO (0.9-2.4); AST(SGOT) 41 U/L (15-37); Alanine Aminotransfer ALT/SGPT 34 U/L (16-61); Albumin, Serum 1.8 g/dL (3.2-5.0); Alkaline Phosphatase 122 U/L (45-117); Anion Gap 7 (5-15); BUN 71 mg/dL (7-18); BUN/Creat Ratio 32.6 RATIO (10-20); Calcium,Total 7.9 mg/dL (8.5-10.1); Chloride 107 mmol/L (98-107); Creatinine, Serum 2.18 mg/dL (0.70-1.30); EST Glomerular Filtration Rate 31 mL/min (>60); Est Glom Filt Rate - Afr Amer 38 mL/min (>60); Globulin 4.3 g/dL (2.2-4.2); Glucose 518 mg/dL (74-106); Potassium 5.4 mmol/L (3.5-5.1); Protein, Total 6.1 g/dL (6.4-8.2); Sodium Level 137 mmol/L (136-145)
--- NOTE | 2020-01-06 06:43 | CPS ---
Pt.'s FiO2 increased due to oxygenation demands
[2020-01-06] MEDS: Propofol 10MG/Ml 1,000 MG/100 ML Bottle 22.5 MG CONT INF ×2 (08:29→15:21)
[2020-01-06] MEDS: Phytonadione (Vit K1) 5 MG TABLET PO (08:45)
[2020-01-06] MEDS: Chlorhexidine 15 ML PO ×2 (08:46→21:39)
--- NOTE | 2020-01-06 09:05 | PN_ITS ---
Patient Problems: Active and Suspected Problems COVID-19 virus infection (Acute) Acute kidney injury (Acute) Subjective: Had to have his sedation increased yesterday and he has not had any more hypoxic events, though his FiO2 was increased this morning to 60% Vitals/I&O's: Vital Signs Temp Pulse Resp BP Pulse Ox 98.0 F 68 12 110/59 L 88 01/06/20 07:00 01/06/20 07:00 01/06/20 07:00 01/06/20 07:00 01/06/20 07:00 Oxygen Flow Rate (L/min) 60 Oxygen Delivery Method Mechanical Ventilator Weight: 236 lb 12.423 oz Body Mass Index (BMI) 34.1 Finger Stick Blood Glucose 227 Intake and Output for Last 24 Hours 01/04/20 01/05/20 01/06/20 23:59 23:59 23:59 Intake Total 1430.75 / 1771.10 3241.51 / 3762.75 1340.17 / 1340.17 Output Total 810 / 1010 2125 / 2425 625 / 625 Balance 620.75 / 761.10 1116.51 / 1337.75 715.17 / 715.17 General: - - Intubated and sedated HEENT: Atraumatic, PERRLA, Normocephalic Oral: Dry Mucosa Neck: Supple, No JVD Lungs: Normal air movement, No rhonchi, No wheeze, No rales, Diminished Cardiovascular: Regular rate, Regular Rhythm, Normal S1, Normal S2, No murmurs Abdomen: Soft, Non Tender, Non-Distended, No Hepato-splenomegaly Extremities: No edema, Capillary Refill Less than 3 Seconds Skin: No rashes, No breakdown Neurological: - - Intubated and sedated Psych/Mental Status: - - Intubated and sedated Microbiology Past 72 Hours 01/04/20 11:43 Sputum, Expectorated/Coughed Gram Stain - Final 01/04/20 11:43 Sputum, Expectorated/Coughed Respiratory Culture - Preliminary Appears to be normal respiratory [place]. Further studies to follow. 12/30/19 10:45 Blood Culture (Wb) - Right Hand Blood Culture - Final No growth in 5 days. 12/30/19 10:40 Blood Culture (Wb) - Anticubital Left Blood Culture - Final No growth in 5 days. Laboratory Results 01/05/20 14:20: POC Glucose 379 H 01/05/20 17:08: POC Glucose 364 H 01/05/20 23:50: POC Glucose 379 H 01/06/20 04:50: WBC 10.3, RBC 3.72 L, Hgb 11.9 L, Hct 37.1 L, MCV 99.7 H, MCH 32.0, MCHC 32.1, RDW Std Deviation 49.9 H, RDW Coeff of Cortney 13.5, Plt Count 189, MPV 10.7 01/06/20 04:50: Sodium 137, Potassium 5.4 H, Chloride 107, Carbon Dioxide 23.0, Anion Gap 7, BUN 71 H, Creatinine 2.18 H, Estim Creat Clear Calc 29.30, Est GFR (MDRD) Af Amer 38 L, Est GFR (MDRD) Non-Af 31 L, BUN/Creatinine Ratio 32.6 H, Glucose 518 H*, Calcium 7.9 L, Total Bilirubin 0.80, AST 41 H, ALT 34, Alkaline Phosphatase 122 H, Total Protein 6.1 L, Albumin 1.8 L, Globulin 4.3 H, Albumin/Globulin Ratio 0.4 L 01/06/20 04:50: PT 81.4 H, INR 10.0 H* 01/06/20 05:04: POC Glucose 431 H 01/06/20 08:50: Blood Type Pending Current Medications Acetaminophen (Acetaminophen 650 Mg/20 Ml Udc) 650 mg GT Q6H PRN PRN PRN Reason: Pain Score 1-10/Temp > 100.7 F Last Admin: 01/04/20 17:25 Dose: 650 mg Documented by: Albuterol Sulfate (Albuterol 2.5 Mg/3 Ml Vial.Neb.) 2.5 mg INHALATION Q2H PRN PRN PRN Reason: Shortness of Breath/Wheezing Last Admin: 01/01/20 01:14 Dose: 2.5 mg Documented by: Atorvastatin Calcium (Atorvastatin Calcium 20 Mg Tablet) 20 mg GT QHS HUSSAIN Last Admin: 01/05/20 20:30 Dose: 20 mg Documented by: Chlorhexidine Gluconate (Chlorhexidine 15 Ml) 15 ml PO BID HUSSAIN Last Admin: 01/05/20 20:30 Dose: 15 ml Documented by: Dexamethasone Sodium Phosphate (Dexamethasone 10 Mg/Ml Vial) 6 mg IV DAILY [facility] Stop: 01/08/20 10:01 Last Admin: 01/05/20 14:46 Dose: 6 mg Documented by: Dextrose (Dextrose 50%-Water 25 Gm/50 Ml Disp.Syrin) 0 gm IV X1 PRN; Protocol PRN Reason: Hypoglycemia Glucagon (Glucagon 1 Mg/Ml Syringe) 1 mg IM .X1 PRN PRN Reason: Hypoglycemia Guaifenesin (Guaifenesin 10 Ml Udc (200mg/10ml)) 20 ml GT Q4H PRN PRN PRN Reason: COUGH Sodium Chloride () 500 mls @ 15 mls/hr IV PRN PRN PRN Reason: Blood Transfusion Last Infusion: 01/02/20 00:50 Dose: Infused Documented by: Sodium Chloride () 250 mls @ 15 mls/hr IV .[id number] PRN PRN Reason: Saline Flush Sodium Chloride () 250 mls @ 15 mls/hr IV .[id number] PRN PRN Reason: Additional IVPB Infusion Propofol (Diprivan) 1,000 mg in 100 mls @ 6.438 mls/hr CONT INF .Q12H HUSSAIN; Protocol Last Titration: 01/06/20 07:00 Dose: 35 mcg/kg/min, 22.5 mls/hr Documented by: Fentanyl Citrate 1,000 mcg/ (Sodium Chloride) 100 mls @ 5 mls/hr CONT INF .Q20H HUSSAIN; Protocol Last Titration: 01/06/20 07:00 Dose: 200 mcg/hr, 20 mls/hr Documented by: Piperacillin Sod/Tazobactam (Sod 3.375 gm/ Sodium Chloride) 50 mls @ 12.5 mls/hr IV Q8 HUSSAIN Last Admin: 01/06/20 05:43 Dose: 12.5 mls/hr Documented by: Enteral Nutritional Formula (Vital Af 1.2 Jaden Liquid) 1,000 mls @ 75 mls/hr GT .[id number] HUSSAIN Last Admin: 01/06/20 03:24 Dose: 75 mls/hr Documented by: Norepinephrine Bitartrate 8 mg (/ Sodium Chloride) 250 mls @ 9.375 mls/hr CONT INF .[id number] HUSSAIN; Protocol Last Titration: 01/06/20 07:00 Dose: 0 mcg/min, 0 mls/hr Documented by: Pantoprazole Sodium 40 mg/ (Sodium Chloride) 110 mls @ 330 mls/hr IV Q24 HUSSAIN Last Infusion: 01/05/20 14:20 Dose: Infused Documented by: Insulin Glargine (Insulin Glargine 100 Units/Ml Pen) 20 units SC DAILY HUSSAIN Insulin Human Lispro (Insulin Lispro 100 Unit/Ml Insuln.Pen) 0 unit SC Q6 HUSSAIN; Protocol Last Admin: 01/06/20 05:06 Dose: 16 u Documented by: Melatonin (Melatonin 3 Mg Tablet) 3 mg GT QHS PRN PRN PRN Reason: INSOMNIA Ondansetron HCl (Ondansetron 4 Mg/2 Ml Vial) 4 mg IV Q8H PRN PRN PRN Reason: NAUSEA/VOMITING Oxycodone HCl (Oxycodone 5 Mg Tablet) 5 mg GT Q4H PRN PRN PRN Reason: Pain Score 4-5 Oxycodone HCl (Oxycodone 5 Mg Tablet) 10 mg GT Q4H PRN PRN PRN Reason: Pain Score 6-10 Senna/Docusate Sodium (Senna/Docusate Sodium 1 Tablet) 2 tablet GT BID PRN PRN PRN Reason: Constipation Sodium Chloride (0.9% Saline Lock 10 Ml Syringe) 10 - 40 ml IV UD PRN PRN Reason: SALINE FLUSH Last Admin: 01/06/20 04:55 Dose: 30 ml Documented by: STROKE Vital Signs/Narrative: Vital Signs Temp Pulse Resp BP Pulse Ox 01/06/20 07:00 98.0 F 68 12 110/59 L 88 01/06/20 06:53 68 19 H 98 01/06/20 06:00 97.9 F 67 14 109/45 L 92 Medical Necessity - Tobacco Use Smoking Status: Former smoker Tobacco Use: Pipe Assessment/Plan All Active Problems COVID-19 virus infection (Acute) Acute kidney injury (Acute) 1. Acute hypoxic respiratory failure secondary to Covid pneumonia with septic shock/SANDRA/history of DVT -Sepsis has resolved, however initially lactic acid was greater than 4 -Appreciate infectious disease assistance, initially azithromycin and Rocephin were discontinued however secondary to his continued difficulty with breathing and the need for intubation, he will be started on Zosyn empirically -Completed convalescent plasma and remdesivir, and is currently on Decadron -He was intubated 01/04/2020 by the centrifuge separator tender secondary to continued respiratory failure -Baseline creatinine is around 1.5, on presentation he was 2.06. This improved with IV fluids to 1.35 however his creatinine is now back up to 2.18. He is 4 L positive -Renal ultrasound was unremarkable -INR is supratherapeutic to an INR of 10, he received 5 of vitamin K and also received 2 units of FFP 2. HTN/HLD -We will continue to hold his hydrochlorothiazide and Lopressor lisinopril secondary to his initial SANDRA -Continue with Lipitor via G-tube -IV hydralazine as necessary for blood pressure control 3. GERD -Stable -Continue with PPI 4. DM 2 with diabetic nephropathy -We will hold his oral hypoglycemics, continue with his sliding scale insulin every 6 as well as Lantus -Accu-Cheks AC at bedtime DVT: Supratherapeutic INR Inpatient E&M: [id number] Subs Hosp L2
--- NOTE | 2020-01-06 10:30 | PN_ITS ---
Subjective: Patient did okay overnight. Patient was able to be taken off of Levophed, but is still requiring significant oxygen support to maintain saturations. No bleeding is been reported. Patient is tolerating tube feeds. General: - - Intubated and sedated. Good vent synchrony noted. Peak airway pressures of 25 with plateau around 17 HEENT: Atraumatic, PERRLA, EOMI, Normocephalic, - - Scleral injection Oral: Moist Mucosa, No Gingival or Mucosal Lesions/ Ulcerations Neck: Supple, No JVD, No Nodes, Trachea Midline Lungs: Diminished Cardiovascular: Regular rate, Regular Rhythm, Normal S1, Normal S2, No murmurs, No rub noted, No Gallop Abdomen: Bowel Sounds Present, Soft, Non Tender, Non-Distended, Obese Extremities: No clubbing, No cyanosis, No edema, - - Palpable peripheral pulses Skin: No rashes Musculoskeletal: No Tenderness to Palpation of Joints or Extremities Lymphatic: No Cervical, Supraclavicular, or Inguinal Adenopathy Neurological: Cranial nerves II-XII grossly intact, Neuro grossly intact - Positive gag and cough reflexes. Localizes to painful stimulus. Psych/Mental Status: Flat Affect Vital Signs Temp Pulse Resp BP Pulse Ox 36.7 C 68 12 121/58 H 95 01/06/20 08:00 01/06/20 10:00 01/06/20 10:00 01/06/20 10:00 01/06/20 10:00 Oxygen Flow Rate (L/min) 60 Oxygen Delivery Method Mechanical Ventilator Weight: 107.4 kg Body Mass Index (BMI) 34.1 Finger Stick Blood Glucose 227 Intake and Output for Last 24 Hours 01/04/20 01/05/20 01/06/20 23:59 23:59 23:59 Intake Total 1430.75 / 1771.10 3241.51 / 3762.75 1390.17 / 1390.17 Output Total 810 / 1010 2125 / 2425 625 / 625 Balance 620.75 / 761.10 1116.51 / 1337.75 765.17 / 765.17 Labs (Last 48 Hours) 01/04/20 01/04/20 01/04/20 05:15 10:59 13:28 WBC Corrected WBC RBC Hgb Hct MCV MCH MCHC RDW Std Deviation RDW Coeff of Cortney Plt Count MPV Immature Gran % (Auto) Neut % (Auto) Lymph % (Auto) [place] % (Auto) Eos % (Auto) Baso % (Auto) Absolute Neuts (auto) Absolute Lymphs (auto) Other Cells % Nucleated RBC % Differential Comment Diff Path Review PT INR Specimen Type ART Sample Site L Radial pH 7.36 Bicarbonate Actual 22.7 Total CO2 24 Base Excess -3 L O2 Saturation 92 L O2 % 100 ABG pCO2 39.8 ABG pO2 65 L Respiration Rate 14 O2 Delivery Device Adult Vent Vent Mode AC Tidal Volume 450 POC PEEP 14 Sodium Potassium Chloride Carbon Dioxide Anion Gap BUN Creatinine Estim Creat Clear Calc Est GFR (MDRD) Af Amer Est GFR (MDRD) Non-Af BUN/Creatinine Ratio Glucose Calcium Phosphorus Magnesium Total Bilirubin AST ALT Alkaline Phosphatase Total Creatine Kinase 376 H Total Protein Albumin Globulin Albumin/Globulin Ratio Triglycerides 135 POC Glucose 168 H Blood Type 01/04/20 01/05/20 01/05/20 17:11 00:43 04:38 WBC Corrected WBC RBC Hgb Hct MCV MCH MCHC RDW Std Deviation RDW Coeff of Cortney Plt Count MPV Immature Gran % (Auto) Neut % (Auto) Lymph % (Auto) [place] % (Auto) Eos % (Auto) Baso % (Auto) Absolute Neuts (auto) Absolute Lymphs (auto) Other Cells % Nucleated RBC % Differential Comment Diff Path Review PT INR Specimen Type Sample Site pH Bicarbonate Actual Total CO2 Base Excess O2 Saturation O2 % ABG pCO2 ABG pO2 Respiration Rate O2 Delivery Device Vent Mode Tidal Volume POC PEEP Sodium Potassium Chloride Carbon Dioxide Anion Gap BUN Creatinine Estim Creat Clear Calc Est GFR (MDRD) Af Amer Est GFR (MDRD) Non-Af BUN/Creatinine Ratio Glucose Calcium Phosphorus Magnesium Total Bilirubin AST ALT Alkaline Phosphatase Total Creatine Kinase Total Protein Albumin Globulin Albumin/Globulin Ratio Triglycerides POC Glucose 252 H 361 H 391 H Blood Type 01/05/20 01/05/20 01/05/20 04:50 04:50 04:50 WBC Cancelled Corrected WBC Cancelled RBC Cancelled Hgb Cancelled Hct Cancelled MCV Cancelled MCH Cancelled MCHC Cancelled RDW Std Deviation Cancelled RDW Coeff of Cortney Cancelled Plt Count Cancelled MPV Cancelled Immature Gran % (Auto) Neut % (Auto) Lymph % (Auto) [place] % (Auto) Eos % (Auto) Baso % (Auto) Absolute Neuts (auto) Absolute Lymphs (auto) Other Cells % Nucleated RBC % Differential Comment Diff Path Review Cancelled PT 66.2 H INR 7.8 H* Specimen Type Sample Site pH Bicarbonate Actual Total CO2 Base Excess O2 Saturation O2 % ABG pCO2 ABG pO2 Respiration Rate O2 Delivery Device Vent Mode Tidal Volume POC PEEP Sodium 136 Potassium 4.9 Chloride 104 Carbon Dioxide 21.0 Anion Gap 11 BUN 57 H Creatinine 2.26 H Estim Creat Clear Calc 28.26 Est GFR (MDRD) Af Amer 36 L Est GFR (MDRD) Non-Af 30 L BUN/Creatinine Ratio 25.2 H Glucose 388 H Calcium 6.9 L Phosphorus 4.1 Magnesium 2.0 Total Bilirubin 2.10 H AST 58 H ALT 36 Alkaline Phosphatase 81 Total Creatine Kinase Total Protein 5.9 L Albumin 1.8 L Globulin 4.1 Albumin/Globulin Ratio 0.4 L Triglycerides POC Glucose Blood Type 01/05/20 01/05/20 01/05/20 04:50 14:20 17:08 WBC 11.4 H Corrected WBC RBC 3.84 L Hgb 12.5 L Hct 37.8 L MCV 98.4 H MCH 32.6 H MCHC 33.1 RDW Std Deviation 49.2 H RDW Coeff of Cortney 13.6 Plt Count 170 MPV 11.2 Immature Gran % (Auto) 0.900 Neut % (Auto) 88.8 H Lymph % (Auto) 7.2 L [place] % (Auto) 2.9 Eos % (Auto) 0.0 Baso % (Auto) 0.2 Absolute Neuts (auto) 10.1 H Absolute Lymphs (auto) 0.82 L Other Cells % 1 Nucleated RBC % 0 Differential Comment SCANNED Diff Path Review PT INR Specimen Type Sample Site pH Bicarbonate Actual Total CO2 Base Excess O2 Saturation O2 % ABG pCO2 ABG pO2 Respiration Rate O2 Delivery Device Vent Mode Tidal Volume POC PEEP Sodium Potassium Chloride Carbon Dioxide Anion Gap BUN Creatinine Estim Creat Clear Calc Est GFR (MDRD) Af Amer Est GFR (MDRD) Non-Af BUN/Creatinine Ratio Glucose Calcium Phosphorus Magnesium Total Bilirubin AST ALT Alkaline Phosphatase Total Creatine Kinase Total Protein Albumin Globulin Albumin/Globulin Ratio Triglycerides POC Glucose 379 H 364 H Blood Type 01/05/20 01/06/20 01/06/20 23:50 04:50 04:50 WBC 10.3 Corrected WBC RBC 3.72 L Hgb 11.9 L Hct 37.1 L MCV 99.7 H MCH 32.0 MCHC 32.1 RDW Std Deviation 49.9 H RDW Coeff of Cortney 13.5 Plt Count 189 MPV 10.7 Immature Gran % (Auto) Neut % (Auto) Lymph % (Auto) [place] % (Auto) Eos % (Auto) Baso % (Auto) Absolute Neuts (auto) Absolute Lymphs (auto) Other Cells % Nucleated RBC % Differential Comment Diff Path Review PT INR Specimen Type Sample Site pH Bicarbonate Actual Total CO2 Base Excess O2 Saturation O2 % ABG pCO2 ABG pO2 Respiration Rate O2 Delivery Device Vent Mode Tidal Volume POC PEEP Sodium 137 Potassium 5.4 H Chloride 107 Carbon Dioxide 23.0 Anion Gap 7 BUN 71 H Creatinine 2.18 H Estim Creat Clear Calc 29.30 Est GFR (MDRD) Af Amer 38 L Est GFR (MDRD) Non-Af 31 L BUN/Creatinine Ratio 32.6 H Glucose 518 H* Calcium 7.9 L Phosphorus Magnesium Total Bilirubin 0.80 AST 41 H ALT 34 Alkaline Phosphatase 122 H Total Creatine Kinase Total Protein 6.1 L Albumin 1.8 L Globulin 4.3 H Albumin/Globulin Ratio 0.4 L Triglycerides POC Glucose 379 H Blood Type 01/06/20 01/06/20 01/06/20 04:50 05:04 08:50 WBC Corrected WBC RBC Hgb Hct MCV MCH MCHC RDW Std Deviation RDW Coeff of Cortney Plt Count MPV Immature Gran % (Auto) Neut % (Auto) Lymph % (Auto) [place] % (Auto) Eos % (Auto) Baso % (Auto) Absolute Neuts (auto) Absolute Lymphs (auto) Other Cells % Nucleated RBC % Differential Comment Diff Path Review PT 81.4 H INR 10.0 H* Specimen Type Sample Site pH Bicarbonate Actual Total CO2 Base Excess O2 Saturation O2 % ABG pCO2 ABG pO2 Respiration Rate O2 Delivery Device Vent Mode Tidal Volume POC PEEP Sodium Potassium Chloride Carbon Dioxide Anion Gap BUN Creatinine Estim Creat Clear Calc Est GFR (MDRD) Af Amer Est GFR (MDRD) Non-Af BUN/Creatinine Ratio Glucose Calcium Phosphorus Magnesium Total Bilirubin AST ALT Alkaline Phosphatase Total Creatine Kinase Total Protein Albumin Globulin Albumin/Globulin Ratio Triglycerides POC Glucose 431 H Blood Type A NEGATIVE Microbiology 01/04/20 11:43 Sputum, Expectorated/Coughed Gram Stain - Final 01/04/20 11:43 Sputum, Expectorated/Coughed Respiratory Culture - Preliminary Appears to be normal respiratory [place]. Further studies to follow. 12/30/19 10:45 Blood Culture (Wb) - Right Hand Blood Culture - Final No growth in 5 days. 12/30/19 10:40 Blood Culture (Wb) - Anticubital Left Blood Culture - Final No growth in 5 days. Medical Necessity - Tobacco Use Smoking Status: Former smoker Tobacco Use: Pipe Assessment/Plan All Active Problems COVID-19 virus infection (Acute) Acute kidney injury (Acute) RECOMMENDATIONS: 1. Wean FiO2 and PEEP to maintain oxygen saturations at or above 90%. 2. Continue empiric antimicrobials, tube feeds, Decadron and remdesivir. 3. Reinitiate Levophed if necessary 4. Continuous awakening and breathing trials per protocol 5. Increase insulin coverage. One-time subcu insulin bolus 6. Active reversal of INR to avoid complications with FFP and vitamin K 7. Monitor blood pressure closely IMPRESSIONS: 1. Acute hypoxemic respiratory failure secondary to Covid pneumonia Although attempts were made to utilize noninvasive positive pressure venti latory support, the patient continued to decompensate from a respiratory perspective and did require intubation on the morning of January 03. Plan to continue current supportive measures. Patient is receiving maximal therapy for Covid pneumonia. Improvement in distributive shock is suggestive of a possible superinfection. Infectious disease has been consulted. Continue to wean FiO2 and PEEP as tolerated. Spontaneous breathing and awakening trials per protocol. 2. Distributive shock The patient became hemodynamically unstable after sedation was initiated in the setting of invasive mechanical ventilatory support. Levophed will be continued to maintain a mean arterial pressure at or above 65 mmHg. 3. Acute kidney injury Suspect prerenal in etiology with possible ischemic ATN in the setting of hemodynamic instability. Monitor blood pressures closely. May need to reinitiate vasopressor therapy. Patient may have an element of diuresis secondary to hyperglycemia. Continue to monitor urine output. No current indication for renal replacement therapy. 4. Coagulopathy The patient presented to the hospital systemically anticoagulated on Coumadin. He has subsequently developed a coagulopathy with a supratherapeutic INR, likely secondary to his acute illness and medication interactions. His Coumadin has been discontinued. Patient is on concomitant antibiotics, which will prolonged INR. Patient will be given FFP and vitamin K to minimize spontaneous eating risk. Recommend that the patient be started on a continuous heparin infusion once his INR falls into a subtherapeutic range. 5. Hypertension/hyperlipidemia/GERD/history of DVT/diabetes mellitus Complicates care, management, recovery and prognosis. Continue to hold Coumadin given supratherapeutic INR. Increase Lantus and sliding scale insulin coverage. TIME: 40 minutes of critical care time, inclusive of procedures, was spent addressing the patient's acute hypoxemic respiratory failure secondary to Covid pneumonia, acute kidney injury, distributive shock, coagulopathy, review of all data and collaboration with the care team. (7:30 AM to 8:30 AM) [id number]: [id number] Critical care first hour
[2020-01-06] MEDS: dexAMETHasone 10 MG/ML Vial 6 MG IV (11:25)
[2020-01-06] MEDS: Insulin Lispro 100 UNIT/ML INSULN.PEN 25 UNIT SC (11:54)
[2020-01-06 12:35] LABS: Bedside Glucose 420 mg/dL (70-110)
--- NOTE | 2020-01-06 16:03 | PCM.PN.ID ---
Patient Problems: Active and Suspected Problems COVID-19 virus infection (Acute) Acute kidney injury (Acute) Subjective: On vent, no fever, off pressors - Physical Exam Vitals/I&O's: Vital Signs Temp Pulse Resp BP Pulse Ox 95.5 F L 62 13 121/54 H 93 01/06/20 15:58 01/06/20 15:58 01/06/20 15:58 01/06/20 15:58 01/06/20 15:58 Oxygen Flow Rate (L/min) 60 Oxygen Delivery Method Mechanical Ventilator Weight: 107.4 kg Body Mass Index (BMI) 34.1 Finger Stick Blood Glucose 227 Intake and Output for Last 24 Hours 01/04/20 01/05/20 01/06/20 23:59 23:59 23:59 Intake Total 1430.75 / 1771.10 3241.51 / 3762.75 2154.36 / 2154.36 Output Total 810 / 1010 2125 / 2425 1050 / 1050 Balance 620.75 / 761.10 1116.51 / 1337.75 1104.36 / 1104.36 General: No apparent distress Lungs: Diminished Cardiovascular: Regular rate Abdomen: Soft, Non Tender, Non-Distended Skin: No rashes Microbiology Past 72 Hours 01/04/20 11:43 Sputum, Expectorated/Coughed Gram Stain - Final 01/04/20 11:43 Sputum, Expectorated/Coughed Respiratory Culture - Final Mixed normal respiratory [place]go. No Streptococcus pneumoniae, beta-hemolytic Streptococcus or Staphylococcus aureus isolated. 12/30/19 10:45 Blood Culture (Wb) - Right Hand Blood Culture - Final No growth in 5 days. 12/30/19 10:40 Blood Culture (Wb) - Anticubital Left Blood Culture - Final No growth in 5 days. Laboratory Results 01/05/20 17:08: POC Glucose 364 H 01/05/20 23:50: POC Glucose 379 H 01/06/20 04:50: WBC 10.3, RBC 3.72 L, Hgb 11.9 L, Hct 37.1 L, MCV 99.7 H, MCH 32.0, MCHC 32.1, RDW Std Deviation 49.9 H, RDW Coeff of Cortney 13.5, Plt Count 189, MPV 10.7 01/06/20 04:50: Sodium 137, Potassium 5.4 H, Chloride 107, Carbon Dioxide 23.0, Anion Gap 7, BUN 71 H, Creatinine 2.18 H, Estim Creat Clear Calc 29.30, Est GFR (MDRD) Af Amer 38 L, Est GFR (MDRD) Non-Af 31 L, BUN/Creatinine Ratio 32.6 H, Glucose 518 H*, Calcium 7.9 L, Total Bilirubin 0.80, AST 41 H, ALT 34, Alkaline Phosphatase 122 H, Total Protein 6.1 L, Albumin 1.8 L, Globulin 4.3 H, Albumin/Globulin Ratio 0.4 L 01/06/20 04:50: PT 81.4 H, INR 10.0 H* 01/06/20 05:04: POC Glucose 431 H 01/06/20 08:50: Blood Type A NEGATIVE 01/06/20 12:18: POC Glucose 420 H Current Medications Acetaminophen (Acetaminophen 650 Mg/20 Ml Udc) 650 mg GT Q6H PRN PRN PRN Reason: Pain Score 1-10/Temp > 100.7 F Last Admin: 01/04/20 17:25 Dose: 650 mg Documented by: Albuterol Sulfate (Albuterol 2.5 Mg/3 Ml Vial.Neb.) 2.5 mg INHALATION Q2H PRN PRN PRN Reason: Shortness of Breath/Wheezing Last Admin: 01/01/20 01:14 Dose: 2.5 mg Documented by: Atorvastatin Calcium (Atorvastatin Calcium 20 Mg Tablet) 20 mg GT QHS [facility] Last Admin: 01/05/20 20:30 Dose: 20 mg Documented by: Chlorhexidine Gluconate (Chlorhexidine 15 Ml) 15 ml PO BID [facility] Last Admin: 01/06/20 08:46 Dose: 15 ml Documented by: Dexamethasone Sodium Phosphate (Dexamethasone 10 Mg/Ml Vial) 6 mg IV DAILY [facility] Stop: 01/08/20 10:01 Last Admin: 01/06/20 11:25 Dose: 6 mg Documented by: Dextrose (Dextrose 50%-Water 25 Gm/50 Ml Disp.Syrin) 0 gm IV X1 PRN; Protocol PRN Reason: Hypoglycemia Glucagon (Glucagon 1 Mg/Ml Syringe) 1 mg IM .X1 PRN PRN Reason: Hypoglycemia Guaifenesin (Guaifenesin 10 Ml Udc (200mg/10ml)) 20 ml GT Q4H PRN PRN PRN Reason: COUGH Sodium Chloride () 500 mls @ 15 mls/hr IV PRN PRN PRN Reason: Blood Transfusion Last Infusion: 01/02/20 00:50 Dose: Infused Documented by: Sodium Chloride () 250 mls @ 15 mls/hr IV .[id number] PRN PRN Reason: Saline Flush Sodium Chloride () 250 mls @ 15 mls/hr IV .[id number] PRN PRN Reason: Additional IVPB Infusion Propofol (Diprivan) 1,000 mg in 100 mls @ 6.438 mls/hr CONT INF .Q12H [facility]; Protocol Last Admin: 01/06/20 15:21 Dose: 35 mcg/kg/min, 22.5 mls/hr Documented by: Fentanyl Citrate 1,000 mcg/ (Sodium Chloride) 100 mls @ 5 mls/hr CONT INF .Q20H [facility]; Protocol Last Titration: 01/06/20 15:00 Dose: 150 mcg/hr, 15 mls/hr Documented by: Piperacillin Sod/Tazobactam (Sod 3.375 gm/ Sodium Chloride) 50 mls @ 12.5 mls/hr IV Q8 [facility] Last Admin: 01/06/20 13:25 Dose: 12.5 mls/hr Documented by: Enteral Nutritional Formula (Vital Af 1.2 Jaden Liquid) 1,000 mls @ 75 mls/hr GT .[id number] [facility] Last Admin: 01/06/20 08:00 Dose: 75 mls/hr Documented by: Norepinephrine Bitartrate 8 mg (/ Sodium Chloride) 250 mls @ 9.375 mls/hr CONT INF .[id number] [facility]; Protocol Last Titration: 01/06/20 13:00 Dose: 0 mcg/min, 0 mls/hr Documented by: Pantoprazole Sodium 40 mg/ (Sodium Chloride) 110 mls @ 330 mls/hr IV Q24 [facility] Last Infusion: 01/06/20 10:34 Dose: Infused Documented by: Insulin Glargine (Insulin Glargine 100 Units/Ml Pen) 20 units SC DAILY [facility] Last Admin: 01/06/20 09:06 Dose: 20 units Documented by: Insulin Human Lispro (Insulin Lispro 100 Unit/Ml Insuln.Pen) 0 unit SC Q6 [facility]; Protocol Last Admin: 01/06/20 11:22 Dose: 16 u Documented by: Melatonin (Melatonin 3 Mg Tablet) 3 mg GT QHS PRN PRN PRN Reason: INSOMNIA Ondansetron HCl (Ondansetron 4 Mg/2 Ml Vial) 4 mg IV Q8H PRN PRN PRN Reason: NAUSEA/VOMITING Senna/Docusate Sodium (Senna/Docusate Sodium 1 Tablet) 2 tablet GT BID PRN PRN PRN Reason: Constipation Sodium Chloride (0.9% Saline Lock 10 Ml Syringe) 10 - 40 ml IV UD PRN PRN Reason: SALINE FLUSH Last Admin: 01/06/20 15:47 Dose: 10 ml Documented by: Medical Necessity - Tobacco Use Smoking Status: Former smoker Tobacco Use: Pipe Route of nutrition/ use of supplements: [] Nutritional Intake: [] IV Site: [] Blair Catheter: [] - Assessment/Plan Antibiotics: [] Assessment/Plan: [] Active and Suspected Problems COVID-19 virus infection (Acute) Acute kidney injury (Acute) covid with acute hypoxic resp failure and SANDRA - on dex, developed worsened hypoxia. Sx started evening 12/23. Started remdesivir and plasma 12/31. Now on vent, pressors stopped, on empiric zosyn. Wbc normal, no fever, cxs are all neg at this point. Plan on completing short empiric course of zosyn. Will follow
[2020-01-06 18:45] LABS: Bedside Glucose 393 mg/dL (70-110)
--- NOTE | 2020-01-06 18:54 | NURSING ---
EZEQUIEL p DEREK RN CHARTING AND AGREE WITH ASSESSMENT FINDINGS
[2020-01-06] MEDS: Propofol 10MG/Ml 1,000 MG/100 ML Bottle 12.9 MG CONT INF (20:30)
[2020-01-06] MEDS: Propofol 10MG/Ml 1,000 MG/100 ML Bottle 25.8 MG CONT INF (22:43)
[2020-01-06] MEDS: Atorvastatin Calcium 20 MG Tablet GT (23:24)
[2020-01-06] MEDS: guaiFENesin 10 ML UDC (200MG/10ML) GT (23:24)
[2020-01-07] VITALS (36 sets, daily range): BP systolic 107–191; BP diastolic 54–85; PULSE 59–126; RESP 12–29; TEMP 36.5–37.5; O2SAT 85–100
[2020-01-07 01:05] LABS: Bedside Glucose 424 mg/dL (70-110)
[2020-01-07] MEDS: Propofol 10MG/Ml 1,000 MG/100 ML Bottle 25.8 MG CONT INF (02:30)
[2020-01-07] MEDS: guaiFENesin 10 ML UDC (200MG/10ML) GT ×4 (03:50→22:09)
[2020-01-07 04:53] LABS: Absolute Lymphocyte Count 0.49 X10^3/uL (0.83-4.51); Absolute Neutrophil Count 12.3 X10^3/uL (2.0-7.7); Basophil# 0.01 X10^3/uL; Basophil% 0.1 % (0-1); Hematocrit 36.2 % (40-54); Hemoglobin 11.4 g/dL (13.0-16.5); Lymphocyte # 0.49 X10^3/ul (4.0); Lymphocyte % 3.7 % (19-41); Mean Corp Hgb Conc 31.5 g/dL (32-36); Mean Corpuscular Hgb 31.3 pg (27.0-32.0); Mean Corpuscular Volume 99.5 fL (80-94); Mean Platelet Vol. 10.6 fl (6.2-12.0); Monocyte# 0.33 X10^3/uL; Monocyte% 2.5 % (0-10); NRBC Flagged by Analyzer 0 % (0-5); Neutrophil # 12.31 X10^3/uL (2.7-7.7); Neutrophil % 92.3 % (47-70); POSITIVE DIFFERENTIAL YES; Platelet Count 187 K/mm3 (150-450); RBC Distribution Width CV 13.6 % (11.6-14.6); Red Blood Count 3.64 M/mm3 (4.6-6.2); White Blood Count 13.3 K/mm3 (4.4-11.0)
[2020-01-07 04:55] LABS: Differential Indicated SCAN CRITERIA MET
[2020-01-07 04:59] LABS: Prothrombin Time (Protime)PT. 30.7 SECONDS (11.7-14.9)
[2020-01-07 05:07] LABS: Anion Gap 6 (5-15); BUN 73 mg/dL (7-18); BUN/Creat Ratio 40.1 RATIO (10-20); Calcium,Total 8.1 mg/dL (8.5-10.1); Chloride 109 mmol/L (98-107); Creatinine, Serum 1.82 mg/dL (0.70-1.30); EST Glomerular Filtration Rate 39 mL/min (>60); Est Glom Filt Rate - Afr Amer 47 mL/min (>60); Glucose 359 mg/dL (74-106); Magnesium 2.6 mg/dL (1.6-2.6); Phosphorus 3.2 mg/dL (2.5-4.9); Potassium 5.1 mmol/L (3.5-5.1); Sodium Level 142 mmol/L (136-145)
[2020-01-07 05:37] LABS: Differential Comment SCANNED
--- NOTE | 2020-01-07 05:55 | RAD_ITS ---
HISTORY: Respiratory failure ADDITIONAL HISTORY: None provided. EXAMINATION/TECHNIQUE: XR Chest 1 View AP/PA Number of images including paperwork: 1 COMPARISON: 01/04/2020 FINDINGS: LUNGS AND PLEURA: Low lung volumes. Mild apparent increase in bibasilar opacities. CARDIAC SILHOUETTE: Stable. MEDIASTINUM AND REN: Stable. UPPER ABDOMEN: Unremarkable. SKELETON AND SOFT TISSUES: No acute skeletal findings. Degenerative changes. OTHER DEVICES AND HARDWARE: Endotracheal tube tip terminates above the marie. Gastric tube tip in the upper stomach left PICC tip in the distal superior vena cava. RAD/Chest 1 View (Portable) IMPRESSION: Mild apparent increase in basilar atelectasis versus infiltrates. at 0506 Reported and signed by: Lara Cm MD Electronically Signed: Lara Cm MD at 5:06 EDT Tel , Service support ,
[2020-01-07] MEDS: Vital AF 1.2 Cal Liquid 1,000 ML 75 ML GT ×4 (06:22→20:45)
[2020-01-07] MEDS: TITRATION PARAMETER CHANGE 1 EACH IV (06:23)
[2020-01-07] MEDS: Insulin Lispro 100 UNIT/ML INSULN.PEN SC ×5 (06:24→23:25)
[2020-01-07] MEDS: Propofol 10MG/Ml 1,000 MG/100 ML Bottle 19.5 MG CONT INF ×3 (06:30→14:35)
[2020-01-07 07:15] LABS: Bedside Glucose 487 mg/dL (70-110)
[2020-01-07 07:15] LABS: Bedside Glucose 426 mg/dL (70-110)
--- NOTE | 2020-01-07 08:26 | PN_ITS ---
Subjective: Patient did okay overnight. Patient's oxygenation has improved, but he still has episodes of agitation leading to vent dyssynchrony and significant desaturations. Patient did have increased blood sugars overnight. No bleeding has been reported. Objective: Chest x-ray shows increased infiltrates bilaterally. General: - - Intubated and sedated. Good vent synchrony noted. HEENT: Atraumatic, PERRLA, EOMI, Normocephalic, - - Scleral injection without icterus Oral: Moist Mucosa, No Gingival or Mucosal Lesions/ Ulcerations Neck: Supple, No JVD, No Nodes, Trachea Midline Lungs: No wheeze, Diminished, Rhonchi - Bilaterally, - - Symmetric expansion. Cardiovascular: Regular rate, Regular Rhythm, Normal S1, Normal S2, No murmurs, No rub noted, No Gallop Abdomen: Bowel Sounds Present, Soft, Non Tender, Non-Distended, Obese Extremities: No clubbing, No cyanosis, Edema Skin: No rashes, No breakdown Musculoskeletal: No Tenderness to Palpation of Joints or Extremities Lymphatic: No Cervical, Supraclavicular, or Inguinal Adenopathy Neurological: Neuro grossly intact Psych/Mental Status: Flat Affect Vital Signs Temp Pulse Resp BP Pulse Ox 36.9 C 65 12 154/66 H 100 01/07/20 07:00 01/07/20 08:00 01/07/20 08:00 01/07/20 07:00 01/07/20 08:00 Oxygen Flow Rate (L/min) 60 Oxygen Delivery Method Mechanical Ventilator Weight: 108.2 kg Body Mass Index (BMI) 34.1 Finger Stick Blood Glucose 227 Intake and Output for Last 24 Hours 01/05/20 01/06/20 01/07/20 23:59 23:59 23:59 Intake Total 3241.51 / 3762.75 3184.11 / 3224.91 337.12 / 337.12 Output Total 2125 / 2425 2025 / 2375 750 / 750 Balance 1116.51 / 1337.75 1159.11 / 849.91 -412.88 / -412.88 Labs (Last 48 Hours) 01/05/20 01/05/20 01/05/20 14:20 17:08 23:50 WBC RBC Hgb Hct MCV MCH MCHC RDW Std Deviation RDW Coeff of Cortney Plt Count MPV Immature Gran % (Auto) Neut % (Auto) Lymph % (Auto) [place] % (Auto) Eos % (Auto) Baso % (Auto) Absolute Neuts (auto) Absolute Lymphs (auto) Nucleated RBC % Differential Comment PT INR Sodium Potassium Chloride Carbon Dioxide Anion Gap BUN Creatinine Estim Creat Clear Calc Est GFR (MDRD) Af Amer Est GFR (MDRD) Non-Af BUN/Creatinine Ratio Glucose Calcium Phosphorus Magnesium Total Bilirubin AST ALT Alkaline Phosphatase Total Protein Albumin Globulin Albumin/Globulin Ratio POC Glucose 379 H 364 H 379 H Blood Type 01/06/20 01/06/20 01/06/20 04:50 04:50 04:50 WBC 10.3 RBC 3.72 L Hgb 11.9 L Hct 37.1 L MCV 99.7 H MCH 32.0 MCHC 32.1 RDW Std Deviation 49.9 H RDW Coeff of Cortney 13.5 Plt Count 189 MPV 10.7 Immature Gran % (Auto) Neut % (Auto) Lymph % (Auto) [place] % (Auto) Eos % (Auto) Baso % (Auto) Absolute Neuts (auto) Absolute Lymphs (auto) Nucleated RBC % Differential Comment PT 81.4 H INR 10.0 H* Sodium 137 Potassium 5.4 H Chloride 107 Carbon Dioxide 23.0 Anion Gap 7 BUN 71 H Creatinine 2.18 H Estim Creat Clear Calc 29.30 Est GFR (MDRD) Af Amer 38 L Est GFR (MDRD) Non-Af 31 L BUN/Creatinine Ratio 32.6 H Glucose 518 H* Calcium 7.9 L Phosphorus Magnesium Total Bilirubin 0.80 AST 41 H ALT 34 Alkaline Phosphatase 122 H Total Protein 6.1 L Albumin 1.8 L Globulin 4.3 H Albumin/Globulin Ratio 0.4 L POC Glucose Blood Type 01/06/20 01/06/20 01/06/20 05:04 08:50 11:16 WBC RBC Hgb Hct MCV MCH MCHC RDW Std Deviation RDW Coeff of Cortney Plt Count MPV Immature Gran % (Auto) Neut % (Auto) Lymph % (Auto) [place] % (Auto) Eos % (Auto) Baso % (Auto) Absolute Neuts (auto) Absolute Lymphs (auto) Nucleated RBC % Differential Comment PT INR Sodium Potassium Chloride Carbon Dioxide Anion Gap BUN Creatinine Estim Creat Clear Calc Est GFR (MDRD) Af Amer Est GFR (MDRD) Non-Af BUN/Creatinine Ratio Glucose Calcium Phosphorus Magnesium Total Bilirubin AST ALT Alkaline Phosphatase Total Protein Albumin Globulin Albumin/Globulin Ratio POC Glucose 431 H 487 H* Blood Type A NEGATIVE 01/06/20 01/06/20 01/06/20 11:21 12:18 17:40 WBC RBC Hgb Hct MCV MCH MCHC RDW Std Deviation RDW Coeff of Cortney Plt Count MPV Immature Gran % (Auto) Neut % (Auto) Lymph % (Auto) [place] % (Auto) Eos % (Auto) Baso % (Auto) Absolute Neuts (auto) Absolute Lymphs (auto) Nucleated RBC % Differential Comment PT INR Sodium Potassium Chloride Carbon Dioxide Anion Gap BUN Creatinine Estim Creat Clear Calc Est GFR (MDRD) Af Amer Est GFR (MDRD) Non-Af BUN/Creatinine Ratio Glucose Calcium Phosphorus Magnesium Total Bilirubin AST ALT Alkaline Phosphatase Total Protein Albumin Globulin Albumin/Globulin Ratio POC Glucose 426 H 420 H 393 H Blood Type 01/06/20 01/07/20 01/07/20 23:21 04:30 04:30 WBC 13.3 H RBC 3.64 L Hgb 11.4 L Hct 36.2 L MCV 99.5 H MCH 31.3 MCHC 31.5 L RDW Std Deviation 50.0 H RDW Coeff of Cortney 13.6 Plt Count 187 MPV 10.6 Immature Gran % (Auto) 1.400 H Neut % (Auto) 92.3 H Lymph % (Auto) 3.7 L [place] % (Auto) 2.5 Eos % (Auto) 0.0 Baso % (Auto) 0.1 Absolute Neuts (auto) 12.3 H Absolute Lymphs (auto) 0.49 L Nucleated RBC % 0 Differential Comment SCANNED PT 30.7 H INR 3.0 Sodium Potassium Chloride Carbon Dioxide Anion Gap BUN Creatinine Estim Creat Clear Calc Est GFR (MDRD) Af Amer Est GFR (MDRD) Non-Af BUN/Creatinine Ratio Glucose Calcium Phosphorus Magnesium Total Bilirubin AST ALT Alkaline Phosphatase Total Protein Albumin Globulin Albumin/Globulin Ratio POC Glucose 424 H Blood Type 01/07/20 04:30 WBC RBC Hgb Hct MCV MCH MCHC RDW Std Deviation RDW Coeff of Cortney Plt Count MPV Immature Gran % (Auto) Neut % (Auto) Lymph % (Auto) [place] % (Auto) Eos % (Auto) Baso % (Auto) Absolute Neuts (auto) Absolute Lymphs (auto) Nucleated RBC % Differential Comment PT INR Sodium 142 Potassium 5.1 Chloride 109 H Carbon Dioxide 27.0 Anion Gap 6 BUN 73 H Creatinine 1.82 H Estim Creat Clear Calc 35.10 Est GFR (MDRD) Af Amer 47 L Est GFR (MDRD) Non-Af 39 L BUN/Creatinine Ratio 40.1 H Glucose 359 H Calcium 8.1 L Phosphorus 3.2 Magnesium 2.6 Total Bilirubin AST ALT Alkaline Phosphatase Total Protein Albumin Globulin Albumin/Globulin Ratio POC Glucose Blood Type Microbiology 01/04/20 11:43 Sputum, Expectorated/Coughed Gram Stain - Final 01/04/20 11:43 Sputum, Expectorated/Coughed Respiratory Culture - Final Mixed normal respiratory [place]. No Streptococcus pneumoniae, beta-hemolytic Streptococcus or Staphylococcus aureus isolated. Clinical Impression(s) from Imaging Studies Chest X-Ray 01/07/20 05:55 IMPRESSION: Mild apparent increase in basilar atelectasis versus infiltrates. at 0506 Reported and signed by: Lara Cm MD Electronically Signed: Lara Cm MD at 5:06 EDT Tel , Service support , Medical Necessity - Tobacco Use Smoking Status: Former smoker Tobacco Use: Pipe Assessment/Plan All Active Problems COVID-19 virus infection (Acute) Acute kidney injury (Acute) RECOMMENDATIONS: 1. Wean FiO2 and PEEP to maintain oxygen saturations at or above 90%. 2. Continue empiric antimicrobials, tube feeds, Decadron and remdesivir. 3. Discontinue Levophed 4. Continuous awakening and breathing trials per protocol 5. Increase insulin coverage. 6. Initiate diuretic therapy 7. Monitor blood pressure closely IMPRESSIONS: 1. Acute hypoxemic respiratory failure secondary to Covid pneumonia Although attempts were made to utilize noninvasive positive pressure ventilatory support, the patient continued to decompensate from a respiratory perspective and did require intubation on the morning of January 03. Plan to continue current supportive measures. Patient is receiving maximal therapy for Covid pneumonia. Improvement in distributive shock is suggestive of a possible superinfection. Infectious disease has been consulted. Continue to wean FiO2 and PEEP as tolerated. Spontaneous breathing and awakening trials per protocol. Patient continues to require significant sedation to allow for vent synchrony. 2. Distributive shock Resolved. The patient became hemodynamically unstable after sedation was initiated in the setting of invasive mechanical ventilatory support. Patient is continuing on antibiotic therapy. 3. Acute kidney injury Suspect prerenal in etiology with possible ischemic ATN in the setting of hemodynamic instability. Monitor blood pressures closely. May need to reinitiate vasopressor therapy. Patient may have an element of diuresis se condary to hyperglycemia. Continue to monitor urine output. No current indication for renal replacement therapy. We will add Lasix therapy given increase in infiltrates on chest x-ray 4. Coagulopathy The patient presented to the hospital systemically anticoagulated on Coumadin. He has subsequently developed a coagulopathy with a supratherapeutic INR, likely secondary to his acute illness and medication interactions. His Coumadin has been discontinued. Patient is on concomitant antibiotics, which will prolonged INR. INR improved to 3. No bleeding complications have been reported. 5. Hypertension/hyperlipidemia/GERD/history of DVT/diabetes mellitus Complicates care, management, recovery and prognosis. Continue to hold Coumadin given supratherapeutic INR. Increase Lantus and sliding scale insulin coverage. Addendum 1317: Called to the patient's room secondary to decreased tidal volume delivered. Patient with an audible leak noted. There was some concern for a ruptured balloon, so endotracheal tube was exchanged using a Cook catheter without complication. Examination of removed endotracheal tube did not show a balloon rupture, but did have a wedge shaped deformity of the distal portion. New endotracheal tube appears to have resolved loss of tidal volumes. Chest x-ray has been ordered. TIME: 33 minutes of critical care time, inclusive of procedures, was spent addressing the patient's acute hypoxemic respiratory failure secondary to Covid pneumonia, acute kidney injury, distributive shock, coagulopathy, review of all data and collaboration with the care team. (7:00 AM to 8:00 AM) [id number]: [id number] Critical care first hour
[2020-01-07] MEDS: dexAMETHasone 10 MG/ML Vial 6 MG IV (08:48)
[2020-01-07] MEDS: Senna Tablet 2 TABLET GT (08:50)
[2020-01-07] MEDS: Furosemide 40 MG/4 ML Vial IV ×2 (08:53→17:54)
[2020-01-07] MEDS: Chlorhexidine 15 ML PO ×2 (09:07→22:08)
--- NOTE | 2020-01-07 09:20 | PN_ITS ---
Patient Problems: Active and Suspected Problems COVID-19 virus infection (Acute) Acute kidney injury (Acute) Subjective: Stable, still intubated and sedated. His INR did go down to 3 today Vitals/I&O's: Vital Signs Temp Pulse Resp BP Pulse Ox 98.4 F 65 12 154/66 H 100 01/07/20 07:00 01/07/20 08:00 01/07/20 08:00 01/07/20 07:00 01/07/20 08:00 Oxygen Flow Rate (L/min) 60 Oxygen Delivery Method Mechanical Ventilator Weight: 238 lb 8.642 oz Body Mass Index (BMI) 34.1 Finger Stick Blood Glucose 227 Intake and Output for Last 24 Hours 01/05/20 01/06/20 01/07/20 23:59 23:59 23:59 Intake Total 3241.51 / 3762.75 3184.11 / 3224.91 337.12 / 337.12 Output Total 2125 / 2425 2025 / 2375 750 / 750 Balance 1116.51 / 1337.75 1159.11 / 849.91 -412.88 / -412.88 General: - - Intubated and sedated HEENT: Atraumatic, PERRLA, Normocephalic Oral: Dry Mucosa Neck: Supple, No JVD Lungs: Normal air movement, No rhonchi, No wheeze, No rales, Diminished Cardiovascular: Regular rate, Regular Rhythm, Normal S1, Normal S2, No murmurs Abdomen: Soft, Non Tender, Non-Distended, No Hepato-splenomegaly Extremities: No edema, Capillary Refill Less than 3 Seconds Skin: No rashes, No breakdown Neurological: - - Intubated and sedated Psych/Mental Status: - - Intubated and sedated Microbiology Past 72 Hours 01/04/20 11:43 Sputum, Expectorated/Coughed Gram Stain - Final 01/04/20 11:43 Sputum, Expectorated/Coughed Respiratory Culture - Final Mixed normal respiratory diego. No Streptococcus pneumoniae, beta-hemolytic Streptococcus or Staphylococcus aureus isolated. 12/30/19 10:45 Blood Culture (Wb) - Right Hand Blood Culture - Final No growth in 5 days. 12/30/19 10:40 Blood Culture (Wb) - Anticubital Left Blood Culture - Final No growth in 5 days. Laboratory Results 01/06/20 08:50: Blood Type A NEGATIVE 01/06/20 11:16: POC Glucose 487 H* 01/06/20 11:21: POC Glucose 426 H 01/06/20 12:18: POC Glucose 420 H 01/06/20 17:40: POC Glucose 393 H 01/06/20 23:21: POC Glucose 424 H 01/07/20 04:30: PT 30.7 H, INR 3.0 01/07/20 04:30: WBC 13.3 H, RBC 3.64 L, Hgb 11.4 L, Hct 36.2 L, MCV 99.5 H, MCH 31.3, MCHC 31.5 L, RDW Std Deviation 50.0 H, RDW Coeff of Cortney 13.6, Plt Count 187, MPV 10.6, Immature Gran % (Auto) 1.400 H, Neut % (Auto) 92.3 H, Lymph % (Auto) 3.7 L, [place] % (Auto) 2.5, Eos % (Auto) 0.0, Baso % (Auto) 0.1, Absolute Neuts (auto) 12.3 H, Absolute Lymphs (auto) 0.49 L, Nucleated RBC % 0, Differential Comment SCANNED 01/07/20 04:30: Sodium 142, Potassium 5.1, Chloride 109 H, Carbon Dioxide 27.0, Anion Gap 6, BUN 73 H, Creatinine 1.82 H, Estim Creat Clear Calc 35.10, Est GFR (MDRD) Af Amer 47 L, Est GFR (MDRD) Non-Af 39 L, BUN/Creatinine Ratio 40.1 H, Glucose 359 H, Calcium 8.1 L, Phosphorus 3.2, Magnesium 2.6 Current Medications Acetaminophen (Acetaminophen 650 Mg/20 Ml Udc) 650 mg GT Q6H PRN PRN PRN Reason: Pain Score 1-10/Temp > 100.7 F Last Admin: 01/04/20 17:25 Dose: 650 mg Documented by: Albuterol Sulfate (Albuterol 2.5 Mg/3 Ml Vial.Neb.) 2.5 mg INHALATION Q2H PRN PRN PRN Reason: Shortness of Breath/Wheezing Last Admin: 01/01/20 01:14 Dose: 2.5 mg Documented by: Atorvastatin Calcium (Atorvastatin Calcium 20 Mg Tablet) 20 mg GT QHS [facility] Last Admin: 01/06/20 23:24 Dose: 20 mg Documented by: Chlorhexidine Gluconate (Chlorhexidine 15 Ml) 15 ml PO BID [facility] Last Admin: 01/06/20 21:39 Dose: 15 ml Documented by: Dexamethasone Sodium Phosphate (Dexamethasone 10 Mg/Ml Vial) 6 mg IV DAILY [facility] Stop: 01/08/20 10:01 Last Admin: 01/06/20 11:25 Dose: 6 mg Documented by: Dextrose (Dextrose 50%-Water 25 Gm/50 Ml Disp.Syrin) 0 gm IV X1 PRN; Protocol PRN Reason: Hypoglycemia Furosemide (Furosemide 40 Mg/4 Ml Vial) 40 mg IV BID@1000,1800 [facility] Glucagon (Glucagon 1 Mg/Ml Syringe) 1 mg IM .X1 PRN PRN Reason: Hypoglycemia Guaifenesin (Guaifenesin 10 Ml Udc (200mg/10ml)) 10 ml GT Q6H [facility] Last Admin: 01/07/20 03:50 Dose: 10 ml Documented by: Sodium Chloride () 500 mls @ 15 mls/hr IV PRN PRN PRN Reason: Blood Transfusion Last Infusion: 01/02/20 00:50 Dose: Infused Documented by: Sodium Chloride () 250 mls @ 15 mls/hr IV .[id number] PRN PRN Reason: Saline Flush Sodium Chloride () 250 mls @ 15 mls/hr IV .[id number] PRN PRN Reason: Additional IVPB Infusion Propofol (Diprivan) 1,000 mg in 100 mls @ 6.492 mls/hr CONT INF .Q12H [facility]; Protocol Last Admin: 01/07/20 06:30 Dose: 30 mcg/kg/min, 19.5 mls/hr Documented by: Fentanyl Citrate 1,000 mcg/ (Sodium Chloride) 100 mls @ 5 mls/hr CONT INF .Q20H [facility]; Protocol Last Titration: 01/07/20 07:00 Dose: 100 mcg/hr, 10 mls/hr Documented by: Piperacillin Sod/Tazobactam (Sod 3.375 gm/ Sodium Chloride) 50 mls @ 12.5 mls/hr IV Q8 [facility] Last Admin: 01/07/20 06:25 Dose: 12.5 mls/hr Documented by: Enteral Nutritional Formula (Vital Af 1.2 Jaden Liquid) 1,000 mls @ 75 mls/hr GT .[id number] [facility] Last Admin: 01/07/20 06:22 Dose: 75 mls/hr Documented by: Pantoprazole Sodium 40 mg/ (Sodium Chloride) 110 mls @ 330 mls/hr IV Q24 [facility] Last Infusion: 01/06/20 10:34 Dose: Infused Documented by: Insulin Glargine (Insulin Glargine 100 Units/Ml Pen) 20 units SC BID [facility] Insulin Human Lispro (Insulin Lispro 100 Unit/Ml Insuln.Pen) 0 unit SC Q6 [facility]; Protocol Last Admin: 01/07/20 06:24 Dose: 12 u Documented by: Melatonin (Melatonin 3 Mg Tablet) 3 mg GT QHS PRN PRN PRN Reason: INSOMNIA Ondansetron HCl (Ondansetron 4 Mg/2 Ml Vial) 4 mg IV Q8H PRN PRN PRN Reason: NAUSEA/VOMITING Polyethylene Glycol (Polyethylene Glycol 3350 17 Gm Packet) 17 gm GT BID [facility] Senna (Senna Tablet) 2 tablet GT BID [facility] Senna/Docusate Sodium (Senna/Docusate Sodium 1 Tablet) 2 tablet GT BID PRN PRN PRN Reason: Constipation Sodium Chloride (0.9% Saline Lock 10 Ml Syringe) 10 - 40 ml IV UD PRN PRN Reason: SALINE FLUSH Last Admin: 01/06/20 15:47 Dose: 10 ml Documented by: STROKE Vital Signs/Narrative: Vital Signs Temp Pulse Resp BP Pulse Ox 01/07/20 08:00 65 12 100 01/07/20 07:00 98.4 F 68 14 154/66 H 100 01/07/20 06:00 97.9 F 67 13 151/62 H 98 01/07/20 05:50 93 Medical Necessity - Tobacco Use Smoking Status: Former smoker Tobacco Use: Pipe Assessment/Plan All Active Problems COVID-19 virus infection (Acute) Acute kidney injury (Acute) 1. Acute hypoxic respiratory failure secondary to Covid pneumonia with septic shock/SANDRA/history of DVT -Sepsis has resolved, however initially lactic acid was greater than 4 -Appreciate infectious disease assistance, initially azithromycin and Rocephin were discontinued however secondary to his continued difficulty with breathing and the need for intubation, he was started on Zosyn empirically -Completed convalescent plasma and remdesivir, and is currently on Decadron -He was intubated 01/04/2020 by the upsetter secondary to continued respiratory failure -Baseline creatinine is around 1.5, on presentation he was 2.06. This improved with IV fluids to 1.35 however his creatinine is now back up to 1.82. He is 4 L positive, since his creatinine has improved we will start him back on Lasix -Renal ultrasound was unremarkable -INR is supratherapeutic to an INR of 10, he received 5 of vitamin K and also received 2 units of FFP, he is now therapeutic 2. HTN/HLD -We will continue to hold his hydrochlorothiazide and Lopressor lisinopril secondary to his initial SANDRA -Continue with Lipitor via G-tube -IV hydralazine as necessary for blood pressure control 3. GERD -Stable -Continue with PPI 4. DM 2 with diabetic nephropathy -We will hold his oral hypoglycemics, continue with his sliding scale insulin every 6 as well as Lantus -Accu-Cheks AC at bedtime DVT: Therapeutic INR Inpatient E&M: 80429 Subs Hosp L2
[2020-01-07 09:26] LABS: Bedside Glucose 383 mg/dL (70-110)
[2020-01-07 11:10] LABS: Bedside Glucose 363 mg/dL (70-110)
[2020-01-07] MEDS: Polyethylene Glycol 3350 17 GM PACKET GT (12:04)
--- NOTE | 2020-01-07 13:55 | RAD_ITS ---
STUDY: X-RAY CHEST REASON FOR EXAM: Male, 79 years old. ETT PLACEMENT TECHNIQUE: Single frontal view of the chest. COMPARISON: 01/07/2020. FINDINGS: Endotracheal tube tip is at the midthoracic trachea. Enteric tube tip is not well seen but can be traced to the proximal stomach. Cardiac silhouette prominent. Pulmonary vascularity unremarkable. Aorta unremarkable. Severe diffuse bilateral airspace opacities increased compared to prior. No pleural effusions. Upper abdomen unremarkable. Osseous structures intact. No pneumothorax. RAD/Chest 1 View (Portable) IMPRESSION: Endotracheal tube tip is at the midthoracic trachea. Enteric tube tip is not well seen but can be traced to the proximal stomach. Worsening airspace opacities. Electronically Signed: Mihir Rosas, at 20:37 EDT Tel , Service support ,
--- NOTE | 2020-01-07 15:03 | PCM.PN.ID ---
Patient Problems: Active and Suspected Problems COVID-19 virus infection (Acute) Acute kidney injury (Acute) Subjective: On vent, no fever - Physical Exam Vitals/I&O's: Vital Signs Temp Pulse Resp BP Pulse Ox 98.6 F 111 H 26 H 135/61 H 90 01/07/20 11:00 01/07/20 14:57 01/07/20 14:57 01/07/20 11:00 01/07/20 14:57 Oxygen Flow Rate (L/min) 60 Oxygen Delivery Method Mechanical Ventilator Weight: 108.2 kg Body Mass Index (BMI) 34.1 Finger Stick Blood Glucose 227 Intake and Output for Last 24 Hours 01/05/20 01/06/20 01/07/20 23:59 23:59 23:59 Intake Total 3241.51 / 3762.75 3184.11 / 3224.91 1190.89 / 1190.89 Output Total 2125 / 2425 2025 / 2375 2550 / 2550 Balance 1116.51 / 1337.75 1159.11 / 849.91 -1359.11 / -1359.11 General: No apparent distress Lungs: Diminished Cardiovascular: Regular rate, Regular Rhythm Abdomen: Soft, Non Tender, Non-Distended Skin: No rashes Microbiology Past 72 Hours 01/04/20 11:43 Sputum, Expectorated/Coughed Gram Stain - Final 01/04/20 11:43 Sputum, Expectorated/Coughed Respiratory Culture - Final Mixed normal respiratory diego. No Streptococcus pneumoniae, beta-hemolytic Streptococcus or Staphylococcus aureus isolated. 12/30/19 10:45 Blood Culture (Wb) - Right Hand Blood Culture - Final No growth in 5 days. 12/30/19 10:40 Blood Culture (Wb) - Anticubital Left Blood Culture - Final No growth in 5 days. Laboratory Results 01/06/20 08:50: Blood Type A NEGATIVE 01/06/20 11:16: POC Glucose 487 H* 01/06/20 11:21: POC Glucose 426 H 01/06/20 17:40: POC Glucose 393 H 01/06/20 23:21: POC Glucose 424 H 01/07/20 04:30: PT 30.7 H, INR 3.0 01/07/20 04:30: WBC 13.3 H, RBC 3.64 L, Hgb 11.4 L, Hct 36.2 L, MCV 99.5 H, MCH 31.3, MCHC 31.5 L, RDW Std Deviation 50.0 H, RDW Coeff of Cortney 13.6, Plt Count 187, MPV 10.6, Immature Gran % (Auto) 1.400 H, Neut % (Auto) 92.3 H, Lymph % (Auto) 3.7 L, [place] % (Auto) 2.5, Eos % (Auto) 0.0, Baso % (Auto) 0.1, Absolute Neuts (auto) 12.3 H, Absolute Lymphs (auto) 0.49 L, Nucleated RBC % 0, Differential Comment SCANNED 01/07/20 04:30: Sodium 142, Potassium 5.1, Chloride 109 H, Carbon Dioxide 27.0, Anion Gap 6, BUN 73 H, Creatinine 1.82 H, Estim Creat Clear Calc 35.10, Est GFR (MDRD) Af Amer 47 L, Est GFR (MDRD) Non-Af 39 L, BUN/Creatinine Ratio 40.1 H, Glucose 359 H, Calcium 8.1 L, Phosphorus 3.2, Magnesium 2.6 01/07/20 06:20: POC Glucose 363 H 01/07/20 08:46: POC Glucose 383 H Current Medications Acetaminophen (Acetaminophen 650 Mg/20 Ml Udc) 650 mg GT Q6H PRN PRN PRN Reason: Pain Score 1-10/Temp > 100.7 F Last Admin: 01/04/20 17:25 Dose: 650 mg Documented by: Albuterol Sulfate (Albuterol 2.5 Mg/3 Ml Vial.Neb.) 2.5 mg INHALATION Q2H PRN PRN PRN Reason: Shortness of Breath/Wheezing Last Admin: 01/01/20 01:14 Dose: 2.5 mg Documented by: Atorvastatin Calcium (Atorvastatin Calcium 20 Mg Tablet) 20 mg GT QHS [facility] Last Admin: 01/06/20 23:24 Dose: 20 mg Documented by: Chlorhexidine Gluconate (Chlorhexidine 15 Ml) 15 ml PO BID [facility] Last Admin: 01/07/20 09:07 Dose: 15 ml Documented by: Dexamethasone Sodium Phosphate (Dexamethasone 10 Mg/Ml Vial) 6 mg IV DAILY [facility] Stop: 01/08/20 10:01 Last Admin: 01/07/20 08:48 Dose: 6 mg Documented by: Dextrose (Dextrose 50%-Water 25 Gm/50 Ml Disp.Syrin) 0 gm IV X1 PRN; Protocol PRN Reason: Hypoglycemia Furosemide (Furosemide 40 Mg/4 Ml Vial) 40 mg IV BID@1000,1800 [facility] Last Admin: 01/07/20 08:53 Dose: 40 mg Documented by: Glucagon (Glucagon 1 Mg/Ml Syringe) 1 mg IM .X1 PRN PRN Reason: Hypoglycemia Guaifenesin (Guaifenesin 10 Ml Udc (200mg/10ml)) 10 ml GT Q6H [facility] Last Admin: 01/07/20 08:51 Dose: 10 ml Documented by: Sodium Chloride () 500 mls @ 15 mls/hr IV PRN PRN PRN Reason: Blood Transfusion Last Infusion: 01/02/20 00:50 Dose: Infused Documented by: Sodium Chloride () 250 mls @ 15 mls/hr IV .[id number] PRN PRN Reason: Saline Flush Sodium Chloride () 250 mls @ 15 mls/hr IV .[id number] PRN PRN Reason: Additional IVPB Infusion Propofol (Diprivan) 1,000 mg in 100 mls @ 6.492 mls/hr CONT INF .Q12H [facility]; Protocol Last Admin: 01/07/20 14:35 Dose: 30 mcg/kg/min, 19.5 mls/hr Documented by: Fentanyl Citrate 1,000 mcg/ (Sodium Chloride) 100 mls @ 5 mls/hr CONT INF .Q20H [facility]; Protocol Last Admin: 01/07/20 14:28 Dose: 100 mcg/hr, 10 mls/hr Documented by: Piperacillin Sod/Tazobactam (Sod 3.375 gm/ Sodium Chloride) 50 mls @ 12.5 mls/hr IV Q8 [facility] Last Admin: 01/07/20 14:46 Dose: 12.5 mls/hr Documented by: Enteral Nutritional Formula (Vital Af 1.2 Jaden Liquid) 1,000 mls @ 75 mls/hr GT .[id number] [facility] Last Admin: 01/07/20 12:05 Dose: 75 mls/hr Documented by: Pantoprazole Sodium 40 mg/ (Sodium Chloride) 110 mls @ 330 mls/hr IV Q24 [facility] Last Infusion: 01/07/20 13:16 Dose: Infused Documented by: Insulin Glargine (Insulin Glargine 100 Units/Ml Pen) 20 units SC BID [facility] Last Admin: 01/07/20 08:49 Dose: 20 units Documented by: Insulin Human Lispro (Insulin Lispro 100 Unit/Ml Insuln.Pen) 0 unit SC Q6 [facility]; Protocol Last Admin: 01/07/20 12:37 Dose: 16 u Documented by: Melatonin (Melatonin 3 Mg Tablet) 3 mg GT QHS PRN PRN PRN Reason: INSOMNIA Ondansetron HCl (Ondansetron 4 Mg/2 Ml Vial) 4 mg IV Q8H PRN PRN PRN Reason: NAUSEA/VOMITING Polyethylene Glycol (Polyethylene Glycol 3350 17 Gm Packet) 17 gm GT BID [facility] Last Admin: 01/07/20 12:04 Dose: 17 gm Documented by: Senna (Senna Tablet) 2 tablet GT BID [facility] Last Admin: 01/07/20 08:50 Dose: 2 tablet Documented by: Senna/Docusate Sodium (Senna/Docusate Sodium 1 Tablet) 2 tablet GT BID PRN PRN PRN Reason: Constipation Sodium Chloride (0.9% Saline Lock 10 Ml Syringe) 10 - 40 ml IV UD PRN PRN Reason: SALINE FLUSH Last Admin: 01/06/20 15:47 Dose: 10 ml Documented by: Medical Necessity - Tobacco Use Smoking Status: Former smoker Tobacco Use: Pipe Route of nutrition/ use of supplements: [] Nutritional Intake: [] IV Site: [] Blair Catheter: [] - Assessment/Plan Antibiotics: [] Assessment/Plan: [] Active and Suspected Problems COVID-19 virus infection (Acute) Acute kidney injury (Acute) covid with acute hypoxic resp failure and SANDRA - on dex, developed worsened hypoxia. Sx started evening 12/23. Started remdesivir and plasma 12/31. Now on vent, pressors stopped, on empiric zosyn. Wbc mildly elevated, no fever, cxs are all neg at this point. Plan on completing short empiric course of zosyn, stopping soon Will follow
[2020-01-07 18:25] LABS: Bedside Glucose 352 mg/dL (70-110)
--- NOTE | 2020-01-07 18:46 | NURSING ---
reviewed p adria BELL charting and agree with findings
[2020-01-07] MEDS: Propofol 10MG/Ml 1,000 MG/100 ML Bottle 30 MG CONT INF (19:00)
--- NOTE | 2020-01-07 20:07 | EKG12_ITS ---
Test Reason : DYSRHYTHMIA Blood Pressure : / mmHG Vent. Rate : 127 BPM Atrial Rate : 129 BPM P-R Int : 000 ms QRS Dur : 068 ms QT Int : 318 ms P-R-T Axes : 000 009 023 degrees QTc Int : 462 ms Atrial fibrillation Nonspecific ST abnormality Abnormal ECG Confirmed by ANAYA TRIMBLE, AFIA ([id number]), editorial intern ROMINA CONTEH ([id number]) on 01/20/2020 2:39:34 PM Referred By: JORDON Confirmed By:AFIA JULIEN MD
[2020-01-07] MEDS: Propofol 10MG/Ml 1,000 MG/100 ML Bottle 26 MG CONT INF (22:00)
[2020-01-07] MEDS: Atorvastatin Calcium 20 MG Tablet GT (22:08)
[2020-01-07 23:31] LABS: Bedside Glucose 481 mg/dL (70-110)
[2020-01-08] VITALS (43 sets, daily range): BP systolic 71–142; BP diastolic 43–77; PULSE 82–130; RESP 12–34; TEMP 36.8–38; O2SAT 22–98
[2020-01-08] MEDS: Propofol 10MG/Ml 1,000 MG/100 ML Bottle 32.5 MG CONT INF ×3 (00:34→06:23)
[2020-01-08] MEDS: Insulin Lispro 100 UNIT/ML INSULN.PEN SC ×7 (02:50→22:29)
[2020-01-08] MEDS: Vital AF 1.2 Cal Liquid 1,000 ML 75 ML GT ×2 (03:00→08:37)
[2020-01-08] MEDS: guaiFENesin 10 ML UDC (200MG/10ML) GT ×4 (03:05→22:29)
[2020-01-08 03:36] LABS: Absolute Lymphocyte Count 0.57 X10^3/uL (0.83-4.51); Absolute Neutrophil Count 10.5 X10^3/uL (2.0-7.7); Basophil# 0.02 X10^3/uL; Basophil% 0.2 % (0-1); Eosinophil# 0.01 X10^3/uL; Eosinophils% 0.1 % (0-5); Hematocrit 37.1 % (40-54); Hemoglobin 11.9 g/dL (13.0-16.5); Lymphocyte # 0.57 X10^3/ul (4.0); Mean Corp Hgb Conc 32.1 g/dL (32-36); Mean Corpuscular Hgb 31.8 pg (27.0-32.0); Mean Corpuscular Volume 99.2 fL (80-94); Mean Platelet Vol. 10.7 fl (6.2-12.0); Monocyte# 0.12 X10^3/uL; Monocyte% 1.1 % (0-10); NRBC Flagged by Analyzer 0 % (0-5); Neutrophil % 92.1 % (47-70); POSITIVE DIFFERENTIAL YES; Platelet Count 198 K/mm3 (150-450); RBC Distribution Width CV 13.5 % (11.6-14.6); RBC Distribution Width SD 49.1 fl (35.1-43.9); Red Blood Count 3.74 M/mm3 (4.6-6.2); White Blood Count 11.4 K/mm3 (4.4-11.0)
[2020-01-08 04:01] LABS: Bedside Glucose 474 mg/dL (70-110)
[2020-01-08 04:05] LABS: Differential Indicated SCAN CRITERIA MET; International Normalized Ratio 2.8; Prothrombin Time (Protime)PT. 28.8 SECONDS (11.7-14.9)
[2020-01-08 04:19] LABS: Anion Gap 7 (5-15); BUN 87 mg/dL (7-18); BUN/Creat Ratio 42.9 RATIO (10-20); Calcium,Total 8.1 mg/dL (8.5-10.1); Chloride 106 mmol/L (98-107); Creatinine, Serum 2.03 mg/dL (0.70-1.30); EST Glomerular Filtration Rate 34 mL/min (>60); Est Glom Filt Rate - Afr Amer 41 mL/min (>60); Estimated Creatinine Clearance 31.47 ml/min; Glucose 471 mg/dL (74-106); Magnesium 2.6 mg/dL (1.6-2.6); Phosphorus 4.3 mg/dL (2.5-4.9); Potassium 5.3 mmol/L (3.5-5.1); Sodium Level 139 mmol/L (136-145)
[2020-01-08 04:21] LABS: Differential Comment SCANNED; Platelet Estimate ADEQUATE (ADEQ)
[2020-01-08 04:23] LABS: Anisocytosis RARE; Macrocytosis RARE
[2020-01-08 06:21] LABS: Bedside Glucose 472 mg/dL (70-110)
[2020-01-08] MEDS: Insulin Lispro 100 UNIT/ML INSULN.PEN 14 UNIT SC (06:32)
[2020-01-08] MEDS: TITRATION PARAMETER CHANGE 1 EACH IV (06:32)
[2020-01-08 07:01] LABS: Bedside Glucose 417 mg/dL (70-110)
[2020-01-08 07:01] LABS: Bedside Glucose 458 mg/dL (70-110)
[2020-01-08] MEDS: Chlorhexidine 15 ML PO ×2 (08:31→22:31)
[2020-01-08] MEDS: Furosemide 40 MG/4 ML Vial IV ×2 (08:32→19:16)
[2020-01-08] MEDS: dexAMETHasone 10 MG/ML Vial 6 MG IV (08:32)
--- NOTE | 2020-01-08 09:22 | PCM.PN.INT ---
Subjective: Patient developed A. fib overnight. No bleeding complications have been reported. Patient was significantly hypertensive overnight along with elevated blood glucoses. Patient's oxygenation does poorly when he is on his left side. Patient continues to be difficult to sedate and did receive 1 dose of as needed Ativan in addition to propofol. Patient also developed copious watery bowel movement and had an FMS placed. General: - - Intubated and sedated. RASS -3. Fair vent synchrony. HEENT: Atraumatic, PERRLA, EOMI, Normocephalic, - - No scleral icterus or injection noted Oral: Moist Mucosa, No Gingival or Mucosal Lesions/ Ulcerations Neck: Supple, No Nodes, Trachea Midline, JVD, Right Lungs: No wheeze, No rales, Rhonchi - Bilateral, - - Symmetric expansion Cardiovascular: Normal S1, Normal S2, No murmurs, Irregular Rate, No rub noted, No Gallop Abdomen: Bowel Sounds Present, Soft, Non Tender, Distended - Slightly, Obese Extremities: No clubbing, No cyanosis, Edema Skin: - - Appears to have some possible early pressure injury on bilateral heels Musculoskeletal: No Tenderness to Palpation of Joints or Extremities Lymphatic: No Cervical, Supraclavicular, or Inguinal Adenopathy Neurological: Cranial nerves II-XII grossly intact, Neuro grossly intact Psych/Mental Status: Flat Affect Vital Signs Temp Pulse Resp BP Pulse Ox 37.6 C H 114 H 14 117/59 L 93 01/08/20 06:00 01/08/20 07:15 01/08/20 07:15 01/08/20 06:00 01/08/20 07:15 Oxygen Flow Rate (L/min) 60 Oxygen Delivery Method Mechanical Ventilator Weight: 106.2 kg Body Mass Index (BMI) 34.1 Finger Stick Blood Glucose 227 Intake and Output for Last 24 Hours 01/06/20 01/07/20 01/08/20 23:59 23:59 23:59 Intake Total 3184.11 / 3224.91 1912.33 / 1940.46 894.02 / 894.02 Output Total 2024 4825 / 5175 1050 / 1050 Balance 1159.11 / 849.91 -2912.67 / -3234.54 -155.98 / -155.98 Labs (Last 48 Hours) 1001/06/20 01/06/20 08:50 11:16 11:21 WBC RBC Hgb Hct MCV MCH MCHC RDW Std Deviation RDW Coeff of Cortney Plt Count MPV Immature Gran % (Auto) Neut % (Auto) Lymph % (Auto) [place] % (Auto) Eos % (Auto) Baso % (Auto) Absolute Neuts (auto) Absolute Lymphs (auto) Nucleated RBC % Differential Comment Platelet Estimate Anisocytosis Macrocytosis PT INR Sodium Potassium Chloride Carbon Dioxide Anion Gap BUN Creatinine Estim Creat Clear Calc Est GFR (MDRD) Af Amer Est GFR (MDRD) Non-Af BUN/Creatinine Ratio Glucose Calcium Phosphorus Magnesium POC Glucose 487 H* 426 H Blood Type A NEGATIVE 01/06/20 01/06/20 01/06/20 12:18 17:40 23:21 WBC RBC Hgb Hct MCV MCH MCHC RDW Std Deviation RDW Coeff of [place] Plt Count MPV Immature Gran % (Auto) Neut % (Auto) Lymph % (Auto) [place] % (Auto) Eos % (Auto) Baso % (Auto) Absolute Neuts (auto) Absolute Lymphs (auto) Nucleated RBC % Differential Comment Platelet Estimate Anisocytosis Macrocytosis PT INR Sodium Potassium Chloride Carbon Dioxide Anion Gap BUN Creatinine Estim Creat Clear Calc Est GFR (MDRD) Af Amer Est GFR (MDRD) Non-Af BUN/Creatinine Ratio Glucose Calcium Phosphorus Magnesium POC Glucose 420 H 393 H 424 H Blood Type 01/07/20 01/07/20 01/07/20 04:30 04:30 04:30 WBC 13.3 H RBC 3.64 L Hgb 11.4 L Hct 36.2 L MCV 99.5 H MCH 31.3 MCHC 31.5 L RDW Std Deviation 50.0 H RDW Coeff of Cortney 13.6 Plt Count 187 MPV 10.6 Immature Gran % (Auto) 1.400 H Neut % (Auto) 92.3 H Lymph % (Auto) 3.7 L [place] % (Auto) 2.5 Eos % (Auto) 0.0 Baso % (Auto) 0.1 Absolute Neuts (auto) 12.3 H Absolute Lymphs (auto) 0.49 L Nucleated RBC % 0 Differential Comment SCANNED Platelet Estimate Anisocytosis Macrocytosis PT 30.7 H INR 3.0 Sodium 142 Potassium 5.1 Chloride 109 H Carbon Dioxide 27.0 Anion Gap 6 BUN 73 H Creatinine 1.82 H Estim Creat Clear Calc 35.10 Est GFR (MDRD) Af Amer 47 L Est GFR (MDRD) Non-Af 39 L BUN/Creatinine Ratio 40.1 H Glucose 359 H Calcium 8.1 L Phosphorus 3.2 Magnesium 2.6 POC Glucose Blood Type 01/07/20 01/07/20 01/07/20 06:20 08:46 12:34 WBC RBC Hgb Hct MCV MCH MCHC RDW Std Deviation RDW Coeff of [place] Plt Count MPV Immature Gran % (Auto) Neut % (Auto) Lymph % (Auto) [place] % (Auto) Eos % (Auto) Baso % (Auto) Absolute Neuts (auto) Absolute Lymphs (auto) Nucleated RBC % Differential Comment Platelet Estimate Anisocytosis Macrocytosis PT INR Sodium Potassium Chloride Carbon Dioxide Anion Gap BUN Creatinine Estim Creat Clear Calc Est GFR (MDRD) Af Amer Est GFR (MDRD) Non-Af BUN/Creatinine Ratio Glucose Calcium Phosphorus Magnesium POC Glucose 363 H 383 H 458 H* Blood Type 01/07/20 01/07/20 01/07/20 12:36 17:12 22:06 WBC RBC Hgb Hct MCV MCH MCHC RDW Std Deviation RDW Coeff of [place] Plt Count MPV Immature Gran % (Auto) Neut % (Auto) Lymph % (Auto) [place] % (Auto) Eos % (Auto) Baso % (Auto) Absolute Neuts (auto) Absolute Lymphs (auto) Nucleated RBC % Differential Comment Platelet Estimate Anisocytosis Macrocytosis PT INR Sodium Potassium Chloride Carbon Dioxide Anion Gap BUN Creatinine Estim Creat Clear Calc Est GFR (MDRD) Af Amer Est GFR (MDRD) Non-Af BUN/Creatinine Ratio Glucose Calcium Phosphorus Magnesium POC Glucose 417 H 352 H 481 H* Blood Type 01/08/20 01/08/20 01/08/20 02:55 03:20 03:20 WBC 11.4 H RBC 3.74 L Hgb 11.9 L Hct 37.1 L MCV 99.2 H MCH 31.8 MCHC 32.1 RDW Std Deviation 49.1 H RDW Coeff of Cortney 13.5 Plt Count 198 MPV 10.7 Immature Gran % (Auto) 1.500 H Neut % (Auto) 92.1 H Lymph % (Auto) 5.0 L [place] % (Auto) 1.1 Eos % (Auto) 0.1 Baso % (Auto) 0.2 Absolute Neuts (auto) 10.5 H Absolute Lymphs (auto) 0.57 L Nucleated RBC % 0 Differential Comment SCANNED Platelet Estimate ADEQUATE Anisocytosis RARE Macrocytosis RARE PT 28.8 H INR 2.8 Sodium Potassium Chloride Carbon Dioxide Anion Gap BUN Creatinine Estim Creat Clear Calc Est GFR (MDRD) Af Amer Est GFR (MDRD) Non-Af BUN/Creatinine Ratio Glucose Calcium Phosphorus Magnesium POC Glucose 474 H* Blood Type 01/08/20 01/08/20 03:20 06:05 WBC RBC Hgb Hct MCV MCH MCHC RDW Std Deviation RDW Coeff of Cortney Plt Count MPV Immature Gran % (Auto) Neut % (Auto) Lymph % (Auto) [place] % (Auto) Eos % (Auto) Baso % (Auto) Absolute Neuts (auto) Absolute Lymphs (auto) Nucleated RBC % Differential Comment Platelet Estimate Anisocytosis Macrocytosis PT INR Sodium 139 Potassium 5.3 H Chloride 106 Carbon Dioxide 26.0 Anion Gap 7 BUN 87 H Creatinine 2.03 H Estim Creat Clear Calc 31.47 Est GFR (MDRD) Af Amer 41 L Est GFR (MDRD) Non-Af 34 L BUN/Creatinine Ratio 42.9 H Glucose 471 H* Calcium 8.1 L Phosphorus 4.3 Magnesium 2.6 POC Glucose 472 H* Blood Type Microbiology 01/04/20 11:43 Sputum, Expectorated/Coughed Gram Stain - Final 01/04/20 11:43 Sputum, Expectorated/Coughed Respiratory Culture - Final Mixed normal respiratory [place]go. No Streptococcus pneumoniae, beta-hemolytic Streptococcus or Staphylococcus aureus isolated. Clinical Impression(s) from Imaging Studies Chest X-Ray 01/07/20 13:55 IMPRESSION: Endotracheal tube tip is at the midthoracic trachea. Enteric tube tip is not well seen but can be traced to the proximal stomach. Worsening airspace opacities. Electronically Signed: Mihir Rosas, at 20:37 EDT Tel , Service support , Medical Necessity - Tobacco Use Smoking Status: Former smoker Tobacco Use: Pipe Assessment/Plan All Active Problems COVID-19 virus infection (Acute) Acute kidney injury (Acute) RECOMMENDATIONS: 1. Wean FiO2 and PEEP to maintain oxygen saturations at or above 90%. 2. Continue empiric antimicrobials, tube feeds, Decadron and remdesivir. 3. Add Coreg 4. Continuous awakening and breathing trials per protocol 5. Increase insulin coverage. 6. Continue diuretic therapy 7. Monitor blood pressure closely IMPRESSIONS: 1. Acute hypoxemic respiratory failure secondary to Covid pneumonia Although attempts were made to utilize noninvasive positive pressure ventilatory support, the patient continued to decompensate from a respiratory perspective and did require intubation on the morning of January 03. Plan to continue current supportive measures. Patient is receiving maximal therapy for Covid pneumonia. Improvement in distributive shock is suggestive of a possible superinfection. Infectious disease has been consulted. Continue to wean FiO2 and PEEP as tolerated. Spontaneous breathing and awakening trials per protocol. Patient continues to require significant sedation to allow for vent synchrony. Continue to use Ativan only as necessary 2. Distributive shock Resolved. The patient became hemodynamically unstable after sedation was initiated in the setting of invasive mechanical ventilatory support. Patient is continuing on antibiotic therapy. 3. Acute kidney injury Suspect prerenal in etiology with possible ischemic ATN in the setting of hemodynamic instability. Monitor blood pressures closely. Patient may have an element of diuresis secondary to hyperglycemia. Continue to monitor urine output. No current indication for renal replacement therapy. We will add Lasix therapy given increase in infiltrates on chest x-ray. 4. Coagulopathy The patient presented to the hospital systemically anticoagulated on Coumadin. He has subsequently developed a coagulopathy with a supratherapeutic INR, likely secondary to his acute illness and medication interactions. His Coumadin has been discontinued. Patient is on concomitant antibiotics, which will prolonged INR. INR has stayed around 3. No bleeding complications have been reported. No need for other systemic anticoagulation 5. Hypertension/hyperlipidemia/GERD/history of DVT/diabetes mellitus Complicates care, management, recovery and prognosis. Continue to hold Coumadin given supratherapeutic INR. Increase Lantus and sliding scale insulin coverage. TIME: 35 minutes of critical care time, inclusive of procedures, was spent addressing the patient's acute hypoxemic respiratory failure secondary to Covid pneumonia, acute kidney injury, hypertensive urgency, coagulopathy, review of all data and collaboration with the care team. (8:00 AM to 9:00 AM) [id number]: [id number] Critical care first hour
[2020-01-08] MEDS: Propofol 10MG/Ml 1,000 MG/100 ML Bottle 31.9 MG CONT INF ×2 (09:29→11:30)
--- NOTE | 2020-01-08 10:49 | PCM.PN.HOSP ---
Patient Problems: Active and Suspected Problems COVID-19 virus infection (Acute) Acute kidney injury (Acute) Subjective: Intubated and sedated, he went into [facility] overnight and had elevated blood pressures. Vitals/I&O's: Vital Signs Temp Pulse Resp BP Pulse Ox 99.6 F H 125 H 22 H 117/59 L 90 01/08/20 06:00 01/08/20 09:34 01/08/20 09:34 01/08/20 06:00 01/08/20 09:34 Oxygen Flow Rate (L/min) 60 Oxygen Delivery Method Mechanical Ventilator Weight: 234 lb 2.095 oz Body Mass Index (BMI) 34.1 Finger Stick Blood Glucose 227 Intake and Output for Last 24 Hours 01/06/20 01/07/20 01/08/20 23:59 23:59 23:59 Intake Total 3184.11 / 3224.91 1912.33 / 1940.46 1073.35 / 1073.35 Output Total 2025 / 2375 4825 / 5175 1050 / 1050 Balance 1159.11 / 849.91 -2912.67 / -3234.54 23.35 / 23.35 General: - - Intubated and sedated HEENT: Atraumatic, PERRLA, Normocephalic Oral: Dry Mucosa Neck: Supple, No JVD Lungs: Normal air movement, No rhonchi, No wheeze, No rales, Diminished Cardiovascular: Regular rate, Regular Rhythm, Normal S1, Normal S2, No murmurs Abdomen: Soft, Non Tender, Non-Distended, No Hepato-splenomegaly Extremities: No edema, Capillary Refill Less than 3 Seconds Skin: No rashes, No breakdown Neurological: - - Intubated and sedated Psych/Mental Status: - - Intubated and sedated Microbiology Past 72 Hours 01/04/20 11:43 Sputum, Expectorated/Coughed Gram Stain - Final 01/04/20 11:43 Sputum, Expectorated/Coughed Respiratory Culture - Final Mixed normal respiratory [place]go. No Streptococcus pneumoniae, beta-hemolytic Streptococcus or Staphylococcus aureus isolated. Laboratory Results 01/07/20 06:20: POC Glucose 363 H 01/07/20 12:34: POC Glucose 458 H* 01/07/20 12:36: POC Glucose 417 H 01/07/20 17:12: POC Glucose 352 H 01/07/20 22:06: POC Glucose 481 H* 01/08/20 02:55: POC Glucose 474 H* 01/08/20 03:20: PT 28.8 H, INR 2.8 01/08/20 03:20: WBC 11.4 H, RBC 3.74 L, Hgb 11.9 L, Hct 37.1 L, MCV 99.2 H, MCH 31.8, MCHC 32.1, RDW Std Deviation 49.1 H, RDW Coeff of Cortney 13.5, Plt Count 198, MPV 10.7, Immature Gran % (Auto) 1.500 H, Neut % (Auto) 92.1 H, Lymph % (Auto) 5.0 L, [place] % (Auto) 1.1, Eos % (Auto) 0.1, Baso % (Auto) 0.2, Absolute Neuts (auto) 10.5 H, Absolute Lymphs (auto) 0.57 L, Nucleated RBC % 0, Differential Comment SCANNED, Platelet Estimate ADEQUATE, Anisocytosis RARE, Macrocytosis RARE 01/08/20 03:20: Sodium 139, Potassium 5.3 H, Chloride 106, Carbon Dioxide 26.0, Anion Gap 7, BUN 87 H, Creatinine 2.03 H, Estim Creat Clear Calc 31.47, Est GFR (MDRD) Af Amer 41 L, Est GFR (MDRD) Non-Af 34 L, BUN/Creatinine Ratio 42.9 H, Glucose 471 H*, Calcium 8.1 L, Phosphorus 4.3, Magnesium 2.6 01/08/20 06:05: POC Glucose 472 H* Current Medications Acetaminophen (Acetaminophen 650 Mg/20 Ml Udc) 650 mg GT Q6H PRN PRN PRN Reason: Pain Score 1-10/Temp > 100.7 F Last Admin: 01/04/20 17:25 Dose: 650 mg Documented by: Albuterol Sulfate (Albuterol 2.5 Mg/3 Ml Vial.Neb.) 2.5 mg INHALATION Q2H PRN PRN PRN Reason: Shortness of Breath/Wheezing Last Admin: 01/01/20 01:14 Dose: 2.5 mg Documented by: Atorvastatin Calcium (Atorvastatin Calcium 20 Mg Tablet) 20 mg GT QHS HUSSAIN Last Admin: 01/07/20 22:08 Dose: 20 mg Documented by: Carvedilol (Carvedilol 6.25 Mg Tablet) 6.25 mg PO DAILY [facility] Chlorhexidine Gluconate (Chlorhexidine 15 Ml) 15 ml PO BID [facility] Last Admin: 01/08/20 08:31 Dose: 15 ml Documented by: Dextrose (Dextrose 50%-Water 25 Gm/50 Ml Disp.Syrin) 0 gm IV X1 PRN; Protocol PRN Reason: Hypoglycemia Furosemide (Furosemide 40 Mg/4 Ml Vial) 40 mg IV BID@1000,1800 [facility] Last Admin: 01/08/20 08:32 Dose: 40 mg Documented by: Glucagon (Glucagon 1 Mg/Ml Syringe) 1 mg IM .X1 PRN PRN Reason: Hypoglycemia Guaifenesin (Guaifenesin 10 Ml Udc (200mg/10ml)) 10 ml GT Q6H [facility] Last Admin: 01/08/20 10:24 Dose: 10 ml Documented by: Sodium Chloride () 500 mls @ 15 mls/hr IV PRN PRN PRN Reason: Blood Transfusion Last Infusion: 01/02/20 00:50 Dose: Infused Documented by: Sodium Chloride () 250 mls @ 15 mls/hr IV .[id number] PRN PRN Reason: Saline Flush Sodium Chloride () 250 mls @ 15 mls/hr IV .[id number] PRN PRN Reason: Additional IVPB Infusion Propofol (Diprivan) 1,000 mg in 100 mls @ 6.372 mls/hr CONT INF .Q12H [facility]; Protocol Last Admin: 01/08/20 09:29 Dose: 50 mcg/kg/min, 31.9 mls/hr Documented by: Fentanyl Citrate 1,000 mcg/ (Sodium Chloride) 100 mls @ 5 mls/hr CONT INF .Q20H [facility]; Protocol Last Admin: 01/08/20 08:31 Dose: 200 mcg/hr, 20 mls/hr Documented by: Piperacillin Sod/Tazobactam (Sod 3.375 gm/ Sodium Chloride) 50 mls @ 12.5 mls/hr IV Q8 [facility] Last Infusion: 01/08/20 10:11 Dose: Infused Documented by: Enteral Nutritional Formula (Vital Af 1.2 Jaden Liquid) 1,000 mls @ 75 mls/hr GT .[id number] [facility] Last Admin: 01/08/20 08:37 Dose: 75 mls/hr Documented by: Pantoprazole Sodium 40 mg/ (Sodium Chloride) 110 mls @ 330 mls/hr IV Q24 HUSSAIN Last Admin: 01/08/20 10:23 Dose: 330 mls/hr Documented by: Insulin Glargine (Insulin Glargine 100 Units/Ml Pen) 40 units SC BID HUSSAIN Last Admin: 01/08/20 08:33 Dose: 40 u Documented by: Insulin Human Lispro (Insulin Lispro 100 Unit/Ml Insuln.Pen) 0 unit SC Q4 HUSSAIN; Protocol Last Admin: 01/08/20 08:32 Dose: 14 u Documented by: Labetalol HCl (Labetalol (Prefilled) 20 Mg/4 Ml) 10 mg IV Q4H PRN PRN Reason: Sbp Greater Than 160 Lorazepam (Lorazepam 2 Mg/Ml Syringe) 2 mg IV Q2H PRN PRN Reason: vent synchrony Last Admin: 01/08/20 00:00 Dose: 2 mg Documented by: Melatonin (Melatonin 3 Mg Tablet) 3 mg GT QHS PRN PRN PRN Reason: INSOMNIA Ondansetron HCl (Ondansetron 4 Mg/2 Ml Vial) 4 mg IV Q8H PRN PRN PRN Reason: NAUSEA/VOMITING Polyethylene Glycol (Polyethylene Glycol 3350 17 Gm Packet) 17 gm GT BID [facility] Last Admin: 01/08/20 08:36 Dose: Not Given Documented by: Senna (Senna Tablet) 2 tablet GT BID [facility] Last Admin: 01/08/20 08:36 Dose: Not Given Documented by: Senna/Docusate Sodium (Senna/Docusate Sodium 1 Tablet) 2 tablet GT BID PRN PRN PRN Reason: Constipation Sodium Chloride (0.9% Saline Lock 10 Ml Syringe) 10 - 40 ml IV UD PRN PRN Reason: SALINE FLUSH Last Admin: 01/06/20 15:47 Dose: 10 ml Documented by: STROKE Vital Signs/Narrative: Vital Signs Pulse Resp Pulse Ox 01/08/20 09:34 125 H 22 H 90 01/08/20 07:15 114 H 14 93 Medical Necessity - Tobacco Use Smoking Status: Former smoker Tobacco Use: Pipe Assessment/Plan All Active Problems COVID-19 virus infection (Acute) Acute kidney injury (Acute) 1. Acute hypoxic respiratory failure secondary to Covid pneumonia with septic shock/SANDRA/history of DVT -Sepsis has resolved, however initially lactic acid was greater than 4 -Appreciate infectious disease assistance, initially azithromycin and Rocephin were discontinued however secondary to his continued difficulty with breathing and the need for intubation, he was started on Zosyn empirically -Completed convalescent plasma and remdesivir and Decadron -He was intubated 01/04/2020 by the azure architect secondary to continued respiratory failure -Baseline creatinine is around 1.5, on presentation he was 2.06. This improved with IV fluids to 1.35 however his creatinine is now back up to 2.03. He is only 1600 cc positive -Renal ultrasound was unremarkable -INR is supratherapeutic to an INR of 10, he received 5 of vitamin K and also received 2 units of FFP, he is now therapeutic 2. HTN/HLD/new onset A. fib -We will continue to hold his hydrochlorothiazide and Lopressor lisinopril secondary to his initial SANDRA -Continue with Lipitor via G-tube -IV hydralazine as necessary for blood pressure control, and will add Coreg given his elevation in blood pressure overnight as well as his new onset A. fib 3. GERD -Stable -Continue with PPI 4. DM 2 with diabetic nephropathy -We will hold his oral hypoglycemics, continue with his sliding scale insulin every 6 as well as Lantus -Accu-Cheks AC at bedtime DVT: Therapeutic INR Inpatient E&M: [id number] [facility] L2
[2020-01-08 10:56] LABS: Bedside Glucose 393 mg/dL (70-110)
[2020-01-08] MEDS: Carvedilol 6.25 MG Tablet PO (11:00)
[2020-01-08] MEDS: LORazepam 2 MG/ML Syringe IV ×3 (11:00→15:15)
[2020-01-08 12:11] LABS: Bedside Glucose 356 mg/dL (70-110)
[2020-01-08] MEDS: Propofol 10MG/Ml 1,000 MG/100 ML Bottle 28.7 MG CONT INF (14:44)
--- NOTE | 2020-01-08 15:31 | PN.ID_ITS ---
Patient Problems: Active and Suspected Problems COVID-19 virus infection (Acute) Acute kidney injury (Acute) Subjective: On vent, no fever - Physical Exam Vitals/I&O's: Vital Signs Temp Pulse Resp BP Pulse Ox 100.3 F H 114 H 20 H 90/46 L 87 01/08/20 13:00 01/08/20 13:00 01/08/20 13:00 01/08/20 13:00 01/08/20 13:00 Oxygen Flow Rate (L/min) 60 Oxygen Delivery Method Mechanical Ventilator Weight: 106.2 kg Body Mass Index (BMI) 34.1 Finger Stick Blood Glucose 227 Intake and Output for Last 24 Hours 01/06/20 01/07/20 01/08/20 23:59 23:59 23:59 Intake Total 3184.11 / 3224.91 1912.33 / 1940.46 1947.68 / 1947.68 Output Total 2025 / 2375 4825 / 5175 1400 / 1400 Balance 1159.11 / 849.91 -2912.67 / -3234.54 547.68 / 547.68 General: Non-Cooperative Lungs: Diminished Cardiovascular: Regular rate, Regular Rhythm Abdomen: Soft, Non Tender, Non-Distended Skin: No rashes Microbiology Past 72 Hours 01/04/20 11:43 Sputum, Expectorated/Coughed Gram Stain - Final 01/04/20 11:43 Sputum, Expectorated/Coughed Respiratory Culture - Final Mixed normal respiratory diego. No Streptococcus pneumoniae, beta-hemolytic Streptococcus or Staphylococcus aureus isolated. Laboratory Results 01/07/20 12:34: POC Glucose 458 H* 01/07/20 12:36: POC Glucose 417 H 01/07/20 17:12: POC Glucose 352 H 01/07/20 22:06: POC Glucose 481 H* 01/08/20 02:55: POC Glucose 474 H* 01/08/20 03:20: PT 28.8 H, INR 2.8 01/08/20 03:20: WBC 11.4 H, RBC 3.74 L, Hgb 11.9 L, Hct 37.1 L, MCV 99.2 H, MCH 31.8, MCHC 32.1, RDW Std Deviation 49.1 H, RDW Coeff of Cortney 13.5, Plt Count 198, MPV 10.7, Immature Gran % (Auto) 1.500 H, Neut % (Auto) 92.1 H, Lymph % (Auto) 5.0 L, [place] % (Auto) 1.1, Eos % (Auto) 0.1, Baso % (Auto) 0.2, Absolute Neuts (auto) 10.5 H, Absolute Lymphs (auto) 0.57 L, Nucleated RBC % 0, Differential Comment SCANNED, Platelet Estimate ADEQUATE, Anisocytosis RARE, Macrocytosis RARE 01/08/20 03:20: Sodium 139, Potassium 5.3 H, Chloride 106, Carbon Dioxide 26.0, Anion Gap 7, BUN 87 H, Creatinine 2.03 H, Estim Creat Clear Calc 31.47, Est GFR (MDRD) Af Amer 41 L, Est GFR (MDRD) Non-Af 34 L, BUN/Creatinine Ratio 42.9 H, Glucose 471 H*, Calcium 8.1 L, Phosphorus 4.3, Magnesium 2.6 01/08/20 06:05: POC Glucose 472 H* 01/08/20 08:28: POC Glucose 393 H 01/08/20 10:54: POC Glucose 356 H Current Medications Acetaminophen (Acetaminophen 650 Mg/20 Ml Udc) 650 mg GT Q6H PRN PRN PRN Reason: Pain Score 1-10/Temp > 100.7 F Last Admin: 01/04/20 17:25 Dose: 650 mg Documented by: Albuterol Sulfate (Albuterol 2.5 Mg/3 Ml Vial.Neb.) 2.5 mg INHALATION Q2H PRN PRN PRN Reason: Shortness of Breath/Wheezing Last Admin: 01/01/20 01:14 Dose: 2.5 mg Documented by: Atorvastatin Calcium (Atorvastatin Calcium 20 Mg Tablet) 20 mg GT QHS [facility] Last Admin: 01/07/20 22:08 Dose: 20 mg Documented by: Carvedilol (Carvedilol 6.25 Mg Tablet) 6.25 mg PO DAILY [facility] Last Admin: 01/08/20 11:00 Dose: 6.25 mg Documented by: Chlorhexidine Gluconate (Chlorhexidine 15 Ml) 15 ml PO BID [facility] Last Admin: 01/08/20 08:31 Dose: 15 ml Documented by: Dextrose (Dextrose 50%-Water 25 Gm/50 Ml Disp.Syrin) 0 gm IV X1 PRN; Protocol PRN Reason: Hypoglycemia Furosemide (Furosemide 40 Mg/4 Ml Vial) 40 mg IV BID@1000,1800 HUSSAIN Last Admin: 01/08/20 08:32 Dose: 40 mg Documented by: Glucagon (Glucagon 1 Mg/Ml Syringe) 1 mg IM .X1 PRN PRN Reason: Hypoglycemia Guaifenesin (Guaifenesin 10 Ml Udc (200mg/10ml)) 10 ml GT Q6H [facility]US[facility]IN Last Admin: 01/08/20 10:24 Dose: 10 ml Documented by: Sodium Chloride () 500 mls @ 15 mls/hr IV PRN PRN PRN Reason: Blood Transfusion Last Infusion: 01/02/20 00:50 Dose: Infused Documented by: Sodium Chloride () 250 mls @ 15 mls/hr IV .[id number] PRN PRN Reason: Saline Flush Sodium Chloride () 250 mls @ 15 mls/hr IV .[id number] PRN PRN Reason: Additional IVPB Infusion Propofol (Diprivan) 1,000 mg in 100 mls @ 6.372 mls/hr CONT INF .Q12H [facility]; Protocol Last Admin: 01/08/20 14:44 Dose: 45 mcg/kg/min, 28.7 mls/hr Documented by: Fentanyl Citrate 1,000 mcg/ (Sodium Chloride) 100 mls @ 5 mls/hr CONT INF .Q20H [facility]; Protocol Last Admin: 01/08/20 08:31 Dose: 200 mcg/hr, 20 mls/hr Documented by: Enteral Nutritional Formula (Vital Af 1.2 Jaden Liquid) 1,000 mls @ 75 mls/hr GT .[id number] [facility]USSAIN Last Admin: 01/08/20 08:37 Dose: 75 mls/hr Documented by: Pantoprazole Sodium 40 mg/ (Sodium Chloride) 110 mls @ 330 mls/hr IV Q24 [facility]USSAIN Last Infusion: 01/08/20 10:43 Dose: Infused Documented by: Norepinephrine Bitartrate 8 mg (/ Sodium Chloride) 250 mls @ 9.375 mls/hr CONT INF .[id number] [facility]; Protocol Last Admin: 01/08/20 15:15 Dose: 5 mcg/min, 9.4 mls/hr Documented by: Insulin Glargine (Insulin Glargine 100 Units/Ml Pen) 40 units SC BID [facility]USSAIN Last Admin: 01/08/20 08:33 Dose: 40 u Documented by: Insulin Human Lispro (Insulin Lispro 100 Unit/Ml Insuln.Pen) 0 unit SC Q4 [facility]USSAIN; Protocol Last Admin: 01/08/20 11:16 Dose: 12 u Documented by: Labetalol HCl (Labetalol (Prefilled) 20 Mg/4 Ml) 10 mg IV Q4H PRN PRN Reason: Sbp Greater Than 160 Lorazepam (Lorazepam 2 Mg/Ml Syringe) 2 mg IV Q2H PRN PRN Reason: vent synchrony Last Admin: 01/08/20 11:00 Dose: 2 mg Documented by: Melatonin (Melatonin 3 Mg Tablet) 3 mg GT QHS PRN PRN PRN Reason: INSOMNIA Ondansetron HCl (Ondansetron 4 Mg/2 Ml Vial) 4 mg IV Q8H PRN PRN PRN Reason: NAUSEA/VOMITING Polyethylene Glycol (Polyethylene Glycol 3350 17 Gm Packet) 17 gm GT BID [facility]US[facility]IN Last Admin: 01/08/20 08:36 Dose: Not Given Documented by: Senna (Senna Tablet) 2 tablet GT BID [facility]IN Last Admin: 01/08/20 08:36 Dose: Not Given Documented by: Senna/Docusate Sodium (Senna/Docusate Sodium 1 Tablet) 2 tablet GT BID PRN PRN PRN Reason: Constipation Sodium Chloride (0.9% Saline Lock 10 Ml Syringe) 10 - 40 ml IV UD PRN PRN Reason: SALINE FLUSH Last Admin: 01/06/20 15:47 Dose: 10 ml Documented by: Medical Necessity - Tobacco Use Smoking Status: Former smoker Tobacco Use: Pipe Route of nutrition/ use of supplements: [] Nutritional Intake: [] IV Site: [] Blair Catheter: [] - Assessment/Plan Antibiotics: [] Assessment/Plan: [] Active and Suspected Problems COVID-19 virus infection (Acute) Acute kidney injury (Acute) covid with acute hypoxic resp failure and SANDRA - on dex, developed worsened hypoxia. Sx started evening 12/23. Started remdesivir and plasma 12/31. Now on vent, pressors stopped, on empiric zosyn. Wbc mildly elevated, no fever, cxs are all neg at this point. Will stop zosyn, had episode of diarrhea. Will follow
[2020-01-08 16:06] LABS: Base Excess -2 mmol/L (-2 to +2); Bicarbonate 25.8 mmol/L (22-26); Blood Gas Specimen Type ART; FI02 100; Mode AC; O2 Delivery Device ET Tube; PEEP 12; PO2 60 mmHG (75-100); RR 14; SITE R Radial; SO2 84 % (95-99); Total Carbon Dioxide 28 mmol/L; Vt 450; pCO2 63.8 mmHg (35-45); pH 7.22 (7.35-7.45)
[2020-01-08] MEDS: Propofol 10MG/Ml 1,000 MG/100 ML Bottle 25.5 MG CONT INF ×2 (18:28→22:51)
[2020-01-08 20:25] LABS: Bedside Glucose 227 mg/dL (70-110)
[2020-01-08] MEDS: Atorvastatin Calcium 20 MG Tablet GT (22:29)
--- NOTE | 2020-01-08 23:39 | NURSING ---
Patricia covington RN charting reviewed and agree with assessment findings
[2020-01-09] VITALS (54 sets, daily range): BP systolic 109–217; BP diastolic 46–91; PULSE 75–96; RESP 10–34; TEMP 36.8–37.7; O2SAT 82–98
[2020-01-09 00:21] LABS: Bedside Glucose 246 mg/dL (70-110)
--- NOTE | 2020-01-09 01:28 | NURSING ---
RASS -4, however propofol remains at 40 mcg/kg/min due to ventilator dysynchrony.
[2020-01-09] MEDS: Propofol 10MG/Ml 1,000 MG/100 ML Bottle 25.5 MG CONT INF (02:45)
[2020-01-09] MEDS: Insulin Lispro 100 UNIT/ML INSULN.PEN SC ×5 (03:21→21:23)
[2020-01-09] MEDS: 0.9% Saline Lock 10 ML Syringe IV (03:22)
[2020-01-09 03:35] LABS: Absolute Lymphocyte Count 0.51 X10^3/uL (0.83-4.51); Absolute Neutrophil Count 14.9 X10^3/uL (2.0-7.7); Basophil# 0.03 X10^3/uL; Basophil% 0.2 % (0-1); Eosinophil# 0.02 X10^3/uL; Eosinophils% 0.1 % (0-5); Hematocrit 39.6 % (40-54); Hemoglobin 12.4 g/dL (13.0-16.5); Lymphocyte # 0.51 X10^3/ul (4.0); Lymphocyte % 3.2 % (19-41); Mean Corp Hgb Conc 31.3 g/dL (32-36); Mean Corpuscular Hgb 31.9 pg (27.0-32.0); Mean Corpuscular Volume 101.8 fL (80-94); Mean Platelet Vol. 10.4 fl (6.2-12.0); Monocyte# 0.16 X10^3/uL; NRBC Flagged by Analyzer 0 % (0-5); Neutrophil # 14.87 X10^3/uL (2.7-7.7); Neutrophil % 94.2 % (47-70); POSITIVE DIFFERENTIAL YES; Platelet Count 208 K/mm3 (150-450); RBC Distribution Width CV 13.8 % (11.6-14.6); RBC Distribution Width SD 51.4 fl (35.1-43.9); Red Blood Count 3.89 M/mm3 (4.6-6.2); White Blood Count 15.8 K/mm3 (4.4-11.0)
[2020-01-09 03:38] LABS: Differential Indicated SCAN CRITERIA MET
[2020-01-09 04:06] LABS: Differential Comment SCANNED
[2020-01-09 04:07] LABS: Platelet Estimate ADEQUATE (ADEQ)
[2020-01-09 04:15] LABS: Anion Gap 6 (5-15); BUN 105 mg/dL (7-18); BUN/Creat Ratio 42.9 RATIO (10-20); Calcium,Total 8.2 mg/dL (8.5-10.1); Chloride 109 mmol/L (98-107); Creatinine, Serum 2.45 mg/dL (0.70-1.30); EST Glomerular Filtration Rate 27 mL/min (>60); Est Glom Filt Rate - Afr Amer 33 mL/min (>60); Estimated Creatinine Clearance 26.07 ml/min; Glucose 272 mg/dL (74-106); Potassium 5.6 mmol/L (3.5-5.1); Sodium Level 141 mmol/L (136-145)
[2020-01-09] MEDS: guaiFENesin 10 ML UDC (200MG/10ML) GT ×4 (05:04→21:23)
[2020-01-09 05:39] LABS: International Normalized Ratio 3.1
[2020-01-09 05:41] LABS: Bedside Glucose 279 mg/dL (70-110)
[2020-01-09] MEDS: TITRATION PARAMETER CHANGE 1 EACH IV (06:10)
[2020-01-09 06:30] LABS: Bedside Glucose 287 mg/dL (70-110)
[2020-01-09] MEDS: Propofol 10MG/Ml 1,000 MG/100 ML Bottle 22.5 MG CONT INF ×2 (07:01→12:00)
--- NOTE | 2020-01-09 07:40 | PN_ITS ---
Subjective: Patient did okay overnight. Patient continues to have marginal oxygenation with decreased responsiveness. Patient has had lower urine output over the last 24 hours. Patient was placed on Levophed for a short period of time, but is now hypertensive. General: - - Intubated and sedated. Obese. Fair vent synchrony. HEENT: Atraumatic, PERRLA, EOMI, Normocephalic, - - Slight scleral injection without icterus Oral: Moist Mucosa, No Gingival or Mucosal Lesions/ Ulcerations Neck: Supple, No Nodes, Trachea Midline, JVD, Right Lungs: No rhonchi, No wheeze, No rales, Diminished, - - Symmetric expansion. Cardiovascular: Regular rate, Regular Rhythm, Normal S1, Normal S2, No murmurs, No rub noted, No Gallop Abdomen: Bowel Sounds Present, Soft, Non Tender, Distended - Slightly, Obese Extremities: No clubbing, No cyanosis, Edema Skin: - - No change compared to previous Musculoskeletal: No Tenderness to Palpation of Joints or Extremities Lymphatic: No Cervical, Supraclavicular, or Inguinal Adenopathy Neurological: Cranial nerves II-XII grossly intact, Neuro grossly intact Psych/Mental Status: Flat Affect Vital Signs Temp Pulse Resp BP Pulse Ox 37.2 C 88 22 H 142/63 H 93 01/09/20 06:00 01/09/20 07:00 01/09/20 07:00 01/09/20 07:00 01/09/20 07:00 Oxygen Flow Rate (L/min) 60 Oxygen Delivery Method Mechanical Ventilator Weight: 107.2 kg Body Mass Index (BMI) 34.1 Finger Stick Blood Glucose 227 Intake and Output for Last 24 Hours 01/07/20 01/08/20 01/09/20 23:59 23:59 23:59 Intake Total 1912.33 / 1940.46 3083.01 / 3639.28 1537.42 / 1537.42 Output Total 4825 / 5175 2300 / 2850 975 / 975 Balance -2912.67 / -3234.54 783.01 / 789.28 562.42 / 562.42 Labs (Last 48 Hours) 01/07/20 01/07/20 01/07/20 06:20 08:46 12:34 WBC RBC Hgb Hct MCV MCH MCHC RDW Std Deviation RDW Coeff of Cortney Plt Count MPV Immature Gran % (Auto) Neut % (Auto) Lymph % (Auto) [place] % (Auto) Eos % (Auto) Baso % (Auto) Absolute Neuts (auto) Absolute Lymphs (auto) Nucleated RBC % Differential Comment Platelet Estimate Anisocytosis Macrocytosis PT INR Specimen Type Sample Site pH Bicarbonate Actual Total CO2 Base Excess O2 Saturation O2 % ABG pCO2 ABG pO2 Respiration Rate O2 Delivery Device Vent Mode Tidal Volume POC PEEP Sodium Potassium Chloride Carbon Dioxide Anion Gap BUN Creatinine Estim Creat Clear Calc Est GFR (MDRD) Af Amer Est GFR (MDRD) Non-Af BUN/Creatinine Ratio Glucose Calcium Phosphorus Magnesium POC Glucose 363 H 383 H 458 H* 01/07/20 01/07/20 01/07/20 12:36 17:12 22:06 WBC RBC Hgb Hct MCV MCH MCHC RDW Std Deviation RDW Coeff of Cortney Plt Count MPV Immature Gran % (Auto) Neut % (Auto) Lymph % (Auto) [place] % (Auto) Eos % (Auto) Baso % (Auto) Absolute Neuts (auto) Absolute Lymphs (auto) Nucleated RBC % Differential Comment Platelet Estimate Anisocytosis Macrocytosis PT INR Specimen Type Sample Site pH Bicarbonate Actual Total CO2 Base Excess O2 Saturation O2 % ABG pCO2 ABG pO2 Respiration Rate O2 Delivery Device Vent Mode Tidal Volume POC PEEP Sodium Potassium Chloride Carbon Dioxide Anion Gap BUN Creatinine Estim Creat Clear Calc Est GFR (MDRD) Af Amer Est GFR (MDRD) Non-Af BUN/Creatinine Ratio Glucose Calcium Phosphorus Magnesium POC Glucose 417 H 352 H 481 H* 01/08/20 01/08/20 01/08/20 02:55 03:20 03:20 WBC 11.4 H RBC 3.74 L Hgb 11.9 L Hct 37.1 L MCV 99.2 H MCH 31.8 MCHC 32.1 RDW Std Deviation 49.1 H RDW Coeff of Cortney 13.5 Plt Count 198 MPV 10.7 Immature Gran % (Auto) 1.500 H Neut % (Auto) 92.1 H Lymph % (Auto) 5.0 L [place] % (Auto) 1.1 Eos % (Auto) 0.1 Baso % (Auto) 0.2 Absolute Neuts (auto) 10.5 H Absolute Lymphs (auto) 0.57 L Nucleated RBC % 0 Differential Comment SCANNED Platelet Estimate ADEQUATE Anisocytosis RARE Macrocytosis RARE PT 28.8 H INR 2.8 Specimen Type Sample Site pH Bicarbonate Actual Total CO2 Base Excess O2 Saturation O2 % ABG pCO2 ABG pO2 Respiration Rate O2 Delivery Device Vent Mode Tidal Volume POC PEEP Sodium Potassium Chloride Carbon Dioxide Anion Gap BUN Creatinine Estim Creat Clear Calc Est GFR (MDRD) Af Amer Est GFR (MDRD) Non-Af BUN/Creatinine Ratio Glucose Calcium Phosphorus Magnesium POC Glucose 474 H* 01/08/20 01/08/20 01/08/20 03:20 06:05 08:28 WBC RBC Hgb Hct MCV MCH MCHC RDW Std Deviation RDW Coeff of Cortney Plt Count MPV Immature Gran % (Auto) Neut % (Auto) Lymph % (Auto) [place] % (Auto) Eos % (Auto) Baso % (Auto) Absolute Neuts (auto) Absolute Lymphs (auto) Nucleated RBC % Differential Comment Platelet Estimate Anisocytosis Macrocytosis PT INR Specimen Type Sample Site pH Bicarbonate Actual Total CO2 Base Excess O2 Saturation O2 % ABG pCO2 ABG pO2 Respiration Rate O2 Delivery Device Vent Mode Tidal Volume POC PEEP Sodium 139 Potassium 5.3 H Chloride 106 Carbon Dioxide 26.0 Anion Gap 7 BUN 87 H Creatinine 2.03 H Estim Creat Clear Calc 31.47 Est GFR (MDRD) Af Amer 41 L Est GFR (MDRD) Non-Af 34 L BUN/Creatinine Ratio 42.9 H Glucose 471 H* Calcium 8.1 L Phosphorus 4.3 Magnesium 2.6 POC Glucose 472 H* 393 H 01/08/20 01/08/20 01/08/20 10:54 15:57 19:09 WBC RBC Hgb Hct MCV MCH MCHC RDW Std Deviation RDW Coeff of Cortney Plt Count MPV Immature Gran % (Auto) Neut % (Auto) Lymph % (Auto) [place] % (Auto) Eos % (Auto) Baso % (Auto) Absolute Neuts (auto) Absolute Lymphs (auto) Nucleated RBC % Differential Comment Platelet Estimate Anisocytosis Macrocytosis PT INR Specimen Type ART Sample Site R Radial pH 7.22 L Bicarbonate Actual 25.8 Total CO2 28 Base Excess -2 O2 Saturation 84 L O2 % 100 ABG pCO2 63.8 H ABG pO2 60 L Respiration Rate 14 O2 Delivery Device ET Tube Vent Mode AC Tidal Volume 450 POC PEEP 12 Sodium Potassium Chloride Carbon Dioxide Anion Gap BUN Creatinine Estim Creat Clear Calc Est GFR (MDRD) Af Amer Est GFR (MDRD) Non-Af BUN/Creatinine Ratio Glucose Calcium Phosphorus Magnesium POC Glucose 356 H 227 H 01/08/20 01/09/20 01/09/20 22:26 03:20 03:25 WBC 15.8 H RBC 3.89 L Hgb 12.4 L Hct 39.6 L MCV 101.8 H MCH 31.9 MCHC 31.3 L RDW Std Deviation 51.4 H RDW Coeff of Cortney 13.8 Plt Count 208 MPV 10.4 Immature Gran % (Auto) 1.300 H Neut % (Auto) 94.2 H Lymph % (Auto) 3.2 L [place] % (Auto) 1.0 Eos % (Auto) 0.1 Baso % (Auto) 0.2 Absolute Neuts (auto) 14.9 H Absolute Lymphs (auto) 0.51 L Nucleated RBC % 0 Differential Comment SCANNED Platelet Estimate ADEQUATE Anisocytosis Macrocytosis PT INR Specimen Type Sample Site pH Bicarbonate Actual Total CO2 Base Excess O2 Saturation O2 % ABG pCO2 ABG pO2 Respiration Rate O2 Delivery Device Vent Mode Tidal Volume POC PEEP Sodium Potassium Chloride Carbon Dioxide Anion Gap BUN Creatinine Estim Creat Clear Calc Est GFR (MDRD) Af Amer Est GFR (MDRD) Non-Af BUN/Creatinine Ratio Glucose Calcium Phosphorus Magnesium POC Glucose 246 H 279 H 01/09/20 01/09/20 01/09/20 03:25 04:58 05:20 WBC RBC Hgb Hct MCV MCH MCHC RDW Std Deviation RDW Coeff of Cortney Plt Count MPV Immature Gran % (Auto) Neut % (Auto) Lymph % (Auto) [place] % (Auto) Eos % (Auto) Baso % (Auto) Absolute Neuts (auto) Absolute Lymphs (auto) Nucleated RBC % Differential Comment Platelet Estimate Anisocytosis Macrocytosis PT 32.0 H INR 3.1 Specimen Type Sample Site pH Bicarbonate Actual Total CO2 Base Excess O2 Saturation O2 % ABG pCO2 ABG pO2 Respiration Rate O2 Delivery Device Vent Mode Tidal Volume POC PEEP Sodium 141 Potassium 5.6 H Chloride 109 H Carbon Dioxide 26.0 Anion Gap 6 BUN 105 H* Creatinine 2.45 H Estim Creat Clear Calc 26.07 Est GFR (MDRD) Af Amer 33 L Est GFR (MDRD) Non-Af 27 L BUN/Creatinine Ratio 42.9 H Glucose 272 H Calcium 8.2 L Phosphorus Magnesium POC Glucose 287 H Medical Necessity - Tobacco Use Smoking Status: Former smoker Tobacco Use: Pipe Assessment/Plan All Active Problems COVID-19 virus infection (Acute) Acute kidney injury (Acute) RECOMMENDATIONS: 1. Wean FiO2 and PEEP to maintain oxygen saturations at or above 90%. 2. Continue empiric antimicrobials, tube feeds, Decadron and remdesivir. 3. Initiate family discussion about goals of therapy 4. Continuous awakening and breathing trials per protocol 5. Continue insulin coverage. 6. Possibly consult nephrology if family wishes to remain aggressive 7. Monitor blood pressure closely IMPRESSIONS: 1. Acute hypoxemic respiratory failure secondary to Covid pneumonia Although attempts were made to utilize noninvasive positive pressure ventilatory support, the patient continued to decompensate from a respiratory perspective and did require intubation on the morning of January 03. Plan to continue current supportive measures. Patient is receiving maximal therapy for Covid pneumonia. Some concern for failure for improvement despite extended mechanical ventilation. Will discuss with the family today about goals of therapy. 2. Distributive shock Resolved. The patient became hemodynamically unstable after sedation was initiated in the setting of invasive mechanical ventilatory support. Patient is continuing on antibiotic therapy. Unclear if patient has an element of volume depletion secondary to diuretic therapy, but oxygenation remains marginal. 3. Acute kidney injury Patient appears to be progressing. Patient's creatinine is up along with decreased urine output. We will hold on diuretics for now. 4. Coagulopathy The patient presented to the hospital systemically anticoagulated on Coumadin. He has subsequently developed a coagulopathy with a supratherapeutic INR, likely secondary to his acute illness and medication interactions. His Coumadin has been discontinued. Patient is on concomitant antibiotics, which will prolonged INR. INR has stayed around 3. No bleeding complications have been reported. No need for other systemic anticoagulation 5. Hypertension/hyperlipidemia/GERD/history of DVT/diabetes mellitus Complicates care, management, recovery and prognosis. Continue to hold Coumadin given supratherapeutic INR. Increase Lantus and sliding scale insulin coverage. Addendum 1600: Spoke at length with patient's about his current situation and goals of therapy. She understands that his prognosis is extremely guarded, but states that he would want to do everything. She does report that he tends to be very secretive about his health care and she is unaware of what doctors he sees or what medical conditions he has. She also states that she is concerned that he may have been developing dementia prior to his acute hospitalization as he becomes very abrupt and makes up stories. She is very clear that the patient would want to have CPR and may be open to a tracheostomy. She is going to speak with her children about that option moving forward. The patient is to remain a full code TIME: 50 minutes of critical care time, inclusive of procedures, was spent addressing the patient's acute hypoxemic respiratory failure secondary to Covid pneumonia, acute kidney injury, hypertensive urgency, coagulopathy, review of all data and collaboration with the care team. (5:45 AM to 6:45 AM, 3 PM to 4 PM) [id number]: [id number] Critical care first hour
--- NOTE | 2020-01-09 10:44 | PN_ITS ---
Patient Problems: Active and Suspected Problems COVID-19 virus infection (Acute) Acute kidney injury (Acute) Subjective: Continues to have very little improvement in his oxygenation. No issues overnight but he did have to be placed on Levophed for short time and now he is hypertensive we may need to add back on blood pressure medications. Vitals/I&O's: Vital Signs Temp Pulse Resp BP Pulse Ox 98.8 F 93 21 H 148/59 H 92 01/09/20 09:00 01/09/20 10:00 01/09/20 10:00 01/09/20 10:00 01/09/20 10:00 Oxygen Flow Rate (L/min) 60 Oxygen Delivery Method Mechanical Ventilator Weight: 236 lb 5.369 oz Body Mass Index (BMI) 34.1 Finger Stick Blood Glucose 227 Intake and Output for Last 24 Hours 01/07/20 01/08/20 01/09/20 23:59 23:59 23:59 Intake Total 1912.33 / 1940.46 3083.01 / 3639.28 1657.04 / 1657.04 Output Total 4825 / 5175 2300 / 2850 1255 / 1255 Balance -2912.67 / -3234.54 783.01 / 789.28 402.04 / 402.04 General: - - Intubated and sedated HEENT: Atraumatic, PERRLA, Normocephalic Oral: Dry Mucosa Neck: Supple, No JVD Lungs: Normal air movement, No rhonchi, No wheeze, No rales, Diminished Cardiovascular: Regular rate, Regular Rhythm, Normal S1, Normal S2, No murmurs Abdomen: Soft, Non Tender, Non-Distended, No Hepato-splenomegaly Extremities: No edema, Capillary Refill Less than 3 Seconds Skin: No rashes, No breakdown Neurological: - - Intubated and sedated Psych/Mental Status: - - Intubated and sedated Microbiology Past 72 Hours 01/04/20 11:43 Sputum, Expectorated/Coughed Gram Stain - Final 01/04/20 11:43 Sputum, Expectorated/Coughed Respiratory Culture - Final Mixed normal respiratory diego. No Streptococcus pneumoniae, beta-hemolytic Streptococcus or Staphylococcus aureus isolated. Laboratory Results 01/08/20 08:28: POC Glucose 393 H 01/08/20 10:54: POC Glucose 356 H 01/08/20 15:57: Specimen Type ART, Sample Site R Radial, pH 7.22 L, Bicarbonate Actual 25.8, Total CO2 28, Base Excess -2, O2 Saturation 84 L, O2 % 100, ABG pCO2 63.8 H, ABG pO2 60 L, Respiration Rate 14, O2 Delivery Device ET Tube, Vent Mode AC, Tidal Volume 450, POC PEEP 12 01/08/20 19:09: POC Glucose 227 H 01/08/20 22:26: POC Glucose 246 H 01/09/20 03:20: POC Glucose 279 H 01/09/20 03:25: WBC 15.8 H, RBC 3.89 L, Hgb 12.4 L, Hct 39.6 L, MCV 101.8 H, MCH 31.9, MCHC 31.3 L, RDW Std Deviation 51.4 H, RDW Coeff of Cortney 13.8, Plt Count 208, MPV 10.4, Immature Gran % (Auto) 1.300 H, Neut % (Auto) 94.2 H, Lymph % (Auto) 3.2 L, [place] % (Auto) 1.0, Eos % (Auto) 0.1, Baso % (Auto) 0.2, Absolute Neuts (auto) 14.9 H, Absolute Lymphs (auto) 0.51 L, Nucleated RBC % 0, Differential Comment SCANNED, Platelet Estimate ADEQUATE 01/09/20 03:25: Sodium 141, Potassium 5.6 H, Chloride 109 H, Carbon Dioxide 26.0, Anion Gap 6, BUN 105 H*, Creatinine 2.45 H, Estim Creat Clear Calc 26.07, Est GFR (MDRD) Af Amer 33 L, Est GFR (MDRD) Non-Af 27 L, BUN/Creatinine Ratio 42.9 H, Glucose 272 H, Calcium 8.2 L 01/09/20 04:58: POC Glucose 287 H 01/09/20 05:20: PT 32.0 H, INR 3.1 Current Medications Acetaminophen (Acetaminophen 650 Mg/20 Ml Udc) 650 mg GT Q6H PRN PRN PRN Reason: Pain Score 1-10/Temp > 100.7 F Last Admin: 01/04/20 17:25 Dose: 650 mg Documented by: Albuterol Sulfate (Albuterol 2.5 Mg/3 Ml Vial.Neb.) 2.5 mg INHALATION Q2H PRN PRN PRN Reason: Shortness of Breath/Wheezing Last Admin: 01/01/20 01:14 Dose: 2.5 mg Documented by: Atorvastatin Calcium (Atorvastatin Calcium 20 Mg Tablet) 20 mg GT QHS [facility] Last Admin: 01/08/20 22:29 Dose: 20 mg Documented by: Carvedilol (Carvedilol 6.25 Mg Tablet) 6.25 mg PO DAILY [facility] Last Admin: 01/08/20 11:00 Dose: 6.25 mg Documented by: Chlorhexidine Gluconate (Chlorhexidine 15 Ml) 15 ml PO BID [facility] Last Admin: 01/08/20 22:31 Dose: 15 ml Documented by: Dextrose (Dextrose 50%-Water 25 Gm/50 Ml Disp.Syrin) 0 gm IV X1 PRN; Protocol PRN Reason: Hypoglycemia Glucagon (Glucagon 1 Mg/Ml Syringe) 1 mg IM .X1 PRN PRN Reason: Hypoglycemia Guaifenesin (Guaifenesin 10 Ml Udc (200mg/10ml)) 10 ml GT Q6H [facility] Last Admin: 01/09/20 05:04 Dose: 10 ml Documented by: Sodium Chloride () 500 mls @ 15 mls/hr IV PRN PRN PRN Reason: Blood Transfusion Last Admin: 01/08/20 19:35 Dose: 15 mls/hr Documented by: Sodium Chloride () 250 mls @ 15 mls/hr IV .[id number] PRN PRN Reason: Saline Flush Sodium Chloride () 250 mls @ 15 mls/hr IV .[id number] PRN PRN Reason: Additional IVPB Infusion Propofol (Diprivan) 1,000 mg in 100 mls @ 6.432 mls/hr CONT INF .Q12H [facility]; Protocol Last Titration: 01/09/20 10:00 Dose: 35 mcg/kg/min, 22.5 mls/hr Documented by: Fentanyl Citrate 1,000 mcg/ (Sodium Chloride) 100 mls @ 5 mls/hr CONT INF .Q20H [facility]; Protocol Last Titration: 01/09/20 10:00 Dose: 175 mcg/hr, 17.5 mls/hr Documented by: Enteral Nutritional Formula (Vital Af 1.2 Jaden Liquid) 1,000 mls @ 75 mls/hr GT .[id number] [facility] Last Admin: 01/08/20 08:37 Dose: 75 mls/hr Documented by: Pantoprazole Sodium 40 mg/ (Sodium Chloride) 110 mls @ 330 mls/hr IV Q24 [facility] Last Infusion: 01/08/20 10:43 Dose: Infused Documented by: Norepinephrine Bitartrate 8 mg (/ Sodium Chloride) 250 mls @ 9.375 mls/hr CONT INF .[id number] [facility]; Protocol Last Titration: 01/09/20 10:00 Dose: 0 mcg/min, 0 mls/hr Documented by: Dexmedetomidine HCl 400 mcg/ (Sodium Chloride) 100 mls @ 13.4 mls/hr CONT INF .Q7H28M [facility]; Protocol Insulin Glargine (Insulin Glargine 100 Units/Ml Pen) 50 units SC BID [facility] Insulin Human Lispro (Insulin Lispro 100 Unit/Ml Insuln.Pen) 0 unit SC Q4 [facility]; Protocol Last Admin: 01/09/20 05:04 Dose: 9 u Documented by: Labetalol HCl (Labetalol (Prefilled) 20 Mg/4 Ml) 10 mg IV Q4H PRN PRN Reason: Sbp Greater Than 160 Lorazepam (Lorazepam 2 Mg/Ml Syringe) 2 mg IV Q2H PRN PRN Reason: vent synchrony Last Admin: 01/08/20 15:15 Dose: 2 mg Documented by: Melatonin (Melatonin 3 Mg Tablet) 3 mg GT QHS PRN PRN PRN Reason: INSOMNIA Ondansetron HCl (Ondansetron 4 Mg/2 Ml Vial) 4 mg IV Q8H PRN PRN PRN Reason: NAUSEA/VOMITING Senna/Docusate Sodium (Senna/Docusate Sodium 1 Tablet) 2 tablet GT BID PRN PRN PRN Reason: Constipation Sodium Chloride (0.9% Saline Lock 10 Ml Syringe) 10 - 40 ml IV UD PRN PRN Reason: SALINE FLUSH Last Admin: 01/09/20 03:22 Dose: 40 ml Documented by: STROKE Vital Signs/Narrative: Vital Signs Temp Pulse Resp BP Pulse Ox 01/09/20 10:00 93 21 H 148/59 H 92 01/09/20 09:00 98.8 F 88 20 H 150/55 H 92 01/09/20 08:00 90 141/60 H 93 01/09/20 07:00 88 22 H 142/63 H 93 Medical Necessity - Tobacco Use Smoking Status: Former smoker Tobacco Use: Pipe Assessment/Plan All Active Problems COVID-19 virus infection (Acute) Acute kidney injury (Acute) 1. Acute hypoxic respiratory failure secondary to Covid pneumonia with septic shock/SANDRA/history of DVT -Sepsis has resolved, however initially lactic acid was greater than 4 -Appreciate infectious disease assistance, initially azithromycin and Rocephin were discontinued however secondary to his continued difficulty with breathing and the need for intubation, he was started on Zosyn empirically -Completed convalescent plasma and remdesivir and Decadron -He was intubated 01/04/2020 by the dentist secondary to continued respiratory failure -Baseline creatinine is around 1.5, on presentation he was 2.06. This improved with IV fluids to 1.35 however his creatinine is now back up to 2.45. He is only 1600 cc positive -Renal ultrasound was unremarkable -INR is supratherapeutic to an INR of 10, he received 5 of vitamin K and also received 2 units of FFP, he is now therapeutic 2. HTN/HLD/new onset A. fib -We will continue to hold his hydrochlorothiazide and Lopressor lisinopril secondary to his initial SANDRA -Continue with Lipitor via G-tube -IV hydralazine as necessary for blood pressure control, and will add Coreg given his elevation in blood pressure as well as his new onset A. fib, but it seems that he had to be going between Levophed and Coreg as he becomes hypotensive and hypertensive 3. GERD -Stable -Continue with PPI 4. DM 2 with diabetic nephropathy -We will hold his oral hypoglycemics, continue with his sliding scale insulin every 6 as well as Lantus -Accu-Cheks AC at bedtime DVT: Therapeutic INR Given his slow improvement in his condition, want to discuss with the family goals of care and see if they would like to change him from a full code to a DNR CCA. Inpatient E&M: 59401 Subs Hosp L2
--- NOTE | 2020-01-09 11:05 | CASEMGMT ---
RN FLOYD Note: participated in ICU interdisciplinary rounds. The patient remains on ventilator support with 70% O2. Physicians may speak with family today re: continuing plan of care. If agressive care continues, plan is for renal consult and possible dialysis. CM to continue to follow and SW consult if family decides to change plan of care to comfort care/Hospice. Loreto ODONNELLN RN AC
--- NOTE | 2020-01-09 11:13 | PCM.PN.ID ---
Patient Problems: Active and Suspected Problems COVID-19 virus infection (Acute) Acute kidney injury (Acute) Subjective: 90 on vent, no fever - Physical Exam Vitals/I&O's: Vital Signs Temp Pulse Resp BP Pulse Ox 98.8 F 93 21 H 148/59 H 92 01/09/20 09:00 01/09/20 10:00 01/09/20 10:00 01/09/20 10:00 01/09/20 10:00 Oxygen Flow Rate (L/min) 60 Oxygen Delivery Method Mechanical Ventilator Weight: 107.2 kg Body Mass Index (BMI) 34.1 Finger Stick Blood Glucose 227 Intake and Output for Last 24 Hours 01/07/20 01/08/20 01/09/20 23:59 23:59 23:59 Intake Total 1912.33 / 1940.46 3083.01 / 3639.28 1657.04 / 1657.04 Output Total 4825 / 5175 2300 / 2850 1255 / 1255 Balance -2912.67 / -3234.54 783.01 / 789.28 402.04 / 402.04 General: No apparent distress Lungs: Diminished Cardiovascular: Regular rate, Regular Rhythm Abdomen: Soft, Non Tender, Non-Distended Skin: No rashes Microbiology Past 72 Hours 01/04/20 11:43 Sputum, Expectorated/Coughed Gram Stain - Final 01/04/20 11:43 Sputum, Expectorated/Coughed Respiratory Culture - Final Mixed normal respiratory diego. No Streptococcus pneumoniae, beta-hemolytic Streptococcus or Staphylococcus aureus isolated. Laboratory Results 01/08/20 10:54: POC Glucose 356 H 01/08/20 15:57: Specimen Type ART, Sample Site R Radial, pH 7.22 L, Bicarbonate Actual 25.8, Total CO2 28, Base Excess -2, O2 Saturation 84 L, O2 % 100, ABG pCO2 63.8 H, ABG pO2 60 L, Respiration Rate 14, O2 Delivery Device ET Tube, Vent Mode AC, Tidal Volume 450, POC PEEP 12 01/08/20 19:09: POC Glucose 227 H 01/08/20 22:26: POC Glucose 246 H 01/09/20 03:20: POC Glucose 279 H 01/09/20 03:25: WBC 15.8 H, RBC 3.89 L, Hgb 12.4 L, Hct 39.6 L, MCV 101.8 H, MCH 31.9, MCHC 31.3 L, RDW Std Deviation 51.4 H, RDW Coeff of Cortney 13.8, Plt Count 208, MPV 10.4, Immature Gran % (Auto) 1.300 H, Neut % (Auto) 94.2 H, Lymph % (Auto) 3.2 L, [place] % (Auto) 1.0, Eos % (Auto) 0.1, Baso % (Auto) 0.2, Absolute Neuts (auto) 14.9 H, Absolute Lymphs (auto) 0.51 L, Nucleated RBC % 0, Differential Comment SCANNED, Platelet Estimate ADEQUATE 01/09/20 03:25: Sodium 141, Potassium 5.6 H, Chloride 109 H, Carbon Dioxide 26.0, Anion Gap 6, BUN 105 H*, Creatinine 2.45 H, Estim Creat Clear Calc 26.07, Est GFR (MDRD) Af Amer 33 L, Est GFR (MDRD) Non-Af 27 L, BUN/Creatinine Ratio 42.9 H, Glucose 272 H, Calcium 8.2 L 01/09/20 04:58: POC Glucose 287 H 01/09/20 05:20: PT 32.0 H, INR 3.1 Current Medications Acetaminophen (Acetaminophen 650 Mg/20 Ml Udc) 650 mg GT Q6H PRN PRN PRN Reason: Pain Score 1-10/Temp > 100.7 F Last Admin: 01/04/20 17:25 Dose: 650 mg Documented by: Albuterol Sulfate (Albuterol 2.5 Mg/3 Ml Vial.Neb.) 2.5 mg INHALATION Q2H PRN PRN PRN Reason: Shortness of Breath/Wheezing Last Admin: 01/01/20 01:14 Dose: 2.5 mg Documented by: Atorvastatin Calcium (Atorvastatin Calcium 20 Mg Tablet) 20 mg GT QHS [facility] Last Admin: 01/08/20 22:29 Dose: 20 mg Documented by: Carvedilol (Carvedilol 6.25 Mg Tablet) 6.25 mg PO DAILY [facility] Last Admin: 01/08/20 11:00 Dose: 6.25 mg Documented by: Chlorhexidine Gluconate (Chlorhexidine 15 Ml) 15 ml PO BID [facility] Last Admin: 01/08/20 22:31 Dose: 15 ml Documented by: Dextrose (Dextrose 50%-Water 25 Gm/50 Ml Disp.Syrin) 0 gm IV X1 PRN; Protocol PRN Reason: Hypoglycemia Glucagon (Glucagon 1 Mg/Ml Syringe) 1 mg IM .X1 PRN PRN Reason: Hypoglycemia Guaifenesin (Guaifenesin 10 Ml Udc (200mg/10ml)) 10 ml GT Q6H [facility] Last Admin: 01/09/20 05:04 Dose: 10 ml Documented by: Sodium Chloride () 500 mls @ 15 mls/hr IV PRN PRN PRN Reason: Blood Transfusion Last Admin: 01/08/20 19:35 Dose: 15 mls/hr Documented by: Sodium Chloride () 250 mls @ 15 mls/hr IV .[id number] PRN PRN Reason: Saline Flush Sodium Chloride () 250 mls @ 15 mls/hr IV .[id number] PRN PRN Reason: Additional IVPB Infusion Propofol (Diprivan) 1,000 mg in 100 mls @ 6.432 mls/hr CONT INF .Q12H [facility]; Protocol Last Titration: 01/09/20 10:00 Dose: 35 mcg/kg/min, 22.5 mls/hr Documented by: Fentanyl Citrate 1,000 mcg/ (Sodium Chloride) 100 mls @ 5 mls/hr CONT INF .Q20H [facility]; Protocol Last Titration: 01/09/20 10:00 Dose: 175 mcg/hr, 17.5 mls/hr Documented by: Enteral Nutritional Formula (Vital Af 1.2 Jaden Liquid) 1,000 mls @ 75 mls/hr GT .[id number] [facility] Last Admin: 01/08/20 08:37 Dose: 75 mls/hr Documented by: Pantoprazole Sodium 40 mg/ (Sodium Chloride) 110 mls @ 330 mls/hr IV Q24 [facility] Last Infusion: 01/08/20 10:43 Dose: Infused Documented by: Norepinephrine Bitartrate 8 mg (/ Sodium Chloride) 250 mls @ 9.375 mls/hr CONT INF .[id number] [facility]; Protocol Last Titration: 01/09/20 10:00 Dose: 0 mcg/min, 0 mls/hr Documented by: Dexmedetomidine HCl 400 mcg/ (Sodium Chloride) 100 mls @ 13.4 mls/hr CONT INF .Q7H28M [facility]; Protocol Insulin Glargine (Insulin Glargine 100 Units/Ml Pen) 50 units SC BID [facility] Insulin Human Lispro (Insulin Lispro 100 Unit/Ml Insuln.Pen) 0 unit SC Q4 [facility]; Protocol Last Admin: 01/09/20 05:04 Dose: 9 u Documented by: Labetalol HCl (Labetalol (Prefilled) 20 Mg/4 Ml) 10 mg IV Q4H PRN PRN Reason: Sbp Greater Than 160 Lorazepam (Lorazepam 2 Mg/Ml Syringe) 2 mg IV Q2H PRN PRN Reason: vent synchrony Last Admin: 01/08/20 15:15 Dose: 2 mg Documented by: Melatonin (Melatonin 3 Mg Tablet) 3 mg GT QHS PRN PRN PRN Reason: INSOMNIA Ondansetron HCl (Ondansetron 4 Mg/2 Ml Vial) 4 mg IV Q8H PRN PRN PRN Reason: NAUSEA/VOMITING Senna/Docusate Sodium (Senna/Docusate Sodium 1 Tablet) 2 tablet GT BID PRN PRN PRN Reason: Constipation Sodium Chloride (0.9% Saline Lock 10 Ml Syringe) 10 - 40 ml IV UD PRN PRN Reason: SALINE FLUSH Last Admin: 01/09/20 03:22 Dose: 40 ml Documented by: Medical Necessity - Tobacco Use Smoking Status: Former smoker Tobacco Use: Pipe Route of nutrition/ use of supplements: [] Nutritional Intake: [] IV Site: [] Blair Catheter: [] - Assessment/Plan Antibiotics: [] Assessment/Plan: [] Active and Suspected Problems COVID-19 virus infection (Acute) Acute kidney injury (Acute) covid with acute hypoxic resp failure and SANDRA - on dex, developed worsened hypoxia. Sx started evening 12/23. Started remdesivir and plasma 12/31. Now on vent, pressors stopped, completed short course of empiric zosyn. Wbc mildly elevated, no fever, cxs are all neg at this point. Now worsening SANDRA. Will follow
[2020-01-09] MEDS: Carvedilol 6.25 MG Tablet PO (11:52)
[2020-01-09] MEDS: Chlorhexidine 15 ML PO ×2 (11:52→21:23)
[2020-01-09] MEDS: Dexmedetomidine 400 mcg in 0.9% NS 96 mL 13.4 MCG CONT INF ×2 (11:53→19:45)
[2020-01-09 12:16] LABS: Bedside Glucose 121 mg/dL (70-110)
--- NOTE | 2020-01-09 15:10 | NURSING ---
1400: hypoxia (80-86%) sustained post reposition. FiO2 increased, RT informed.
[2020-01-09] MEDS: Labetalol (Prefilled) 20 MG/4 ML 10 MG IV (16:12)
[2020-01-09 16:40] LABS: Bedside Glucose 189 mg/dL (70-110)
[2020-01-09] MEDS: 0.9% Normal Saline 1,000 ML 125 ML IV (17:38)
[2020-01-09] MEDS: Vital AF 1.2 Cal Liquid 1,000 ML 75 ML GT (17:55)
[2020-01-09 18:46] LABS: Bedside Glucose 299 mg/dL (70-110)
--- NOTE | 2020-01-09 19:50 | RAD_ITS ---
We are attempting to reach an attending provider to discuss findings. An addendum with communication details will be sent when the communication is complete. STUDY: X-RAY CHEST REASON FOR EXAM: Male, 79 years old. O2 stats dropping, positive covid. TECHNIQUE: Single frontal view of the chest. COMPARISON: 01/07/2020 FINDINGS: Stable support devices. Stable bilateral alveolar disease. There is no demonstrated pleural abnormality. Normal size heart. Interval development of pneumomediastinum. Normal visualized pulmonary arteries. Normal visualized aortic arch and descending thoracic aorta. Normal visualized thoracic spine. Normal visualized ribs, clavicles, and shoulders. There is no demonstrated abnormality of the visualized soft tissue structures of the upper abdomen. RAD/Chest 1 View (Portable) IMPRESSION: Stable bilateral alveolar disease. Interval development of pneumomediastinum. Electronically Signed: Chele Pulido MD at 20:45 EDT Tel , Service support ,
[2020-01-09] MEDS: Atorvastatin Calcium 20 MG Tablet GT (21:23)
[2020-01-09 23:40] LABS: Bedside Glucose 188 mg/dL (70-110)
[2020-01-10] VITALS (38 sets, daily range): BP systolic 98–152; BP diastolic 47–73; PULSE 84–147; RESP 16–45; TEMP 37.5–38; O2SAT 75–95
[2020-01-10] MEDS: Vital AF 1.2 Cal Liquid 1,000 ML 75 ML GT (00:03)
[2020-01-10] MEDS: Furosemide 40 MG/4 ML Vial IV ×2 (02:04→13:18)
[2020-01-10] MEDS: Insulin Lispro 100 UNIT/ML INSULN.PEN SC ×4 (02:04→13:06)
[2020-01-10] MEDS: Dexmedetomidine 400 mcg in 0.9% NS 96 mL 13.4 MCG CONT INF (02:14)
[2020-01-10] MEDS: guaiFENesin 10 ML UDC (200MG/10ML) GT ×4 (03:42→20:37)
[2020-01-10 04:07] LABS: Absolute Lymphocyte Count 0.46 X10^3/uL (0.83-4.51); Absolute Neutrophil Count 15.3 X10^3/uL (2.0-7.7); Basophil# 0.02 X10^3/uL; Basophil% 0.1 % (0-1); Eosinophil# 0.13 X10^3/uL; Eosinophils% 0.8 % (0-5); Hematocrit 40.8 % (40-54); Hemoglobin 12.7 g/dL (13.0-16.5); Lymphocyte # 0.46 X10^3/ul (4.0); Lymphocyte % 2.8 % (19-41); Mean Corp Hgb Conc 31.1 g/dL (32-36); Mean Corpuscular Hgb 31.4 pg (27.0-32.0); Mean Platelet Vol. 11.1 fl (6.2-12.0); Monocyte# 0.16 X10^3/uL; NRBC Flagged by Analyzer 0 % (0-5); Neutrophil # 15.26 X10^3/uL (2.7-7.7); Neutrophil % 94.2 % (47-70); POSITIVE DIFFERENTIAL YES; Platelet Count 184 K/mm3 (150-450); RBC Distribution Width CV 13.8 % (11.6-14.6); RBC Distribution Width SD 51.8 fl (35.1-43.9); Red Blood Count 4.04 M/mm3 (4.6-6.2); White Blood Count 16.2 K/mm3 (4.4-11.0)
[2020-01-10 04:10] LABS: Differential Indicated SCAN CRITERIA MET; Prothrombin Time (Protime)PT. 22.3 SECONDS (11.7-14.9)
[2020-01-10 04:37] LABS: Anion Gap 8 (5-15); Calcium,Total 8.1 mg/dL (8.5-10.1); Chloride 109 mmol/L (98-107); Creatinine, Serum 2.29 mg/dL (0.70-1.30); EST Glomerular Filtration Rate 30 mL/min (>60); Est Glom Filt Rate - Afr Amer 36 mL/min (>60); Estimated Creatinine Clearance 27.89 ml/min; Glucose 284 mg/dL (74-106); Potassium 5.7 mmol/L (3.5-5.1); Sodium Level 139 mmol/L (136-145)
[2020-01-10 04:38] LABS: BUN 119 mg/dL (7-18)
[2020-01-10 04:59] LABS: Differential Comment SCANNED
[2020-01-10] MEDS: TITRATION PARAMETER CHANGE 1 EACH IV (05:22)
[2020-01-10 05:41] LABS: Bedside Glucose 305 mg/dL (70-110)
[2020-01-10] MEDS: Amiodarone 360 MG in Dextrose 5% Viaflo Bag 192.8 ML 33.3 MG CONT INF (06:45)
--- NOTE | 2020-01-10 06:51 | NURSING ---
left side of neck edematous, crepitus palpated, MD aware.
[2020-01-10 06:55] LABS: Bedside Glucose 345 mg/dL (70-110)
--- NOTE | 2020-01-10 08:10 | PCM.PN.INT ---
Subjective: Patient was significant decompensation overnight. Patient developed A. fib with RVR with heart rates as high as in the 140s. Patient also had an episode of desaturation requiring increased PEEP. Chest x-ray was ordered showing a new pneumomediastinum without pneumothorax. Patient is not following commands despite change in sedation. General: - - Intubated and sedated. Not following commands. HEENT: Atraumatic, PERRLA, EOMI, Normocephalic, - - No scleral icterus, but injection. Oral: Moist Mucosa, No Gingival or Mucosal Lesions/ Ulcerations Neck: Supple, No JVD, No Nodes, - - Crepitus noted in the left supraclavicular and neck region Lungs: No rhonchi, No wheeze, No rales, Diminished, - - Symmetric expansion. Cardiovascular: Normal S1, Normal S2, No murmurs, Irregular Rate, No rub noted, No Gallop, Tachycardic Abdomen: Bowel Sounds Present, Soft, Non Tender, Non-Distended, Obese Extremities: No clubbing, No cyanosis, Edema Skin: - - No changes compared to previous Musculoskeletal: No Tenderness to Palpation of Joints or Extremities Lymphatic: No Cervical, Supraclavicular, or Inguinal Adenopathy Neurological: - - Not following commands. Minimal response to suctioning. Does cough. Not localizing to painful stimuli. Psych/Mental Status: Flat Affect Vital Signs Temp Pulse Resp BP Pulse Ox 37.9 C H 117 H 37 H 117/63 95 01/10/20 07:00 01/10/20 07:09 01/10/20 07:00 01/10/20 07:00 01/10/20 07:00 Oxygen Flow Rate (L/min) 60 Oxygen Delivery Method Mechanical Ventilator Weight: 109.2 kg Body Mass Index (BMI) 34.1 Finger Stick Blood Glucose 227 Intake and Output for Last 24 Hours 01/08/20 01/09/20 01/10/20 23:59 23:59 23:59 Intake Total 3083.01 / 3639.28 3756.32 / 3787.22 2258.02 / 2258.02 Output Total 2300 / 2850 2455 / 2455 450 / 450 Balance 783.01 / 789.28 1301.32 / 1332.22 1808.02 / 1808.02 Labs (Last 48 Hours) 01/08/20 01/08/20 01/08/20 08:28 10:54 15:57 WBC RBC Hgb Hct MCV MCH MCHC RDW Std Deviation RDW Coeff of Cortney Plt Count MPV Immature Gran % (Auto) Neut % (Auto) Lymph % (Auto) Coleman % (Auto) Eos % (Auto) Baso % (Auto) Absolute Neuts (auto) Absolute Lymphs (auto) Nucleated RBC % Differential Comment Platelet Estimate PT INR Specimen Type ART Sample Site R Radial pH 7.22 L Bicarbonate Actual 25.8 Total CO2 28 Base Excess -2 O2 Saturation 84 L O2 % 100 ABG pCO2 63.8 H ABG pO2 60 L Respiration Rate 14 O2 Delivery Device ET Tube Vent Mode AC Tidal Volume 450 POC PEEP 12 Sodium Potassium Chloride Carbon Dioxide Anion Gap BUN Creatinine Estim Creat Clear Calc Est GFR (MDRD) Af Amer Est GFR (MDRD) Non-Af BUN/Creatinine Ratio Glucose Calcium POC Glucose 393 H 356 H 01/08/20 01/08/20 01/09/20 19:09 22:26 03:20 WBC RBC Hgb Hct MCV MCH MCHC RDW Std Deviation RDW Coeff of Cortney Plt Count MPV Immature Gran % (Auto) Neut % (Auto) Lymph % (Auto) Coleman % (Auto) Eos % (Auto) Baso % (Auto) Absolute Neuts (auto) Absolute Lymphs (auto) Nucleated RBC % Differential Comment Platelet Estimate PT INR Specimen Type Sample Site pH Bicarbonate Actual Total CO2 Base Excess O2 Saturation O2 % ABG pCO2 ABG pO2 Respiration Rate O2 Delivery Device Vent Mode Tidal Volume POC PEEP Sodium Potassium Chloride Carbon Dioxide Anion Gap BUN Creatinine Estim Creat Clear Calc Est GFR (MDRD) Af Amer Est GFR (MDRD) Non-Af BUN/Creatinine Ratio Glucose Calcium POC Glucose 227 H 246 H 279 H 01/09/20 01/09/20 01/09/20 03:25 03:25 04:58 WBC 15.8 H RBC 3.89 L Hgb 12.4 L Hct 39.6 L MCV 101.8 H MCH 31.9 MCHC 31.3 L RDW Std Deviation 51.4 H RDW Coeff of Cortney 13.8 Plt Count 208 MPV 10.4 Immature Gran % (Auto) 1.300 H Neut % (Auto) 94.2 H Lymph % (Auto) 3.2 L Coleman % (Auto) 1.0 Eos % (Auto) 0.1 Baso % (Auto) 0.2 Absolute Neuts (auto) 14.9 H Absolute Lymphs (auto) 0.51 L Nucleated RBC % 0 Differential Comment SCANNED Platelet Estimate ADEQUATE PT INR Specimen Type Sample Site pH Bicarbonate Actual Total CO2 Base Excess O2 Saturation O2 % ABG pCO2 ABG pO2 Respiration Rate O2 Delivery Device Vent Mode Tidal Volume POC PEEP Sodium 141 Potassium 5.6 H Chloride 109 H Carbon Dioxide 26.0 Anion Gap 6 BUN 105 H* Creatinine 2.45 H Estim Creat Clear Calc 26.07 Est GFR (MDRD) Af Amer 33 L Est GFR (MDRD) Non-Af 27 L BUN/Creatinine Ratio 42.9 H Glucose 272 H Calcium 8.2 L POC Glucose 287 H 01/09/20 01/09/20 01/09/20 05:20 11:39 14:36 WBC RBC Hgb Hct MCV MCH MCHC RDW Std Deviation RDW Coeff of Cortney Plt Count MPV Immature Gran % (Auto) Neut % (Auto) Lymph % (Auto) Coleman % (Auto) Eos % (Auto) Baso % (Auto) Absolute Neuts (auto) Absolute Lymphs (auto) Nucleated RBC % Differential Comment Platelet Estimate PT 32.0 H INR 3.1 Specimen Type Sample Site pH Bicarbonate Actual Total CO2 Base Excess O2 Saturation O2 % ABG pCO2 ABG pO2 Respiration Rate O2 Delivery Device Vent Mode Tidal Volume POC PEEP Sodium Potassium Chloride Carbon Dioxide Anion Gap BUN Creatinine Estim Creat Clear Calc Est GFR (MDRD) Af Amer Est GFR (MDRD) Non-Af BUN/Creatinine Ratio Glucose Calcium POC Glucose 121 H 189 H 01/09/20 01/09/20 01/10/20 17:47 21:17 01:54 WBC RBC Hgb Hct MCV MCH MCHC RDW Std Deviation RDW Coeff of Cortney Plt Count MPV Immature Gran % (Auto) Neut % (Auto) Lymph % (Auto) Coleman % (Auto) Eos % (Auto) Baso % (Auto) Absolute Neuts (auto) Absolute Lymphs (auto) Nucleated RBC % Differential Comment Platelet Estimate PT INR Specimen Type Sample Site pH Bicarbonate Actual Total CO2 Base Excess O2 Saturation O2 % ABG pCO2 ABG pO2 Respiration Rate O2 Delivery Device Vent Mode Tidal Volume POC PEEP Sodium Potassium Chloride Carbon Dioxide Anion Gap BUN Creatinine Estim Creat Clear Calc Est GFR (MDRD) Af Amer Est GFR (MDRD) Non-Af BUN/Creatinine Ratio Glucose Calcium POC Glucose 299 H 188 H 305 H 01/10/20 01/10/20 01/10/20 03:40 03:40 03:40 WBC 16.2 H RBC 4.04 L Hgb 12.7 L Hct 40.8 MCV 101.0 H MCH 31.4 MCHC 31.1 L RDW Std Deviation 51.8 H RDW Coeff of Cortney 13.8 Plt Count 184 MPV 11.1 Immature Gran % (Auto) 1.100 H Neut % (Auto) 94.2 H Lymph % (Auto) 2.8 L Coleman % (Auto) 1.0 Eos % (Auto) 0.8 Baso % (Auto) 0.1 Absolute Neuts (auto) 15.3 H Absolute Lymphs (auto) 0.46 L Nucleated RBC % 0 Differential Comment SCANNED Platelet Estimate PT 22.3 H INR 2.0 Specimen Type Sample Site pH Bicarbonate Actual Total CO2 Base Excess O2 Saturation O2 % ABG pCO2 ABG pO2 Respiration Rate O2 Delivery Device Vent Mode Tidal Volume POC PEEP Sodium 139 Potassium 5.7 H Chloride 109 H Carbon Dioxide 22.0 Anion Gap 8 BUN 119 H* Creatinine 2.29 H Estim Creat Clear Calc 27.89 Est GFR (MDRD) Af Amer 36 L Est GFR (MDRD) Non-Af 30 L BUN/Creatinine Ratio 52.0 H Glucose 284 H Calcium 8.1 L POC Glucose 01/10/20 05:20 WBC RBC Hgb Hct MCV MCH MCHC RDW Std Deviation RDW Coeff of Cortney Plt Count MPV Immature Gran % (Auto) Neut % (Auto) Lymph % (Auto) Coleman % (Auto) Eos % (Auto) Baso % (Auto) Absolute Neuts (auto) Absolute Lymphs (auto) Nucleated RBC % Differential Comment Platelet Estimate PT INR Specimen Type Sample Site pH Bicarbonate Actual Total CO2 Base Excess O2 Saturation O2 % ABG pCO2 ABG pO2 Respiration Rate O2 Delivery Device Vent Mode Tidal Volume POC PEEP Sodium Potassium Chloride Carbon Dioxide Anion Gap BUN Creatinine Estim Creat Clear Calc Est GFR (MDRD) Af Amer Est GFR (MDRD) Non-Af BUN/Creatinine Ratio Glucose Calcium POC Glucose 345 H Clinical Impression(s) from Imaging Studies Chest X-Ray 01/09/20 19:50 IMPRESSION: Stable bilateral alveolar disease. Interval development of pneumomediastinum. Electronically Signed: Chele Pulido MD at 20:45 EDT Tel , Service support , ADDENDUM: 01/09/202104 IMPRESSION: Stable bilateral alveolar disease. Interval development of pneumomediastinum. N.B. : The above information has been verbally conveyed by Chele Pulido MD to Scot Bansal MD, on 01/09/2020 20:58:44 (ET). Electronically Signed: Chele Pulido MD at 20:45 EDT Tel , Service support , Medical Necessity - Tobacco Use Smoking Status: Former smoker Tobacco Use: Pipe Assessment/Plan All Active Problems COVID-19 virus infection (Acute) Acute kidney injury (Acute) RECOMMENDATIONS: 1. Wean FiO2 and PEEP to maintain oxygen saturations at or above 90%. 2. Continue empiric antimicrobials, tube feeds, Decadron. 3. Monitor closely for the development of a tension pneumothorax 4. Continuous awakening and breathing trials per protocol 5. Continue insulin coverage. 6. Possibly obtain a CT of the chest and head if able to stabilize patient hemodynamically 7. Initiate amiodarone drip IMPRESSIONS: 1. Acute hypoxemic respiratory failure secondary to Covid pneumonia Although attempts were made to utilize noninvasive positive pressure ventilatory support, the patient continued to decompensate from a respiratory perspective and did require intubation on the morning of January 03. Plan to continue current supportive measures. Patient is receiving maximal therapy for Covid pneumonia. Some concern for failure for improvement despite extended mechanical ventilation. Family states they want to continue to be aggressive. Development of a pneumomediastinum may have led to A. fib, but should not affect the hemodynamics otherwise. However, if patient develops a pneumothorax, given high PEEP and mechanical ventilation, rapid deterioration with tension pneumothorax would be expected. 2. Distributive shock Resolved. The patient became hemodynamically unstable after sedation was initiated in the setting of invasive mechanical ventilatory support. Patient is continuing on antibiotic therapy. Unclear if patient has an element of volume depletion secondary to diuretic therapy, but oxygenation remains marginal. 3. Acute kidney injury Patient appears to be progressing. Patient's creatinine is up along with decreased urine output. Nephrology is following. Patient would be a very difficult candidate to initiate hemodialysis on with all of his hemodynamic instability. 4. Coagulopathy The patient presented to the hospital systemically anticoagulated on Coumadin. He has subsequently developed a coagulopathy with a supratherapeutic INR, likely secondary to his acute illness and medication interactions. His Coumadin has been discontinued. Patient is on concomitant antibiotics, which will prolonged INR. Continue to hold Coumadin given high chance for need for intervention. No bleeding complications have been reported. No need for other systemic anticoagulation 5. Hypertension/hyperlipidemia/GERD/history of DVT/diabetes mellitus Complicates care, management, recovery and prognosis. Continue to hold Coumadin given supratherapeutic INR. Increase Lantus and sliding scale insulin coverage. 6. Pneumomediastinum/new onset A. fib Unclear if patient has developed A. fib secondary to irritation from pneumomediastinum. Patient likely has an element of atrial dilation secondary to hemodynamics predisposing to condition. Will initiate patient on amiodarone. Large concerned that patient will dissect and developed a tension pneumothorax. We will have to discuss with family, but long-term prognosis is very poor. TIME: 33 minutes of critical care time, inclusive of procedures, was spent addressing the patient's acute hypoxemic respiratory failure secondary to Covid pneumonia, acute kidney injury, pneumomediastinum, hypertensive urgency, coagulopathy, review of all data and collaboration with the care team. (5:30 AM to 6:30 AM) 9xxxx: [id number] Critical care first hour
--- NOTE | 2020-01-10 08:35 | NURSING ---
Unable to complete CAM d/t RASS -5
--- NOTE | 2020-01-10 10:19 | PCM.PN.HOSP ---
Patient Problems: Active and Suspected Problems COVID-19 virus infection (Acute) Acute kidney injury (Acute) Subjective: Intubated and sedated he continues to decline. He went into A. fib overnight again with RVR with rates in the 140s also his PEEP had to be increased and his FiO2 is still at 100% Vitals/I&O's: Vital Signs Temp Pulse Resp BP Pulse Ox 100.2 F H 111 H 37 H 144/66 H 95 01/10/20 07:00 01/10/20 08:00 01/10/20 07:00 01/10/20 08:00 01/10/20 08:00 Oxygen Flow Rate (L/min) 60 Oxygen Delivery Method Mechanical Ventilator Weight: 240 lb 11.916 oz Body Mass Index (BMI) 34.1 Finger Stick Blood Glucose 227 Intake and Output for Last 24 Hours 01/08/20 01/09/20 01/10/20 23:59 23:59 23:59 Intake Total 3083.01 / 3639.28 3756.32 / 3787.22 2362.83 / 2362.83 Output Total 2300 / 2850 2455 / 2455 700 / 700 Balance 783.01 / 789.28 1301.32 / 1332.22 1662.83 / 1662.83 General: - - Intubated and sedated HEENT: Atraumatic, PERRLA, Normocephalic Oral: Dry Mucosa Neck: Supple, No JVD Lungs: Normal air movement, No rhonchi, No wheeze, No rales, Diminished Cardiovascular: Tachycardic with irregular rhythm, Normal S1, Normal S2, No murmurs Abdomen: Soft, Non Tender, Non-Distended, No Hepato-splenomegaly Extremities: No edema, Capillary Refill Less than 3 Seconds Skin: No rashes, No breakdown Neurological: - - Intubated and sedated Psych/Mental Status: - - Intubated and sedated Laboratory Results 01/09/20 11:39: POC Glucose 121 H 01/09/20 14:36: POC Glucose 189 H 01/09/20 17:47: POC Glucose 299 H 01/09/20 21:17: POC Glucose 188 H 01/10/20 01:54: POC Glucose 305 H 01/10/20 03:40: PT 22.3 H, INR 2.0 01/10/20 03:40: WBC 16.2 H, RBC 4.04 L, Hgb 12.7 L, Hct 40.8, MCV 101.0 H, MCH 31.4, MCHC 31.1 L, RDW Std Deviation 51.8 H, RDW Coeff of Cortney 13.8, Plt Count 184, MPV 11.1, Immature Gran % (Auto) 1.100 H, Neut % (Auto) 94.2 H, Lymph % (Auto) 2.8 L, [place] % (Auto) 1.0, Eos % (Auto) 0.8, Baso % (Auto) 0.1, Absolute Neuts (auto) 15.3 H, Absolute Lymphs (auto) 0.46 L, Nucleated RBC % 0, Differential Comment SCANNED 01/10/20 03:40: Sodium 139, Potassium 5.7 H, Chloride 109 H, Carbon Dioxide 22.0, Anion Gap 8, BUN 119 H*, Creatinine 2.29 H, Estim Creat Clear Calc 27.89, Est GFR (MDRD) Af Amer 36 L, Est GFR (MDRD) Non-Af 30 L, BUN/Creatinine Ratio 52.0 H, Glucose 284 H, Calcium 8.1 L 01/10/20 05:20: POC Glucose 345 H Current Medications Acetaminophen (Acetaminophen 650 Mg/20 Ml Udc) 650 mg GT Q6H PRN PRN PRN Reason: Pain Score 1-10/Temp > 100.7 F Last Admin: 01/04/20 17:25 Dose: 650 mg Documented by: Albuterol Sulfate (Albuterol 2.5 Mg/3 Ml Vial.Neb.) 2.5 mg INHALATION Q2H PRN PRN PRN Reason: Shortness of Breath/Wheezing Last Admin: 01/01/20 01:14 Dose: 2.5 mg Documented by: Atorvastatin Calcium (Atorvastatin Calcium 20 Mg Tablet) 20 mg GT QHS [facility] Last Admin: 01/09/20 21:23 Dose: 20 mg Documented by: Carvedilol (Carvedilol 6.25 Mg Tablet) 6.25 mg PO DAILY [facility] Last Admin: 01/09/20 11:52 Dose: 6.25 mg Documented by: Chlorhexidine Gluconate (Chlorhexidine 15 Ml) 15 ml PO BID [facility] Last Admin: 01/09/20 21:23 Dose: 15 ml Documented by: Dextrose (Dextrose 50%-Water 25 Gm/50 Ml Disp.Syrin) 0 gm IV X1 PRN; Protocol PRN Reason: Hypoglycemia Glucagon (Glucagon 1 Mg/Ml Syringe) 1 mg IM .X1 PRN PRN Reason: Hypoglycemia Guaifenesin (Guaifenesin 10 Ml Udc (200mg/10ml)) 10 ml GT Q6H [facility] Last Admin: 01/10/20 03:42 Dose: 10 ml Documented by: Sodium Chloride () 500 mls @ 15 mls/hr IV PRN PRN PRN Reason: Blood Transfusion Last Infusion: 01/10/20 01:18 Dose: Infused Documented by: Sodium Chloride () 250 mls @ 15 mls/hr IV .[id number] PRN PRN Reason: Saline Flush Sodium Chloride () 250 mls @ 15 mls/hr IV .[id number] PRN PRN Reason: Additional IVPB Infusion Propofol (Diprivan) 1,000 mg in 100 mls @ 6.552 mls/hr CONT INF .Q12H [facility]; Protocol Last Titration: 01/09/20 14:00 Dose: 0 mcg/kg/min, 0 mls/hr Documented by: Fentanyl Citrate 1,000 mcg/ (Sodium Chloride) 100 mls @ 5 mls/hr CONT INF .Q20H [facility]; Protocol Last Titration: 01/10/20 08:32 Dose: 175 mcg/hr, 17.5 mls/hr Documented by: Enteral Nutritional Formula (Vital Af 1.2 Jaden Liquid) 1,000 mls @ 75 mls/hr GT .[id number] [facility] Last Admin: 01/10/20 00:03 Dose: 75 mls/hr Documented by: Pantoprazole Sodium 40 mg/ (Sodium Chloride) 110 mls @ 330 mls/hr IV Q24 [facility] Last Infusion: 01/09/20 12:35 Dose: Infused Documented by: Norepinephrine Bitartrate 8 mg (/ Sodium Chloride) 250 mls @ 9.375 mls/hr CONT INF .[id number] [facility]; Protocol Last Admin: 01/09/20 17:37 Dose: Not Given Documented by: Dexmedetomidine HCl 400 mcg/ (Sodium Chloride) 100 mls @ 13.65 mls/hr CONT INF .[id number] [facility]; Protocol Last Titration: 01/10/20 08:32 Dose: 0.5 mcg/kg/hr, 13.7 mls/hr Documented by: Amiodarone HCl 360 mg/ (Dextrose) 200 mls @ 33.333 mls/hr CONT INF .Q6H [facility] Stop: 01/10/20 12:29 Last Infusion: 01/10/20 08:33 Dose: 1 mg/min, 33.3 mls/hr Documented by: Amiodarone HCl 360 mg/ (Dextrose) 200 mls @ 16.667 mls/hr CONT INF .Q12H [facility] Stop: 01/11/20 06:28 Insulin Glargine (Insulin Glargine 100 Units/Ml Pen) 50 units SC BID [facility] Last Admin: 01/09/20 21:24 Dose: 50 u Documented by: Insulin Human Lispro (Insulin Lispro 100 Unit/Ml Insuln.Pen) 0 unit SC Q4 [facility]; Protocol Last Admin: 01/10/20 05:22 Dose: 12 u Documented by: Labetalol HCl (Labetalol (Prefilled) 20 Mg/4 Ml) 10 mg IV Q4H PRN PRN Reason: Sbp Greater Than 160 Last Admin: 01/09/20 16:12 Dose: 10 mg Documented by: Lorazepam (Lorazepam 2 Mg/Ml Syringe) 2 mg IV Q2H PRN PRN Reason: vent synchrony Last Admin: 01/08/20 15:15 Dose: 2 mg Documented by: Melatonin (Melatonin 3 Mg Tablet) 3 mg GT QHS PRN PRN PRN Reason: INSOMNIA Ondansetron HCl (Ondansetron 4 Mg/2 Ml Vial) 4 mg IV Q8H PRN PRN PRN Reason: NAUSEA/VOMITING Senna/Docusate Sodium (Senna/Docusate Sodium 1 Tablet) 2 tablet GT BID PRN PRN PRN Reason: Constipation Sodium Chloride (0.9% Saline Lock 10 Ml Syringe) 10 - 40 ml IV UD PRN PRN Reason: SALINE FLUSH Last Admin: 01/09/20 03:22 Dose: 40 ml Documented by: STROKE Vital Signs/Narrative: Vital Signs Temp Pulse Resp BP Pulse Ox 01/10/20 08:00 111 H 144/66 H 95 01/10/20 07:09 117 H 01/10/20 07:00 100.2 F H 120 H 37 H 117/63 95 01/10/20 06:48 123 H 30 H 95 Medical Necessity - Tobacco Use Smoking Status: Former smoker Tobacco Use: Pipe Assessment/Plan All Active Problems COVID-19 virus infection (Acute) Acute kidney injury (Acute) 1. Acute hypoxic respiratory failure secondary to Covid pneumonia with septic shock/SANDRA/history of DVT/pneumomediastinum -Sepsis has resolved, however initially lactic acid was greater than 4 -Appreciate infectious disease assistance, initially azithromycin and Rocephin were discontinued however secondary to his continued difficulty with breathing and the need for intubation, he was started on Zosyn empirically which has been completed -Completed convalescent plasma and remdesivir and Decadron -He was intubated 01/04/2020 by the regroover secondary to continued respiratory failure -Baseline creatinine is around 1.5, on presentation he was 2.06. This improved with IV fluids to 1.35 however his creatinine is now back up to 2.25. He is 5.4 L positive -Renal ultrasound was unremarkable -INR is supratherapeutic to an INR of 10, he received 5 of vitamin K and also received 2 units of FFP, he is now therapeutic -He is continuing to require high PEEP and the pneumomediastinum does have a risk of becoming a pneumothorax. The regroover did discuss the issue with the family however the family is still requesting that the patient be full code. It was discussed in depth with them about how much of a decline he has had and the fact that he is not made any type of improvement however they feel that he would still want to be a full code and have everything done. 2. HTN/HLD/new onset A. fib -We will continue to hold his hydrochlorothiazide and Lopressor lisinopril secondary to his initial SANDRA -Continue with Lipitor via G-tube -IV hydralazine as necessary for blood pressure control, and will add Coreg given his elevation in blood pressure as well as his new onset A. fib, but it seems that he had to be going between Levophed and Coreg as he becomes hypotensive and hypertensive -Continue with amiodarone 3. GERD -Stable -Continue with PPI 4. DM 2 with diabetic nephropathy -We will hold his oral hypoglycemics, continue with his sliding scale insulin every 6 as well as Lantus -Accu-Cheks AC at bedtime DVT: Therapeutic INR Inpatient E&M: 36691 Subs Hosp L2
[2020-01-10] MEDS: Carvedilol 6.25 MG Tablet PO (10:57)
[2020-01-10] MEDS: Chlorhexidine 15 ML PO ×2 (10:57→20:37)
[2020-01-10 11:15] LABS: Bedside Glucose 312 mg/dL (70-110)
--- NOTE | 2020-01-10 11:30 | NURSING ---
Precedex and fentanyl were held for IV infusion of protonix. Pt continued to be a RASS -5 without any agitation or hypoxia. Precedex restarted at conclusion of protonix but fentanyl left off d/t RASS -5 and CPOT 0/0. Will monitor for continued need.
[2020-01-10] MEDS: Dexmedetomidine 400 mcg in 0.9% NS 96 mL 13.7 MCG CONT INF ×2 (11:35→20:20)
--- NOTE | 2020-01-10 11:42 | CON.PCM_ITS ---
Consultation - Renal 01/10/20 PCP/ Referring MD: Requesting physician: [] Primary care physician: Dr. Claudette Meraz MD Reason for Consultation:: sandra - History of Present Illness History of Present Illness: The patient is a 79 year old M [] with past medical history of diabetes mellitus type 2 hypertension who presented with shortness of breath and he was diagnosed with COVID-19. He was self isolating at home however his symptoms got progressively worse so he presented to the hospital. He also had some sore throat initially. Patient was treated initially with azithromycin and Rocephin which were discontinued and he was intubated and started on Zosyn empirically which has been completed. He was treated with convalescent plasma and remdesivir and Decadron. He was intubated on January 03 for respiratory failure . His baseline serum creatinine was 1.5 and then it went up in the low 2 range with a BUN in the low 100s for the past 2 days which prompted renal consult. He is about 5 L positive. He developed last night pneumomediastinum and in A. fib RVR. The writer technical publications discussed with the family but the family request still for the patient to be full code. The patient is intubated and the review of systems cannot be done. Physical examination was deferred to preserve PPE and to prevent further transmission of COVID-19. - Allergies Allergies: Allergies No Known Allergies Allergy (Verified 12/30/19 10:32) - Current Medications Current Medications: Current Medications Acetaminophen (Acetaminophen 650 Mg/20 Ml Udc) 650 mg GT Q6H PRN PRN PRN Reason: Pain Score 1-10/Temp > 100.7 F Last Admin: 01/04/20 17:25 Dose: 650 mg Documented by: Albuterol Sulfate (Albuterol 2.5 Mg/3 Ml Vial.Neb.) 2.5 mg INHALATION Q2H PRN PRN PRN Reason: Shortness of Breath/Wheezing Last Admin: 01/01/20 01:14 Dose: 2.5 mg Documented by: Atorvastatin Calcium (Atorvastatin Calcium 20 Mg Tablet) 20 mg GT QHS [facility] Last Admin: 01/09/20 21:23 Dose: 20 mg Documented by: Carvedilol (Carvedilol 6.25 Mg Tablet) 6.25 mg PO DAILY [facility] Last Admin: 01/10/20 10:57 Dose: 6.25 mg Documented by: Chlorhexidine Gluconate (Chlorhexidine 15 Ml) 15 ml PO BID [facility] Last Admin: 01/10/20 10:57 Dose: 15 ml Documented by: Dextrose (Dextrose 50%-Water 25 Gm/50 Ml Disp.Syrin) 0 gm IV X1 PRN; Protocol PRN Reason: Hypoglycemia Glucagon (Glucagon 1 Mg/Ml Syringe) 1 mg IM .X1 PRN PRN Reason: Hypoglycemia Guaifenesin (Guaifenesin 10 Ml Udc (200mg/10ml)) 10 ml GT Q6H [facility] Last Admin: 01/10/20 10:56 Dose: 10 ml Documented by: Sodium Chloride () 500 mls @ 15 mls/hr IV PRN PRN PRN Reason: Blood Transfusion Last Infusion: 01/10/20 01:18 Dose: Infused Documented by: Sodium Chloride () 250 mls @ 15 mls/hr IV .[id number] PRN PRN Reason: Saline Flush Sodium Chloride () 250 mls @ 15 mls/hr IV .[id number] PRN PRN Reason: Additional IVPB Infusion Propofol (Diprivan) 1,000 mg in 100 mls @ 6.552 mls/hr CONT INF .Q12H [facility]; Protocol Last Titration: 01/09/20 14:00 Dose: 0 mcg/kg/min, 0 mls/hr Documented by: Fentanyl Citrate 1,000 mcg/ (Sodium Chloride) 100 mls @ 5 mls/hr CONT INF .Q20H [facility]; Protocol Last Titration: 01/10/20 11:35 Dose: 0 mcg/hr, 0 mls/hr Documented by: Enteral Nutritional Formula (Vital Af 1.2 Jaden Liquid) 1,000 mls @ 75 mls/hr GT .[id number] [facility] Last Admin: 01/10/20 00:03 Dose: 75 mls/hr Documented by: Pantoprazole Sodium 40 mg/ (Sodium Chloride) 110 mls @ 330 mls/hr IV Q24 [facility] Last Infusion: 01/10/20 11:22 Dose: Infused Documented by: Norepinephrine Bitartrate 8 mg (/ Sodium Chloride) 250 mls @ 9.375 mls/hr CONT INF .[id number] [facility]; Protocol Last Admin: 01/09/20 17:37 Dose: Not Given Documented by: Dexmedetomidine HCl 400 mcg/ (Sodium Chloride) 100 mls @ 13.65 mls/hr CONT INF .Q7H20M [facility]; Protocol Last Admin: 01/10/20 11:35 Dose: 0.5 mcg/kg/hr, 13.7 mls/hr Documented by: Amiodarone HCl 360 mg/ (Dextrose) 200 mls @ 33.333 mls/hr CONT INF .Q6H [facility] Stop: 01/10/20 12:29 Last Infusion: 01/10/20 08:33 Dose: 1 mg/min, 33.3 mls/hr Documented by: Amiodarone HCl 360 mg/ (Dextrose) 200 mls @ 16.667 mls/hr CONT INF .Q12H [facility] Stop: 01/11/20 06:28 Insulin Glargine (Insulin Glargine 100 Units/Ml Pen) 50 units SC BID [facility] Last Admin: 01/10/20 10:57 Dose: 50 u Documented by: Insulin Human Lispro (Insulin Lispro 100 Unit/Ml Insuln.Pen) 0 unit SC Q4 [facility]; Protocol Last Admin: 01/10/20 10:57 Dose: 9 u Documented by: Labetalol HCl (Labetalol (Prefilled) 20 Mg/4 Ml) 10 mg IV Q4H PRN PRN Reason: Sbp Greater Than 160 Last Admin: 01/09/20 16:12 Dose: 10 mg Documented by: Lorazepam (Lorazepam 2 Mg/Ml Syringe) 2 mg IV Q2H PRN PRN Reason: vent synchrony Last Admin: 01/08/20 15:15 Dose: 2 mg Documented by: Melatonin (Melatonin 3 Mg Tablet) 3 mg GT QHS PRN PRN PRN Reason: INSOMNIA Ondansetron HCl (Ondansetron 4 Mg/2 Ml Vial) 4 mg IV Q8H PRN PRN PRN Reason: NAUSEA/VOMITING Senna/Docusate Sodium (Senna/Docusate Sodium 1 Tablet) 2 tablet GT BID PRN PRN PRN Reason: Constipation Sodium Chloride (0.9% Saline Lock 10 Ml Syringe) 10 - 40 ml IV UD PRN PRN Reason: SALINE FLUSH Last Admin: 01/09/20 03:22 Dose: 40 ml Documented by: - Past Medical History Past Medical History (Chronic Problems): Chronic Problems Type 2 diabetes mellitus (Chronic) PVD (peripheral vascular disease) (Chronic) Hypertension (Chronic) High cholesterol (Chronic) DVT (deep venous thrombosis) (Chronic) - Past Surgical History Surgical History: total hip arthroplasty - Left in 1994, Right x 2 in 1990, & 2000, - - Lumbar spine x 2 in 2005, & 2008 - Social History Smoking Status: Former smoker Alcohol: None Drugs: None - Family History Maternal History Items: Heart Disease - age 73 Sibling History Items: Heart Disease - age 53 Patient Problems: Active and Suspected Problems COVID-19 virus infection (Acute) Acute kidney injury (Acute) - Physical Exam Vitals/I&O's: Vital Signs Temp Pulse Resp BP Pulse Ox 100.2 F H 109 H 36 H 144/66 H 94 01/10/20 07:00 01/10/20 11:20 01/10/20 11:20 01/10/20 08:00 01/10/20 11:20 Oxygen Flow Rate (L/min) 60 Oxygen Delivery Method Mechanical Ventilator Weight: 109.2 kg Body Mass Index (BMI) 34.1 Finger Stick Blood Glucose 227 Intake and Output for Last 24 Hours 01/08/20 01/09/20 01/10/20 23:59 23:59 23:59 Intake Total 3083.01 / 3639.28 3756.32 / 3787.22 2541.03 / 2541.03 Output Total 2300 / 2850 2455 / 2455 700 / 700 Balance 783.01 / 789.28 1301.32 / 1332.22 1841.03 / 1841.03 Laboratory Results 01/09/20 11:39: POC Glucose 121 H 01/09/20 14:36: POC Glucose 189 H 01/09/20 17:47: POC Glucose 299 H 01/09/20 21:17: POC Glucose 188 H 01/10/20 01:54: POC Glucose 305 H 01/10/20 03:40: PT 22.3 H, INR 2.0 01/10/20 03:40: WBC 16.2 H, RBC 4.04 L, Hgb 12.7 L, Hct 40.8, MCV 101.0 H, MCH 31.4, MCHC 31.1 L, RDW Std Deviation 51.8 H, RDW Coeff of Cortney 13.8, Plt Count 184, MPV 11.1, Immature Gran % (Auto) 1.100 H, Neut % (Auto) 94.2 H, Lymph % (Auto) 2.8 L, Sampson % (Auto) 1.0, Eos % (Auto) 0.8, Baso % (Auto) 0.1, Absolute Neuts (auto) 15.3 H, Absolute Lymphs (auto) 0.46 L, Nucleated RBC % 0, Differe ntial Comment SCANNED 01/10/20 03:40: Sodium 139, Potassium 5.7 H, Chloride 109 H, Carbon Dioxide 22.0, Anion Gap 8, BUN 119 H*, Creatinine 2.29 H, Estim Creat Clear Calc 27.89, Est GFR (MDRD) Af Amer 36 L, Est GFR (MDRD) Non-Af 30 L, BUN/Creatinine Ratio 52.0 H, Glucose 284 H, Calcium 8.1 L 01/10/20 05:20: POC Glucose 345 H 01/10/20 10:54: POC Glucose 312 H Current Medications Acetaminophen (Acetaminophen 650 Mg/20 Ml Udc) 650 mg GT Q6H PRN PRN PRN Reason: Pain Score 1-10/Temp > 100.7 F Last Admin: 01/04/20 17:25 Dose: 650 mg Documented by: Albuterol Sulfate (Albuterol 2.5 Mg/3 Ml Vial.Neb.) 2.5 mg INHALATION Q2H PRN PRN PRN Reason: Shortness of Breath/Wheezing Last Admin: 01/01/20 01:14 Dose: 2.5 mg Documented by: Atorvastatin Calcium (Atorvastatin Calcium 20 Mg Tablet) 20 mg GT QHS [facility] Last Admin: 01/09/20 21:23 Dose: 20 mg Documented by: Carvedilol (Carvedilol 6.25 Mg Tablet) 6.25 mg PO DAILY [facility] Last Admin: 01/10/20 10:57 Dose: 6.25 mg Documented by: Chlorhexidine Gluconate (Chlorhexidine 15 Ml) 15 ml PO BID [facility] Last Admin: 01/10/20 10:57 Dose: 15 ml Documented by: Dextrose (Dextrose 50%-Water 25 Gm/50 Ml Disp.Syrin) 0 gm IV X1 PRN; Protocol PRN Reason: Hypoglycemia Glucagon (Glucagon 1 Mg/Ml Syringe) 1 mg IM .X1 PRN PRN Reason: Hypoglycemia Guaifenesin (Guaifenesin 10 Ml Udc (200mg/10ml)) 10 ml GT Q6H [facility] Last Admin: 01/10/20 10:56 Dose: 10 ml Documented by: Sodium Chloride () 500 mls @ 15 mls/hr IV PRN PRN PRN Reason: Blood Transfusion Last Infusion: 01/10/20 01:18 Dose: Infused Documented by: Sodium Chloride () 250 mls @ 15 mls/hr IV .[id number] PRN PRN Reason: Saline Flush Sodium Chloride () 250 mls @ 15 mls/hr IV .[id number] PRN PRN Reason: Additional IVPB Infusion Propofol (Diprivan) 1,000 mg in 100 mls @ 6.552 mls/hr CONT INF .Q12H [facility]; Protocol Last Titration: 01/09/20 14:00 Dose: 0 mcg/kg/min, 0 mls/hr Documented by: Fentanyl Citrate 1,000 mcg/ (Sodium Chloride) 100 mls @ 5 mls/hr CONT INF .Q20H [facility]; Protocol Last Titration: 01/10/20 11:35 Dose: 0 mcg/hr, 0 mls/hr Documented by: Enteral Nutritional Formula (Vital Af 1.2 Jaden Liquid) 1,000 mls @ 75 mls/hr GT .[id number] [facility] Last Admin: 01/10/20 00:03 Dose: 75 mls/hr Documented by: Pantoprazole Sodium 40 mg/ (Sodium Chloride) 110 mls @ 330 mls/hr IV Q24 [facility] Last Infusion: 01/10/20 11:22 Dose: Infused Documented by: Norepinephrine Bitartrate 8 mg (/ Sodium Chloride) 250 mls @ 9.375 mls/hr CONT INF .[id number] [facility]; Protocol Last Admin: 01/09/20 17:37 Dose: Not Given Documented by: Dexmedetomidine HCl 400 mcg/ (Sodium Chloride) 100 mls @ 13.65 mls/hr CONT INF .Q7H20M [facility]; Protocol Last Admin: 01/10/20 11:35 Dose: 0.5 mcg/kg/hr, 13.7 mls/hr Documented by: Amiodarone HCl 360 mg/ (Dextrose) 200 mls @ 33.333 mls/hr CONT INF .Q6H [facility] Stop: 01/10/20 12:29 Last Infusion: 01/10/20 08:33 Dose: 1 mg/min, 33.3 mls/hr Documented by: Amiodarone HCl 360 mg/ (Dextrose) 200 mls @ 16.667 mls/hr CONT INF .Q12H [facility] Stop: 01/11/20 06:28 Insulin Glargine (Insulin Glargine 100 Units/Ml Pen) 50 units SC BID [facility] Last Admin: 01/10/20 10:57 Dose: 50 u Documented by: Insulin Human Lispro (Insulin Lispro 100 Unit/Ml Insuln.Pen) 0 unit SC Q4 [facility]; Protocol Last Admin: 01/10/20 10:57 Dose: 9 u Documented by: Labetalol HCl (Labetalol (Prefilled) 20 Mg/4 Ml) 10 mg IV Q4H PRN PRN Reason: Sbp Greater Than 160 Last Admin: 01/09/20 16:12 Dose: 10 mg Documented by: Lorazepam (Lorazepam 2 Mg/Ml Syringe) 2 mg IV Q2H PRN PRN Reason: vent synchrony Last Admin: 01/08/20 15:15 Dose: 2 mg Documented by: Melatonin (Melatonin 3 Mg Tablet) 3 mg GT QHS PRN PRN PRN Reason: INSOMNIA Ondansetron HCl (Ondansetron 4 Mg/2 Ml Vial) 4 mg IV Q8H PRN PRN PRN Reason: NAUSEA/VOMITING Senna/Docusate Sodium (Senna/Docusate Sodium 1 Tablet) 2 tablet GT BID PRN PRN PRN Reason: Constipation Sodium Chloride (0.9% Saline Lock 10 Ml Syringe) 10 - 40 ml IV UD PRN PRN Reason: SALINE FLUSH Last Admin: 01/09/20 03:22 Dose: 40 ml Documented by: Assessment/Plan All Active Problems COVID-19 virus infection (Acute) Acute kidney injury (Acute) SANDRA likely ATN with COVID-19 Scr 1.5 one week [employer] and 1.3 in 2019 Hyperkalemia Covid 19 PNA Respiratory failure on the vent, Diarrhea A. fib RVR Pneumomediastinum The patient is more prerenal serum creatinine is still in the low 2 range with a potassium at 5.7 today. We will give another dose of Lasix 40 mg IV today. The patient still has some urine output and his blood pressure is stable. The writer technical publications will have talk with the family shortly regarding goals of care as his prognosis is very grim. He currently has pneumomediastinum and he is on 100% FiO2 with a PEEP of 14. check renal US when feasible. avoid nephrotoxins Prognosis overall is grim Awaiting family decisions regarding goal of care. If he will be continued with full care will likely need dialysis soon. There is no emergent need for dialysis today. He still has good urine output. Will reevaluate potassium after the Lasix. The patient had his tube feeds stopped and he is too unstable to get a CT abdomen and pelvis to search for abdominal pathology as per ICU team. Because of possible abdominal pathology we cannot use Kayexalate at this time. He is on a clinical research monitor.
--- NOTE | 2020-01-10 12:00 | US_ITS ---
STUDY: RENAL ULTRASOUND - COMPLETE REASON FOR EXAM: Male, 79 years old. SANDRA TECHNIQUE: Ultrasound evaluation of the kidneys was performed with real-time and static wood-scale imaging. Limited due to patient condition. COMPARISON: None. FINDINGS: RIGHT KIDNEY: Normal location of the right kidney, which is normal in size. The right kidney measures 11.4 x 5.8 x 5.9 cm. There is a normal cortex of the right kidney. The renal cortex measures 1.5 cm. There is no right renal mass or cyst. There are no right renal calculi. There is no right hydronephrosis. DISTAL RIGHT URETER: There is non-visualization of the distal right ureter. There is no demonstrated right ureterovesical junction calculus. There is a visualized right ureteral jet. LEFT KIDNEY: Normal location of the left kidney, which is normal in size. The left kidney measures 11.8 x 4.7 x 5.7 cm. There is a normal cortex of the left kidney. The renal cortex measures 1.6 cm. There is no left renal mass or cyst. There are no left renal calculi. There is no left hydronephrosis. DISTAL LEFT URETER: There is non-visualization of the distal left ureter. There is no demonstrated left ureterovesical junction calculus. There is a visualized left ureteral jet. BLADDER: The urinary bladder is decompressed by GALLAGHER catheter. US/Kidney and Bladder IMPRESSION: No hydronephrosis. Electronically Signed: Louie Schmidt MD ([place]) at 16:56 EDT , Service support ,
[2020-01-10] MEDS: Amiodarone 360 MG in Dextrose 5% Viaflo Bag 192.8 ML 16.7 MG CONT INF (13:06)
[2020-01-10 13:10] LABS: Bedside Glucose 250 mg/dL (70-110)
[2020-01-10 13:54] LABS: Color, Urine Yellow (Yellow); Glucose, Dipstick Normal (Normal); Ketone-Dipstick Negative (Negative); Leukocyte Esterase-Dipstick Negative /ul (Negative); Nitrite-Dipstick Negative (Negative); Occult Blood-Urine 25 /ul (Negative); Protein-Dipstick 30 mg/dl (Negative); Urine Bilirubin Dipstick Negative (Negative); Urine Clarity Sl. Cloudy (Clear); Urine Urobilinogen Normal (Normal)
[2020-01-10 14:09] LABS: Urine Sodium 25 mmol/L (Not Establ.)
--- NOTE | 2020-01-10 15:18 | PN.ID_ITS ---
Patient Problems: Active and Suspected Problems COVID-19 virus infection (Acute) Acute kidney injury (Acute) Subjective: On vent, 100% O2 - Physical Exam Vitals/I&O's: Vital Signs Temp Pulse Resp BP Pulse Ox 100.3 F H 89 40 H 103/57 L 95 01/10/20 13:00 01/10/20 14:39 01/10/20 14:39 01/10/20 13:00 01/10/20 14:39 Oxygen Flow Rate (L/min) 60 Oxygen Delivery Method Mechanical Ventilator Weight: 109.2 kg Body Mass Index (BMI) 34.1 Finger Stick Blood Glucose 227 Intake and Output for Last 24 Hours 01/08/20 01/09/20 01/10/20 23:59 23:59 23:59 Intake Total 3083.01 / 3639.28 3756.32 / 3787.22 2713.37 / 2713.37 Output Total 2300 / 2850 2455 / 2455 1050 / 1050 Balance 783.01 / 789.28 1301.32 / 1332.22 1663.37 / 1663.37 General: Non-Cooperative Lungs: Diminished Cardiovascular: Regular rate, Regular Rhythm Abdomen: Soft, Non Tender, Non-Distended Skin: No rashes Laboratory Results 01/09/20 14:36: POC Glucose 189 H 01/09/20 17:47: POC Glucose 299 H 01/09/20 21:17: POC Glucose 188 H 01/10/20 01:54: POC Glucose 305 H 01/10/20 03:40: PT 22.3 H, INR 2.0 01/10/20 03:40: WBC 16.2 H, RBC 4.04 L, Hgb 12.7 L, Hct 40.8, MCV 101.0 H, MCH 31.4, MCHC 31.1 L, RDW Std Deviation 51.8 H, RDW Coeff of Cortney 13.8, Plt Count 184, MPV 11.1, Immature Gran % (Auto) 1.100 H, Neut % (Auto) 94.2 H, Lymph % (Auto) 2.8 L, Harney % (Auto) 1.0, Eos % (Auto) 0.8, Baso % (Auto) 0.1, Absolute Neuts (auto) 15.3 H, Absolute Lymphs (auto) 0.46 L, Nucleated RBC % 0, Differential Comment SCANNED 01/10/20 03:40: Sodium 139, Potassium 5.7 H, Chloride 109 H, Carbon Dioxide 22.0, Anion Gap 8, BUN 119 H*, Creatinine 2.29 H, Estim Creat Clear Calc 27.89, Est GFR (MDRD) Af Amer 36 L, Est GFR (MDRD) Non-Af 30 L, BUN/Creatinine Ratio 52.0 H, Glucose 284 H, Calcium 8.1 L 01/10/20 05:20: POC Glucose 345 H 01/10/20 10:54: POC Glucose 312 H 01/10/20 12:54: POC Glucose 250 H 01/10/20 13:17: Urine Color Yellow, Urine Clarity Sl. Cloudy, Urine pH 6.0, Ur Specific [place] 1.020, Urine Protein 30 H, Urine Glucose (UA) Normal, Urine Ketones Negative, Urine Occult Blood 25 H, Urine Nitrite Negative, Urine Mark irubin Negative, Urine Urobilinogen Normal, Ur Leukocyte Esterase Negative 01/10/20 13:17: Ur Random Sodium 25, Urine Creatinine 102.00 Current Medications Acetaminophen (Acetaminophen 650 Mg/20 Ml Udc) 650 mg GT Q6H PRN PRN PRN Reason: Pain Score 1-10/Temp > 100.7 F Last Admin: 01/04/20 17:25 Dose: 650 mg Documented by: Albuterol Sulfate (Albuterol 2.5 Mg/3 Ml Vial.Neb.) 2.5 mg INHALATION Q2H PRN PRN PRN Reason: Shortness of Breath/Wheezing Last Admin: 01/01/20 01:14 Dose: 2.5 mg Documented by: Atorvastatin Calcium (Atorvastatin Calcium 20 Mg Tablet) 20 mg GT QHS [facility] Last Admin: 01/09/20 21:23 Dose: 20 mg Documented by: Carvedilol (Carvedilol 6.25 Mg Tablet) 6.25 mg PO DAILY [facility] Last Admin: 01/10/20 10:57 Dose: 6.25 mg Documented by: Chlorhexidine Gluconate (Chlorhexidine 15 Ml) 15 ml PO BID [facility] Last Admin: 01/10/20 10:57 Dose: 15 ml Documented by: Dextrose (Dextrose 50%-Water 25 Gm/50 Ml Disp.Syrin) 0 gm IV X1 PRN; Protocol PRN Reason: Hypoglycemia Glucagon (Glucagon 1 Mg/Ml Syringe) 1 mg IM .X1 PRN PRN Reason: Hypoglycemia Guaifenesin (Guaifenesin 10 Ml Udc (200mg/10ml)) 10 ml GT Q6H [facility] Last Admin: 01/10/20 10:56 Dose: 10 ml Documented by: Sodium Chloride () 500 mls @ 15 mls/hr IV PRN PRN PRN Reason: Blood Transfusion Last Infusion: 01/10/20 01:18 Dose: Infused Documented by: Sodium Chloride () 250 mls @ 15 mls/hr IV .[id number] PRN PRN Reason: Saline Flush Sodium Chloride () 250 mls @ 15 mls/hr IV .[id number] PRN PRN Reason: Additional IVPB Infusion Propofol (Diprivan) 1,000 mg in 100 mls @ 6.552 mls/hr CONT INF .Q12H [facility]; Protocol Last Titration: 01/09/20 14:00 Dose: 0 mcg/kg/min, 0 mls/hr Documented by: Fentanyl Citrate 1,000 mcg/ (Sodium Chloride) 100 mls @ 5 mls/hr CONT INF .Q20H [facility]; Protocol Last Titration: 01/10/20 11:35 Dose: 0 mcg/hr, 0 mls/hr Documented by: Enteral Nutritional Formula (Vital Af 1.2 Jaden Liquid) 1,000 mls @ 75 mls/hr GT .[id number] [facility] Last Admin: 01/10/20 00:03 Dose: 75 mls/hr Documented by: Pantoprazole Sodium 40 mg/ (Sodium Chloride) 110 mls @ 330 mls/hr IV Q24 [facility] Last Infusion: 01/10/20 11:22 Dose: Infused Documented by: Norepinephrine Bitartrate 8 mg (/ Sodium Chloride) 250 mls @ 9.375 mls/hr CONT INF .[id number] [facility]; Protocol Last Admin: 01/09/20 17:37 Dose: Not Given Documented by: Dexmedetomidine HCl 400 mcg/ (Sodium Chloride) 100 mls @ 13.65 mls/hr CONT INF .Q7H20M [facility]; Protocol Last Titration: 01/10/20 11:45 Dose: 0.5 mcg/kg/hr, 13.7 mls/hr Documented by: Amiodarone HCl 360 mg/ (Dextrose) 200 mls @ 16.667 mls/hr CONT INF .Q12H [facility] Stop: 01/11/20 06:28 Last Admin: 01/10/20 13:06 Dose: 0.5 mg/min, 16.7 mls/hr Documented by: Insulin Glargine (Insulin Glargine 100 Units/Ml Pen) 50 units SC BID [facility] Last Admin: 01/10/20 10:57 Dose: 50 u Documented by: Insulin Human Lispro (Insulin Lispro 100 Unit/Ml Insuln.Pen) 0 unit SC Q4 [facility]; Protocol Last Admin: 01/10/20 13:06 Dose: 6 u Documented by: Labetalol HCl (Labetalol (Prefilled) 20 Mg/4 Ml) 10 mg IV Q4H PRN PRN Reason: Sbp Greater Than 160 Last Admin: 01/09/20 16:12 Dose: 10 mg Documented by: Lorazepam (Lorazepam 2 Mg/Ml Syringe) 2 mg IV Q2H PRN PRN Reason: vent synchrony Last Admin: 01/08/20 15:15 Dose: 2 mg Documented by: Melatonin (Melatonin 3 Mg Tablet) 3 mg GT QHS PRN PRN PRN Reason: INSOMNIA Ondansetron HCl (Ondansetron 4 Mg/2 Ml Vial) 4 mg IV Q8H PRN PRN PRN Reason: NAUSEA/VOMITING Senna/Docusate Sodium (Senna/Docusate Sodium 1 Tablet) 2 tablet GT BID PRN PRN PRN Reason: Constipation Sodium Chloride (0.9% Saline Lock 10 Ml Syringe) 10 - 40 ml IV UD PRN PRN Reason: SALINE FLUSH Last Admin: 01/09/20 03:22 Dose: 40 ml Documented by: Medical Necessity - Tobacco Use Smoking Status: Former smoker Tobacco Use: Pipe Route of nutrition/ use of supplements: [] Nutritional Intake: [] IV Site: [] Blair Catheter: [] - Assessment/Plan Antibiotics: [] Assessment/Plan: [] Active and Suspected Problems COVID-19 virus infection (Acute) Acute kidney injury (Acute) covid with acute hypoxic resp failure and SANDRA - on dex, developed worsened hypoxia. Sx started evening 12/23. Started remdesivir and plasma 12/31. Now on vent, pressors stopped, completed short course of empiric zosyn. Wbc mildly elevated, no fever, cxs are all neg at this point. Now worsening SANDRA, neph following. Will follow
--- NOTE | 2020-01-10 17:23 | RAD_ITS ---
STUDY: X-RAY CHEST REASON FOR EXAM: Male, 79 years old. HYPOXIA, COVID TECHNIQUE: Single frontal view of the chest. COMPARISON: 01/09/2020 FINDINGS: Stable support devices. Stable bilateral alveolar disease. There is no demonstrated pleural abnormality. Normal size heart. Persistent pneumomediastinum. Evolving chest wall emphysema. Normal visualized pulmonary arteries. Normal visualized aortic arch and descending thoracic aorta. Normal visualized thoracic spine. Normal visualized ribs, clavicles, and shoulders. There is no demonstrated abnormality of the visualized soft tissue structures of the upper abdomen. RAD/Chest 1 View (Portable) IMPRESSION: Stable bilateral alveolar disease. Persistent pneumomediastinum. Evolving chest wall emphysema. Electronically Signed: Chele Pulido MD at 18:19 EDT Tel , Service support ,
[2020-01-10 17:26] LABS: Bedside Glucose 176 mg/dL (70-110)
[2020-01-10] MEDS: Atorvastatin Calcium 20 MG Tablet GT (20:38)
[2020-01-10 22:05] LABS: Bedside Glucose 129 mg/dL (70-110)
[2020-01-11] VITALS (20 sets, daily range): BP systolic 62–125; BP diastolic 35–96; PULSE 60–127; RESP 10–54; TEMP 38.3–38.7; O2SAT 70–93
[2020-01-11] MEDS: Amiodarone 360 MG in Dextrose 5% Viaflo Bag 192.8 ML 16.7 MG CONT INF (00:13)
[2020-01-11] MEDS: Acetaminophen 650 MG/20 ML UDC GT (00:18)
[2020-01-11 01:31] LABS: Bedside Glucose 84 mg/dL (70-110)
[2020-01-11] MEDS: guaiFENesin 10 ML UDC (200MG/10ML) GT (02:57)
[2020-01-11 03:14] LABS: Absolute Lymphocyte Count 0.39 X10^3/uL (0.83-4.51); Absolute Neutrophil Count 8.8 X10^3/uL (2.0-7.7); Basophil# 0.02 X10^3/uL; Basophil% 0.2 % (0-1); Eosinophil# 0.04 X10^3/uL; Eosinophils% 0.4 % (0-5); Hemoglobin 12.2 g/dL (13.0-16.5); Lymphocyte # 0.39 X10^3/ul (4.0); Lymphocyte % 4.1 % (19-41); Mean Corp Hgb Conc 31.3 g/dL (32-36); Mean Corpuscular Hgb 31.5 pg (27.0-32.0); Mean Corpuscular Volume 100.8 fL (80-94); Mean Platelet Vol. 11.3 fl (6.2-12.0); Monocyte% 2.1 % (0-10); NRBC Flagged by Analyzer 0.7 % (0-5); Neutrophil # 8.82 X10^3/uL (2.7-7.7); Neutrophil % 91.8 % (47-70); POSITIVE DIFFERENTIAL YES; POSITIVE MORPHOLOGY YES; Platelet Count 166 K/mm3 (150-450); RBC Distribution Width SD 51.6 fl (35.1-43.9); Red Blood Count 3.87 M/mm3 (4.6-6.2); White Blood Count 9.6 K/mm3 (4.4-11.0)
[2020-01-11 03:18] LABS: Differential Indicated SCAN CRITERIA MET
[2020-01-11 03:49] LABS: Differential Comment SCANNED; Platelet Estimate ADEQUATE (ADEQ)
[2020-01-11 04:04] LABS: Anion Gap 10 (5-15); BUN 147 mg/dL (7-18); BUN/Creat Ratio 49.8 RATIO (10-20); Calcium,Total 8.4 mg/dL (8.5-10.1); Chloride 112 mmol/L (98-107); Creatinine, Serum 2.95 mg/dL (0.70-1.30); EST Glomerular Filtration Rate 22 mL/min (>60); Est Glom Filt Rate - Afr Amer 27 mL/min (>60); Estimated Creatinine Clearance 21.65 ml/min; Glucose 83 mg/dL (74-106); Sodium Level 142 mmol/L (136-145)
[2020-01-11 04:06] LABS: Bedside Glucose 114 mg/dL (70-110)
[2020-01-11] MEDS: Dexmedetomidine 400 mcg in 0.9% NS 96 mL 13.7 MCG CONT INF (04:16)
[2020-01-11] MEDS: TITRATION PARAMETER CHANGE 1 EACH IV ×2 (04:51→07:06)
[2020-01-11 06:45] LABS: Bedside Glucose 85 mg/dL (70-110)
--- NOTE | 2020-01-11 07:42 | NURSING ---
Phoned pt's son Shaun, relayed that father is not doing well - bp low, kidneys failing, and mental status not improving. Requested that Shaun come in to see father and talk to MDs about goals of care. He states that he will be here in a few hours. Dr. Bansal notified.
--- NOTE | 2020-01-11 08:21 | PCM.PROGNOTE ---
Patient Problems: Active and Suspected Problems COVID-19 virus infection (Acute) Acute kidney injury (Acute) - Physical Exam Vitals/I&O's: Vital Signs Temp Pulse Resp BP Pulse Ox 101.6 F H 94 49 H 93/43 L 92 01/11/20 08:00 01/11/20 08:00 01/11/20 08:00 01/11/20 08:00 01/11/20 08:00 Oxygen Flow Rate (L/min) 100 Oxygen Delivery Method Mechanical Ventilator Weight: 108.4 kg Body Mass Index (BMI) 34.1 Finger Stick Blood Glucose 227 Intake and Output for Last 24 Hours 01/09/20 01/10/20 01/11/20 23:59 23:59 23:59 Intake Total 3756.32 / 3787.22 3261.75 / 3275.45 308.18 / 308.18 Output Total 2455 / 2455 1785 / 1785 500 / 500 Balance 1301.32 / 1332.22 1476.75 / 1490.45 -191.82 / -191.82 Laboratory Results 01/10/20 10:54: POC Glucose 312 H 01/10/20 12:54: POC Glucose 250 H 01/10/20 13:17: Urine Color Yellow, Urine Clarity Sl. Cloudy, Urine pH 6.0, Ur Specific [place] 1.020, Urine Protein 30 H, Urine Glucose (UA) Normal, Urine Ketones Negative, Urine Occult Blood 25 H, Urine Nitrite Negative, Urine Bilirubin Negative, Urine Urobilinogen Normal, Ur Leukocyte Esterase Negative 01/10/20 13:17: Ur Random Sodium 25, Urine Creatinine 102.00 01/10/20 16:59: POC Glucose 176 H 01/10/20 20:39: POC Glucose 129 H 01/10/20 23:44: POC Glucose 84 01/11/20 01:15: POC Glucose 114 H 01/11/20 02:50: WBC 9.6, RBC 3.87 L, Hgb 12.2 L, Hct 39.0 L, MCV 100.8 H, MCH 31.5, MCHC 31.3 L, RDW Std Deviation 51.6 H, RDW Coeff of Cortney 14.0, Plt Count 166, MPV 11.3, Immature Gran % (Auto) 1.400 H, Neut % (Auto) 91.8 H, Lymph % (Auto) 4.1 L, Eddy % (Auto) 2.1, Eos % (Auto) 0.4, Baso % (Auto) 0.2, Absolute Neuts (auto) 8.8 H, Absolute Lymphs (auto) 0.39 L, Nucleated RBC % 0.7, Differential Comment SCANNED, Platelet Estimate ADEQUATE 01/11/20 02:50: Sodium 142, Potassium 6.0 H*, Chloride 112 H, Carbon Dioxide 20.0 L, Anion Gap 10, BUN 147 H*, Creatinine 2.95 H, Estim Creat Clear Calc 21.65, Est GFR (MDRD) Af Amer 27 L, Est GFR (MDRD) Non-Af 22 L, BUN/Creatinine Ratio 49.8 H, Glucose 83, Calcium 8.4 L 01/11/20 05:30: POC Glucose 85 Current Medications Acetaminophen (Acetaminophen 650 Mg/20 Ml Udc) 650 mg GT Q6H PRN PRN PRN Reason: Pain Score 1-10/Temp > 100.7 F Last Admin: 01/11/20 00:18 Dose: 650 mg Documented by: Albuterol Sulfate (Albuterol 2.5 Mg/3 Ml Vial.Neb.) 2.5 mg INHALATION Q2H PRN PRN PRN Reason: Shortness of Breath/Wheezing Last Admin: 01/01/20 01:14 Dose: 2.5 mg Documented by: Atorvastatin Calcium (Atorvastatin Calcium 20 Mg Tablet) 20 mg GT QHS [facility] Last Admin: 01/10/20 20:38 Dose: 20 mg Documented by: Carvedilol (Carvedilol 6.25 Mg Tablet) 6.25 mg PO DAILY [facility] Last Admin: 01/10/20 10:57 Dose: 6.25 mg Documented by: Chlorhexidine Gluconate (Chlorhexidine 15 Ml) 15 ml PO BID [facility] Last Admin: 01/10/20 20:37 Dose: 15 ml Documented by: Dextrose (Dextrose 50%-Water 25 Gm/50 Ml Disp.Syrin) 0 gm IV X1 PRN; Protocol PRN Reason: Hypoglycemia Glucagon (Glucagon 1 Mg/Ml Syringe) 1 mg IM .X1 PRN PRN Reason: Hypoglycemia Guaifenesin (Guaifenesin 10 Ml Udc (200mg/10ml)) 10 ml GT Q6H [facility] Last Admin: 01/11/20 02:57 Dose: 10 ml Documented by: Sodium Chloride () 500 mls @ 15 mls/hr IV PRN PRN PRN Reason: Blood Transfusion Last Infusion: 01/10/20 01:18 Dose: Infused Documented by: Sodium Chloride () 250 mls @ 15 mls/hr IV .[id number] PRN PRN Reason: Saline Flush Sodium Chloride () 250 mls @ 15 mls/hr IV .[id number] PRN PRN Reason: Additional IVPB Infusion Fentanyl Citrate 1,000 mcg/ (Sodium Chloride) 100 mls @ 5 mls/hr CONT INF .Q20H [facility]; Protocol Last Titration: 01/10/20 16:17 Dose: Infused Documented by: Enteral Nutritional Formula (Vital Af 1.2 Jaden Liquid) 1,000 mls @ 75 mls/hr GT .[id number] [facility] Last Admin: 01/11/20 02:22 Dose: Not Given Documented by: Pantoprazole Sodium 40 mg/ (Sodium Chloride) 110 mls @ 330 mls/hr IV Q24 [facility] Last Infusion: 01/10/20 11:22 Dose: Infused Documented by: Norepinephrine Bitartrate 8 mg (/ Sodium Chloride) 250 mls @ 9.375 mls/hr CONT INF .[id number] [facility]; Protocol Last Admin: 01/11/20 08:00 Dose: 5 mcg/min, 9.4 mls/hr Documented by: Dexmedetomidine HCl 400 mcg/ (Sodium Chloride) 100 mls @ 13.55 mls/hr CONT INF .[id number] [facility]; Protocol Last Titration: 01/11/20 07:00 Dose: 0.5 mcg/kg/hr, 13.6 mls/hr Documented by: Amiodarone HCl 360 mg/ (Dextrose) 200 mls @ 16.667 mls/hr CONT INF .Q12H [facility] Last Infusion: 01/11/20 03:44 Dose: 0.5 mg/min, 16.7 mls/hr Documented by: Insulin Glargine (Insulin Glargine 100 Units/Ml Pen) 50 units SC BID [facility] Last Admin: 01/10/20 20:40 Dose: Not Given Documented by: Insulin Human Lispro (Insulin Lispro 100 Unit/Ml Insuln.Pen) 0 unit SC Q4 [facility]; Protocol Last Admin: 01/11/20 05:51 Dose: Not Given Documented by: Labetalol HCl (Labetalol (Prefilled) 20 Mg/4 Ml) 10 mg IV Q4H PRN PRN Reason: Sbp Greater Than 160 Last Admin: 01/09/20 16:12 Dose: 10 mg Documented by: Lorazepam (Lorazepam 2 Mg/Ml Syringe) 2 mg IV Q2H PRN PRN Reason: vent synchrony Last Admin: 01/08/20 15:15 Dose: 2 mg Documented by: Melatonin (Melatonin 3 Mg Tablet) 3 mg GT QHS PRN PRN PRN Reason: INSOMNIA Ondansetron HCl (Ondansetron 4 Mg/2 Ml Vial) 4 mg IV Q8H PRN PRN PRN Reason: NAUSEA/VOMITING Senna/Docusate Sodium (Senna/Docusate Sodium 1 Tablet) 2 tablet GT BID PRN PRN PRN Reason: Constipation Sodium Chloride (0.9% Saline Lock 10 Ml Syringe) 10 - 40 ml IV UD PRN PRN Reason: SALINE FLUSH Last Admin: 01/09/20 03:22 Dose: 40 ml Documented by: Medical Necessity - Tobacco Use Smoking Status: Former smoker Tobacco Use: Pipe Assessment/Plan All Active Problems COVID-19 virus infection (Acute) Acute kidney injury (Acute) d/w ICU team this am.Per ICU team they are awaiting son to come from [place] this am and withdraw care after that and hemodialysis is not an option considering his overall clinical status as per ICU team.I left my cell phone number with the nurse in case there is a change in plans.
--- NOTE | 2020-01-11 08:29 | PN_ITS ---
Subjective: Patient did okay overnight. Patient did have a event with severe desaturation associated being placed on his left side. Patient is also had some marginal blood pressures and had to be initiated on pressors this morning. Patient did convert to sinus rhythm overnight, but continues on amiodarone. General: - - Significantly worse anasarca compared to previous. Intubated and unresponsive. Minimal Precedex therapy. HEENT: Atraumatic, PERRLA, EOMI, Normocephalic, - - No scleral icterus or inje ction noted Oral: Moist Mucosa, No Gingival or Mucosal Lesions/ Ulcerations Neck: Supple, No Nodes, Trachea Midline, JVD, Right, - - Crepitus slightly improved, but still palpable in left neck Lungs: No rhonchi, No wheeze, No rales, Diminished Cardiovascular: Normal S1, Normal S2, No murmurs, No rub noted, No Gallop, Tachycardic Abdomen: Bowel Sounds Present, Soft, Non Tender, Non-Distended Extremities: No clubbing, No cyanosis, Edema Skin: - - No weeping appreciated Musculoskeletal: No Tenderness to Palpation of Joints or Extremities Lymphatic: No Cervical, Supraclavicular, or Inguinal Adenopathy Neurological: - - Minimally responsive. Does have a cough and gag reflex noted. Psych/Mental Status: Flat Affect, - - Apneustic breathing pattern noted. Vital Signs Temp Pulse Resp BP Pulse Ox 38.7 C H 105 H 32 H 93/43 L 90 01/11/20 08:00 01/11/20 08:17 01/11/20 08:17 01/11/20 08:00 01/11/20 08:17 Oxygen Flow Rate (L/min) 100 Oxygen Delivery Method Mechanical Ventilator Weight: 108.4 kg Body Mass Index (BMI) 34.1 Finger Stick Blood Glucose 227 Intake and Output for Last 24 Hours 01/09/20 01/10/20 01/11/20 23:59 23:59 23:59 Intake Total 3756.32 / 3787.22 3261.75 / 3275.45 308.18 / 308.18 Output Total 2455 / 2455 1785 / 1785 500 / 500 Balance 1301.32 / 1332.22 1476.75 / 1490.45 -191.82 / -191.82 Labs (Last 48 Hours) 01/09/20 01/09/20 01/09/20 11:39 14:36 17:47 WBC RBC Hgb Hct MCV MCH MCHC RDW Std Deviation RDW Coeff of Cortney Plt Count MPV Immature Gran % (Auto) Neut % (Auto) Lymph % (Auto) Story % (Auto) Eos % (Auto) Baso % (Auto) Absolute Neuts (auto) Absolute Lymphs (auto) Nucleated RBC % Differential Comment Platelet Estimate PT INR Sodium Potassium Chloride Carbon Dioxide Anion Gap BUN Creatinine Estim Creat Clear Calc Est GFR (MDRD) Af Amer Est GFR (MDRD) Non-Af BUN/Creatinine Ratio Glucose Calcium Urine Color Urine Clarity Urine pH Ur Specific [place] Urine Protein Urine Glucose (UA) Urine Ketones Urine Occult Blood Urine Nitrite Urine Bilirubin Urine Urobilinogen Ur Leukocyte Esterase Ur Random Sodium Urine Creatinine POC Glucose 121 H 189 H 299 H 01/09/20 01/10/20 01/10/20 21:17 01:54 03:40 WBC RBC Hgb Hct MCV MCH MCHC RDW Std Deviation RDW Coeff of [place]ney Plt Count MPV Immature Gran % (Auto) Neut % (Auto) Lymph % (Auto) Story % (Auto) Eos % (Auto) Baso % (Auto) Absolute Neuts (auto) Absolute Lymphs (auto) Nucleated RBC % Differential Comment Platelet Estimate PT 22.3 H INR 2.0 Sodium Potassium Chloride Carbon Dioxide Anion Gap BUN Creatinine Estim Creat Clear Calc Est GFR (MDRD) Af Amer Est GFR (MDRD) Non-Af BUN/Creatinine Ratio Glucose Calcium Urine Color Urine Clarity Urine pH Ur Specific [place] Urine Protein Urine Glucose (UA) Urine Ketones Urine Occult Blood Urine Nitrite Urine Bilirubin Urine Urobilinogen Ur Leukocyte Esterase Ur Random Sodium Urine Creatinine POC Glucose 188 H 305 H 01/10/20 01/10/20 01/10/20 03:40 03:40 05:20 WBC 16.2 H RBC 4.04 L Hgb 12.7 L Hct 40.8 MCV 101.0 H MCH 31.4 MCHC 31.1 L RDW Std Deviation 51.8 H RDW Coeff of Cortney 13.8 Plt Count 184 MPV 11.1 Immature Gran % (Auto) 1.100 H Neut % (Auto) 94.2 H Lymph % (Auto) 2.8 L Story % (Auto) 1.0 Eos % (Auto) 0.8 Baso % (Auto) 0.1 Absolute Neuts (auto) 15.3 H Absolute Lymphs (auto) 0.46 L Nucleated RBC % 0 Differential Comment SCANNED Platelet Estimate PT INR Sodium 139 Potassium 5.7 H Chloride 109 H Carbon Dioxide 22.0 Anion Gap 8 BUN 119 H* Creatinine 2.29 H Estim Creat Clear Calc 27.89 Est GFR (MDRD) Af Amer 36 L Est GFR (MDRD) Non-Af 30 L BUN/Creatinine Ratio 52.0 H Glucose 284 H Calcium 8.1 L Urine Color Urine Clarity Urine pH Ur Specific [place] Urine Protein Urine Glucose (UA) Urine Ketones Urine Occult Blood Urine Nitrite Urine Bilirubin Urine Urobilinogen Ur Leukocyte Esterase Ur Random Sodium Urine Creatinine POC Glucose 345 H 01/10/20 01/10/20 01/10/20 10:54 12:54 13:17 WBC RBC Hgb Hct MCV MCH MCHC RDW Std Deviation RDW Coeff of [place]ney Plt Count MPV Immature Gran % (Auto) Neut % (Auto) Lymph % (Auto) Story % (Auto) Eos % (Auto) Baso % (Auto) Absolute Neuts (auto) Absolute Lymphs (auto) Nucleated RBC % Differential Comment Platelet Estimate PT INR Sodium Potassium Chloride Carbon Dioxide Anion Gap BUN Creatinine Estim Creat Clear Calc Est GFR (MDRD) Af Amer Est GFR (MDRD) Non-Af BUN/Creatinine Ratio Glucose Calcium Urine Color Yellow Urine Clarity Sl. Cloudy Urine pH 6.0 Ur Specific [place] 1.020 Urine Protein 30 H Urine Glucose (UA) Normal Urine Ketones Negative Urine Occult Blood 25 H Urine Nitrite Negative Urine Bilirubin Negative Urine Urobilinogen Normal Ur Leukocyte Esterase Negative Ur Random Sodium Urine Creatinine POC Glucose 312 H 250 H 01/10/20 01/10/20 01/10/20 13:17 16:59 20:39 WBC RBC Hgb Hct MCV MCH MCHC RDW Std Deviation RDW Coeff of [place] Plt Count MPV Immature Gran % (Auto) Neut % (Auto) Lymph % (Auto) Story % (Auto) Eos % (Auto) Baso % (Auto) Absolute Neuts (auto) Absolute Lymphs (auto) Nucleated RBC % Differential Comment Platelet Estimate PT INR Sodium Potassium Chloride Carbon Dioxide Anion Gap BUN Creatinine Estim Creat Clear Calc Est GFR (MDRD) Af Amer Est GFR (MDRD) Non-Af BUN/Creatinine Ratio Glucose Calcium Urine Color Urine Clarity Urine pH Ur Specific [place] Urine Protein Urine Glucose (UA) Urine Ketones Urine Occult Blood Urine Nitrite Urine Bilirubin Urine Urobilinogen Ur Leukocyte Esterase Ur Random Sodium 25 Urine Creatinine 102.00 POC Glucose 176 H 129 H 01/10/20 01/11/20 01/11/20 23:44 01:15 02:50 WBC 9.6 RBC 3.87 L Hgb 12.2 L Hct 39.0 L MCV 100.8 H MCH 31.5 MCHC 31.3 L RDW Std Deviation 51.6 H RDW Coeff of Cortney 14.0 Plt Count 166 MPV 11.3 Immature Gran % (Auto) 1.400 H Neut % (Auto) 91.8 H Lymph % (Auto) 4.1 L Story % (Auto) 2.1 Eos % (Auto) 0.4 Baso % (Auto) 0.2 Absolute Neuts (auto) 8.8 H Absolute Lymphs (auto) 0.39 L Nucleated RBC % 0.7 Differential Comment SCANNED Platelet Estimate ADEQUATE PT INR Sodium Potassium Chloride Carbon Dioxide Anion Gap BUN Creatinine Estim Creat Clear Calc Est GFR (MDRD) Af Amer Est GFR (MDRD) Non-Af BUN/Creatinine Ratio Glucose Calcium Urine Color Urine Clarity Urine pH Ur Specific [place] Urine Protein Urine Glucose (UA) Urine Ketones Urine Occult Blood Urine Nitrite Urine Bilirubin Urine Urobilinogen Ur Leukocyte Esterase Ur Random Sodium Urine Creatinine POC Glucose 84 114 H 01/11/20 01/11/20 02:50 05:30 WBC RBC Hgb Hct MCV MCH MCHC RDW Std Deviation RDW Coeff of Cortney Plt Count MPV Immature Gran % (Auto) Neut % (Auto) Lymph % (Auto) Story % (Auto) Eos % (Auto) Baso % (Auto) Absolute Neuts (auto) Absolute Lymphs (auto) Nucleated RBC % Differential Comment Platelet Estimate PT INR Sodium 142 Potassium 6.0 H* Chloride 112 H Carbon Dioxide 20.0 L Anion Gap 10 BUN 147 H* Creatinine 2.95 H Estim Creat Clear Calc 21.65 Est GFR (MDRD) Af Amer 27 L Est GFR (MDRD) Non-Af 22 L BUN/Creatinine Ratio 49.8 H Glucose 83 Calcium 8.4 L Urine Color Urine Clarity Urine pH Ur Specific [place] Urine Protein Urine Glucose (UA) Urine Ketones Urine Occult Blood Urine Nitrite Urine Bilirubin Urine Urobilinogen Ur Leukocyte Esterase Ur Random Sodium Urine Creatinine POC Glucose 85 Medical Necessity - Tobacco Use Smoking Status: Former smoker Tobacco Use: Pipe Assessment/Plan All Active Problems COVID-19 virus infection (Acute) Acute kidney injury (Acute) RECOMMENDATIONS: 1. Wean FiO2 and PEEP to maintain oxygen saturations at or above 90%. 2. Continue empiric antimicrobials, Decadron. 3. Monitor closely for the development of a tension pneumothorax 4. Family meeting later today. Son contacted and is coming in 5. Continue insulin coverage. 6. Too unstable to complete hemodialysis in my opinion. Recommend comfort measures IMPRESSIONS: 1. Acute hypoxemic respiratory failure secondary to Covid pneumonia Although attempts were made to utilize noninvasive positive pressure ventilatory support, the patient continued to decompensate from a respiratory perspective and did require intubation on the morning of January 03. Plan to continue current supportive measures. Patient is receiving maximal therapy for Covid pneumonia. Some concern for failure for improvement despite extended mechanical ventilation. Patient has developed significant renal failure and would not tolerate hemodialysis. Patient has extensive volume depletion and hypotension with uremia. Grave prognosis. Family meeting has been scheduled. 2. Distributive shock Resolved. The patient became hemodynamically unstable after sedation was initiated in the setting of invasive mechanical ventilatory support. Patient is continuing on antibiotic therapy. 3. Acute kidney injury Patient appears to be progressing. Patient's creatinine is up along with decreased urine output. Nephrology is following. Patient would be a very d ifficult candidate to initiate hemodialysis on with all of his hemodynamic instability. Await family meeting. 4. Coagulopathy The patient presented to the hospital systemically anticoagulated on Coumadin. He has subsequently developed a coagulopathy with a supratherapeutic INR, likely secondary to his acute illness and medication interactions. His Coumadin has been discontinued. Patient is on concomitant antibiotics, which will prolonged INR. Continue to hold Coumadin given high chance for need for intervention. No bleeding complications have been reported. No need for other systemic anticoagulation 5. Hypertension/hyperlipidemia/GERD/history of DVT/diabetes mellitus Complicates care, management, recovery and prognosis. Continue to hold Coumadin given supratherapeutic INR. Increase Lantus and sliding scale insulin coverage. 6. Pneumomediastinum/new onset A. fib Unclear if patient has developed A. fib secondary to irritation from pneumomediastinum. Patient likely has an element of atrial dilation secondary to hemodynamics predisposing to condition. Patient has gone to normal sinus rhythm with amiodarone. Large concerned that patient will dissect and developed a tension pneumothorax. We will have to discuss with family, but long-term prognosis is very poor. TIME: 35 minutes of critical care time, inclusive of procedures, was spent addressing the patient's acute hypoxemic respiratory failure secondary to Covid pneumonia, acute kidney injury, pneumomediastinum, hypertensive urgency, coagulopathy, review of all data and collaboration with the care team. (6:15 AM to 7:15 AM) [id number] Critical care first hour
[2020-01-11] MEDS: Acetaminophen 650 MG/20 ML UDC 1000 MG GT (09:40)
--- NOTE | 2020-01-11 10:00 | PCM.PN.HOSP ---
Patient Problems: Active and Suspected Problems COVID-19 virus infection (Acute) Acute kidney injury (Acute) Subjective: He is to have marginal blood pressures periodically as well as desaturation events Vitals/I&O's: Vital Signs Temp Pulse Resp BP Pulse Ox 101.6 F H 127 H 54 H 93/52 L 89 01/11/20 08:00 01/11/20 09:00 01/11/20 09:00 01/11/20 09:00 01/11/20 09:00 Oxygen Flow Rate (L/min) 100 Oxygen Delivery Method Mechanical Ventilator Weight: 238 lb 15.697 oz Body Mass Index (BMI) 34.1 Finger Stick Blood Glucose 227 Intake and Output for Last 24 Hours 01/09/20 01/10/20 01/11/20 23:59 23:59 23:59 Intake Total 3756.32 / 3787.22 3261.75 / 3275.45 402.43 / 402.43 Output Total 2455 / 2455 1785 / 1785 500 / 500 Balance 1301.32 / 1332.22 1476.75 / 1490.45 -97.57 / -97.57 General: - - Intubated and sedated HEENT: Atraumatic, PERRLA, Normocephalic Oral: Dry Mucosa Neck: Supple, No JVD Lungs: Normal air movement, No rhonchi, No wheeze, No rales, Diminished, fast shallow breathing Cardiovascular: Tachycardic with irregular rhythm, Normal S1, Normal S2, No murmurs Abdomen: Soft, Non Tender, Non-Distended, No Hepato-splenomegaly Extremities: No edema, Capillary Refill Less than 3 Seconds Skin: No rashes, No breakdown Neurological: - - Intubated and sedated Psych/Mental Status: - - Intubated and sedated Laboratory Results 01/10/20 10:54: POC Glucose 312 H 01/10/20 12:54: POC Glucose 250 H 01/10/20 13:17: Urine Color Yellow, Urine Clarity Sl. Cloudy, Urine pH 6.0, Ur Specific [place] 1.020, Urine Protein 30 H, Urine Glucose (UA) Normal, Urine Ketones Negative, Urine Occult Blood 25 H, Urine Nitrite Negative, Urine Bilirubin Negative, Urine Urobilinogen Normal, Ur Leukocyte Esterase Negative 01/10/20 13:17: Ur Random Sodium 25, Urine Creatinine 102.00 01/10/20 16:59: POC Glucose 176 H 01/10/20 20:39: POC Glucose 129 H 01/10/20 23:44: POC Glucose 84 01/11/20 01:15: POC Glucose 114 H 01/11/20 02:50: WBC 9.6, RBC 3.87 L, Hgb 12.2 L, Hct 39.0 L, MCV 100.8 H, MCH 31.5, MCHC 31.3 L, RDW Std Deviation 51.6 H, RDW Coeff of [place] 14.0, Plt Count 166, MPV 11.3, Immature Gran % (Auto) 1.400 H, Neut % (Auto) 91.8 H, Lymph % (Auto) 4.1 L, [place] % (Auto) 2.1, Eos % (Auto) 0.4, Baso % (Auto) 0.2, Absolute Neuts (auto) 8.8 H, Absolute Lymphs (auto) 0.39 L, Nucleated RBC % 0.7, Differential Comment SCANNED, Platelet Estimate ADEQUATE 01/11/20 02:50: Sodium 142, Potassium 6.0 H*, Chloride 112 H, Carbon Dioxide 20.0 L, Anion Gap 10, BUN 147 H*, Creatinine 2.95 H, Estim Creat Clear Calc 21.65, Est GFR (MDRD) Af Amer 27 L, Est GFR (MDRD) Non-Af 22 L, BUN/Creatinine Ratio 49.8 H, Glucose 83, Calcium 8.4 L 01/11/20 05:30: POC Glucose 85 01/11/20 09:18: PT Pending, INR Pending Current Medications Acetaminophen (Acetaminophen 650 Mg/20 Ml Udc) 650 mg GT Q6H PRN PRN PRN Reason: Pain Score 1-10/Temp > 100.7 F Last Admin: 01/11/20 00:18 Dose: 650 mg Documented by: Albuterol Sulfate (Albuterol 2.5 Mg/3 Ml Vial.Neb.) 2.5 mg INHALATION Q2H PRN PRN PRN Reason: Shortness of Breath/Wheezing Last Admin: 01/01/20 01:14 Dose: 2.5 mg Documented by: Atorvastatin Calcium (Atorvastatin Calcium 20 Mg Tablet) 20 mg GT QHS HUSSAIN Last Admin: 01/10/20 20:38 Dose: 20 mg Documented by: Carvedilol (Carvedilol 6.25 Mg Tablet) 6.25 mg PO DAILY [facility] Last Admin: 01/10/20 10:57 Dose: 6.25 mg Documented by: Chlorhexidine Gluconate (Chlorhexidine 15 Ml) 15 ml PO BID HUSSAIN Last Admin: 01/10/20 20:37 Dose: 15 ml Documented by: Dextrose (Dextrose 50%-Water 25 Gm/50 Ml Disp.Syrin) 0 gm IV X1 PRN; Protocol PRN Reason: Hypoglycemia Glucagon (Glucagon 1 Mg/Ml Syringe) 1 mg IM .X1 PRN PRN Reason: Hypoglycemia Guaifenesin (Guaifenesin 10 Ml Udc (200mg/10ml)) 10 ml GT Q6H [facility] Last Admin: 01/11/20 02:57 Dose: 10 ml Documented by: Sodium Chloride () 500 mls @ 15 mls/hr IV PRN PRN PRN Reason: Blood Transfusion Last Infusion: 01/10/20 01:18 Dose: Infused Documented by: Sodium Chloride () 250 mls @ 15 mls/hr IV .[id number] PRN PRN Reason: Saline Flush Sodium Chloride () 250 mls @ 15 mls/hr IV .[id number] PRN PRN Reason: Additional IVPB Infusion Fentanyl Citrate 1,000 mcg/ (Sodium Chloride) 100 mls @ 5 mls/hr CONT INF .Q20H [facility]; Protocol Last Titration: 01/10/20 16:17 Dose: Infused Documented by: Enteral Nutritional Formula (Vital Af 1.2 Jaden Liquid) 1,000 mls @ 75 mls/hr GT .[id number] [facility] Last Admin: 01/11/20 02:22 Dose: Not Given Documented by: Pantoprazole Sodium 40 mg/ (Sodium Chloride) 110 mls @ 330 mls/hr IV Q24 [facility] Last Infusion: 01/10/20 11:22 Dose: Infused Documented by: Norepinephrine Bitartrate 8 mg (/ Sodium Chloride) 250 mls @ 9.375 mls/hr CONT INF .[id number] [facility]; Protocol Last Titration: 01/11/20 09:00 Dose: 5 mcg/min, 9.4 mls/hr Documented by: Dexmedetomidine HCl 400 mcg/ (Sodium Chloride) 100 mls @ 13.55 mls/hr CONT INF .[id number] [facility]USSAIN; Protocol Last Titration: 01/11/20 08:00 Dose: 0 mcg/kg/hr, 0 mls/hr Documented by: Amiodarone HCl 360 mg/ (Dextrose) 200 mls @ 16.667 mls/hr CONT INF .Q12H [facility]USSAIN Last Infusion: 01/11/20 08:00 Dose: 0.5 mg/min, 16.7 mls/hr Documented by: Insulin Glargine (Insulin Glargine 100 Units/Ml Pen) 50 units SC BID HUSSAIN Last Admin: 01/10/20 20:40 Dose: Not Given Documented by: Insulin Human Lispro (Insulin Lispro 100 Unit/Ml Insuln.Pen) 0 unit SC Q4 [facility]; Protocol Last Admin: 01/11/20 05:51 Dose: Not Given Documented by: Labetalol HCl (Labetalol (Prefilled) 20 Mg/4 Ml) 10 mg IV Q4H PRN PRN Reason: Sbp Greater Than 160 Last Admin: 01/09/20 16:12 Dose: 10 mg Documented by: Lorazepam (Lorazepam 2 Mg/Ml Syringe) 2 mg IV Q2H PRN PRN Reason: vent synchrony Last Admin: 01/08/20 15:15 Dose: 2 mg Documented by: Melatonin (Melatonin 3 Mg Tablet) 3 mg GT QHS PRN PRN PRN Reason: INSOMNIA Ondansetron HCl (Ondansetron 4 Mg/2 Ml Vial) 4 mg IV Q8H PRN PRN PRN Reason: NAUSEA/VOMITING Senna/Docusate Sodium (Senna/Docusate Sodium 1 Tablet) 2 tablet GT BID PRN PRN PRN Reason: Constipation Sodium Chloride (0.9% Saline Lock 10 Ml Syringe) 10 - 40 ml IV UD PRN PRN Reason: SALINE FLUSH Last Admin: 01/09/20 03:22 Dose: 40 ml Documented by: STROKE Vital Signs/Narrative: Vital Signs Temp Pulse Resp BP BP Pulse Ox 01/11/20 09:00 127 H 54 H 93/52 L 89 01/11/20 08:45 117/96 H 01/11/20 08:30 101/56 L 01/11/20 08:23 106 H 01/11/20 08:17 105 H 32 H 90 01/11/20 08:00 101.6 F H 94 49 H 93/43 L 92 01/11/20 07:00 101.3 F H 91 40 H 79/47 L 89 Medical Necessity - Tobacco Use Smoking Status: Former smoker Tobacco Use: Pipe Assessment/Plan All Active Problems COVID-19 virus infection (Acute) Acute kidney injury (Acute) 1. Acute hypoxic respiratory failure secondary to Covid pneumonia with septic shock/SANDRA/history of DVT/pneumomediastinum -Sepsis has resolved, however initially lactic acid was greater than 4 -Appreciate infectious disease assistance, initially azithromycin and Rocephin were discontinued however secondary to his continued difficulty with breathing and the need for intubation, he was started on Zosyn empirically which has been completed -Completed convalescent plasma and remdesivir and Decadron -He was intubated 01/04/2020 by the financial sales representative secondary to continued respiratory failure -Baseline creatinine is around 1.5, on presentation he was 2.06. This improved with IV fluids to 1.35 however his creatinine is now back up to 2.25. He is 5.4 L positive -Renal ultrasound pending -INR is supratherapeutic to an INR of 10, he received 5 of vitamin K and also received 2 units of FFP, he is now therapeutic -He is continuing to require high PEEP and the pneumomediastinum does have a risk of becoming a pneumothorax. Plan will be for family discussion this morning for plan of care 2. HTN/HLD/new onset A. fib -We will continue to hold his hydrochlorothiazide and Lopressor lisinopril secondary to his initial ASNDRA -Continue with Lipitor via G-tube -IV hydralazine as necessary for blood pressure control, and will add Coreg given his elevation in blood pressure as well as his new onset A. fib, but it seems that he had to be going between Levophed and Coreg as he becomes hypotensive and hypertensive -Continue with amiodarone 3. GERD -Stable -Continue with PPI 4. DM 2 with diabetic nephropathy -We will hold his oral hypoglycemics, continue with his sliding scale insulin every 6 as well as Lantus -Accu-Cheks AC at bedtime DVT: Therapeutic INR Inpatient E&M: [id number] Subs Hosp L2
[2020-01-11] MEDS: Chlorhexidine 15 ML PO (10:02)
[2020-01-11] MEDS: Morphine 4 MG/ML Syringe IV (10:15)
[2020-01-11] MEDS: LORazepam 2 MG/ML Syringe IV (10:15)
--- NOTE | 2020-01-11 10:29 | PCM.DEATH ---
Preliminary Cause of Acute hypoxic respiratory failure secondary to Covid pneumonia Date of Admission: 12/30/19 Date of : 01/11/20 - Principle Diagnosis Acute hypoxic respiratory failure secondary to Covid pneumonia Distributive shock Acute kidney injury New onset A. fib Pneumomediastinum Problem List: Active and Suspected Problems COVID-19 virus infection (Acute) Acute kidney injury (Acute) Hospital Course Mr. Pickett is a 79-year-old male who presented on 12/30/2019 with shortness of breath. He had been diagnosed on 12/25/2019 with COVID-19. He was self isolating at home however his symptoms progressed and he presented to the hospital. He had a slow decline which culminated in being intubated on 01/04/2020. He has had difficulty with agitation and had to be significantly sedated. His course has been complicated with periods of hypotension needing pressor support followed by periods of hypertension needing blood pressure management. He is also been having increasing needs for PEEP, which has culminated in a pneumomediastinum as evidenced on chest x-ray on 01/09/2020. He also initially had a little bit of a coagulopathy and had to be given FFP and vitamin K which had since resolved. He also had intermittent fevers and he was started on antibiotics for a short period of time. However, any attempt to wean him back on oxygen or to wean him down on PEEP or to wean his sedation affected him adversely and because we are unable to make any significant progress in his care his family was called in on 01/11/2020 to have advanced care planning discussion. It was at that time decided by his son to withdraw care and Mr. Pickett on 01/11/2020 at 10:23 AM. Inpatient E&M: [id number] [facility]
[2020-01-11 10:38] LABS: International Normalized Ratio 1.6; Prothrombin Time (Protime)PT. 18.1 SECONDS (11.7-14.9)
--- NOTE | 2020-01-11 11:00 | NURSING ---
Blair and FMS removed during post mortem care
== END 2020-01-11 10:23 | DRG 870 ==
LOC: ED 10:58 → MS2 12:17 → ICU 01-01 18:08
PROVIDERS: Family Medicine; Internal Medicine; Internal Medicine Critical Care Medicine; Internal Medicine Infectious Disease; Admitting Provider Internal Medicine; Emergency Provider Emergency Medicine; PCP Internal Medicine; Visit Provider Family Medicine
DX: A41.89 Other specified sepsis (principal); R65.21 Severe sepsis with septic shock; U07.1 COVID-19; J96.01 Acute respiratory failure with hypoxia; J12.89 Other viral pneumonia; N17.9 Acute kidney failure, unspecified; D68.9 Coagulation defect, unspecified; R57.8 Other shock; E11.51 Type 2 diabetes mellitus with diabetic peripheral angiopathy without gangrene; E78.00 Pure hypercholesterolemia, unspecified; I10 Essential (primary) hypertension; E66.9 Obesity, unspecified; Z86.718 Personal history of other venous thrombosis and embolism; Z87.891 Personal history of nicotine dependence; Z68.34 Body mass index [BMI] 34.0-34.9, adult; Z79.84 Long term (current) use of oral hypoglycemic drugs; Z79.01 Long term (current) use of anticoagulants; Z79.899 Other long term (current) drug therapy; E78.5 Hyperlipidemia, unspecified; K21.9 Gastro-esophageal reflux disease without esophagitis; I48.91 Unspecified atrial fibrillation; E11.21 Type 2 diabetes mellitus with diabetic nephropathy; Z23 Encounter for immunization
CPT/HCPCS: 31500; 31720; 36415; 36569; 36600; 71045; 76770; 80048; 80053; 81002; 82550; 82570; 82803; 82947; 82962; 83605; 83615; 83735; 83880; 84100; 84145; 84300; 84478; 85025; 85027; 85379; 85384; 85610; 86900; 86901; 87040; 87070; 87086; 87205; 87449; 93005; 94002; 94003; 94640; 94660; 97803; 99251; 99285; G0008; J7030; J7040; J7050; P9017; 90686; A4216; G0463; J0330; J0696; J1940; J3010